=== PATIENT | female | born 1960 | race Caucasian/White ===

== ENCOUNTER → 2023-12-13 13:56 | Outpatient (REF) | payer OTHER, SELFPAY | LOC: WDC 13:56 | PROVIDERS: ATTENDING PHYSICIAN Nurse Practitioner Family | DX: N63.20 Unspecified lump in the left breast, unspecified quadrant (principal); N63.21 Unspecified lump in the left breast, upper outer quadrant | CPT/HCPCS: 76642 ==

== ENCOUNTER → 2024-11-09 15:21 | Outpatient (REF) | payer OTHER, SELFPAY | LOC: RAD 15:21 | PROVIDERS: ATTENDING PHYSICIAN Nurse Practitioner Family | DX: R10.12 Left upper quadrant pain (principal) | CPT/HCPCS: 74177; Q9967 ==

== ENCOUNTER 2024-11-12 22:53 | Inpatient (IN) | payer OTHER, SELFPAY ==
[2024-11-12 17:49] VITALS: BP 103/57; BMI 27.8
[2024-11-12 18:00] VITALS: BP 108/39
--- NOTE | 2024-11-12 18:01 | ED.GENMED ---
History of Present Illness
<Jose Balderas PA-C - Last Filed: 11/15/24 08:10>
General
Chief Complaint: Bowel Problem
Source: patient
Exam Limitations: none
Time Seen by Provider: 11/12/24 17:41
History of Present Illness
History of Present Illness:
63-year-old female presents complaining of persistent left-sided abdominal pain. She had an outpatient CT scan performed of her abdomen 3 days ago and got notified today she had abnormal findings and was advised to come in. CT at that point showed
diverticulitis with 2 abscesses. Per EMS she was hypotensive and tachycardic on their arrival. She was given fluids. She notes overall fatigue but denies fevers or vomiting. The pain is on the left side of her abdomen and has been consistent.
She has had diverticular abscess in the past. She is not diabetic. No other complaints at this time
Past History
<Jose Balderas PA-C - Last Filed: 11/15/24 08:10>
Past History
ED Past Medical History: Asthma, GERD, HTN, Hypothyroidism, Other (Anemia), Other (Uterine fibroids, arthritis) and Other (Eczema)
ED Past Surgical History: Cholecystectomy, Gynecological (Fibroid removal), Tonsilectomy and Other (Lump abscess and breast, wisdom teeth removal)
Social History
Tobacco: Non-smoker
Alcohol: None
Drug: None
Personal:
Living: alone
Phy Exam
<Jose Balderas PA-C - Last Filed: 11/15/24 08:10>
Physical Exam
Physical Exam:
General: Well-appearing female no acute respiratory distress
HEENT: Normocephalic atraumatic neck is supple
Heart: Tachycardic but regular
Lungs: Clear no obvious wheeze
Abdomen is soft but tender to the left side of the abdomen no guarding
Extremities: No cyanosis
Sepsis
<Jose Balderas PA-C - Last Filed: 11/15/24 08:10>
Sepsis Screening
Sepsis Assessment: Sepsis
Sepsis Screen
Sepsis Screen: Sepsis
Date: 11/15/24
Time: 08:10
Course
<Jose Balderas PA-C - Last Filed: 11/15/24 08:10>
Orders/Labs/Results
Orders:
Orders
11/12/24 17:50
CT Abd/pel W Iv And Oral Contr Urgent
Comment:
Reason For Exam: left sided abdominal pain recent CT shows abscess
0.9% Sodium Chloride 1000 ml [Nss] 1,000 ml IV BOLUS
Iohexol [Omnipaque] See Protocol PO NOW STA
11/12/24 18:22
Complete Blood Count/With Diff Urgent
Comprehensive Metabolic Panel Urgent
Lactic Acid Q4H
Comment: CANCEL 2nd LACTIC ACID IF 1st LACTIC ACID IS LESS THAN 2
Blood Culture Q30M
ANGELINE Source: Blood/Venous
Specimen Description:
Blood Culture Q30M
ANGELINE Source: Blood/Venous
Specimen Description:
11/12/24 21:24
Piperacillin/Tazo 3.375 Gram [Zosyn] 3.375 gram in 50 ml IV NOW
11/12/24 21:25
0.9% Sodium Chloride 1000 ml [Nss] 1,000 ml IV BOLUS
11/12/24 21:26
Ketorolac [Toradol] 15 mg IV NOW STA
11/12/24 22:39
Admit/Transfer Patient As Directed
Co-Sign Provider:
Level of Care: Inpatient admission
Assign to:: IMU- Intermediate Care
Physician / Group: evie perry
Diagnosis: diverticultis
Reason for Hospitalization: diverticulitis
abscess
Expected length of stay greater than two midnights?: Yes
ELOS- Estimated Length of Stay in days: 3
I certify the patient meets the requirements for IP care: Yes
11/12/24 22:40
PRN Pain Medication Management As Directed
May give lesser potent ordered pain med per pt: Yes
preference::
Protocol:: Medication orders for pain may be administered in a
manner that supports deferring to patient preference
when the pt is:
- Requesting an ordered lesser potent pain medication.
Least to most potent pain medications are defined
as: acetaminophen < NSAID < tramadol < opioids
(morphine, oxycodone, hydromorphone).
- Requesting a lesser dose of the same medication IF
ORDERED.
- Requesting a less intrusive route of administration
if both routes are prescribed by the provider (PO <
IV).
11/12/24 22:41
Code Status As Directed
Resuscitation Status: Full Code
11/12/24 23:42
Lactic Acid Q4H
Comment: CANCEL 2nd LACTIC ACID IF 1st LACTIC ACID IS LESS THAN 2
11/13/24 00:23
0.9% Sodium Chloride 1000 ml [Nss] 1,000 ml IV 100 mls/hr
Albuterol [ProAIR HFA INHALER] 2 puff INH R Q6HPRN PRN
Bisacodyl [Dulcolax] 10 mg RECTAL [id number] PRN
Docusate W/Senna [Senokot-S] 1 tablet PO BIDPRN PRN
Lorazepam [Ativan] 0.25 mg IV Q8HPRN PRN
Polyethylene Glycol Powder [Miralax] 17 grams PO DAILYPRN PRN
11/13/24 00:23
ColoRectal Surgery Consult Routine
Consulting Provider: Vic Jett
Was physician already notified: Yes
Reason for consult: diverticulitis/abscess
Consult Notification Routine
Specialty to Notify: Colorectal Surgery
Date consulting provider notified: 11/13/24
Time consulting provider notified: 06:48
Notified:: Provider
Activity As Directed
Activity Level: As Tolerated
Venous Foot Pumps As Directed
Location: Bilateral feet
Vital Signs As Directed
Frequency: Per unit guidelines
DX Deep Vein Thrombosis Video Routine
11/13/24 04:27
Complete Blood Count/No Diff IN AM
11/13/24 Breakfast
NPO
Allow oral meds: Yes
Allow clear liquids: No
Cefepime HCl [Maxipime] 1,000 mg IV Q8H
Levothyroxine [Synthroid] 125 mcg PO DAILY @ 0600
MetroNIDAZOLE 500 MG/100 ML [Flagyl 500 mg] 100 ml IV Q8H
11/13/24 08:00
Montelukast Sodium [Singulair] 10 mg PO DAILY
Pantoprazole [Protonix IV] 40 mg IV DAILY
Abnormal Lab Results
11/12/24
18:22
WBC 34.2 H 10^3/uL
(4.8-10.8)
RBC 4.07 L 10^6/uL
(4.20-5.40)
Hgb 10.1 L g/dL
(12.0-16.0)
Hct 32.6 L %
(37.0-47.0)
MCV 80.1 L fL
(81.0-99.0)
MCH 24.8 L pg
(27.0-31.0)
MCHC 31.0 L g/dL
(33.0-37.0)
RDW 17.6 H %
(11.5-14.5)
Plt Count 562 H 10^3/uL
(130-400)
Abs Immat Gran (auto) 0.6 H 10^3/uL
(0-0.05)
Absolute Neuts (auto) 29.8 H 10^3/uL
(1.4-6.5)
Absolute Monos (auto) 1.9 H 10^3/uL
(0.1-0.6)
Immature Gran % 1.8 H %
(0-0.5)
Neutrophils % 87.2 H %
(42.2-75.2)
Lymphocytes % 5.0 L %
(20.5-51.1)
Carbon Dioxide 20 L mmol/L
(22-30)
BUN 31 H mg/dl
(7-17)
Creatinine 1.2 H mg/dL
(0.6-1.0)
Glucose 122 H mg/dl
(70-99)
Lactic Acid 2.5 H mmol/L
(0.7-2.0)
Total Bilirubin 1.4 H mg/dl
(0.2-1.3)
AST 192 H U/L
(14-36)
ALT 112 H U/L
(0-35)
Alkaline Phosphatase 271 H U/L
(38-126)
Total Protein 5.7 L g/dl
(6.3-8.2)
Albumin 2.8 L g/dl
(3.5-5.0)
11/12/24 18:22
11/12/24 18:22
Vital Signs
Initial and Last Documented VS:
Initial Vital Signs
Temp Pulse Resp BP Pulse Ox
98.0 F 106 15 103/57 95
11/12/24 17:49 11/12/24 17:49 11/12/24 17:49 11/12/24 17:49 11/12/24 17:49
Last Documented Vital Signs
Temp Pulse Resp BP Pulse Ox
98.5 F 99 13 112/69 97
11/15/24 04:43 11/15/24 06:00 11/15/24 06:00 11/15/24 04:32 11/14/24 19:23
<Vic Fu MD - Last Filed: 11/12/24 23:00>
Orders/Labs/Results
Orders:
Orders
11/12/24 17:50
CT Abd/pel W Iv And Oral Contr Urgent
Comment:
Reason For Exam: left sided abdominal pain recent CT shows abscess
0.9% Sodium Chloride 1000 ml [Nss] 1,000 ml IV BOLUS
Iohexol [Omnipaque] See Protocol PO NOW STA
11/12/24 18:22
Complete Blood Count/With Diff Urgent
Comprehensive Metabolic Panel Urgent
Lactic Acid Q4H
Comment: CANCEL 2nd LACTIC ACID IF 1st LACTIC ACID IS LESS THAN 2
Blood Culture Q30M
ANGELINE Source: Blood/Venous
Specimen Description:
Blood Culture Q30M
ANGELINE Source: Blood/Venous
Specimen Description:
11/12/24 21:24
Piperacillin/Tazo 3.375 Gram [Zosyn] 3.375 gram in 50 ml IV NOW
11/12/24 21:25
0.9% Sodium Chloride 1000 ml [Nss] 1,000 ml IV BOLUS
11/12/24 21:26
Ketorolac [Toradol] 15 mg IV NOW STA
11/12/24 22:39
Admit/Transfer Patient As Directed
Co-Sign Provider:
Level of Care: Inpatient admission
Assign to:: IMU- Intermediate Care
Physician / Group: evie perry
Diagnosis: diverticultis
Reason for Hospitalization: diverticulitis
abscess
Expected length of stay greater than two midnights?: Yes
ELOS- Estimated Length of Stay in days: 3
I certify the patient meets the requirements for IP care: Yes
11/12/24 22:40
PRN Pain Medication Management As Directed
May give lesser potent ordered pain med per pt: Yes
preference::
Protocol:: Medication orders for pain may be administered in a
manner that supports deferring to patient preference
when the pt is:
- Requesting an ordered lesser potent pain medication.
Least to most potent pain medications are defined
as: acetaminophen < NSAID < tramadol < opioids
(morphine, oxycodone, hydromorphone).
- Requesting a lesser dose of the same medication IF
ORDERED.
- Requesting a less intrusive route of administration
if both routes are prescribed by the provider (PO <
IV).
11/12/24 22:41
Code Status As Directed
Resuscitation Status: Full Code
11/12/24 23:42
Lactic Acid Q4H
Comment: CANCEL 2nd LACTIC ACID IF 1st LACTIC ACID IS LESS THAN 2
11/13/24 00:23
0.9% Sodium Chloride 1000 ml [Nss] 1,000 ml IV 100 mls/hr
Albuterol [ProAIR HFA INHALER] 2 puff INH R Q6HPRN PRN
Bisacodyl [Dulcolax] 10 mg RECTAL [id number] PRN
Docusate W/Senna [Senokot-S] 1 tablet PO BIDPRN PRN
Lorazepam [Ativan] 0.25 mg IV Q8HPRN PRN
Polyethylene Glycol Powder [Miralax] 17 grams PO DAILYPRN PRN
11/13/24 00:23
ColoRectal Surgery Consult Routine
Consulting Provider: Vic Jett
Was physician already notified: Yes
Reason for consult: diverticulitis/abscess
Consult Notification Routine
Specialty to Notify: Colorectal Surgery
Date consulting provider notified: 11/13/24
Time consulting provider notified: 06:48
Notified:: Provider
Activity As Directed
Activity Level: As Tolerated
Venous Foot Pumps As Directed
Location: Bilateral feet
Vital Signs As Directed
Frequency: Per unit guidelines
DX Deep Vein Thrombosis Video Routine
11/13/24 04:27
Complete Blood Count/No Diff IN AM
11/13/24 Breakfast
NPO
Allow oral meds: Yes
Allow clear liquids: No
Cefepime HCl [Maxipime] 1,000 mg IV Q8H
Levothyroxine [Synthroid] 125 mcg PO DAILY @ 0600
MetroNIDAZOLE 500 MG/100 ML [Flagyl 500 mg] 100 ml IV Q8H
11/13/24 08:00
Montelukast Sodium [Singulair] 10 mg PO DAILY
Pantoprazole [Protonix IV] 40 mg IV DAILY
Abnormal Lab Results
11/12/24
18:22
WBC 34.2 H 10^3/uL
(4.8-10.8)
RBC 4.07 L 10^6/uL
(4.20-5.40)
Hgb 10.1 L g/dL
(12.0-16.0)
Hct 32.6 L %
(37.0-47.0)
MCV 80.1 L fL
(81.0-99.0)
MCH 24.8 L pg
(27.0-31.0)
MCHC 31.0 L g/dL
(33.0-37.0)
RDW 17.6 H %
(11.5-14.5)
Plt Count 562 H 10^3/uL
(130-400)
Abs Immat Gran (auto) 0.6 H 10^3/uL
(0-0.05)
Absolute Neuts (auto) 29.8 H 10^3/uL
(1.4-6.5)
Absolute Monos (auto) 1.9 H 10^3/uL
(0.1-0.6)
Immature Gran % 1.8 H %
(0-0.5)
Neutrophils % 87.2 H %
(42.2-75.2)
Lymphocytes % 5.0 L %
(20.5-51.1)
Carbon Dioxide 20 L mmol/L
(22-30)
BUN 31 H mg/dl
(7-17)
Creatinine 1.2 H mg/dL
(0.6-1.0)
Glucose 122 H mg/dl
(70-99)
Lactic Acid 2.5 H mmol/L
(0.7-2.0)
Total Bilirubin 1.4 H mg/dl
(0.2-1.3)
AST 192 H U/L
(14-36)
ALT 112 H U/L
(0-35)
Alkaline Phosphatase 271 H U/L
(38-126)
Total Protein 5.7 L g/dl
(6.3-8.2)
Albumin 2.8 L g/dl
(3.5-5.0)
11/12/24 18:22
11/12/24 18:22
Vital Signs
Initial and Last Documented VS:
Initial Vital Signs
Temp Pulse Resp BP Pulse Ox
98.0 F 106 15 103/57 95
11/12/24 17:49 11/12/24 17:49 11/12/24 17:49 11/12/24 17:49 11/12/24 17:49
Last Documented Vital Signs
Temp Pulse Resp BP Pulse Ox
98.5 F 99 13 112/69 97
11/15/24 04:43 11/15/24 06:00 11/15/24 06:00 11/15/24 04:32 11/14/24 19:23
Noemilt;Jose Balderas PA-C - Last Filed: 11/15/24 08:10>
MDM/Problems Addressed
Differential Diagnosis Includes:
Persistent abdominal pain. Recent CT demonstrated likely 2 abscesses related to diverticular disease. Radiology requesting repeat CAT scan with oral contrast. Fluids ordered septic workup initiated.
<Jose Balderas PA-C - Last Filed: 11/15/24 08:10>
*Critical Care Note
Total Time (30-74mins, 75-104mins- exclusive of procedures): Not Applicable
<Jose Balderas PA-C - Last Filed: 11/15/24 08:10>
Update Note
Update Note:
White blood cell count 34,000. Extra fluids and Zosyn ordered. CT pending I anticipate admission
ED Attending Note
<Jose Balderas PA-C - Last Filed: 11/15/24 08:10>
-
Portions of this chart may have been created with voice recognition software.� Occasional wrong word or��sound alike� substitutions may have occurred due to the inherent limitations of voice recognition software.
<Vic Fu MD - Last Filed: 11/12/24 23:00>
ED Attending Note
Patient seen and examined by attending physician: Yes
I performed the substantive portion of visit, reviewed & personally made and approve the management plan that is documented in note by myself or JOHANA.: Yes
ED Attending Note:
Progressive lower abdominal pain over about a week. Outpatient CT done 3 days ago was suspicious for diverticulitis with local perforation. Sent in today for reevaluation and repeat CT scan. Pain is progress. Very over the weekend. Poor p.o.
intake. Presented hypotensive. Currently complaining of moderate left lower quadrant pain.
Clinically patient appears well at this time. She is stable vital signs. She is not hypotensive. She is not tachycardic or tachypneic. She is in no respiratory distress. She is warm and dry and perfusing well. She has mild reproducible left
lower quadrant tenderness. CT scan report is as written. Concern for diverticulitis significant with perforations abscess and fistula formation.
Patient given fluids antibiotics referred to hospitalist. Colorectal also notified with report to them.
Discharge Plan
Departure
Patient Disposition: Admit
Date of Disposition: 11/12/24
Time of Disposition: 22:06
Presentation/result/management discussed w/ accepting MD/DO: Hospitalist
Discharge Problem:
Sepsis, Diverticulitis
Interventions
Interventions:
*Risk Screen - Suicide Last Done: 11/13/24 00:10
*General Assessment Last Done: 11/12/24 17:49
*Neglect/Abuse Screening Last Done: 11/12/24 17:49
*ED- Fall Risk Assessment Last Done: 11/12/24 17:49
*ED COVID-19 Vaccine History Last Done: 11/13/24 00:10
*Nursing Disposition Last Done: 11/13/24 00:13
OG-Hqlyot-Bpggmxhmlw Assessment Last Done: 11/12/24 18:03
Discharge Date and Time
Discharge Date/Time: 11/13/24 00:17
[2024-11-12] MEDS: NSS 1000 IV ×2 (18:23→23:39)
[2024-11-12] MEDS: OMNIPAQUE 50 ML PO (18:33)
[2024-11-12 18:49] LABS: Lactic Acid 2.5 mmol/L (0.7-2.0)
[2024-11-12 18:55] LABS: ALT (SGPT) 112 U/L (0-35); AST (SGOT) 192 U/L (14-36); Albumin 2.8 g/dl (3.5-5.0); Alkaline Phosphatase 271 U/L (38-126); Blood Urea Nitrogen 31 mg/dl (7-17); Calcium 8.7 mg/dl (8.4-10.2); Carbon Dioxide 20 mmol/L (22-30); Chloride 102 mmol/L (98-107); Estimated Creatinine Clearance 46 ml/min; Glucose 122 mg/dl (70-99); Potassium 3.9 mmol/L (3.5-5.1); Sodium 135 mmol/L (135-145); Total Bilirubin 1.4 mg/dl (0.2-1.3); Total Protein 5.7 g/dl (6.3-8.2); eGFR 50.86
[2024-11-12 19:11] LABS: % Basophils 0.3 % (0-2); % Eosinophils 0.1 % (0-6); % Immature Granulocytes 1.8 % (0-0.5); % Monocytes 5.6 % (1.7-9.3); % Neutrophils 87.2 % (42.2-75.2); Absolute Basophils 0.1 10^3/uL (0-0.2); Absolute Immature Granulocytes 0.6 10^3/uL (0-0.05); Absolute Lymphocytes 1.7 10^3/uL (1.2-3.4); Absolute Monocytes 1.9 10^3/uL (0.1-0.6); Absolute Neutrophils 29.8 10^3/uL (1.4-6.5); Hematocrit 32.6 % (37.0-47.0); Hemoglobin 10.1 g/dL (12.0-16.0); Mean Corpuscular Hgb 24.8 pg (27.0-31.0); Mean Corpuscular Volume 80.1 fL (81.0-99.0); Mean Platelet Volume 8.6 fL (7.4-10.4); Nucleated Red Blood Cells % 0 %; Platelet Count 562 10^3/uL (130-400); Red Blood Cell Count 4.07 10^6/uL (4.20-5.40); Red Cell Dist. Width 17.6 % (11.5-14.5); White Blood Cell Count 34.2 10^3/uL (4.8-10.8)
[2024-11-12 19:34] VITALS: BP 103/64
[2024-11-12] MEDS: ZOSYN 50 IV (22:00)
[2024-11-12] MEDS: TORADOL 15 MG IV (22:00)
[2024-11-12 22:04] VITALS: BP 135/71
--- NOTE | 2024-11-12 22:19 | HPS.HSE ---
Family Physician
-
Family Physician: EDWARDO Calle
Chief Complaint
-
left sided abdominal pain
History of Present Illness
63-year-old female with past medical history for asthma, GERD, hypertension, hypothyroidism, uterine fibroids, colon abscess presents complaining of persistent left-sided abdominal pain for past 2.5 weeks. patient saw PCP on Tuesday. her labs that
week was abnormal. She had an outpatient CT scan performed of her abdomen 3 days ago and got notified today she had abnormal findings and was advised to come in. CT at that point showed diverticulitis with 2 abscesses. patient stated, she was very
lightheaded and dizzy over the weekends. she was very week. Enroute to the hospital, she was hypotensive. patient denied fever, chills, chest pain,sob. denied WATSON,dizzy or syncope.denied n/v/d. denied dysuria or hematuria.
CT with h diverticulosis. Findings highly suspicious for at least one large abnormal fluid collection/abscess in the anterior left abdomen, cannot exclude at least one additional smaller abscess. No intestinal obstruction or free air.
Patient received a Toradol, normal saline, Zosyn in ER. Blood culture sent from ER. Admitted for further management.
Medical History
Past Medical History
Past Medical History: Reports Other
Additional Past Medical History:
Asthma
Osteoarthritis
Hypertension
Hyperlipidemia
Hypothyroidism
Anemia
Severe obesity
GERD anxiety
GERD
Thrombocytosis
Leiomyoma
Hepatic lesion
Sinus tachycardia
Hypothyroidism
Diverticulitis
Coloenteric fistula
Past Surgical History: Reports Other
Additional Past Surgical History:
Tonsillectomy
Uterine fibroid surgery
Cholecystectomy
[place] teeth extraction
Social History
Tobacco: Non-smoker
Alcohol: None
Drug: None
Personal: Single
Living: Alone
Employment: Retired
Family History
Family History: Not pertinent
Allergies / Home Medications
Allergies reflects when Allergies were last updated in [employer].
Home Medications with original date entered in [employer]
Allergy/Medication List:
Allergies
Allergy/AdvReac Type Severity Reaction Status Date / Time
codeine Allergy Nausea / Verified 03/21/19 15:17
Vomiting
Latex, Natural Rubber Allergy Tongue Verified 03/21/19 15:17
Swelling
Home Medications
levothyroxine 125 mcg tablet (Synthroid) 125 mcg PO DAILY 01/01/19
losartan 50 mg tablet 50 mg PO DAILY 01/01/19
acetaminophen 500 mg tablet (Tylenol Extra Strength) 1,000 mg PO TIDPRN PRN mild pain/fever 01/30/19
tramadol 50 mg tablet 50 mg PO Q8HPRN PRN arthritis pain 01/30/19
albuterol sulfate 90 mcg/actuation aerosol inhaler 2 puff inhalation R Q6HPRN PRN sob 11/12/24
alprazolam 0.5 mg tablet 0.5 mg PO DAILYPRN PRN anxiety 11/12/24
atorvastatin 80 mg tablet 80 mg PO DAILY 11/12/24
cholecalciferol (vitamin D3) 25 mcg (1,000 unit) tablet (Vitamin D3) 25 mcg PO DAILY 11/12/24
diclofenac sodium 75 mg tablet,delayed release 75 mg PO DAILY 11/12/24
montelukast 10 mg tablet 10 mg PO DAILY 11/12/24
omeprazole magnesium 20 mg tablet,delayed release (Prilosec OTC) 20 mg PO HS 11/12/24
Review of Systems
-
Constitutional: Reports No Symptoms
EENT: Reports No Symptoms
Respiratory: Reports No Symptoms
Cardiac: Reports No Symptoms
Abdomen/GI: Reports Other (Left-sided abdomen pain)
: Reports No Symptoms
Musculoskeletal: Reports No Symptoms
Skin: Reports No Symptoms
Neurological: Reports No Symptoms
Endocrine: Reports No Symptoms
Hematologic/Lymphatic: Reports No Symptoms
Psych: Reports No Symptoms
Physical Exam
Vital Signs
Vital Signs
Temp Pulse Resp BP Pulse Ox
98.0 F 97 13 103/64 97
11/12/24 17:49 11/12/24 19:34 11/12/24 19:34 11/12/24 19:34 11/12/24 18:00
Physical Exam
General: Well Developed, Well Nourished and No Apparent Distress
HEENT: NormoCephalic, Moist mucous membranes and Atraumatic
Respiratory: Clear
Cardiac: S1/S2 and Regular Rhythm; No Murmur or Rub
GI: Soft, Non Distended, Normal Bowel Sounds and Tender; No Organomegaly
Rectal: Deferred by Provider
Musculoskeletal: No Clubbing, No Cyanosis and No Edema
Skin: No Rash
Neuro: AO x 3 and Nonfocal/grossly intact
Psych: Calm
Laboratory Results
-
11/12/24 18:22
11/12/24 18:22
Laboratory Results
Lactic Acid 2.5 mmol/L (0.7-2.0) H 11/12/24 18:22
Total Bilirubin 1.4 mg/dl (0.2-1.3) H 11/12/24 18:22
AST 192 U/L (14-36) H 11/12/24 18:22
ALT 112 U/L (0-35) H 11/12/24 18:22
Alkaline Phosphatase 271 U/L (38-126) H 11/12/24 18:22
Data Reviewed
-
CT Scan: Report Reviewed by me
Lab Data: Labs Reviewed by me
Impression/Plan
-
# Sepsis secondary to diverticulitis/perforation
-WBCs 33K, lactic 2.5, bili 1.4, AST 192, ALT 112
-Zosyn continued
- fluids continued for hydration
-Keep patient n.p.o.
-CT abdomen 11/09 with impression of thickening of the wall of the descending colon with diverticulosis. Findings highly suspicious for at least one large abnormal fluid collection/abscess in the anterior left abdomen, cannot exclude at least one
additional smaller abscess. No intestinal obstruction or free air.
-Repeat CT from today with the impression of Significant abnormality involving the mid to distal transverse colon, splenic flexure, and descending colon. Findings likely represent diverticulitis with focal areas of contained perforation. In the
anterior left upper quadrant, there is a focal extraluminal collection, predominantly air with a thickened wall, which also contains a small amount of contrast, compatible with contained collection from localized perforation.There are also small
foci of extraluminal air along the superior margin of the transverse colon.Best seen on coronal images, and the left lower abdomen upper pelvis, there appear to be tracts extending between loops of the descending colon, suggesting colon to colon
fistulous tracts.No evidence for free intraperitoneal air underneath the hemidiaphragms.Small amount of fluid in the left paracolic gutter, measurements given above. Superimposed infection of this paracolic collection cannot be excluded.Severe fatty
infiltration of the pancreas.
-Blood culture sent from ER
-iv cefepime and Flagyl continued
-Colorectal consulted
# Anemia of chronic disease
-Hemoglobin stable at 10.1
-No active bleeding
-Continue to monitor
# Acute kidney injury likely dehydration
-Creatinine 1.2
-Fluids continued
-BMP in a.m.
#essential HTN
-hypotensive on arrival
-held losartan due to MYRON
-ctm
#Hypothyroidism: Synthroid
#GERD
-PPI continued
#Asthma: stable
-Noted acute exacerbation
-Nebs from home continued
-Singular continued
# Anxiety
-Alprazolam continued
# Hyperlipidemia
-Statin continued
# History for osteoarthritis
-Patient on diclofenac and tramadol
*DVT prophylaxis
SCDs.
# CODE STATUS
-Full code
[2024-11-12 23:00] VITALS: BP 124/64
--- NOTE | 2024-11-12 23:02 | W.PN.UPDATE ---
Update Note
Progress Note Update
This note serves as an addendum to the H&P by crime laboratory analyst JOHANA
Juhi KIARA
HPI
63F bib EMS HX GERD, HTN, Hypothyroidism, Anemia, HX Sigmoid inflammation with fistula to the small bowel seen at ER:
- pw persistent left-sided abdominal pain and constant
- outpatient CT scan performed of her abdomen 3 days ago and notified today about abnormal findings sent t ER
- CT at that point showed diverticulitis with 2 abscesses.
- reports fatigue but denies fevers or vomiting.
HX diverticular abscess in the past.
Per EMS
- hypotensive and tachycardic on their arrival.
- IVF given
PHX; as above
VSS
11/12/24
17:49
Temp 98.0 F
Pulse 106
Blood pressure 103/57
SaO2 95
Oxygen Mode of Delivery Room air
PE
Gen: not toxic
HEENT: anicteric , plae complexion
Neck: supple
Lungs: CTA
Cor: RRR S1 S2
Abdomen: full abdomen , LLQ tenderness
PROGRAM COORDINATOR FOR [employer]: AAO3 , NFND
MS: no edema
Psych: nl mood affect
03/18/19 11/12/24
05:38 18:22
WBC 34.2 H
Hgb 10.1 L
Plt Count 562 H
Carbon Dioxide 20 L
BUN 31 H
Creatinine 0.8 1.2 H
eGFR 50.86
Total Bilirubin 1.4 H
AST 192 H
ALT 112 H
Alkaline Phosphatase 271 H
Total Protein 5.7 L
Albumin 2.8 L
11/12/24 CT Abd/pel W Iv And Oral Contr
- Significant abnormality involving the mid to distal transverse colon, splenic flexure, and descending colon.
- Findings likely represent diverticulitis with focal areas of contained perforation. In the anterior left upper quadrant, there is a focal extraluminal collection, predominantly air with a thickened wall, which also contains a small amount of
contrast, compatible with contained collection from localized perforation.
- There are also small foci of extraluminal air along the superior margin of the transverse colon.
- Best seen on coronal images, and the left lower abdomen upper pelvis, there appear to be tracts extending between loops of the descending colon, suggesting colon to colon fistulous tracts.
- No evidence for free intraperitoneal air underneath the hemidiaphragms.
- Small amount of fluid in the left paracolic gutter, measurements given above. Superimposed infection of this paracolic collection cannot be excluded.
- Severe fatty infiltration of the pancreas.
11/09/24 CT AP W Iv Cont
- Limited evaluation of distal half of large bowel as well as result of lack of oral contrast opacification.
- Thickening of the wall of the descending colon with diverticulosis.
- Findings highly suspicious for at least one large abnormal fluid collection/abscess in the anterior left abdomen, cannot exclude at least one additional smaller abscess. No intestinal obstruction or free air.
Findings discussed by telephone with Zuly Marin MD upon interpretation at 0955 hours on November 12, 2024 and findings also discussed by telephone with Tate Huber PA-C in the emergency department at approximately 0958 hours on November 12, 2024.
Last hospitalist admission: 03/16/2019 - 03/18/2019
DC DX: Sigmoid inflammation with fistula to the small bowel.
ASSESSMENT & PLAN
Sepsis due to complicated diverticulitis with focal areas of contained perforation and colon to colon fistulous tracts.
Hypotensive ( 103/56) upon admission
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
- Repeat CT AP with IV PO contrast revied as above
- start IV CFP and Metronidazole in place of Zosyn
- NPO except Po Meds and IVF NS @ 80/H
- PRN Narcotic analgesia
- IV Zofran PRN
- DC Diclofenac daily
- CRS consulted
MYRON suspect due to sepsis
- IVF and f/u Cr
Abnormal LFTS suspect AILI due to sepsis m
- f/u LFTs
Benign HTN
- Hold Losartan
Hypothyroid
- c/w LT4
Anxiety/ Insomnia
- on Xanax PRN
- add IV Ativan 0.25 g q8H prn
DVT Px: SCD
Ful code
[facility]
[2024-11-13] VITALS (11 sets, daily range): BP systolic 96–126; BP diastolic 56–77; BMI 28.0; BMI 28.3
[2024-11-13 00:01] LABS: Lactic Acid 0.7 mmol/L (0.7-2.0)
--- NOTE | 2024-11-13 00:49 | PTCARENOTE ---
Rec'd pt from ED RN. Pt able to stand/pivot from stretcher to bed with assistx1. AAOx3, c/o pain that originates in LUQ of abdomen and radiates towards the middle of abdomen. Pt oriented to room, call vergara system, safety measures. Awaiting pharmacy
verification of medication orders. Care ongoing.
[2024-11-13] MEDS: OFIRMEV 100 IV (01:09)
[2024-11-13] MEDS: NSS 1000 IV ×3 (01:11→21:04)
[2024-11-13] MEDS: MORPHINE SULFATE 4 MG IV ×4 (01:50→21:03)
[2024-11-13 04:49] LABS: Hematocrit 25.8 % (37.0-47.0); Hemoglobin 8.3 g/dL (12.0-16.0); Mean Corp Hgb Conc. 32.2 g/dL (33.0-37.0); Mean Corpuscular Hgb 25.5 pg (27.0-31.0); Mean Corpuscular Volume 79.4 fL (81.0-99.0); Mean Platelet Volume 8.6 fL (7.4-10.4); Platelet Count 489 10^3/uL (130-400); Red Blood Cell Count 3.25 10^6/uL (4.20-5.40); Red Cell Dist. Width 17.6 % (11.5-14.5); White Blood Cell Count 21.4 10^3/uL (4.8-10.8)
[2024-11-13] MEDS: MAXIPIME 1000 MG IV ×3 (05:19→21:04)
[2024-11-13] MEDS: FLAGYL 500 MG 100 IV ×3 (05:19→21:04)
[2024-11-13] MEDS: STERILE WATER FOR INJECTION 10 ML IV ×3 (05:19→21:04)
[2024-11-13] MEDS: SYNTHROID 125 MCG PO (05:19)
[2024-11-13 05:24] LABS: ALT (SGPT) 138 U/L (0-35); AST (SGOT) 169 U/L (14-36); Alkaline Phosphatase 230 U/L (38-126); Blood Urea Nitrogen 29 mg/dl (7-17); Carbon Dioxide 21 mmol/L (22-30); Chloride 102 mmol/L (98-107); Direct Bilirubin 0.7 mg/dl (0.0-0.4); Estimated Creatinine Clearance 42 ml/min; Glucose 80 mg/dl (70-99); Potassium 3.8 mmol/L (3.5-5.1); Sodium 132 mmol/L (135-145); Total Bilirubin 1.1 mg/dl (0.2-1.3); Total Protein 4.6 g/dl (6.3-8.2); eGFR 46.21
[2024-11-13] MEDS: ZOFRAN 4 MG IV (06:20)
--- NOTE | 2024-11-13 06:24 | PTCARENOTE ---
Pt with sudden onset nausea. PRN zofran given per OCT. Pt denies additional symptoms at this time
[2024-11-13] MEDS: SINGULAIR PO (07:20)
--- NOTE | 2024-11-13 08:43 | W.PN.HOSP.TC ---
Today's Communication/Plan
-
see A/P
Assessment / Plan
Assessment / Plan
HPI: 63 yo F PMH GERD, HTN, Hypothyroidism, Anemia, h/o diverticular abscess, sigmoid inflammation with fistula to the small bowel; p/w persistent left-sided abdominal pain.
Her outpatient CT scan from 3 days [employer] noted diverticulitis with [address] AP from this admission 11/12:
Significant abnormality involving the mid to distal transverse colon, splenic flexure, and descending colon. Findings likely represent diverticulitis with focal areas of contained perforation. In the anterior left upper quadrant, there is a focal
extraluminal collection, predominantly air with a thickened wall, which also contains a small amount of contrast, compatible with contained collection from localized perforation.
There are also small foci of extraluminal air along the superior margin of the transverse colon.
Best seen on coronal images, and the left lower abdomen upper pelvis, there appear to be tracts extending between loops of the descending colon, suggesting colon to colon fistulous tracts.
No evidence for free intraperitoneal air underneath the hemidiaphragms.
Small amount of fluid in the left paracolic gutter, measurements given above. Superimposed infection of this paracolic collection cannot be excluded.
Severe fatty infiltration of the pancreas.
A/P:
# Sepsis POA 2/2 complicated diverticulitis with focal areas of contained perforation and colon to colon fistula tracts.
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
CT AP report as above
Cont Abx cefepime and flagyl
Keep NPO with IVF
Pain control with IV Morphine
IV Zofran PRN
CRS on board, timing of surgery TBD
GI consulted for possible crohn's eval
Pt is medically stable for intermediate risk procedure. Benefit of procedure would outweigh risk.
# MYRON suspect due to sepsis
SCr 1.3 today from baseline 0.8
Cont IVF
# Abnormal LFTS suspect related to current sepsis
f/u LFTs
# Benign HTN
Hold Losartan
BP stable off med currently
# Hypothyroidism
Cont Synthroid
# Anxiety/ Insomnia
IV Ativan 0.25 g q8H PRN
DVT Px: HSQ
Ful code
DW CRS
total time spent 51 min
Anticipated Discharge: > 48 hours
Subjective/Interval History
-
Date of Service: November 13, 2024
Objective Data
-
Labs:
Laboratory Results
11/13/24
04:27
WBC 21.4 H
Hgb 8.3 L
Hct 25.8 L
Plt Count 489 H
Sodium 132 L
Potassium 3.8
Chloride 102
Carbon Dioxide 21 L
BUN 29 H
Creatinine 1.3 H
Glucose 80
Calcium 8.0 L
Total Bilirubin 1.1
AST 169 H
ALT 138 H
Alkaline Phosphatase 230 H
Vital Signs:
Vital Signs
Temp Pulse Resp BP Pulse Ox
36.6 C 90 15 110/66 97
11/13/24 04:18 11/13/24 06:00 11/13/24 06:00 11/13/24 06:00 11/13/24 06:00
Review of Systems
-
All other systems: Reviewed and negative
Physical Exam
-
General: Well Developed, Well Nourished, No Apparent Distress, Comfortable and Conversant; Negative Respiratory Distress
HEENT: Normocephalic, Atraumatic, Nose Appears Normal and Ears Appear Normal; Negative Oxygen
Respiratory: Clear to Auscultation and Non Labored Respirations; Negative Accessory Resp Muscle Use
Cardiac: Regular Rhythm and S1/S2
GI: Soft, Nondistended, Normal Bowel Sounds and Tender
Skin: Warm and Dry
Neuro: Awake, Alert, Oriented and AO x 3
Psych: Calm and Intact Judgement/Insight
Data Reviewed
-
CT Scan: Report Reviewed by me
Labs: Labs Reviewed by me
[2024-11-13] MEDS: PROTONIX IV 40 MG IV (09:00)
[2024-11-13] MEDS: NSS (PRESERVATIVE FREE) 10 ML IV (09:00)
--- NOTE | 2024-11-13 11:35 | CON.GI ---
Consultation
-
Date/Time Consultation Performed: 11/13/24
Performing Provider: Tate Duggan MD
Reason for Consultation: abnormal CT scan
Medical History
Chief Complaint / HPI
Chief Complaint: abdominal pain
History of Present Illness:
The patient is a 63-year-old female with past medical history as noted presents with increasing abdominal pain. Over the past couple of weeks she has been noticing left upper quadrant discomfort. She had a CT scan as an outpatient that suggested
diverticulitis and leukocytosis, though had increasing symptoms which prompted currently emergency room Where she was found to have a white count of 34, and CT scan that showed significant abnormality from the distal transverse and descending colon,
likely diverticulitis with focal areas of contained perforation, with focal extraluminal collection which also contained a small mount of contrast and other small foci of extraluminal air. Over the winter she had norovirus though over the past 5
years has been feeling well with no significant GI symptoms. Her last colonoscopy in [address] Gonzalez showed diverticulosis and an area of erythema in the sigmoid colon, biopsies negative for inflammatory bowel disease. She is no family
history of inflammatory bowel disease or colon malignancy, and again otherwise have been feeling well. There was a question about an enterocolonic fistula in the past also related to her sigmoid colon though again has been feeling well over the
past several years with no other symptoms. She denies any fevers or chills eating up to admission. Overall she is feeling a bit better still with left upper quadrant pain though she is moving her bowels, denies any melena or hematochezia.
Past Medical History
Past Medical History: Other (Asthma Osteoarthritis Hypertension Hyperlipidemia Hypothyroidism Anemia Severe obesity GERD anxiety GERD Thrombocytosis Leiomyoma Hepatic lesion Sinus tachycardia Hypothyroidism Diverticulitis Coloenteric fistula)
Past Surgical History: Other (onsillectomy Uterine fibroid surgery Cholecystectomy [place] teeth extraction)
Social History
Tobacco: Non-Smoker
Alcohol: None
Family History
Family History: Reviewed & Not Pertinent
Allergies / Home Medications
Allergy/AdvReac Type Severity Reaction Status Date / Time
codeine Allergy Nausea / Verified 03/21/19 15:17
Vomiting
Latex, Natural Rubber Allergy Tongue Verified 03/21/19 15:17
Swelling
�Medication �Instructions �Recorded
levothyroxine 125 mcg tablet 125 mcg PO DAILY Thyroid 01/01/19
(Synthroid)
losartan 50 mg tablet 50 mg PO DAILY Blood Pressure 01/01/19
acetaminophen 500 mg tablet 1,000 mg PO TIDPRN PRN mild 01/30/19
(Tylenol Extra Strength) pain/fever
tramadol 50 mg tablet 50 mg PO Q8HPRN PRN arthritis pain 01/30/19
albuterol sulfate 90 mcg/actuation 2 puff inhalation R Q6HPRN PRN sob 11/12/24
aerosol inhaler
alprazolam 0.5 mg tablet 0.5 mg PO DAILYPRN PRN anxiety 11/12/24
atorvastatin 80 mg tablet 80 mg PO DAILY High Cholesterol 11/12/24
cholecalciferol (vitamin D3) 25 25 mcg PO DAILY Supplement 11/12/24
mcg (1,000 unit) tablet (Vitamin
D3)
diclofenac sodium 75 mg 75 mg PO DAILY Pain 11/12/24
tablet,delayed release
montelukast 10 mg tablet 10 mg PO DAILY Allergies 11/12/24
omeprazole magnesium 20 mg 20 mg PO HS Gastrointestinal Issue 11/12/24
tablet,delayed release (Prilosec
OTC)
Review of Systems
-
All other systems: A 12 pt ROS was Negative except as stated above in HPI
Vital Signs
Temp Pulse Resp BP Pulse Ox
98.0 F 89 10 96/56 93
11/13/24 11:16 11/13/24 10:00 11/13/24 10:00 11/13/24 10:00 11/13/24 10:00
Physical Exam
Exam
General: NAD
HEENT: MMM, anicteric, no lymphadenopathy
Heart: Regular, no murmurs
Lungs: CTA bilaterally
Abdomen: Few normal bowel sounds, surprisingly soft, moderate left upper quadrant tenderness, no rebound or guarding, no masses, bruits or ascites
Extremeties: no edema
Skin: no rashes
Results
WBC 21.4 10^3/uL (4.8-10.8) H 11/13/24 04:27
Hgb 8.3 g/dL (12.0-16.0) L 11/13/24 04:27
Hct 25.8 % (37.0-47.0) L 11/13/24 04:27
MCV 79.4 fL (81.0-99.0) L 11/13/24 04:27
Plt Count 489 10^3/uL (130-400) H 11/13/24 04:27
Absolute Neuts (auto) 29.8 10^3/uL (1.4-6.5) H 11/12/24 18:22
Sodium 132 mmol/L (135-145) L 11/13/24 04:27
Potassium 3.8 mmol/L (3.5-5.1) 11/13/24 04:27
Chloride 102 mmol/L (98-107) 11/13/24 04:27
Carbon Dioxide 21 mmol/L (22-30) L 11/13/24 04:27
BUN 29 mg/dl (7-17) H 11/13/24 04:27
Creatinine 1.3 mg/dL (0.6-1.0) H 11/13/24 04:27
Calcium 8.0 mg/dl (8.4-10.2) L 11/13/24 04:27
Total Bilirubin 1.1 mg/dl (0.2-1.3) 11/13/24 04:27
AST 169 U/L (14-36) H 11/13/24 04:27
ALT 138 U/L (0-35) H 11/13/24 04:27
Alkaline Phosphatase 230 U/L (38-126) H 11/13/24 04:27
Diagnostic Image Results:
IMPRESSION: Significant abnormality involving the mid to distal transverse colon, splenic flexure, and descending colon. Findings likely represent diverticulitis with focal areas of contained perforation. In the anterior left upper quadrant, there
is a focal extraluminal collection, predominantly air with a thickened wall, which also contains a small amount of contrast, compatible with contained collection from localized perforation.
There are also small foci of extraluminal air along the superior margin of the transverse colon.
Best seen on coronal images, and the left lower abdomen upper pelvis, there appear to be tracts extending between loops of the descending colon, suggesting colon to colon fistulous tracts.
No evidence for free intraperitoneal air underneath the hemidiaphragms.
Small amount of fluid in the left paracolic gutter, measurements given above. Superimposed infection of this paracolic collection cannot be excluded.
Severe fatty infiltration of the pancreas.
Prior GI Procedures:
EGD:
05/2022:
Findings:
The examined esophagus was normal. Biopsies were taken with a cold
forceps for histology.
The Z-line was regular and was found 35 cm from the incisors.
Localized minimal inflammation characterized by congestion (edema) and
erythema was found in the gastric antrum. Biopsies were taken with a
cold forceps for Helicobacter pylori testing.
No other significant abnormalities were identified in a careful
examination of the stomach.
The cardia and gastric fundus were normal on retroflexion.
The examined duodenum was normal. Biopsies for histology were taken with
a cold forceps for evaluation of celiac disease.
Colonoscopy:
05/2022:
Impression: - Mild diverticulosis in the sigmoid colon.
- Congested mucosa in the sigmoid colon. Biopsied.
Assessment / Plan
-
1. Abdominal pain: With markedly abnormal CT scan described above with leukocytosis, with symptoms smoldering over the past couple of weeks. I think clinically this is most consistent with complicated diverticulitis. She has been doing well over
the past 5 years, with no other suggestion of inflammatory bowel disease. Colonoscopy in 2021 did show an area of erythema, biopsies negative for inflammatory bowel disease, along with previous possible fistula in the past most commonly with
chronic diverticular disease. Again, clinically I think that Crohn's disease is much less likely given lack of other symptoms, diverticulitis in the past, lack of significant family history. At this point would continue supportive care,
antibiotics and management per colorectal surgery. She is surprisingly nontoxic-appearing and leukocytosis is improving.
At this point not much more to add from a GI standpoint. Will sign off for now, though please call back with any further questions.
-
-
Thank you for consultation and allowing me to participate in the patient's care. Please call the [facility] GI physician during the after hours with any questions or concerns.
--- NOTE | 2024-11-13 13:02 | CON.CRS ---
Consultation
-
Reason for Consultation: abdominal pain
Medical History
-
History of Present Illness:
Patient is a 63-year-old female known to me from 2019 with a chief complaint of abdominal pain. It is mainly on the left side. It has been ongoing for 2-1/2 weeks or so. Denies fevers or chills. Denies emesis although had a bit of nausea at 1
point. Is having bowel function. BMs are nonbloody. She also admits to weight loss of perhaps 30 pounds over the last 6 months. Back in 2019 I saw her for low-grade diverticulitis symptoms with imaging showing evidence for an enterocolic fistula
between the small bowel and the sigmoid. Colonoscopy by me on 03/21/2019 showed diverticulosis of the descending and sigmoid area. A localized area of moderately erythematous mucosa was found in the mid sigmoid which I suspected to be the colonic
side of the fistula tract. A small benign polyp was found in the cecum that was removed. She had a more recent colonoscopy by Dr. Gonzalez on 06/21/2022. This showed sigmoid diverticulosis and and again an area of congested mucosa in the sigmoid.
This was biopsied. No other findings were noted. Biopsies were negative for inflammation or dysplasia.
The patient relates that she did okay after 2019 however has started having the above symptoms recently. She underwent an outpatient CT under the guidance of her primary care physician on 11/09/2024 with showed question of 2 abscesses on the
patient's left. She subsequently went to the ER and yesterday had a repeat CT. I did review the images and report. I reviewed the images with Dr. Donald of IR. The CT is fairly impressive in terms of inflammation. There is inflammation of the
distal transverse descending: Areas with evidence for fistulas between the structures. There is some contained extraluminal gas with a little bit of extraluminal extravasation of contrast consistent with contained perforation. There is no abscess
per se as this is mainly an air pocket. The pocket would be accessible via IR guidance. There is no evidence for obstruction. On my own review of the images with Dr. Deangelo Wayne, he admits that Crohn's is in the differential. Of note the
patient's white count was fairly high yesterday at 34. This is diminished with admission, IV fluids and IV antibiotics to 21. Hemoglobin today is 8.3. Electrolytes reveal an elevated creatinine today of 1.3 up from 1.2. She was initially
hypotensive in the ambulance on coming into the ER but has improved her blood pressure with light IV hydration. She is not on pressors. This morning she admits her abdominal pain is moderate but not severe.
Past Medical History
Past Medical History: Other (Coloenteric fistula; hypothyroidism; anxiety; hypertension; reflux; diverticulitis)
Past Surgical History: Other (Tonsillectomy; breast biopsy; uterine fibroid surgery; cholecystectomy; wisdom teeth)
Social History
Alcohol: Occasional
Living: Alone
Family History
Family History: Reviewed & Not Pertinent
Allergies / Home Medications
Allergy/AdvReac Type Severity Reaction Status Date / Time
codeine Allergy Nausea / Verified 03/21/19 15:17
Vomiting
Latex, Natural Rubber Allergy Tongue Verified 03/21/19 15:17
Swelling
�Medication �Instructions �Recorded �Confirmed �Type
levothyroxine 125 mcg tablet 125 mcg PO DAILY Thyroid 01/01/19 11/12/24 History
(Synthroid)
losartan 50 mg tablet 50 mg PO DAILY Blood Pressure 01/01/19 11/12/24 History
acetaminophen 500 mg tablet 1,000 mg PO TIDPRN PRN mild 01/30/19 11/12/24 History
(Tylenol Extra Strength) pain/fever
tramadol 50 mg tablet 50 mg PO Q8HPRN PRN arthritis pain 01/30/19 11/12/24 History
albuterol sulfate 90 mcg/actuation 2 puff inhalation R Q6HPRN PRN sob 11/12/24 11/12/24 History
aerosol inhaler
alprazolam 0.5 mg tablet 0.5 mg PO DAILYPRN PRN anxiety 11/12/24 11/12/24 History
atorvastatin 80 mg tablet 80 mg PO DAILY High Cholesterol 11/12/24 11/12/24 History
cholecalciferol (vitamin D3) 25 25 mcg PO DAILY Supplement 11/12/24 11/12/24 History
mcg (1,000 unit) tablet (Vitamin
D3)
diclofenac sodium 75 mg 75 mg PO DAILY Pain 11/12/24 11/12/24 History
tablet,delayed release
montelukast 10 mg tablet 10 mg PO DAILY Allergies 11/12/24 11/12/24 History
omeprazole magnesium 20 mg 20 mg PO HS Gastrointestinal Issue 11/12/24 11/12/24 History
tablet,delayed release (Prilosec
OTC)
Review of Systems
-
A 10 point review of systems was completed, and was negative except as per HPI.
Physical Exam
Vital Signs
Temp 98.0 F 11/13/24 11:16
Pulse 89 11/13/24 10:00
Resp Rate 10 11/13/24 10:00
Blood pressure 96/56 11/13/24 10:00
SaO2 93 11/13/24 10:00
11/12/24 11/13/24 11/14/24
06:59 06:59 06:59
Actual Weight 72.4 kg
Body Mass Index (BMI) 28.3
Lab Results / Allergies
11/13/24 04:27
11/13/24 04:27
WBC 21.4 10^3/uL (4.8-10.8) H 11/13/24 04:27
Hgb 8.3 g/dL (12.0-16.0) L 11/13/24 04:27
Hct 25.8 % (37.0-47.0) L 11/13/24 04:27
Plt Count 489 10^3/uL (130-400) H 11/13/24 04:27
Abs Immat Gran (auto) 0.6 10^3/uL (0-0.05) H 11/12/24 18:22
Neutrophils % 87.2 % (42.2-75.2) H 11/12/24 18:22
Allergy/AdvReac Type Severity Reaction Status Date / Time
codeine Allergy Nausea / Verified 03/21/19 15:17
Vomiting
Latex, Natural Rubber Allergy Tongue Verified 03/21/19 15:17
Swelling
Data Reviewed
-
CT Scan: Image Personally Visualized and interpreted, Report Reviewed by me, Discussed with Physician and Discussed with Patient
Labs: Labs Reviewed by me and Discussed with Patient
Assessment / Plan
-
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
perforation of the distal transverse colon as well as surrounding inflammatory changes and interloop fistulas. This is a complicated situation and surgery in this circumstance would not be without risk. Resection of portion of the transverse and
descending colon would be likely. Whether the sigmoid fistula to small bowel would need to be addressed at the same time is a good question. She is interestingly not very tender on exam given her findings on CT and is normotensive. Her white
count has improved a little bit overnight with management. I believe this patient will ultimately need surgical intervention, however I am compelled to hold off for now. Given her significant weight loss it might be reasonable to consider IV
nutrition in the form of TPN. Would keep her n.p.o. for now with IV fluids and antibiotics. Recommend GI input regarding the possibility of Crohn's disease. I will tentatively put her on the schedule for afternoon for surgery just in
case, however there may be grounds for sitting tight and managing her medically for a week and then imaging her again.
[2024-11-13] MEDS: HEPARIN 5000 UNITS SC (21:04)
--- NOTE | 2024-11-13 22:20 | PTCARENOTE ---
Pt oriented, able to make needs known. VSS on monitoring equipment. Pt c/o LUQ abdominal pain, medicated per OCT. Assessment as documented. Pt rings call vergara appropriately. Care ongoing.
[2024-11-14] VITALS (12 sets, daily range): BP systolic 98–135; BP diastolic 61–97; BMI 28.4
[2024-11-14] MEDS: MORPHINE SULFATE 4 MG IV ×3 (01:15→21:28)
--- NOTE | 2024-11-14 04:49 | DOWNTIME ---
There was a [employer] Downtime on 11/14/2024 from 0100 to 11/15/2023 at 0420 . Downtime documentation of patient's care, including medication administrations, has been reconciled in the electronic record per guidelines. Refer to the
patient's paper chart under the miscellaneous tab to see printed paper medication records and downtime forms.
[2024-11-14 05:17] LABS: % Basophils 0.2 % (0-2); % Eosinophils 0.6 % (0-6); % Immature Granulocytes 2.1 % (0-0.5); % Lymphocytes 13.4 % (20.5-51.1); % Monocytes 7.9 % (1.7-9.3); % Neutrophils 75.8 % (42.2-75.2); Absolute Eosinophils 0.1 10^3/uL (0-0.7); Absolute Immature Granulocytes 0.3 10^3/uL (0-0.05); Absolute Monocytes 1.2 10^3/uL (0.1-0.6); Hematocrit 26.7 % (37.0-47.0); Hemoglobin 8.4 g/dL (12.0-16.0); Mean Corp Hgb Conc. 31.5 g/dL (33.0-37.0); Mean Corpuscular Hgb 25.4 pg (27.0-31.0); Mean Corpuscular Volume 80.7 fL (81.0-99.0); Mean Platelet Volume 8.5 fL (7.4-10.4); Nucleated Red Blood Cells % 0 %; Platelet Count 482 10^3/uL (130-400); Red Blood Cell Count 3.31 10^6/uL (4.20-5.40); Red Cell Dist. Width 17.8 % (11.5-14.5); White Blood Cell Count 14.6 10^3/uL (4.8-10.8)
[2024-11-14] MEDS: FLAGYL 500 MG 100 IV (05:17)
[2024-11-14] MEDS: MAXIPIME 1000 MG IV (05:17)
[2024-11-14] MEDS: STERILE WATER FOR INJECTION 10 ML IV (05:17)
[2024-11-14 05:28] LABS: ALT (SGPT) 148 U/L (0-35); AST (SGOT) 116 U/L (14-36); Alkaline Phosphatase 210 U/L (38-126); Blood Urea Nitrogen 22 mg/dl (7-17); Calcium 8.3 mg/dl (8.4-10.2); Carbon Dioxide 18 mmol/L (22-30); Chloride 108 mmol/L (98-107); Estimated Creatinine Clearance 50 ml/min; Glucose 80 mg/dl (70-99); Magnesium 1.8 mg/dl (1.6-2.3); Potassium 3.9 mmol/L (3.5-5.1); Sodium 135 mmol/L (135-145); Total Bilirubin 0.6 mg/dl (0.2-1.3); Total Protein 4.7 g/dl (6.3-8.2); eGFR 56.46
[2024-11-14] MEDS: SYNTHROID 125 MCG PO (05:51)
--- NOTE | 2024-11-14 08:07 | W.PN.HOSP.TC ---
Today's Communication/Plan
-
see A/P
Assessment / Plan
Assessment / Plan
HPI: 63 yo F PMH GERD, HTN, Hypothyroidism, Anemia, h/o diverticular abscess, sigmoid inflammation with fistula to the small bowel; p/w persistent left-sided abdominal pain.
Her outpatient CT scan from 3 days [facility] noted diverticulitis with [address] AP from this admission 11/12:
Significant abnormality involving the mid to distal transverse colon, splenic flexure, and descending colon. Findings likely represent diverticulitis with focal areas of contained perforation. In the anterior left upper quadrant, there is a focal
extraluminal collection, predominantly air with a thickened wall, which also contains a small amount of contrast, compatible with contained collection from localized perforation.
There are also small foci of extraluminal air along the superior margin of the transverse colon.
Best seen on coronal images, and the left lower abdomen upper pelvis, there appear to be tracts extending between loops of the descending colon, suggesting colon to colon fistulous tracts.
No evidence for free intraperitoneal air underneath the hemidiaphragms.
Small amount of fluid in the left paracolic gutter, measurements given above. Superimposed infection of this paracolic collection cannot be excluded.
Severe fatty infiltration of the pancreas.
A/P:
# Sepsis POA 2/2 complicated diverticulitis with focal areas of contained perforation and colon to colon fistula tracts.
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
CT AP report as above
Cont Abx cefepime and flagyl
Keep NPO with IVF
Pain control with IV Morphine
IV Zofran PRN
CRS on board, surgery defer to CRS. However, it appears that pt is currently refusing surgery.
Pt is medically stable for intermediate-high risk procedure. Benefit of procedure would outweigh risk.
GI was consulted for possible crohn's eval, GI does NOT think pt has IBD
# MYRON suspect due to sepsis
SCr 1.3 -> 1.1 today, from baseline 0.8
Cont IVF
# Abnormal LFTS suspect related to current sepsis
LFT improving
f/u LFTs
# Benign HTN
Hold Losartan
BP stable off med currently
# Hypothyroidism
Cont Synthroid
# Anxiety/ Insomnia
IV Ativan 0.25 g q8H PRN
DVT Px: HSQ
Ful code
total time spent 51 min
Anticipated Discharge: > 48 hours
Subjective/Interval History
-
Date of Service: November 14, 2024
Objective Data
-
Labs:
Laboratory Results
11/14/24
04:38
WBC 14.6 H
Hgb 8.4 L
Hct 26.7 L
Plt Count 482 H
Sodium 135
Potassium 3.9
Chloride 108 H
Carbon Dioxide 18 L
BUN 22 H
Creatinine 1.1 H
Glucose 80
Calcium 8.3 L
Total Bilirubin 0.6
AST 116 H
ALT 148 H
Alkaline Phosphatase 210 H
Vital Signs:
Vital Signs
Temp Pulse Resp BP Pulse Ox
36.8 C 88 13 113/64 93
11/14/24 06:36 11/14/24 06:00 11/14/24 06:00 11/14/24 06:00 11/14/24 06:00
Review of Systems
-
All other systems: Reviewed and negative
Physical Exam
-
General: Well Developed, Well Nourished, No Apparent Distress, Comfortable and Conversant; Negative Respiratory Distress
HEENT: Normocephalic, Atraumatic, Nose Appears Normal and Ears Appear Normal; Negative Oxygen
Respiratory: Clear to Auscultation and Non Labored Respirations; Negative Accessory Resp Muscle Use
Cardiac: Regular Rhythm and S1/S2
GI: Soft, Nondistended, Normal Bowel Sounds and Tender (L abd quadrant )
Skin: Warm and Dry
Neuro: Awake, Alert, Oriented and AO x 3
Psych: Calm and Intact Judgement/Insight
Data Reviewed
-
CT Scan: Report Reviewed by me
Labs: Labs Reviewed by me
[2024-11-14] MEDS: NSS 1000 IV ×2 (09:16→16:21)
[2024-11-14] MEDS: HEPARIN 5000 UNITS SC ×2 (09:16→19:30)
[2024-11-14] MEDS: SINGULAIR 10 MG PO (09:17)
[2024-11-14] MEDS: PROTONIX IV 40 MG IV (09:17)
[2024-11-14] MEDS: NSS (PRESERVATIVE FREE) 10 ML IV (09:17)
--- NOTE | 2024-11-14 10:16 | W.PN.CRS1 ---
Today's Communication / Plan
-
clears
NPO midnight
IR tomorrow
Assessment/Plan
-
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
perforation of the distal transverse colon as well as surrounding inflammatory changes and interloop fistulas.
WBC 14.6 (21.4), vitals normal
-Start on clears today. NPO at midnight.
-Will consult IR for drainage of abscess. However, patient is not yet 'mentally ready' for this to be done today, so anticipate tomorrow.
-Continue IV antibiotics
-Stop laxatives
-Holding off on OR for now
Subjective Data
Subjective Data
Date of Service: November 14, 2024
Patient states she feels 'weak' but overall 'doesn't feel that bad'. She denies bloating. She was nauseous overnight but it was relieved with Compazine. She has not had a bowel movement today.
Objective Data
-
Vital Signs
Temp Pulse Resp BP Pulse Ox
98.2 F 88 13 113/64 93
11/14/24 06:36 11/14/24 06:00 11/14/24 06:00 11/14/24 06:00 11/14/24 06:00
Intake & Output
11/13/24 11/14/24 11/15/24
06:59 06:59 06:59
Other:
Number of approximated MODERATE 1
amounts of urine
Number of approximated LARGE 1
amounts of urine
How many times incontinent 1
MODERATE amount urine
Lab Results
11/14/24 04:38
11/14/24 04:38
Physical Exam
-
General: No Acute Distress and AOx3
Abdomen: Soft, Non Distended and Tender (LUQ, LLQ)
Skin: Warm and Dry
--- NOTE | 2024-11-14 10:59 | CM ---
CM met with pt bedside
Pt resides alone in a [place] with 1 DEBI
Pt is independent with all ADLs without AD, drives+
Pt has a WW for use if needed and a new working nebulizer
Denies hx with VN or SNF
Denies financial insecurities
PCP- Nelly Guillermo
Rx- [facility]
Plan for IR draining of abscess tomorrow
Surgery following with medical management currently
CM will remain available for dc planning
Brother/Tobin is emergency contact
No formal POA or ADs
Advanced directive packet provided, she noted she is not ready to complete or fill out at this time
Discharge Disposition- home, follow for possible VN needs
--- NOTE | 2024-11-14 11:45 | CON.ID ---
Consultation
-
Date/Time Consultation Requested: 11/14/2024 0814
Date/Time Consultation Performed: 11/14/2024 1141
Requesting Provider: Dr. Byrne
Performing Provider: Dr. Dias
Reason for Consultation: Abdominal abscess
Chief Complaint / Past History
History of Present Illness
63-year-old female with history of GERD, HTN, obesity being evaluated for colonic abscess. History is obtained from chart review, along with patient interview.
Patient reports a prior history of diverticulitis, and notes that approximately 5 years ago she was admitted for a colonic abscess (here at [facility]). She notes that the infection ultimately resolved and she has been stable for the past 5
years. She recalls having norovirus in August, but otherwise has been in her usual state of health until approximately 2-1/2 weeks ago when she developed left-sided abdominal discomfort. She initially thought that she had 'pulled a muscle', but
when the pain persisted she reached out to her PCP, and a CT scan was ordered. Once performed, the CT scan revealed diverticulitis in 2 suspected abscesses. She was then advised to come to the hospital for further evaluation.
At the present time, she feels okay, although generally weak. She notes that she has not had any decent oral intake for the past 5 days. Pain currently is described at 4/10 and mostly on the left side. She reports nausea and vomiting 2 days ago,
but none since. She denies any diarrhea. She notes that she had a low blood pressure on the way to the hospital, but it currently has improved. Workup in the ER revealed a marked leukocytosis of 34K, along with a low-grade transaminitis. CRP was
also found to be markedly elevated. The patient was started on empiric antibiotics, and Infectious Diseases is asked to comment upon further antimicrobial recommendations.
Past History
Additional Past Medical History:
Asthma
GERD
HTN
Hypothyroidism
Uterine fibroids
Diverticulitis
Additional Past Surgical History:
Uterine fibroid surgery
Cholecystectomy
Allergy History:
codeine Allergy (Verified 03/21/19 15:17)
Nausea / Vomiting
Latex, Natural Rubber Allergy (Verified 03/21/19 15:17)
Tongue Swelling
Medications Reviewed: Yes
Current Antibiotics:
Cefepime
Metronidazole
Social History
Tobacco: Non-Smoker
Alcohol: None
Drug: None
Personal: Single
Living: Alone
Employment: Retired
Family History
Family History: Not Pertinent
Review of Systems
Vital Signs
Temp Pulse Resp BP Pulse Ox
98.2 F 88 13 113/64 93
11/14/24 06:36 11/14/24 06:00 11/14/24 06:00 11/14/24 06:00 11/14/24 06:00
Physical Exam
Physical Exam
Constitutional: No Acute Distress, Comfortable and Non-toxic
Head: Normocephalic
Eyes: Pupils Equal, Pupils Round, No Conjunctival Hemorrhage and Sclera Anicteric
Oral: No Thrush and No Ulcers
Cardiovascular: Regular Rate and S1/S2; Negative S3/S4
Pulmonary: Clear; Negative Wheezes, Rales or Rhonchi
Gastrointestinal: Soft, Tender, Non Distended, Decreased Bowel Sounds, No Rebound and No Guarding
Genito-Urinary: Negative Phelan
Extremities: Negative Edema, Cyanosis or Erythema
Skin: Warm and Dry; Negative Rash
Neurological: Awake and Alert
Psychological: Calm
Lab / Diagnostic Study Results
11/14/24 04:38
11/14/24 04:38
Abs Immat Gran (auto) 0.3 10^3/uL (0-0.05) H 11/14/24 04:38
Absolute Neuts (auto) 11.0 10^3/uL (1.4-6.5) H 11/14/24 04:38
Absolute Lymphs (auto) 2.0 10^3/uL (1.2-3.4) 03/19/25 04:38
Absolute Monos (auto) 1.2 10^3/uL (0.1-0.6) H 11/14/24 04:38
Absolute Basos (auto) 0.0 10^3/uL (0-0.2) 11/14/24 04:38
Immature Gran % 2.1 % (0-0.5) H 11/14/24 04:38
Neutrophils % 75.8 % (42.2-75.2) H 11/14/24 04:38
Lymphocytes % 13.4 % (20.5-51.1) L 11/14/24 04:38
Monocytes % 7.9 % (1.7-9.3) 11/14/24 04:38
Eosinophils % 0.6 % (0-6) 11/14/24 04:38
Basophils % 0.2 % (0-2) 11/14/24 04:38
Lactic Acid 0.7 mmol/L (0.7-2.0) 11/12/24 23:42
C-Reactive Protein 199.50 mg/L (0.0-10.00) H 11/14/24 04:38
Microbiology Results
Micro:
11/12/24 18:22 Blood Culture - Preliminary
Blood/Venous No Growth in 24 hours- Final report to follow
11/12/24 18:22 Blood Culture - Preliminary
Blood/Venous No Growth in 24 hours- Final report to follow
Imaging:
11/12/2024 CT abdomen/pelvis with contrast: There is significant abnormality involving the mid to distal transverse colon, splenic flexure and descending colon. Findings likely represent diverticulitis with focal areas of contained perforation. In
the anterior left upper quadrant there is also a focal extraluminal collection predominantly air with a thickened wall which also contains a small amount of contrast compatible with a contained collection from localized perforation. Small foci of
extraluminal air are also noted along the superior margin of the transverse colon. On coronal imaging there appears to be a tract extending between loops of descending colon in the left lower abdomen and upper pelvis. This would suggest a colon to
colon fistulous tracts. Please see full dictation for additional detail.
Assessment / Plan
Acute diverticulitis
Abdominal abscess (suspected contained perforation)
Marked leukocytosis
Transaminitis
Elevated CRP
Asthma
GERD
HTN
Hypothyroidism
Uterine fibroids
Recommendations:
Consolidate antibiotic therapy to Zosyn.
Await IR drainage of collection. Patient currently reports that she would prefer procedure to be done tomorrow and understand risks of waiting.
Monitor white count and temperature curve.
Trend LFTs.
Await further culture data to guide antimicrobial selection and potential de-escalation.
Further recommendations as additional data is returned.
--- NOTE | 2024-11-14 12:55 | VATNOTE ---
Attempted IV restart at this time per unit request. Accessed the L accessory cephalic vein but was unable to thread the catheter. Pt declined a 2nd attempt, states she will 'just keep [her] arm straight.'
[2024-11-14] MEDS: ZOSYN 50 IV ×2 (14:09→19:30)
[2024-11-14] MEDS: STERILE WATER FOR INJECTION IV ×2 (14:09→19:35)
--- NOTE | 2024-11-14 21:36 | PTCARENOTE ---
Pt AAOx3, ST on CM. VSS. Pt ambulated to bathroom to void and perform hygiene care with assistx1. Pt c/o lightheadedness/diziness and was promptly assisted back to bed without incident. Pt reports feeling weak today. Hygiene care performed.
Continues with c/o pain, medicated per MAR. Call vergara within reach.
[2024-11-15] VITALS (11 sets, daily range): BP systolic 91–130; BP diastolic 56–92
[2024-11-15] MEDS: ZOSYN 50 IV ×4 (01:24→20:39)
[2024-11-15] MEDS: MORPHINE SULFATE 4 MG IV (03:23)
[2024-11-15] MEDS: ATIVAN 0.25 MG IV (03:43)
[2024-11-15] MEDS: ZOFRAN 4 MG IV ×2 (03:44→20:39)
[2024-11-15 04:22] LABS: % Basophils 0.2 % (0-2); % Eosinophils 0.8 % (0-6); % Immature Granulocytes 2.1 % (0-0.5); % Lymphocytes 19.9 % (20.5-51.1); Absolute Eosinophils 0.1 10^3/uL (0-0.7); Absolute Immature Granulocytes 0.3 10^3/uL (0-0.05); Absolute Lymphocytes 2.5 10^3/uL (1.2-3.4); Absolute Monocytes 1.3 10^3/uL (0.1-0.6); Absolute Neutrophils 8.4 10^3/uL (1.4-6.5); Hematocrit 26.4 % (37.0-47.0); Hemoglobin 8.3 g/dL (12.0-16.0); Mean Corp Hgb Conc. 31.4 g/dL (33.0-37.0); Mean Corpuscular Volume 79.5 fL (81.0-99.0); Mean Platelet Volume 8.6 fL (7.4-10.4); Nucleated Red Blood Cells % 0 %; Platelet Count 511 10^3/uL (130-400); Red Blood Cell Count 3.32 10^6/uL (4.20-5.40); Red Cell Dist. Width 17.9 % (11.5-14.5); White Blood Cell Count 12.6 10^3/uL (4.8-10.8)
[2024-11-15 04:40] LABS: ALT (SGPT) 115 U/L (0-35); AST (SGOT) 55 U/L (14-36); Alkaline Phosphatase 191 U/L (38-126); Blood Urea Nitrogen 15 mg/dl (7-17); Carbon Dioxide 18 mmol/L (22-30); Chloride 110 mmol/L (98-107); Estimated Creatinine Clearance 55 ml/min; Glucose 103 mg/dl (70-99); Potassium 3.6 mmol/L (3.5-5.1); Sodium 135 mmol/L (135-145); Total Bilirubin 0.7 mg/dl (0.2-1.3); Total Protein 4.5 g/dl (6.3-8.2); eGFR > 60.00
[2024-11-15] MEDS: STERILE WATER FOR INJECTION IV ×3 (05:14→20:39)
[2024-11-15] MEDS: SYNTHROID PO (05:14)
--- NOTE | 2024-11-15 08:00 | W.PN.HOSP.TC ---
Today's Communication/Plan
-
see A/P
Assessment / Plan
Assessment / Plan
HPI: 63 yo F PMH GERD, HTN, Hypothyroidism, Anemia, h/o diverticular abscess, sigmoid inflammation with fistula to the small bowel; p/w persistent left-sided abdominal pain.
Her outpatient CT scan from 3 days [facility] noted diverticulitis with [address] AP from this admission 11/12:
Significant abnormality involving the mid to distal transverse colon, splenic flexure, and descending colon. Findings likely represent diverticulitis with focal areas of contained perforation. In the anterior left upper quadrant, there is a focal
extraluminal collection, predominantly air with a thickened wall, which also contains a small amount of contrast, compatible with contained collection from localized perforation.
There are also small foci of extraluminal air along the superior margin of the transverse colon.
Best seen on coronal images, and the left lower abdomen upper pelvis, there appear to be tracts extending between loops of the descending colon, suggesting colon to colon fistulous tracts.
No evidence for free intraperitoneal air underneath the hemidiaphragms.
Small amount of fluid in the left paracolic gutter, measurements given above. Superimposed infection of this paracolic collection cannot be excluded.
Severe fatty infiltration of the pancreas.
A/P:
# Sepsis POA 2/2 complicated diverticulitis with focal areas of contained perforation and colon to colon fistula tracts.
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
CT AP report as above
Abx cefepime and flagyl consolidated to Zosyn
Keep NPO with IVF
Pain control with IV Morphine
IV Zofran PRN
CRS on board, surgery deferred currently, it appears that pt is refusing surgery anyway.
IR CS for LUQ drainage
GI was consulted for possible crohn's eval, GI does NOT think pt has IBD
# MYRON suspect due to sepsis
SCr 1.3 -> 1.0 today, from baseline 0.8
Cont IVF
# Abnormal LFTS suspect related to current sepsis
LFT improving
f/u LFTs
# Benign HTN
Hold Losartan
BP stable off med currently
# Hypothyroidism
Cont Synthroid
# Anxiety/ Insomnia
IV Ativan 0.25 g q8H PRN
DVT Px: HSQ
Ful code
Anticipated Discharge: > 48 hours
Subjective/Interval History
-
Date of Service: November 15, 2024
Objective Data
-
Labs:
Laboratory Results
11/15/24 11/15/24
03:26 07:47
WBC 12.6 H
Hgb 8.3 L
Hct 26.4 L
Plt Count 511 H
PT Pending
INR Pending
Sodium 135
Potassium 3.6
Chloride 110 H
Carbon Dioxide 18 L
BUN 15
Creatinine 1.0
Glucose 103 H
Calcium 8.0 L
Total Bilirubin 0.7
AST 55 H
ALT 115 H
Alkaline Phosphatase 191 H
Vital Signs:
Vital Signs
Temp Pulse Resp BP Pulse Ox
36.9 C 99 13 112/69 97
11/15/24 04:43 11/15/24 06:00 11/15/24 06:00 11/15/24 04:32 11/14/24 19:23
I&O
11/14/24 11/15/24 11/16/24
06:59 06:59 06:59
Intake Total 1869
Balance 1869
Review of Systems
-
All other systems: Reviewed and negative
Physical Exam
-
General: Well Developed, Well Nourished, No Apparent Distress, Comfortable and Conversant; Negative Respiratory Distress
HEENT: Normocephalic, Atraumatic, Nose Appears Normal and Ears Appear Normal; Negative Oxygen
Respiratory: Clear to Auscultation and Non Labored Respirations; Negative Accessory Resp Muscle Use
Cardiac: Regular Rhythm and S1/S2
GI: Soft, Nondistended, Normal Bowel Sounds and Tender (L abd quadrant )
Skin: Warm and Dry
Neuro: Awake, Alert, Oriented and AO x 3
Psych: Calm and Intact Judgement/Insight
Data Reviewed
-
CT Scan: Report Reviewed by me
Labs: Labs Reviewed by me
--- NOTE | 2024-11-15 08:06 | W.PN.CRS1 ---
Today's Communication / Plan
-
fulls
cancel IR drain
follow wbc
Assessment/Plan
-
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
perforation of the distal transverse colon as well as surrounding inflammatory changes and interloop fistulas.
WBC 12.6 (14.6), vitals normal
-Advance to fulls
-Will hold on IR drain today - WBC improving
-Continue IV antibiotics
-Stop all laxatives
-Holding off on OR for now
-Eventual re-imaging
Subjective Data
Subjective Data
Date of Service: November 15, 2024
Patient states she ate clears yesterday. She is very hungry. She has no bowel function yet. Her pain is less. She was nauseous but it resolved.
Objective Data
-
Vital Signs
Temp Pulse Resp BP Pulse Ox
98.5 F 99 13 112/69 97
11/15/24 04:43 11/15/24 06:00 11/15/24 06:00 11/15/24 04:32 11/14/24 19:23
Intake & Output
11/14/24 11/15/24 11/16/24
06:59 06:59 06:59
Intake Total 1869
Balance 1869
Intake:
Oral fluids 720 / 720
IV fluids (Total) 1100 / 1100
IV piggybacks 50 / 50
Other:
Number of approximated MODERATE 1
amounts of urine
Number of approximated LARGE 1
amounts of urine
How many times incontinent 1
MODERATE amount urine
Lab Results
11/15/24 03:26
11/15/24 03:26
Physical Exam
-
General: No Acute Distress and AOx3
Abdomen: Soft, Non Distended and Tender (LUQ - mild/moderate, improved)
Skin: Warm and Dry
[2024-11-15] MEDS: NSS 1000 IV ×2 (08:56→20:56)
[2024-11-15] MEDS: HEPARIN 5000 UNITS SC ×2 (08:58→20:38)
[2024-11-15] MEDS: NSS (PRESERVATIVE FREE) 10 ML IV (08:58)
[2024-11-15] MEDS: PROTONIX IV 40 MG IV (08:58)
[2024-11-15] MEDS: SINGULAIR 10 MG PO (08:59)
[2024-11-15] MEDS: MORPHINE SULFATE 2 MG IV ×3 (11:51→22:55)
--- NOTE | 2024-11-15 12:57 | PTCARENOTE ---
Pt presents as assessed. Aox3, very pleasant. NSR on tele monitor. IR procedure canceled, pt tolerating full liquids at this time. Medicated with PRN Morphine with good effect, see MAR. IVF infusing as ordered. Stool studies collected and sent.
Ringing appropriately; call vergara within reach.
--- NOTE | 2024-11-15 16:05 | W.PN.ID1 ---
Date of Service
Date of Service: November 15, 2024
Today's Communication
Continue antibiotics.
Assessment / Plan
Acute diverticulitis
Abdominal abscess (suspected contained perforation)
Marked leukocytosis
Transaminitis
Elevated CRP
Asthma
GERD
HTN
Hypothyroidism
Uterine fibroids
Recommendations:
Continue Zosyn.
IR drainage has been placed on hold for the present.
Monitor white count and temperature curve.
Trend LFTs.
Await further culture data to potentially guide antimicrobial selection and potential de-escalation.
Further recommendations as additional data is returned.
����������������������������������������������������������
Chief Complaint
-: Other (Diverticular abscess)
Subjective / Review of Systems
Review of Systems: No Fever, No Chills, Abdominal Pain, No Nausea and Diarrhea
Vital Signs / Physical Exam
Vital Signs
Vital Signs
Temp Pulse Resp BP Pulse Ox
98.2 F 96 25 127/57 96
11/15/24 11:00 11/15/24 14:00 11/15/24 14:00 11/15/24 14:00 11/15/24 12:41
Physical Exam
Constitutional: No Acute Distress, Comfortable and Non-toxic
Cardiovascular: Regular Rate
Pulmonary: Non Labored; Negative Wheezes, Rales or Rhonchi
Gastrointestinal: Soft, Tender and Non Distended
Skin: Warm and Dry; Negative Rash
Neurological: Awake and Alert
Psychological: Calm
Objective Data
Lab Data
Lab Results
11/15/24 03:26
11/15/24 03:26
PT Cancelled 11/15/24 07:47
INR Cancelled 11/15/24 07:47
Estimated Creat Clear 55 ml/min 11/15/24 03:26
Lactic Acid 0.7 mmol/L (0.7-2.0) 11/12/24 23:42
Total Bilirubin 0.7 mg/dl (0.2-1.3) 11/15/24 03:26
AST 55 U/L (14-36) H 11/15/24 03:26
ALT 115 U/L (0-35) H 11/15/24 03:26
Alkaline Phosphatase 191 U/L (38-126) H 11/15/24 03:26
C-Reactive Protein 145.30 mg/L (0.0-10.00) H 11/15/24 03:26
Most recent labs reviewed.
Micro Results:
11/15/24 11:56 Salmonella/Shigella Culture - Pending
Feces/Stool Campylobacter Culture - Pending
Shiga Toxin Test - Pending
11/12/24 18:22 Blood Culture - Preliminary
Blood/Venous No Growth in 48 hours- Final report to follow
11/12/24 18:22 Blood Culture - Preliminary
Blood/Venous No Growth in 48 hours- Final report to follow
Imaging:
11/12/2024 CT abdomen/pelvis with contrast: There is significant abnormality involving the mid to distal transverse colon, splenic flexure and descending colon. Findings likely represent diverticulitis with focal areas of contained perforation. In
the anterior left upper quadrant there is also a focal extraluminal collection predominantly air with a thickened wall which also contains a small amount of contrast compatible with a contained collection from localized perforation. Small foci of
extraluminal air are also noted along the superior margin of the transverse colon. On coronal imaging there appears to be a tract extending between loops of descending colon in the left lower abdomen and upper pelvis. This would suggest a colon to
colon fistulous tracts. Please see full dictation for additional detail.
[2024-11-16] VITALS (14 sets, daily range): BP systolic 110–143; BP diastolic 55–96; PULSE 114
--- NOTE | 2024-11-16 00:08 | PTCARENOTE ---
Received patient at start of shift. Patient aao x3, affect pleasant, able to make needs known. Using call vergara appropriately. OOB to bathroom with standby assist x1 for safety. NSR to ST on the monitor, positive radial and pedal pulses b/l. Lungs
CTA throughout. BS active x4, abdomen tender. Patient has right wrist IV with NS at 100ml/hr continuous. Patient c/o nausea earlier this shift, PRN Zofran administered with positive results. Pt c/o pain a short time ago, PRN administered with
positive results. Patient currently asleep, call vergara within reach, will continue to monitor patient closely.
[2024-11-16] MEDS: ZOSYN 50 IV ×4 (01:53→19:31)
[2024-11-16] MEDS: MORPHINE SULFATE 2 MG IV ×4 (04:29→19:30)
[2024-11-16] MEDS: SYNTHROID 125 MCG PO (04:29)
[2024-11-16 04:33] LABS: % Basophils 0.2 % (0-2); % Eosinophils 1.5 % (0-6); % Lymphocytes 18.1 % (20.5-51.1); % Monocytes 10.5 % (1.7-9.3); % Neutrophils 67.7 % (42.2-75.2); Absolute Eosinophils 0.2 10^3/uL (0-0.7); Absolute Immature Granulocytes 0.2 10^3/uL (0-0.05); Absolute Lymphocytes 2.2 10^3/uL (1.2-3.4); Absolute Monocytes 1.3 10^3/uL (0.1-0.6); Absolute Neutrophils 8.3 10^3/uL (1.4-6.5); Hematocrit 23.1 % (37.0-47.0); Hemoglobin 7.2 g/dL (12.0-16.0); Mean Corp Hgb Conc. 31.2 g/dL (33.0-37.0); Mean Corpuscular Hgb 24.7 pg (27.0-31.0); Mean Corpuscular Volume 79.1 fL (81.0-99.0); Mean Platelet Volume 8.6 fL (7.4-10.4); Nucleated Red Blood Cells % 0 %; Platelet Count 450 10^3/uL (130-400); Red Blood Cell Count 2.92 10^6/uL (4.20-5.40); Red Cell Dist. Width 17.9 % (11.5-14.5); White Blood Cell Count 12.2 10^3/uL (4.8-10.8)
[2024-11-16 05:01] LABS: ALT (SGPT) 70 U/L (0-35); AST (SGOT) 20 U/L (14-36); Albumin 1.8 g/dl (3.5-5.0); Alkaline Phosphatase 150 U/L (38-126); Blood Urea Nitrogen 13 mg/dl (7-17); Calcium 7.7 mg/dl (8.4-10.2); Carbon Dioxide 20 mmol/L (22-30); Chloride 113 mmol/L (98-107); Estimated Creatinine Clearance 79 ml/min; Glucose 92 mg/dl (70-99); Potassium 3.6 mmol/L (3.5-5.1); Sodium 138 mmol/L (135-145); Total Bilirubin 0.6 mg/dl (0.2-1.3); Total Protein 4.1 g/dl (6.3-8.2); eGFR > 60.00
--- NOTE | 2024-11-16 07:43 | W.PN.HOSP.TC ---
Today's Communication/Plan
-
see A/P
Assessment / Plan
Assessment / Plan
HPI: 63 yo F PMH GERD, HTN, Hypothyroidism, Anemia, h/o diverticular abscess, sigmoid inflammation with fistula to the small bowel; p/w persistent left-sided abdominal pain.
Her outpatient CT scan from 3 days [facility] noted diverticulitis with [address] AP from this admission 11/12:
Significant abnormality involving the mid to distal transverse colon, splenic flexure, and descending colon. Findings likely represent diverticulitis with focal areas of contained perforation. In the anterior left upper quadrant, there is a focal
extraluminal collection, predominantly air with a thickened wall, which also contains a small amount of contrast, compatible with contained collection from localized perforation.
There are also small foci of extraluminal air along the superior margin of the transverse colon.
Best seen on coronal images, and the left lower abdomen upper pelvis, there appear to be tracts extending between loops of the descending colon, suggesting colon to colon fistulous tracts.
No evidence for free intraperitoneal air underneath the hemidiaphragms.
Small amount of fluid in the left paracolic gutter, measurements given above. Superimposed infection of this paracolic collection cannot be excluded.
Severe fatty infiltration of the pancreas.
A/P:
# Sepsis POA 2/2 complicated diverticulitis with focal areas of contained perforation and colon to colon fistula tracts.
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
CT AP report as above
Abx cefepime and flagyl consolidated to Zosyn per ID
started full liquid, ADAT per CRS
Cont IVF for now
Pain control with IV Morphine PRN
IV Zofran PRN
CRS on board, no plan for surgery now with clinical improvement
Also no plan for IR drainage anymore with clinical improvement
GI was consulted for possible crohn's eval, GI does NOT think pt has IBD
# MYRON suspect due to sepsis, resolved
SCr 1.3 -> 0.7 today; baseline around 0.8
Cont IVF
# Abnormal LFTS suspect related to current sepsis
LFT improving
f/u LFTs
# Benign HTN
resume [facility] Losartan with hold parameter
# Hypothyroidism
Cont Synthroid
# Anxiety/ Insomnia
IV Ativan 0.25 g q8H PRN
DVT Px: HSQ
Ful code
Dispo: PT eval
Anticipated Discharge: 24 - 48 hours
Subjective/Interval History
-
Date of Service: November 16, 2024
Objective Data
-
Labs:
Laboratory Results
11/16/24 11/16/24
04:16 10:00
WBC 12.2 H
Hgb 7.2 L Pending
Hct 23.1 L Pending
Plt Count 450 H
Sodium 138
Potassium 3.6
Chloride 113 H
Carbon Dioxide 20 L
BUN 13
Creatinine 0.7
Glucose 92
Calcium 7.7 L
Total Bilirubin 0.6
AST 20
ALT 70 H
Alkaline Phosphatase 150 H
Vital Signs:
Vital Signs
Temp Pulse Resp BP Pulse Ox
36.9 C 99 30 143/71 94
11/16/24 04:14 11/16/24 06:00 11/16/24 06:00 11/16/24 02:00 11/16/24 06:00
I&O
11/15/24 11/16/24 11/17/24
06:59 06:59 06:59
Intake Total 1869
Balance 1869
Review of Systems
-
All other systems: Reviewed and negative
Abdomen/GI: Reports Abdominal Pain (intermittent LUQ pain)
Physical Exam
-
General: Well Developed, Well Nourished, No Apparent Distress, Comfortable and Conversant; Negative Respiratory Distress
HEENT: Normocephalic, Atraumatic, Nose Appears Normal and Ears Appear Normal; Negative Oxygen
Respiratory: Clear to Auscultation and Non Labored Respirations; Negative Accessory Resp Muscle Use
Cardiac: Regular Rhythm and S1/S2
GI: Soft, Nondistended, Normal Bowel Sounds and Tender (L abd quadrant )
Skin: Warm and Dry
Neuro: Awake, Alert, Oriented and AO x 3
Psych: Calm and Intact Judgement/Insight
Data Reviewed
-
CT Scan: Report Reviewed by me
Labs: Labs Reviewed by me
[2024-11-16] MEDS: SINGULAIR 10 MG PO (07:53)
[2024-11-16] MEDS: PROTONIX IV 40 MG IV (07:53)
[2024-11-16] MEDS: HEPARIN 5000 UNITS SC ×2 (07:54→19:31)
[2024-11-16] MEDS: COZAAR 50 MG PO (07:54)
[2024-11-16] MEDS: NSS (PRESERVATIVE FREE) 10 ML IV (07:54)
--- NOTE | 2024-11-16 08:25 | W.PN.CRS1 ---
Today's Communication / Plan
-
low residue diet
no plans for OR
Assessment/Plan
-
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
perforation of the distal transverse colon as well as surrounding inflammatory changes and interloop fistulas.
WBC 12.2 (12.6), Hgb 7.2 (8.3), vitals normal
-Advance to low residue
-Will hold on IR drain today - WBC improving
-Continue IV antibiotics - likely 3 weeks total per ID
-Stop all laxatives
-Holding off on OR for now
-Repeat H/H at 10am
-No plans for surgery during this admission, will dispo on antibiotics and follow up in the office with Dr. Jett
Subjective Data
Subjective Data
Date of Service: November 16, 2024
Patient states she feels better. Her abdominal pain has improved. She had one bowel movement during her admission and it was loose and bloody in nature. She denies nausea or vomiting. She is asking to increase her diet.
Objective Data
-
Vital Signs
Temp Pulse Resp BP Pulse Ox
98.4 F 95 30 142/66 94
11/16/24 07:15 11/16/24 07:54 11/16/24 06:00 11/16/24 07:54 11/16/24 06:00
Intake & Output
11/15/24 11/16/24 11/17/24
06:59 06:59 06:59
Intake Total 1869
Balance 1869
Intake:
Oral fluids 720 / 720
IV fluids (Total) 1100 / 1100
IV piggybacks 50 / 50
Other:
Number of approximated MODERATE 1 1 1
amounts of urine
Lab Results
11/16/24 04:16
Physical Exam
-
General: No Acute Distress and AOx3
Abdomen: Soft, Non Distended and Tender (mild LLQ)
Skin: Warm and Dry
[2024-11-16 10:39] LABS: Hematocrit 25.3 % (37.0-47.0)
[2024-11-16] MEDS: NSS 1000 IV ×2 (10:46→23:48)
--- NOTE | 2024-11-16 10:50 | W.PN.ID1 ---
Addendum entered and electronically signed by Mino Dias DO 11/16/24 13:06:
I saw and evaluated the patient. I reviewed the resident�s note and agree with findings and plan as documented in the resident�s note.
Patient appears overall improved. At present, no plan for IR drainage, or the OR.
Continue antibiotics. Given size of collections, oral antibiotics will not likely be effective, and patient would benefit from a 3 to 4-week course of IV antibiotics.
Will transition to once daily ertapenem for ease of administration.
Patient will need follow-up imaging to assess size of collections and overall improvement.
IV antibiotic sheet has been placed on paper chart.
Original Note:
Date of Service
Date of Service: November 16, 2024
Today's Communication
Continue antibiotics. Will transition to IV ertapenem for 3-4 weeks in anticipation of home IV therapy.
Assessment / Plan
Acute diverticulitis
Abdominal abscess (suspected contained perforation)
Marked leukocytosis
-improving
Transaminitis
-improving
Elevated CRP
Asthma
GERD
HTN
Hypothyroidism
Uterine fibroids
Recommendations:
Patient is afebrile with improved leukocytosis
Continue antibiotics. Will transition to IV ertapenem for 3-4 weeks in anticipation of home IV therapy.
IR drainage has been placed on hold for the present.
Monitor white count and temperature curve.
Trend LFTs.
Further recommendations as additional data is returned.
����������������������������������������������������������
Chief Complaint
-: Other (Diverticular abscess)
Vital Signs / Physical Exam
Vital Signs
Vital Signs
Temp Pulse Resp BP Pulse Ox
98.4 F 96 15 139/71 96
11/16/24 07:15 11/16/24 10:00 11/16/24 10:00 11/16/24 10:00 11/16/24 08:00
Physical Exam
Constitutional: No Acute Distress, Comfortable and Non-toxic
Head: Normocephalic
Eyes: Pupils Equal, Pupils Round, No Conjunctival Hemorrhage and Sclera Anicteric
Cardiovascular: Regular Rate
Pulmonary: Non Labored; Negative Wheezes, Rales or Rhonchi
Gastrointestinal: Soft, Tender (LUQ) and Non Distended
Genito-Urinary: Negative Phelan
Extremities: Negative Edema, Cyanosis or Erythema
Skin: Warm and Dry; Negative Rash
Neurological: Awake and Alert
Psychological: Calm
Objective Data
Lab Data
Lab Results
11/16/24 10:29
11/16/24 04:16
PT Cancelled 11/15/24 07:47
INR Cancelled 11/15/24 07:47
Estimated Creat Clear 79 ml/min 11/16/24 04:16
Lactic Acid 0.7 mmol/L (0.7-2.0) 11/12/24 23:42
Total Bilirubin 0.6 mg/dl (0.2-1.3) 11/16/24 04:16
AST 20 U/L (14-36) 11/16/24 04:16
ALT 70 U/L (0-35) H 11/16/24 04:16
Alkaline Phosphatase 150 U/L (38-126) H 11/16/24 04:16
C-Reactive Protein 72.50 mg/L (0.0-10.00) H 11/16/24 04:16
Most recent labs reviewed.
Micro Results:
11/15/24 11:56 Salmonella/Shigella Culture - Preliminary
Feces/Stool Culture in Progress
Campylobacter Culture - Preliminary
Culture in Progress
Shiga Toxin Test - Final
No E. coli Shiga Toxin 1 or 2 detected.
11/12/24 18:22 Blood Culture - Preliminary
Blood/Venous No Growth in 72 hours- Final report to follow
11/12/24 18:22 Blood Culture - Preliminary
Blood/Venous No Growth in 72 hours- Final report to follow
Imaging:
11/12/2024 CT abdomen/pelvis with contrast: There is significant abnormality involving the mid to distal transverse colon, splenic flexure and descending colon. Findings likely represent diverticulitis with focal areas of contained perforation. In
the anterior left upper quadrant there is also a focal extraluminal collection predominantly air with a thickened wall which also contains a small amount of contrast compatible with a contained collection from localized perforation. Small foci of
extraluminal air are also noted along the superior margin of the transverse colon. On coronal imaging there appears to be a tract extending between loops of descending colon in the left lower abdomen and upper pelvis. This would suggest a colon to
colon fistulous tracts. Please see full dictation for additional detail.
--- NOTE | 2024-11-16 16:18 | PTCARENOTE ---
Patient AOx3. Patient on RA. VSS. NSR on monitor. Abdomen tender to L side. PRN morphine given per MAR. Patient passing gas per patient. IVF running per order. Patient tolerating low residue diet. Assist x1 when OOB. Call vergara within reach, bed in
lowest position, and bed of wheels locked.
--- NOTE | 2024-11-16 16:25 | CM ---
Patient with Dx Sepsis POA 2/2 complicated diverticulitis with focal areas of contained perforation and colon to colon fistula tracts. Room air. Receiving IVF, IV Abx. PT recommends outpatient therapy.
Message from Dr Dias: Script for IV Abx is on the chart - Ertapenum once daily, end date 12/14.
Met with patient; Patient aware that she does not have skilled needs for rehab and auth would be required, however she wants to go to [facility] for rehab and IV Abx as she lives alone, she has ongoing mobility issues due to bilateral hips needing
repair and knee issues. She has no family that can assist her at home. She does not want to go to the [facility]. The patient's brother lives in [place] however works and is busy with his family. Informed patient that we might still be
able to get the [facility] for SNF for rehab with the addition of need for IV infusion.
SNF referral placed.
Plan follow up with [facility] for acceptance.
[2024-11-16] MEDS: ZOFRAN 4 MG IV ×2 (16:42→23:57)
--- NOTE | 2024-11-16 16:50 | CM ---
Patient with Dx Sepsis POA 2/2 complicated diverticulitis with focal areas of contained perforation and colon to colon fistula tracts. Room air. Receiving IVF, IV Abx. PT/OT recommend SNF vs home.
Message from Dr Dias: Script for IV Abx is on the chart - Ertapenum once daily, end date 12/14.
Met with patient; Patient expressed that she would like to go to [facility] for rehab and IV Abx as she lives alone, and cites that she has ongoing mobility issues due to bilateral hips needing repair and knee issues. She has no family that can
assist her at home - The patient's brother lives in [place] however works and is busy with his family. The patient does not feel able to go to the [facility]fusion [facility] on a daily basis. Informed patient that CM will make referral to [facility] and we
would probably get a response from SNF on Mon 11/19. Patient is aware that an insurance auth for SNF for rehab with the addition of need for IV infusion will be requested in her behalf.
SNF referral placed.
Plan follow up with [facility] for acceptance.
[2024-11-17] VITALS (9 sets, daily range): BP systolic 115–143; BP diastolic 61–81
--- NOTE | 2024-11-17 00:52 | PTCARENOTE ---
Patient aao x3, able to make needs known. Ambulating with standby assist x1 to BR, using call vergara appropriately. NSR on the monitor, no edema, positive pedal pulses. Lungs cta throughout, pox 99% on ra. BS active x4, patient c/o pain to left
abdomen at times. PRN Morphine administered earlier this shift with positive results. PRN Zofran administered earlier as well with positive results. Left hand IV intact with NSS at 100ml/hr. Patient currently resting in bed with no s/s of pain or
discomfort. Will continue to monitor patient closely.
[2024-11-17] MEDS: ZOSYN 50 IV ×2 (01:16→08:19)
[2024-11-17] MEDS: MORPHINE SULFATE 2 MG IV ×2 (01:21→08:20)
[2024-11-17 02:05] LABS: Calprotectin, Fecal >3000 ug/g (<=49)
[2024-11-17] MEDS: SYNTHROID 125 MCG PO (04:00)
[2024-11-17 05:33] LABS: ALT (SGPT) 56 U/L (0-35); AST (SGOT) 16 U/L (14-36); Albumin 2.1 g/dl (3.5-5.0); Alkaline Phosphatase 176 U/L (38-126); Blood Urea Nitrogen 10 mg/dl (7-17); Calcium 8.1 mg/dl (8.4-10.2); Carbon Dioxide 22 mmol/L (22-30); Chloride 108 mmol/L (98-107); Estimated Creatinine Clearance 79 ml/min; Glucose 89 mg/dl (70-99); Potassium 3.9 mmol/L (3.5-5.1); Sodium 137 mmol/L (135-145); Total Bilirubin 0.6 mg/dl (0.2-1.3); Total Protein 4.9 g/dl (6.3-8.2); eGFR > 60.00
[2024-11-17 05:36] LABS: % Basophils 0.4 % (0-2); % Immature Granulocytes 2.1 % (0-0.5); % Lymphocytes 23.6 % (20.5-51.1); % Monocytes 10.8 % (1.7-9.3); % Neutrophils 61.1 % (42.2-75.2); Absolute Basophils 0.1 10^3/uL (0-0.2); Absolute Eosinophils 0.3 10^3/uL (0-0.7); Absolute Immature Granulocytes 0.3 10^3/uL (0-0.05); Absolute Monocytes 1.4 10^3/uL (0.1-0.6); Absolute Neutrophils 7.7 10^3/uL (1.4-6.5); Hematocrit 26.7 % (37.0-47.0); Mean Corpuscular Hgb 24.4 pg (27.0-31.0); Mean Corpuscular Volume 81.4 fL (81.0-99.0); Mean Platelet Volume 8.8 fL (7.4-10.4); Nucleated Red Blood Cells % 0 %; Platelet Count 603 10^3/uL (130-400); Red Blood Cell Count 3.28 10^6/uL (4.20-5.40); Red Cell Dist. Width 17.8 % (11.5-14.5); White Blood Cell Count 12.7 10^3/uL (4.8-10.8)
--- NOTE | 2024-11-17 08:07 | W.PN.HOSP.TC ---
Today's Communication/Plan
-
SNF placement pending
See plan
Assessment / Plan
Assessment / Plan
Physical Exam
General: Not in acute distress
HEENT: Normocephalic
Respiratory: Clear to Auscultation Bilaterally
Cardiac: Regular Rhythm and S1/S2
GI: Soft, Nondistended, Normal Bowel Sounds and Tender (Left upper and lower abdominal quadrants)
Skin: Warm and Dry
Neuro: Awake, Alert, Oriented and AO x 3
Psych: Calm and Intact Judgement/Insight
Assessment/Plan
63 y/o female with past medical history of GERD, HTN, Hypothyroidism, Anemia, h/o diverticular abscess, sigmoid inflammation with fistula to the small bowel; presented with persistent left-sided abdominal pain. Her outpatient CT scan from 3 days [facility]
noted diverticulitis with [address] AP from this admission 11/12:
Significant abnormality involving the mid to distal transverse colon, splenic flexure, and descending colon. Findings likely represent diverticulitis with focal areas of contained perforation. In the anterior left upper quadrant, there is a focal
extraluminal collection, predominantly air with a thickened wall, which also contains a small amount of contrast, compatible with contained collection from localized perforation.
There are also small foci of extraluminal air along the superior margin of the transverse colon.
Best seen on coronal images, and the left lower abdomen upper pelvis, there appear to be tracts extending between loops of the descending colon, suggesting colon to colon fistulous tracts.
No evidence for free intraperitoneal air underneath the hemidiaphragms.
Small amount of fluid in the left paracolic gutter, measurements given above. Superimposed infection of this paracolic collection cannot be excluded.
Severe fatty infiltration of the pancreas.
# Sepsis POA 2/2 complicated diverticulitis with focal areas of contained perforation and colon to colon fistula tracts.
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
CT AP report as above
Abx cefepime and flagyl-->Zosyn-->now on Ertapenem as per ID
Low Residue Diet
Can stop IV fluids after current bag
Pain control with IV Morphine PRN
IV Zofran PRN -- check EKG QTc
CRS on board, no plan for surgery now with clinical improvement
Also no plan for IR drainage anymore with clinical improvement
GI was consulted for possible crohn's eval, GI does NOT think pt has IBD
# MYRON suspect due to sepsis, resolved
SCr 1.3 -> 0.7 today; baseline around 0.8
Okay to stop IVF
# Abnormal LFTS suspect related to current sepsis
LFT improving
f/u LFTs
# Benign HTN
Continue [employer] Losartan with hold parameter
# Hypothyroidism
Cont Synthroid
# Anxiety/ Insomnia
IV Ativan 0.25 g q8H PRN
DVT Px: HSQ
Ful code
Dispo: SNF placement pending
Anticipated Discharge: 24 - 48 hours
Subjective/Interval History
-
Date of Service: November 17, 2024
Patient was seen and examined. She reported no new symptoms, still no bowel movement since 11/12/24.
Objective Data
-
Labs:
Laboratory Results
11/17/24
04:16
WBC 12.7 H
Hgb 8.0 L
Hct 26.7 L
Plt Count 603 H D
Sodium 137
Potassium 3.9
Chloride 108 H
Carbon Dioxide 22
BUN 10
Creatinine 0.7
Glucose 89
Calcium 8.1 L
Total Bilirubin 0.6
AST 16
ALT 56 H
Alkaline Phosphatase 176 H
Vital Signs:
Vital Signs
Temp Pulse Resp BP Pulse Ox
98.3 F 94 15 120/69 99
11/17/24 03:00 11/17/24 06:00 11/17/24 06:00 11/17/24 06:00 11/17/24 00:05
I&O
11/16/24 11/17/24 11/18/24
06:59 06:59 06:59
Intake Total 3220 / 3220
Balance 3220 / 3220
[2024-11-17] MEDS: COZAAR 50 MG PO (08:20)
[2024-11-17] MEDS: PROTONIX IV 40 MG IV (08:20)
[2024-11-17] MEDS: NSS (PRESERVATIVE FREE) 10 ML IV (08:20)
[2024-11-17] MEDS: HEPARIN 5000 UNITS SC ×2 (08:24→20:28)
[2024-11-17] MEDS: SINGULAIR 10 MG PO (08:24)
--- NOTE | 2024-11-17 09:41 | W.PN.ID1 ---
Date of Service
Date of Service: November 17, 2024
Today's Communication
Continue antibiotics.
Assessment / Plan
Acute diverticulitis
Abdominal abscess (suspected contained perforation)
Marked leukocytosis
-improving
Transaminitis
-improving
Elevated CRP
Asthma
GERD
HTN
Hypothyroidism
Uterine fibroids
Recommendations:
Continue antibiotics. Will transition to IV ertapenem for 3-4 weeks in anticipation of home IV therapy. Prescription has been placed on paper chart.
IR drainage has been placed on hold for the present.
Monitor white count and temperature curve.
Will follow-up in the outpatient setting after discharge.
����������������������������������������������������������
Chief Complaint
-: Other (Diverticular abscess)
Subjective / Review of Systems
Review of Systems: No Fever, No Chills, Abdominal Pain, No Nausea and No Vomiting
Vital Signs / Physical Exam
Vital Signs
Vital Signs
Temp Pulse Resp BP Pulse Ox
98.2 F 94 15 120/69 99
11/17/24 07:45 11/17/24 06:00 11/17/24 06:00 11/17/24 06:00 11/17/24 00:05
Physical Exam
Constitutional: No Acute Distress, Comfortable and Non-toxic
Pulmonary: Non Labored
Gastrointestinal: Soft and Non Distended
Skin: Warm and Dry
Neurological: Awake and Alert
Psychological: Calm
Objective Data
Lab Data
Lab Results
11/17/24 04:16
11/17/24 04:16
PT Cancelled 11/15/24 07:47
INR Cancelled 11/15/24 07:47
Estimated Creat Clear 79 ml/min 11/17/24 04:16
Lactic Acid 0.7 mmol/L (0.7-2.0) 11/12/24 23:42
Total Bilirubin 0.6 mg/dl (0.2-1.3) 11/17/24 04:16
AST 16 U/L (14-36) 11/17/24 04:16
ALT 56 U/L (0-35) H 11/17/24 04:16
Alkaline Phosphatase 176 U/L (38-126) H 11/17/24 04:16
C-Reactive Protein 72.50 mg/L (0.0-10.00) H 11/16/24 04:16
Most recent labs reviewed.
Micro Results:
11/12/24 18:22 Blood Culture - Preliminary
Blood/Venous No Growth in 4 days- Final report to follow
11/12/24 18:22 Blood Culture - Preliminary
Blood/Venous No Growth in 4 days- Final report to follow
11/15/24 11:56 Salmonella/Shigella Culture - Preliminary
Feces/Stool Culture in Progress
Campylobacter Culture - Preliminary
Culture in Progress
Shiga Toxin Test - Final
No E. coli Shiga Toxin 1 or 2 detected.
Imaging:
11/12/2024 CT abdomen/pelvis with contrast: There is significant abnormality involving the mid to distal transverse colon, splenic flexure and descending colon. Findings likely represent diverticulitis with focal areas of contained perforation. In
the anterior left upper quadrant there is also a focal extraluminal collection predominantly air with a thickened wall which also contains a small amount of contrast compatible with a contained collection from localized perforation. Small foci of
extraluminal air are also noted along the superior margin of the transverse colon. On coronal imaging there appears to be a tract extending between loops of descending colon in the left lower abdomen and upper pelvis. This would suggest a colon to
colon fistulous tracts. Please see full dictation for additional detail.
[2024-11-17] MEDS: INVANZ 60 MG IV (10:39)
[2024-11-17] MEDS: ZOFRAN 4 MG IV (11:48)
[2024-11-17] MEDS: TYLENOL PO ×3 (11:59→20:35)
--- NOTE | 2024-11-17 12:24 | PTCARENOTE ---
Pt presents as assessed. Aox3, very pleasant. NSR on tele monitor. Pt tolerating low res diet at this time. Medicated with PRN Morphine and Zofran with good effect, see MAR. IVF infusing as ordered. Ringing appropriately; call vergara within reach.
--- NOTE | 2024-11-17 13:21 | W.PN.GS2 ---
Addendum entered and electronically signed by Jesus Alberto Infante MD 11/17/24 16:04:
I saw and examined the patient.
The Electrical Checkout Mechanic's note was reviewed and I agree with the note.
Comment: Issues with pain control. The 2mg morphne does not cover her pain. Discussed PO meds but she feels she cannot tolerate them due to nausea. Her pain is mostly LUQ/LLQ. This is consistent with her exam. Abx per ID. Plan per pt is to DC to
[facility] when bed available for further IV abx.
Original Note:
Today's Communication / Plan
-
pain management, continue LRD
Assessment / Plan
-
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
perforation of the distal transverse colon as well as surrounding inflammatory changes and interloop fistula. Holding off on IR drainage at this time.
AFVSS
Leukocytosis present, but stable
Tolerating diet
Pain slowly improving but still present
--Continue LRD
--Encouraged patient to try PO options in addition to IV. Tylenol scheduled, Tramadol/Morphine prn
--Medical management as per primary team
--ABX as per ID, planned for IV abx for 3-4 weeks. Will need PICC placement prior to d/c
--CM following for placement
--Will closely follow with CRS post discharge
disposition/medical management as per primary team
Subjective Data
-
Date of Service: November 17, 2024
Patient seen and examined at bedside with Dr. Infante. Notes some pain persists to the LLQ. Passing stools/flatus. Denies n/v. Notes that she only wants IV narcotics as she doesn't believe the PO will be effective. Dosage of 2mg of morphine was
ineffective for her.
Objective Data
-
Intake and Output
11/16/24 11/17/24 11/18/24
06:59 06:59 06:59
Intake Total 0 / 0
Balance 3220 / 3219
Intake:
Oral fluids 720 / 720
IV fluids (Total) 2400 / 2400
IV piggybacks 100 / 100
Other:
Number of approximated MODERATE 1 1
amounts of urine
Vital Signs
Temp Pulse Resp BP Pulse Ox
98.4 F 100 34 120/61 97
11/17/24 11:35 11/17/24 10:00 11/17/24 10:00 11/17/24 10:00 11/17/24 10:54
Lab Results
11/17/24 04:16
11/17/24 04:16
Calcium 8.1 mg/dl (8.4-10.2) L 11/17/24 04:16
Magnesium 1.8 mg/dl (1.6-2.3) 11/14/24 04:38
Total Bilirubin 0.6 mg/dl (0.2-1.3) 11/17/24 04:16
Direct Bilirubin 0.7 mg/dl (0.0-0.4) H 11/13/24 04:27
AST 16 U/L (14-36) 11/17/24 04:16
ALT 56 U/L (0-35) H 11/17/24 04:16
Alkaline Phosphatase 176 U/L (38-126) H 11/17/24 04:16
Total Protein 4.9 g/dl (6.3-8.2) L 11/17/24 04:16
Albumin 2.1 g/dl (3.5-5.0) L 11/17/24 04:16
Physical Exam
-
NAD, Comfortable appearing
ABD soft, tender to the LLQ with mild tenderness to the mid abdomen towards the right, ND
[2024-11-17] MEDS: NSS 1000 IV (14:04)
[2024-11-17] MEDS: MORPHINE SULFATE 4 MG IV ×2 (14:04→20:27)
--- NOTE | 2024-11-17 19:29 | PTCARENOTE ---
RA SL PICC MALPOSITIONED. PER RADIOLOGIST WILL RETRACTA 2ND TIME FOR TOTAL ECL 2.5CM, [facility] WILL AWAIT REPEAT IMAGE
--- NOTE | 2024-11-17 22:17 | VATNOTE ---
R SL PICC placed for 3-4 weeks home antibiotics, initially malpositioned, retracted per radiologist report on prior shift. Second CXR still showed PICC tip not in appropriate location. PICC retracted again per radiologist recommendation. Third CXR
report reads a vague location of PICC tip, this [facility] RN requested clarification if PICC was OK to use per radiologist. Radiologist responds with 'probably ok to use. maybe retract a little more and get a follow up CXR in the morning'. Without exact
recommendations, this [facility] RN did not feel appropriate to leave a possible malpositioned PICC in place over night. Spoke to WHEEL ASSEMBLER, Olivia as well as primary RN, Brianna. It was agreed that removing the PICC for possible malposition would be best for the
patient and considering PICC attempt at bedside tomorrow or IR consult. PICC removed without complications, dressing placed. Patient updated with plan of care and expressed understanding of removing the current PICC and discussing replacement
tomorrow.
[2024-11-18] VITALS (12 sets, daily range): BP systolic 115–136; BP diastolic 57–86
--- NOTE | 2024-11-18 00:41 | PTCARENOTE ---
Pt repeat X ray not conclusive for PICC placement. RN Neha from [facility] recommendation that removing the PICC was best for the patient. This RN and night COMMUNITY SERVICE AIDE agree. Pt educated on plan moving forward and agrees. Pt AAOx4. Call vergara with in reach. Pt
has no other complaints at this time.
[2024-11-18] MEDS: TYLENOL PO ×7 (00:51→22:40)
[2024-11-18] MEDS: MORPHINE SULFATE 4 MG IV ×3 (02:35→16:18)
[2024-11-18] MEDS: SYNTHROID 125 MCG PO (04:44)
--- NOTE | 2024-11-18 05:09 | W.PN.UPDATE ---
Update Note
Progress Note Update
pt had picc line placed by [facility] team. repositioned 3 times with no success. Per their policy no more attempts can be made. MAy need IR for placement. Since iv abx needed for 3-4 weeks midline may be an option as well.
[2024-11-18 05:53] LABS: % Basophils 0.4 % (0-2); % Eosinophils 2.2 % (0-6); % Immature Granulocytes 1.5 % (0-0.5); % Lymphocytes 24.5 % (20.5-51.1); % Neutrophils 57.4 % (42.2-75.2); Absolute Eosinophils 0.2 10^3/uL (0-0.7); Absolute Immature Granulocytes 0.1 10^3/uL (0-0.05); Absolute Lymphocytes 2.1 10^3/uL (1.2-3.4); Absolute Monocytes 1.2 10^3/uL (0.1-0.6); Absolute Neutrophils 4.9 10^3/uL (1.4-6.5); Hematocrit 22.3 % (37.0-47.0); Hemoglobin 7.1 g/dL (12.0-16.0); Mean Corp Hgb Conc. 31.8 g/dL (33.0-37.0); Mean Corpuscular Hgb 25.4 pg (27.0-31.0); Mean Corpuscular Volume 79.6 fL (81.0-99.0); Mean Platelet Volume 9.1 fL (7.4-10.4); Nucleated Red Blood Cells % 0 %; Platelet Count 557 10^3/uL (130-400); Red Cell Dist. Width 17.7 % (11.5-14.5); White Blood Cell Count 8.5 10^3/uL (4.8-10.8)
[2024-11-18 06:06] LABS: ALT (SGPT) 36 U/L (0-35); AST (SGOT) 14 U/L (14-36); Albumin 1.9 g/dl (3.5-5.0); Alkaline Phosphatase 142 U/L (38-126); Blood Urea Nitrogen 6 mg/dl (7-17); Calcium 8.3 mg/dl (8.4-10.2); Carbon Dioxide 24 mmol/L (22-30); Chloride 109 mmol/L (98-107); Estimated Creatinine Clearance 92 ml/min; Glucose 80 mg/dl (70-99); Potassium 3.6 mmol/L (3.5-5.1); Sodium 135 mmol/L (135-145); Total Bilirubin 0.5 mg/dl (0.2-1.3); Total Protein 4.2 g/dl (6.3-8.2); eGFR > 60.00
--- NOTE | 2024-11-18 06:57 | W.PN.HOSP.TC ---
Today's Communication/Plan
-
Transfer to telemetry floor
Continue antibiotics
Recheck H&H this evening
Appreciate ID who consulted IR for PICC line placement
Assessment / Plan
Assessment / Plan
Physical Exam
General: Not in acute distress
HEENT: Normocephalic
Respiratory: Clear to Auscultation Bilaterally
Cardiac: Regular Rhythm and S1/S2
GI: Soft, Nondistended, Normal Bowel Sounds and Tender (Left upper and lower abdominal quadrants)
Skin: Warm and Dry
Neuro: Awake, Alert, Oriented and AO x 3
Psych: Calm and Intact Judgement/Insight
Assessment/Plan
63 y/o female with past medical history of GERD, HTN, Hypothyroidism, Anemia, h/o diverticular abscess, sigmoid inflammation with fistula to the small bowel; presented with persistent left-sided abdominal pain. Her outpatient CT scan from 3 days [facility]
noted diverticulitis with [address] AP from this admission 11/12:
Significant abnormality involving the mid to distal transverse colon, splenic flexure, and descending colon. Findings likely represent diverticulitis with focal areas of contained perforation. In the anterior left upper quadrant, there is a focal
extraluminal collection, predominantly air with a thickened wall, which also contains a small amount of contrast, compatible with contained collection from localized perforation.
There are also small foci of extraluminal air along the superior margin of the transverse colon.
Best seen on coronal images, and the left lower abdomen upper pelvis, there appear to be tracts extending between loops of the descending colon, suggesting colon to colon fistulous tracts.
No evidence for free intraperitoneal air underneath the hemidiaphragms.
Small amount of fluid in the left paracolic gutter, measurements given above. Superimposed infection of this paracolic collection cannot be excluded.
Severe fatty infiltration of the pancreas.
#Sepsis POA 2/2 complicated diverticulitis with focal areas of contained perforation and colon to colon fistula tracts.
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
#Abdominal abscess (suspected contained perforation)
CT AP report as above
Antibiotics cefepime and flagyl-->Zosyn-->now on Ertapenem for 3 to 4 weeks, as per ID
IR consult for PICC line placement
Low Residue Diet
Pain control
IV Zofran PRN -- EKG QTc normal as of 11/17/24
CRS on board, no plan for surgery now with clinical improvement
Also no plan for IR drainage anymore with clinical improvement
GI was consulted for possible crohn's eval, GI does NOT think pt has IBD
Dr. Dias of Infectious Disease will follow-up in the outpatient setting after discharge
#Microcytic Anemia
#Thrombocytosis
Iron studies unremarkable; vitamin B12 is high
Will need follow-up with [facility] after discharge
Monitor CBC
#MYRON suspect due to sepsis, resolved
SCr 1.3 -> 0.7 today; baseline around 0.8
Okay to stop IVF
#Abnormal LFTS suspect related to sepsis this hospitalization
LFTs improving
f/u LFTs
#Benign Hypertension
Continue [facility] Losartan with hold parameter
#Hypothyroidism
Cont Synthroid
#Anxiety/ Insomnia
IV Ativan 0.25 g q8H PRN
DVT Px: HSQ
Ful code
Dispo: SNF placement pending
Anticipated Discharge: 24 - 48 hours
Subjective/Interval History
-
Date of Service: November 18, 2024
Patient was seen and examined. She denied any new symptoms.
Objective Data
-
Labs:
Laboratory Results
11/18/24
04:52
WBC 8.5
Hgb 7.1 L
Hct 22.3 L
Plt Count 557 H
Sodium 135
Potassium 3.6
Chloride 109 H
Carbon Dioxide 24
BUN 6 L
Creatinine 0.6
Glucose 80
Calcium 8.3 L
Total Bilirubin 0.5
AST 14
ALT 36 H
Alkaline Phosphatase 142 H
Vital Signs:
Vital Signs
Temp Pulse Resp BP Pulse Ox
98.8 F 96 14 125/66 98
11/18/24 02:40 11/18/24 06:00 11/18/24 06:00 11/18/24 06:00 11/17/24 20:05
I&O
11/16/24 11/17/24 11/18/24
06:59 06:59 06:59
Intake Total 3220 / 3220 420 / 420
Balance 3220 / 3220 420 / 420
[2024-11-18] MEDS: HEPARIN 5000 UNITS SC ×2 (08:10→20:46)
[2024-11-18] MEDS: PROTONIX IV 40 MG IV (08:10)
[2024-11-18] MEDS: NSS (PRESERVATIVE FREE) 10 ML IV (08:10)
[2024-11-18] MEDS: COZAAR 50 MG PO (08:11)
[2024-11-18] MEDS: SINGULAIR 10 MG PO (08:11)
--- NOTE | 2024-11-18 09:23 | W.PN.ID1 ---
Date of Service
Date of Service: November 18, 2024
Today's Communication
Continue antibiotics.
Assessment / Plan
Acute diverticulitis
Abdominal abscess (suspected contained perforation)
Marked leukocytosis
-improving
Transaminitis
-improving
Elevated CRP
Asthma
GERD
HTN
Hypothyroidism
Uterine fibroids
Recommendations:
Continue ertapenem for 3-4 weeks. Prescription has been placed on paper chart.
IR drainage has been placed on hold for the present.
Vascular access team unable to place midline or PICC. Will consult IR.
Monitor white count and temperature curve.
Will follow-up in the outpatient setting after discharge.
����������������������������������������������������������
Chief Complaint
-: Other (Diverticular abscess)
Subjective / Review of Systems
Review of Systems: No Fever and No Chills
Vital Signs / Physical Exam
Vital Signs
Vital Signs
Temp Pulse Resp BP Pulse Ox
98.2 F 88 15 129/65 98
11/18/24 07:35 11/18/24 08:11 11/18/24 08:00 11/18/24 08:11 11/18/24 08:00
Physical Exam
Constitutional: No Acute Distress, Comfortable and Non-toxic
Pulmonary: Non Labored
Gastrointestinal: Soft and Non Distended
Skin: Warm and Dry
Neurological: Awake and Alert
Psychological: Calm
Objective Data
Lab Data
Lab Results
11/18/24 04:52
11/18/24 04:52
PT Cancelled 11/15/24 07:47
INR Cancelled 11/15/24 07:47
Estimated Creat Clear 92 ml/min 11/18/24 04:52
Lactic Acid 0.7 mmol/L (0.7-2.0) 11/12/24 23:42
Total Bilirubin 0.5 mg/dl (0.2-1.3) 11/18/24 04:52
AST 14 U/L (14-36) 11/18/24 04:52
ALT 36 U/L (0-35) H 11/18/24 04:52
Alkaline Phosphatase 142 U/L (38-126) H 11/18/24 04:52
C-Reactive Protein 72.50 mg/L (0.0-10.00) H 11/16/24 04:16
Most recent labs reviewed.
Micro Results:
11/12/24 18:22 Blood Culture - Final
Blood/Venous No Growth - Final Report
11/12/24 18:22 Blood Culture - Final
Blood/Venous No Growth - Final Report
11/15/24 11:56 Salmonella/Shigella Culture - Final
Feces/Stool No Salmonella, Shigella, Aeromonas or Plesiomonas species
isolated.
Campylobacter Culture - Final
No Campylobacter species isolated.
Shiga Toxin Test - Final
No E. coli Shiga Toxin 1 or 2 detected.
Imaging:
11/12/2024 CT abdomen/pelvis with contrast: There is significant abnormality involving the mid to distal transverse colon, splenic flexure and descending colon. Findings likely represent diverticulitis with focal areas of contained perforation. In
the anterior left upper quadrant there is also a focal extraluminal collection predominantly air with a thickened wall which also contains a small amount of contrast compatible with a contained collection from localized perforation. Small foci of
extraluminal air are also noted along the superior margin of the transverse colon. On coronal imaging there appears to be a tract extending between loops of descending colon in the left lower abdomen and upper pelvis. This would suggest a colon to
colon fistulous tracts. Please see full dictation for additional detail.
[2024-11-18] MEDS: INVANZ 60 MG IV (10:26)
[2024-11-18 11:18] LABS: Iron 33 ug/dl (37-170)
[2024-11-18 11:28] LABS: Percent Saturation 25 % (20-50); Total Iron Binding Capacity 131 ug/dl (265-497)
[2024-11-18 13:39] LABS: Vitamin B12 > 1000 pg/ml (239-931)
--- NOTE | 2024-11-18 15:29 | PTCARENOTE ---
Patient AOx3. Patient on RA. VSS. NSR-sinus tach on monitor. Abdomen tender to L side. PRN morphine given per MAR. Per patient, soft BM during shift. Patient tolerating low residue diet. Assist x1 when OOB. Call vergara within reach, bed in lowest
position, and bed of wheels locked.
[2024-11-18 20:35] LABS: Hematocrit 25.5 % (37.0-47.0); Hemoglobin 7.9 g/dL (12.0-16.0)
[2024-11-18] MEDS: ATIVAN 0.25 MG IV (20:46)
--- NOTE | 2024-11-18 22:47 | PTCARENOTE ---
Pt informed this RN she had some bright red blood on toilet paper when she wiped. Pt had flushed paper down toilet before RN could assess. Pt had already had repeat H&H, resulting level being up. Pt thinks it could be Hemorid. RN educated Pt to not
flush next time so toilet paper can be assessed. Vitals stable at this time. Call vergara within reach.
[2024-11-19] VITALS (16 sets, daily range): BP systolic 84–135; BP diastolic 61–99; PULSE 103–145
[2024-11-19] MEDS: MORPHINE SULFATE 4 MG IV ×4 (04:36→20:17)
[2024-11-19] MEDS: SYNTHROID 125 MCG PO (04:36)
[2024-11-19] MEDS: TYLENOL PO ×4 (05:19→23:56)
[2024-11-19 05:43] LABS: % Basophils 0.5 % (0-2); % Eosinophils 1.7 % (0-6); % Immature Granulocytes 1.3 % (0-0.5); % Lymphocytes 22.9 % (20.5-51.1); % Monocytes 13.4 % (1.7-9.3); % Neutrophils 60.2 % (42.2-75.2); Absolute Eosinophils 0.2 10^3/uL (0-0.7); Absolute Immature Granulocytes 0.1 10^3/uL (0-0.05); Absolute Monocytes 1.2 10^3/uL (0.1-0.6); Absolute Neutrophils 5.2 10^3/uL (1.4-6.5); Hematocrit 24.2 % (37.0-47.0); Hemoglobin 7.6 g/dL (12.0-16.0); Mean Corp Hgb Conc. 31.4 g/dL (33.0-37.0); Mean Corpuscular Hgb 25.5 pg (27.0-31.0); Mean Corpuscular Volume 81.2 fL (81.0-99.0); Mean Platelet Volume 8.6 fL (7.4-10.4); Nucleated Red Blood Cells % 0 %; Platelet Count 609 10^3/uL (130-400); Red Blood Cell Count 2.98 10^6/uL (4.20-5.40); Red Cell Dist. Width 18.1 % (11.5-14.5); White Blood Cell Count 8.6 10^3/uL (4.8-10.8)
[2024-11-19 05:57] LABS: ALT (SGPT) 28 U/L (0-35); AST (SGOT) 13 U/L (14-36); Albumin 2.1 g/dl (3.5-5.0); Alkaline Phosphatase 152 U/L (38-126); Blood Urea Nitrogen 6 mg/dl (7-17); Calcium 8.4 mg/dl (8.4-10.2); Carbon Dioxide 25 mmol/L (22-30); Chloride 107 mmol/L (98-107); Estimated Creatinine Clearance 79 ml/min; Glucose 104 mg/dl (70-99); Potassium 3.5 mmol/L (3.5-5.1); Sodium 135 mmol/L (135-145); Total Bilirubin 0.5 mg/dl (0.2-1.3); Total Protein 4.5 g/dl (6.3-8.2); eGFR > 60.00
--- NOTE | 2024-11-19 07:35 | W.PN.HOSP.TC ---
Today's Communication/Plan
-
Discharge to [facility] today
Assessment / Plan
Assessment / Plan
Physical Exam
General: Not in acute distress
HEENT: Normocephalic
Respiratory: Clear to Auscultation Bilaterally
Cardiac: Regular Rhythm and S1/S2
GI: Soft, Nondistended, Normal Bowel Sounds and Mildly Tender (Left upper and lower abdominal quadrants)
Skin: Warm and Dry
Neuro: Awake, Alert, Oriented and AO x 3
Psych: Calm and Intact Judgement/Insight
Assessment/Plan
63 y/o female with past medical history of GERD, HTN, Hypothyroidism, Anemia, h/o diverticular abscess, sigmoid inflammation with fistula to the small bowel; presented with persistent left-sided abdominal pain. Her outpatient CT scan from 3 days TRAFFIC SAFETY ADMINISTRATOR
noted diverticulitis with [address] AP from this admission 11/12:
Significant abnormality involving the mid to distal transverse colon, splenic flexure, and descending colon. Findings likely represent diverticulitis with focal areas of contained perforation. In the anterior left upper quadrant, there is a focal
extraluminal collection, predominantly air with a thickened wall, which also contains a small amount of contrast, compatible with contained collection from localized perforation.
There are also small foci of extraluminal air along the superior margin of the transverse colon.
Best seen on coronal images, and the left lower abdomen upper pelvis, there appear to be tracts extending between loops of the descending colon, suggesting colon to colon fistulous tracts.
No evidence for free intraperitoneal air underneath the hemidiaphragms.
Small amount of fluid in the left paracolic gutter, measurements given above. Superimposed infection of this paracolic collection cannot be excluded.
Severe fatty infiltration of the pancreas.
#Sepsis POA 2/2 complicated diverticulitis with focal areas of contained perforation and colon to colon fistula tracts.
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
#Abdominal abscess (suspected contained perforation)
CT AP report as above
Antibiotics cefepime and flagyl-->Zosyn-->now on Ertapenem for 3 to 4 weeks, as per ID
PICC line has been placed by interventional radiology
Low Residue Diet
Stop all Laxatives
Pain control
IV Zofran PRN -- EKG QTc normal as of 11/17/24
CRS on board, no plan for surgery now with clinical improvement
Also no plan for IR drainage anymore with clinical improvement
GI was consulted for possible crohn's eval, GI does NOT think pt has IBD
Dr. Dias of Infectious Disease will follow-up in the outpatient setting after discharge
Follow-up with Dr. Jett after discharge
#Microcytic Anemia
#Thrombocytosis
Iron studies unremarkable; vitamin B12 is high
?from antibiotics
Will need follow-up with [facility]ology after discharge -- on 11/19/24, I notified Dr. Hernandez that patient needs close follow-up for her anemia after discharge
Monitor CBC outpatient
#MYRON suspect due to sepsis, resolved
SCr 1.3 -> 0.7 today; baseline around 0.8
Okay to stop IVF
#Abnormal LFTS - IMPROVED - suspected to be related to sepsis this hospitalization
LFTs improving
f/u LFTs
Recheck CMP outpatient
#Benign Hypertension
Continue TRAFFIC SAFETY ADMINISTRATOR Losartan with hold parameter
#Hypothyroidism
Cont Synthroid
#Anxiety/ Insomnia
-Monitor closely outpatient
DVT Px: HSQ
Ful code
Dispo: SNF placement -- [facility]
More than 30 minutes spent in discharge including
Final examination of the patient
Summarizing hospital stay
Instructions for continuing care to all relevant caregivers
Preparation of discharge records, prescriptions, and referral forms
Total time spent (in minutes): 41
Anticipated Discharge: Today
Subjective/Interval History
-
Date of Service: November 19, 2024
Patient was seen and examined. She denied any chest pain or shortness of breath.
Objective Data
-
Labs:
Laboratory Results
11/18/24 11/19/24
20:27 05:17
WBC 8.6
Hgb 7.9 L 7.6 L
Hct 25.5 L 24.2 L
Plt Count 609 H
Sodium 135
Potassium 3.5
Chloride 107
Carbon Dioxide 25
BUN 6 L
Creatinine 0.7
Glucose 104 H
Calcium 8.4
Total Bilirubin 0.5
AST 13 L
ALT 28
Alkaline Phosphatase 152 H
Vital Signs:
Vital Signs
Temp Pulse Resp BP Pulse Ox
98.1 F 92 15 124/64 98
11/19/24 05:25 11/19/24 06:23 11/19/24 06:23 11/19/24 04:00 11/18/24 20:10
I&O
11/18/24 11/19/24 11/20/24
06:59 06:59 06:59
Intake Total 420 / 420 840 / 840
Balance 420 / 420 840 / 840
--- NOTE | 2024-11-19 08:39 | PTCARENOTE ---
Pt to IR via stretcher.Pt Is AAOx3 pleasant and cooperative.
[2024-11-19] MEDS: COZAAR 50 MG PO (10:12)
[2024-11-19] MEDS: TYLENOL 650 MG PO ×2 (10:13→20:00)
[2024-11-19] MEDS: SINGULAIR 10 MG PO (10:14)
[2024-11-19] MEDS: HEPARIN 5000 UNITS SC ×2 (10:15→20:00)
[2024-11-19] MEDS: PROTONIX IV 40 MG IV (10:15)
[2024-11-19] MEDS: NSS (PRESERVATIVE FREE) 10 ML IV (10:16)
[2024-11-19] MEDS: INVANZ 60 MG IV (10:36)
--- NOTE | 2024-11-19 13:09 | W.PN.CRS1 ---
Today's Communication / Plan
-
no plans for OR
continue antibiotics as an outpatient
follow up with Dr. Jett
Assessment/Plan
-
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
perforation of the distal transverse colon as well as surrounding inflammatory changes and interloop fistulas.
WBC 8.6, Hgb 7.6 (7.9) vitals normal
-Continue low residue
-IR today for PICC placement
-Continue IV antibiotics - likely 3 weeks total per ID
-Stop all laxatives
-Holding off on OR for now
-No plans for surgery during this admission, will dispo to [facility] on antibiotics and follow up in the office with Dr. Jett
Subjective Data
Subjective Data
Date of Service: November 19, 2024
Patient states her pain is about the same. She has no nausea today but had a little last night. She is tolerating a diet. She has flatus and bowel movements.
Objective Data
-
Vital Signs
Temp Pulse Resp BP Pulse Ox
98.5 F 132 22 135/80 99
11/19/24 08:45 11/19/24 12:30 11/19/24 12:30 11/19/24 12:30 11/19/24 09:23
Intake & Output
11/18/24 11/19/24 11/20/24
06:59 06:59 06:59
Intake Total 420 / 420 840 / 840 60
Balance 420 / 420 840 / 840
Intake:
Oral fluids 420 / 420 840 / 840
IV piggybacks
Other:
Number of approximated MODERATE 2 1
amounts of urine
Number of approximated LARGE 1
amounts of urine
Number of unmeasured liquid
stools
Rectum 1
Lab Results
11/19/24 05:17
11/19/24 05:17
Physical Exam
-
General: No Acute Distress and AOx3
Abdomen: Soft, Non Distended and Tender (LLQ)
Skin: Warm and Dry
--- NOTE | 2024-11-19 13:24 | W.PN.ID1 ---
Addendum entered and electronically signed by Mino Dias DO 11/19/24 16:35:
I saw and evaluated the patient. I reviewed the resident�s note and agree with findings and plan as documented in the resident�s note.
Continue antibiotic. Will follow-up in the outpatient setting. Patient will likely need follow-up scanning to assure improvement/resolution of collection.
Original Note:
Date of Service
Date of Service: November 19, 2024
Today's Communication
continue antibiotics.
Assessment / Plan
Acute diverticulitis
Abdominal abscess (suspected contained perforation)
Marked leukocytosis
-improving
Transaminitis
-improving
Elevated CRP
Asthma
GERD
HTN
Hypothyroidism
Uterine fibroids
Recommendations:
Continue ertapenem for 3-4 weeks. Prescription has been placed on paper chart.
IR drainage has been placed on hold for the present.
Midline placed by IR.
Monitor white count and temperature curve.
Will follow-up in the outpatient setting after discharge.
����������������������������������������������������������
Chief Complaint
-: Other (Diverticular abscess)
Subjective / Review of Systems
Review of Systems: No Fever and No Chills
Vital Signs / Physical Exam
Vital Signs
Vital Signs
Temp Pulse Resp BP Pulse Ox
98.5 F 132 22 135/80 99
11/19/24 08:45 11/19/24 12:30 11/19/24 12:30 11/19/24 12:30 11/19/24 09:23
Physical Exam
Constitutional: No Acute Distress
Head: Normocephalic
Eyes: Pupils Equal and Pupils Round
Cardiovascular: Regular Rate and S1/S2
Pulmonary: Non Labored
Gastrointestinal: Soft and Non Distended
Neurological: AO x 3
Objective Data
Lab Data
Lab Results
11/19/24 05:17
11/19/24 05:17
PT Cancelled 11/15/24 07:47
INR Cancelled 11/15/24 07:47
Estimated Creat Clear 79 ml/min 11/19/24 05:17
Lactic Acid 0.7 mmol/L (0.7-2.0) 11/12/24 23:42
Total Bilirubin 0.5 mg/dl (0.2-1.3) 11/19/24 05:17
AST 13 U/L (14-36) L 11/19/24 05:17
ALT 28 U/L (0-35) 11/19/24 05:17
Alkaline Phosphatase 152 U/L (38-126) H 11/19/24 05:17
C-Reactive Protein 72.50 mg/L (0.0-10.00) H 11/16/24 04:16
Most recent labs reviewed.
Micro Results:
11/12/24 18:22 Blood Culture - Final
Blood/Venous No Growth - Final Report
11/12/24 18:22 Blood Culture - Final
Blood/Venous No Growth - Final Report
11/15/24 11:56 Salmonella/Shigella Culture - Final
Feces/Stool No Salmonella, Shigella, Aeromonas or Plesiomonas species
isolated.
Campylobacter Culture - Final
No Campylobacter species isolated.
Shiga Toxin Test - Final
No E. coli Shiga Toxin 1 or 2 detected.
Imaging:
11/12/2024 CT abdomen/pelvis with contrast: There is significant abnormality involving the mid to distal transverse colon, splenic flexure and descending colon. Findings likely represent diverticulitis with focal areas of contained perforation. In
the anterior left upper quadrant there is also a focal extraluminal collection predominantly air with a thickened wall which also contains a small amount of contrast compatible with a contained collection from localized perforation. Small foci of
extraluminal air are also noted along the superior margin of the transverse colon. On coronal imaging there appears to be a tract extending between loops of descending colon in the left lower abdomen and upper pelvis. This would suggest a colon to
colon fistulous tracts. Please see full dictation for additional detail.
--- NOTE | 2024-11-19 13:48 | CM ---
CM reviewed chart, per Hospitalist, patient stable for discharge today. Patient has been accepted at [facility], auth submitted through [employer], sent to medical underwriter for review as patient is ambulating 50 feet without device, antibiotic once a day.
Pending auth #[id number]. CM spoke with patient, discussed auth has been send to medical underwriter and chance auth may be denied, if denied patient would like to move forward with peer to peer review. Patient reports she may need WC Van transport if
auth approved, brother may be able to transport, it depends on what time. CM will update patient as soon as more information received from Power Transformer Inspector. Update to Hospitalist. CM will continue to follow for all discharge planning needs.
Plan; awaiting approval/denial from [employer]- sent to Power Transformer Inspector for review
[2024-11-19 15:11] LABS: Troponin I < 0.012 ng/ml
[2024-11-19 20:57] LABS: Troponin I < 0.012 ng/ml
--- NOTE | 2024-11-19 23:20 | PTCARENOTE ---
Received pt from [facility]. Pt aaox3. Sinus tach on monitor. 98% on RA. Hygiene completed including CHG wipes. PRN Morphine administered for 9/10 throbbing pain on the left side of her abdomen (see OCT). Pt now resting in bed asleep with call vergara
in reach.
[2024-11-20] VITALS (13 sets, daily range): BP systolic 100–124; BP diastolic 57–78
[2024-11-20] MEDS: ZOFRAN 4 MG IV ×2 (01:35→14:46)
[2024-11-20 04:21] LABS: % Basophils 0.2 % (0-2); % Eosinophils 0.6 % (0-6); % Immature Granulocytes 0.9 % (0-0.5); % Monocytes 11.9 % (1.7-9.3); % Neutrophils 70.4 % (42.2-75.2); Absolute Eosinophils 0.1 10^3/uL (0-0.7); Absolute Immature Granulocytes 0.1 10^3/uL (0-0.05); Absolute Monocytes 1.5 10^3/uL (0.1-0.6); Absolute Neutrophils 8.9 10^3/uL (1.4-6.5); Hematocrit 21.8 % (37.0-47.0); Hemoglobin 6.8 g/dL (12.0-16.0); Mean Corp Hgb Conc. 31.2 g/dL (33.0-37.0); Mean Corpuscular Hgb 24.8 pg (27.0-31.0); Mean Corpuscular Volume 79.6 fL (81.0-99.0); Mean Platelet Volume 8.5 fL (7.4-10.4); Nucleated Red Blood Cells % 0 %; Platelet Count 557 10^3/uL (130-400); Red Blood Cell Count 2.74 10^6/uL (4.20-5.40); Red Cell Dist. Width 18.2 % (11.5-14.5); White Blood Cell Count 12.7 10^3/uL (4.8-10.8)
[2024-11-20] MEDS: TYLENOL PO ×5 (04:32→23:10)
[2024-11-20 04:36] LABS: ALT (SGPT) 20 U/L (0-35); AST (SGOT) 13 U/L (14-36); Albumin 1.8 g/dl (3.5-5.0); Alkaline Phosphatase 144 U/L (38-126); Blood Urea Nitrogen 9 mg/dl (7-17); Calcium 8.1 mg/dl (8.4-10.2); Carbon Dioxide 26 mmol/L (22-30); Chloride 107 mmol/L (98-107); Estimated Creatinine Clearance 92 ml/min; Glucose 90 mg/dl (70-99); Potassium 3.6 mmol/L (3.5-5.1); Sodium 138 mmol/L (135-145); Total Bilirubin 0.5 mg/dl (0.2-1.3); Total Protein 4.4 g/dl (6.3-8.2); eGFR > 60.00
[2024-11-20 04:44] LABS: Troponin I < 0.012 ng/ml
[2024-11-20] MEDS: MORPHINE SULFATE 4 MG IV ×3 (04:59→20:21)
[2024-11-20] MEDS: SYNTHROID 125 MCG PO (05:01)
[2024-11-20 05:29] LABS: % Basophils 0.2 % (0-2); % Eosinophils 0.6 % (0-6); % Immature Granulocytes 0.9 % (0-0.5); % Lymphocytes 19.1 % (20.5-51.1); % Monocytes 10.9 % (1.7-9.3); % Neutrophils 68.3 % (42.2-75.2); Absolute Eosinophils 0.1 10^3/uL (0-0.7); Absolute Immature Granulocytes 0.2 10^3/uL (0-0.05); Absolute Lymphocytes 3.1 10^3/uL (1.2-3.4); Absolute Monocytes 1.8 10^3/uL (0.1-0.6); Absolute Neutrophils 11.1 10^3/uL (1.4-6.5); Hematocrit 25.8 % (37.0-47.0); Mean Corpuscular Hgb 25.2 pg (27.0-31.0); Mean Corpuscular Volume 81.4 fL (81.0-99.0); Mean Platelet Volume 8.4 fL (7.4-10.4); Nucleated Red Blood Cells % 0 %; Platelet Count 632 10^3/uL (130-400); Red Blood Cell Count 3.17 10^6/uL (4.20-5.40); Red Cell Dist. Width 18.5 % (11.5-14.5); White Blood Cell Count 16.3 10^3/uL (4.8-10.8)
[2024-11-20] MEDS: COZAAR 50 MG PO (08:15)
[2024-11-20] MEDS: SINGULAIR 10 MG PO (08:15)
[2024-11-20] MEDS: NSS (PRESERVATIVE FREE) 10 ML IV (08:16)
[2024-11-20] MEDS: HEPARIN 5000 UNITS SC ×2 (08:16→20:13)
[2024-11-20] MEDS: PROTONIX IV 40 MG IV (08:16)
--- NOTE | 2024-11-20 08:16 | W.PN.HOSP.TC ---
Today's Communication/Plan
-
Worsening leukocytosis, and abdominal pain persists -- check CT Abdomen Pelvis
Assessment / Plan
Assessment / Plan
Physical Exam
General: Not in acute distress
HEENT: Normocephalic
Respiratory: Clear to Auscultation Bilaterally
Cardiac: Regular Rhythm and S1/S2
GI: Soft, Nondistended, Normal Bowel Sounds and Mildly Tender (Left upper and lower abdominal quadrants)
Skin: Warm and Dry
Neuro: Awake, Alert, Oriented and AO x 3
Psych: Calm and Intact Judgement/Insight
Assessment/Plan
63 y/o female with past medical history of GERD, HTN, Hypothyroidism, Anemia, h/o diverticular abscess, sigmoid inflammation with fistula to the small bowel; presented with persistent left-sided abdominal pain. Her outpatient CT scan from 3 days FINGERPRINT CLERK
noted diverticulitis with [address] AP from this admission 11/12:
Significant abnormality involving the mid to distal transverse colon, splenic flexure, and descending colon. Findings likely represent diverticulitis with focal areas of contained perforation. In the anterior left upper quadrant, there is a focal
extraluminal collection, predominantly air with a thickened wall, which also contains a small amount of contrast, compatible with contained collection from localized perforation.
There are also small foci of extraluminal air along the superior margin of the transverse colon.
Best seen on coronal images, and the left lower abdomen upper pelvis, there appear to be tracts extending between loops of the descending colon, suggesting colon to colon fistulous tracts.
No evidence for free intraperitoneal air underneath the hemidiaphragms.
Small amount of fluid in the left paracolic gutter, measurements given above. Superimposed infection of this paracolic collection cannot be excluded.
Severe fatty infiltration of the pancreas.
#Sepsis POA 2/2 complicated diverticulitis with focal areas of contained perforation and colon to colon fistula tracts.
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
#Abdominal abscess (suspected contained perforation)
#Worsening Leukocytosis
CT AP report as above
Antibiotics cefepime and flagyl-->Zosyn-->now on Ertapenem for 3 to 4 weeks, as per ID
PICC line has been placed by interventional radiology
Low Residue Diet
Stop all Laxatives
Pain control, prn Zofran (QTc okay as of 11/19/24)
CRS on board, no plan for surgery and no plan for IR drainage given initial clinical improvement
Repeat CT Abd/Pelv with IV and oral contrast today given rising WBC count
GI was consulted for possible crohn's evaluation, GI does NOT think pt has IBD
Dr. Dias of Infectious Disease will follow-up in the outpatient setting after discharge
Follow-up with Dr. Jett after discharge
#Microcytic Anemia
#Thrombocytosis
Iron studies unremarkable; vitamin B12 is high
?from antibiotics
Will need follow-up with [facility] after discharge -- on 11/19/24, I notified Dr. Hernandez that patient needs close follow-up for her anemia after discharge
Monitor CBC outpatient
#Chronic Sinus Tachycardia
-Patient reported this has been an issue outpatient
-Patient sees [facility] cardiology outpatient for this
#MYRON suspect due to sepsis, resolved
SCr 1.3 -> 0.6 today; baseline around 0.8
Intravenous Fluids recently given
#Abnormal LFTS - IMPROVED - suspected to be related to sepsis this hospitalization
LFTs improved
f/u LFTs
Recheck CMP outpatient
#Benign Hypertension
Continue FINGERPRINT CLERK Losartan with hold parameter
#Hypothyroidism
Cont Synthroid
#Anxiety/ Insomnia
-Monitor closely outpatient
DVT Px: HSQ -- given normal renal function, will switch to Lovenox starting tomorrow
Full code
Dispo: SNF placement -- [facility]
Anticipated Discharge: 24 - 48 hours
Subjective/Interval History
-
Date of Service: November 20, 2024
Objective Data
-
Labs:
Laboratory Results
11/20/24 11/20/24
03:21 05:02
WBC 12.7 H 16.3 H
Hgb 6.8 L* 8.0 L
Hct 21.8 L 25.8 L
Plt Count 557 H 632 H
Sodium 138
Potassium 3.6
Chloride 107
Carbon Dioxide 26
BUN 9
Creatinine 0.6
Glucose 90
Calcium 8.1 L
Total Bilirubin 0.5
AST 13 L
ALT 20
Alkaline Phosphatase 144 H
Vital Signs:
Vital Signs
Temp Pulse Resp BP Pulse Ox
98.2 F 96 16 120/70 98
11/20/24 03:00 11/20/24 06:00 11/20/24 06:00 11/20/24 04:00 11/19/24 23:46
I&O
11/19/24 11/20/24 11/21/24
06:59 06:59 06:59
Intake Total 840 / 840 300 / 300
Balance 840 / 840 300 / 300
--- NOTE | 2024-11-20 08:16 | W.PN.CRS1 ---
Today's Communication / Plan
-
CT A/P
Assessment/Plan
-
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
perforation of the distal transverse colon as well as surrounding inflammatory changes and interloop fistulas.
WBC 16.3 (8.6), Hgb 8.0 (7.6) vitals normal
-CT A/P given increase in WBC
-NPO for now
-Continue IV antibiotics - likely 3 weeks total per ID
-Stop all laxatives
-Hold plans for dispo today
Subjective Data
Subjective Data
Date of Service: November 20, 2024
Patient states she still has LLQ pain. She has no other complaints. She is tolerating a diet.
Objective Data
-
Vital Signs
Temp Pulse Resp BP Pulse Ox
98.2 F 96 16 120/70 98
11/20/24 03:00 11/20/24 06:00 11/20/24 06:00 11/20/24 04:00 11/19/24 23:46
Intake & Output
11/19/24 11/20/24 11/21/24
06:59 06:59 06:59
Intake Total 840 / 840 300 / 300
Balance 840 / 840 300 / 300
Intake:
Oral fluids 840 / 840 240 / 240
IV piggybacks 60 / 60
Other:
Number of approximated MODERATE 1 1
amounts of urine
Number of approximated LARGE 1
amounts of urine
Lab Results
11/20/24 05:02
11/20/24 03:21
Physical Exam
-
General: No Acute Distress and AOx3
Abdomen: Soft and Tender (LLQ pain, moderate, unchanged)
Skin: Warm and Dry
--- NOTE | 2024-11-20 08:22 | PTCARENOTE ---
Pt AAOx3 PT for CT scan
[2024-11-20] MEDS: OMNIPAQUE 50 ML PO (09:03)
--- NOTE | 2024-11-20 09:21 | CM ---
CM received voicemail from yesterday 11/19 at 4:45 p.m - auth was denied, pending auth #[id number], peer to peer option [phone] or [phone], fax to [phone] or [phone]. Update to following CM.
--- NOTE | 2024-11-20 09:57 | CM ---
Addendum entered by Shauna Fermin RN 11/20/24 10:18:
Spoke with Duke Villalobos; provided update re; denial, inability to do P2P as discharge on hold due to ongoing acute issues.
Original Note:
Patient with Hx enterocolonic fistula with Dx Sepsis 2/2 diverticulitis with contained perforation colon, colon fistula tracts. Room air. PICC placed yesterday. NPO. Receiving IV Abx, IV Protonix, IV Zofran, IV MS prn. PT & OT 11/19; recommend
Skilled vs home.
As per prior CM notes 11/16: Message from Dr Dias: Script for IV Abx is on the chart - Ertapenum once daily, end date 12/14.
Message from Elvi OGDEN; rescanning patient because her WBC is up, so discharge is delayed for now.
Spoke with patient who is aware that insurance denied her request for SNF, and Peer to Peer appeal is on hold/unable to be done, as her discharge is on hold.
Spoke with Dr Giron; Peer to Peer info had been provided and he had planned to do P2P, however needed to provide update to Dr Giron that patient's discharge is now on hold - P2P will not be performed.
CM continuing to follow for d/c needs.
Plan possible [facility] SNF when medically ready.
[2024-11-20] MEDS: INVANZ 60 MG IV (12:17)
--- NOTE | 2024-11-20 14:30 | W.PN.ID1 ---
Date of Service
Date of Service: November 20, 2024
Today's Communication
Continue antibiotics
Assessment / Plan
Acute diverticulitis
Abdominal abscess (suspected contained perforation)
Marked leukocytosis
-improving
Transaminitis
-improving
Elevated CRP
Asthma
GERD
HTN
Hypothyroidism
Uterine fibroids
Recommendations:
Repeat CT pending although patient reports she will be undergoing abscess aspiration later today; please send aspirate for cultures
Continue ertapenem for today.
Monitor white count and temperature curve.
����������������������������������������������������������
Chief Complaint
-: Other (Diverticular abscess)
Subjective / Review of Systems
Patient seen and examined. Increasing pain today, and white count has also been noted to be increased. Repeat CT ordered and performed. Awaiting full results.
Vital Signs / Physical Exam
Vital Signs
Vital Signs
Temp Pulse Resp BP Pulse Ox
99.2 F 104 15 109/58 96
11/20/24 11:31 11/20/24 08:15 11/20/24 08:00 11/20/24 08:15 11/20/24 09:18
Physical Exam
Constitutional: No Acute Distress
Head: Normocephalic
Eyes: Pupils Equal and Pupils Round
Cardiovascular: Regular Rate and S1/S2
Pulmonary: Non Labored
Gastrointestinal: Soft and Non Distended
Neurological: AO x 3
Objective Data
Lab Data
Lab Results
11/20/24 05:02
11/20/24 03:21
PT Cancelled 11/15/24 07:47
INR Cancelled 11/15/24 07:47
Estimated Creat Clear 92 ml/min 11/20/24 03:21
Lactic Acid 0.7 mmol/L (0.7-2.0) 11/12/24 23:42
Total Bilirubin 0.5 mg/dl (0.2-1.3) 11/20/24 03:21
AST 13 U/L (14-36) L 11/20/24 03:21
ALT 20 U/L (0-35) 11/20/24 03:21
Alkaline Phosphatase 144 U/L (38-126) H 11/20/24 03:21
C-Reactive Protein 72.50 mg/L (0.0-10.00) H 11/16/24 04:16
Most recent labs reviewed.
Micro Results:
11/12/24 18:22 Blood Culture - Final
Blood/Venous No Growth - Final Report
11/12/24 18:22 Blood Culture - Final
Blood/Venous No Growth - Final Report
11/15/24 11:56 Salmonella/Shigella Culture - Final
Feces/Stool No Salmonella, Shigella, Aeromonas or Plesiomonas species
isolated.
Campylobacter Culture - Final
No Campylobacter species isolated.
Shiga Toxin Test - Final
No E. coli Shiga Toxin 1 or 2 detected.
Imaging:
11/20/2024 CT abdomen/pelvis: Report pending.
11/12/2024 CT abdomen/pelvis with contrast: There is significant abnormality involving the mid to distal transverse colon, splenic flexure and descending colon. Findings likely represent diverticulitis with focal areas of contained perforation. In
the anterior left upper quadrant there is also a focal extraluminal collection predominantly air with a thickened wall which also contains a small amount of contrast compatible with a contained collection from localized perforation. Small foci of
extraluminal air are also noted along the superior margin of the transverse colon. On coronal imaging there appears to be a tract extending between loops of descending colon in the left lower abdomen and upper pelvis. This would suggest a colon to
colon fistulous tracts. Please see full dictation for additional detail.
--- NOTE | 2024-11-20 15:16 | PTCARENOTE ---
Report to Marifer on , Marifer barraza call when pt aqrrives and we will take her belongings to her and pu our monitor
--- NOTE | 2024-11-20 16:09 | W.PN.UPDATE ---
Update Note
Progress Note Update
- CT guided drain placed into LUQ fluid collection. Purulent green fluid obtained.
- 10F drain. Patient tolerated well.
- Flushing orders placed.
--- NOTE | 2024-11-20 16:59 | PTCARENOTE ---
Pt arrived to new room (338-2) from IR at approx 1630. Stand/pivot to bed from stretcher. Amublated to bathroom after settled in to room. Loose bowels x 1, continent - pt believes from contrast. ST on monitor - 150s with ambulation, 100s at rest.
70cc purulent drainage from LUQ KENRICK drain upon arrival to unit.
[2024-11-20] MEDS: MYLICON 80 MG PO (18:26)
[2024-11-20] MEDS: TYLENOL 650 MG PO (20:14)
[2024-11-20] MEDS: ATIVAN 0.25 MG IV (21:57)
[2024-11-21] VITALS (8 sets, daily range): BP systolic 99–122; BP diastolic 54–74
[2024-11-21] MEDS: MORPHINE SULFATE 4 MG IV ×3 (01:14→17:15)
[2024-11-21] MEDS: TYLENOL PO ×5 (03:30→23:52)
[2024-11-21] MEDS: SYNTHROID 125 MCG PO (05:29)
--- NOTE | 2024-11-21 07:58 | W.PN.HOSP.TC ---
Today's Communication/Plan
-
Continue antibiotics
1 unit PRBC transfusion
CRS re-consulted GI
Assessment / Plan
Assessment / Plan
Physical Exam
General: Not in acute distress
HEENT: Normocephalic
Respiratory: Clear to Auscultation Bilaterally
Cardiac: Regular Rhythm and S1/S2
GI: Soft, Nondistended, Normal Bowel Sounds and Mildly Tender (Left upper and lower abdominal quadrants)
Skin: Warm and Dry
Neuro: Awake, Alert, Oriented and AO x 3
Psych: Calm and Intact Judgement/Insight
Assessment/Plan
63 y/o female with past medical history of GERD, HTN, Hypothyroidism, Anemia, h/o diverticular abscess, sigmoid inflammation with fistula to the small bowel; presented with persistent left-sided abdominal pain. Her outpatient CT scan from 3 days [employer]
noted diverticulitis with [address] AP from this admission 11/12:
Significant abnormality involving the mid to distal transverse colon, splenic flexure, and descending colon. Findings likely represent diverticulitis with focal areas of contained perforation. In the anterior left upper quadrant, there is a focal
extraluminal collection, predominantly air with a thickened wall, which also contains a small amount of contrast, compatible with contained collection from localized perforation.
There are also small foci of extraluminal air along the superior margin of the transverse colon.
Best seen on coronal images, and the left lower abdomen upper pelvis, there appear to be tracts extending between loops of the descending colon, suggesting colon to colon fistulous tracts.
No evidence for free intraperitoneal air underneath the hemidiaphragms.
Small amount of fluid in the left paracolic gutter, measurements given above. Superimposed infection of this paracolic collection cannot be excluded.
Severe fatty infiltration of the pancreas.
#Sepsis POA 2/2 complicated diverticulitis with focal areas of contained perforation and colon to colon fistula tracts.
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
#Abdominal abscess (suspected contained perforation) status post drain placement on 11/20/24
#Worsening Leukocytosis
CT AP report as above
Antibiotics cefepime and flagyl-->Zosyn-->now on Ertapenem for 3 to 4 weeks, as per ID
PICC line has been placed by interventional radiology
Low Residue Diet
Stop all Laxatives
Pain control, prn Zofran (QTc okay as of 11/19/24)
CRS on board -- they re-consulted GI on 11/21/24 given high calprotectin
Repeat CT Abd/Pelv with IV and oral contrast was done on 11/20/24 given rising WBC count: showed slightly enlarged fluid collection in the anterior left abdomen
Drain placed on 11/20/24 for LLQ abscess
GI was consulted for possible crohn's evaluation, GI does NOT think pt has IBD
Dr. Dias of Infectious Disease will follow-up in the outpatient setting after discharge
Follow-up with Dr. Jett after discharge
#Microcytic Anemia
#Thrombocytosis
1 unit PRBC ordered for 11/21/24 given Hgb 6.9 -- transfusion consent obtained from the patient
Fecal Occult blood test
Iron studies unremarkable prior to the transfusion above; vitamin B12 was high
?from antibiotics
Will need follow-up with [facility] after discharge -- on 11/19/24, I notified Dr. Hernandez that patient needs close follow-up for her anemia after discharge
Monitor CBC outpatient
#Chronic Sinus Tachycardia
-Patient reported this has been an issue outpatient
-Patient sees [facility] cardiology outpatient for this
#MYRON suspect due to sepsis, resolved
SCr 1.3 -> 0.6 today; baseline around 0.8
Intravenous Fluids recently given
#Abnormal LFTS - IMPROVED - suspected to be related to sepsis this hospitalization
LFTs improved
f/u LFTs
Recheck CMP outpatient
#Benign Hypertension
Continue [employer] Losartan with hold parameter
#Hypothyroidism
Cont Synthroid
#Anxiety/ Insomnia
-Monitor closely outpatient
#Calcified uterine fibroid on CT Imaging
DVT Prophylaxis: Lovenox
Full code
Dispo: SNF placement -- [facility]
Anticipated Discharge: > 48 hours
Subjective/Interval History
-
Date of Service: November 21, 2024
Patient was seen and examined. She denied any new symptoms or complaints, but she does have pain where the drain was placed for her abscess.
Objective Data
-
Labs:
Laboratory Results
11/21/24
06:00
WBC Pending
Hgb Pending
Hct Pending
Plt Count Pending
Sodium Pending
Potassium Pending
Chloride Pending
Carbon Dioxide Pending
BUN Pending
Creatinine Pending
Glucose Pending
Calcium Pending
Vital Signs:
Vital Signs
Temp Pulse Resp BP Pulse Ox
97.6 F 86 16 113/74 96
11/21/24 07:10 11/21/24 07:10 11/21/24 07:10 11/21/24 07:10 11/21/24 07:10
I&O
11/20/24 11/21/24 11/22/24
06:59 06:59 06:59
Intake Total 300 / 300 1020 / 1020
Output Total 100 / 100
Balance 300 / 300 920 / 920
[2024-11-21] MEDS: COZAAR 50 MG PO (08:37)
[2024-11-21] MEDS: SINGULAIR 10 MG PO (08:38)
[2024-11-21] MEDS: NSS (PRESERVATIVE FREE) 10 ML IV (08:39)
[2024-11-21] MEDS: PROTONIX IV 40 MG IV (08:39)
[2024-11-21 09:22] LABS: Hematocrit 22.2 % (37.0-47.0); Hemoglobin 6.9 g/dL (12.0-16.0); Mean Corp Hgb Conc. 31.1 g/dL (33.0-37.0); Mean Corpuscular Hgb 24.9 pg (27.0-31.0); Mean Corpuscular Volume 80.1 fL (81.0-99.0); Mean Platelet Volume 8.4 fL (7.4-10.4); Platelet Count 497 10^3/uL (130-400); Red Blood Cell Count 2.77 10^6/uL (4.20-5.40); Red Cell Dist. Width 18.4 % (11.5-14.5); White Blood Cell Count 9.9 10^3/uL (4.8-10.8)
[2024-11-21 09:29] LABS: Blood Urea Nitrogen 10 mg/dl (7-17); Calcium 8.2 mg/dl (8.4-10.2); Carbon Dioxide 28 mmol/L (22-30); Chloride 106 mmol/L (98-107); Estimated Creatinine Clearance 92 ml/min; Glucose 114 mg/dl (70-99); Potassium 3.5 mmol/L (3.5-5.1); Sodium 137 mmol/L (135-145); eGFR > 60.00
[2024-11-21] MEDS: INVANZ 60 MG IV (10:18)
--- NOTE | 2024-11-21 10:30 | W.PN.CRS1 ---
Today's Communication / Plan
-
Labs
Reconsult GI
Maintain IR drain
Assessment/Plan
-
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
perforation of the distal transverse colon as well as surrounding inflammatory changes and interloop fistulas.
11/20-IR drain placement
Labs pending
-Continue IR drain
-IR cultures pending
-Await labs
-Continue low residue diet
-Continue IV antibiotics - likely 3 weeks total per ID
-Stop all laxatives
-Will reconsult GI given her extremely elevated stool calprotectin. Discussed case with Dr. Ash.
Subjective Data
Subjective Data
Date of Service: November 21, 2024
Patient states she has 'intense pain' over the drain in her left side. She denies nausea or vomiting. She has not had any gas today. She had a bowel movement yesterday.
Objective Data
-
Vital Signs
Temp Pulse Resp BP Pulse Ox
97.6 F 86 16 113/74 96
11/21/24 07:10 11/21/24 08:37 11/21/24 07:10 11/21/24 08:37 11/21/24 07:10
Intake & Output
11/20/24 11/21/24 11/22/24
06:59 06:59 06:59
Intake Total 300 / 300 1020 / 1020
Output Total 100 / 100
Balance 300 / 300 920 / 920
Intake:
Oral fluids 240 / 240 960 / 960
IV piggybacks 60 / 60 60 / 60
Output:
Drain Output (Total) 100 / 100
Left Pelvis Placed in IR 100 / 100
Other:
Number of approximated MODERATE 1 1
amounts of urine
Lab Results
11/21/24 08:49
Physical Exam
-
General: No Acute Distress and AOx3
Abdomen: Soft, Non Distended, Tender (Left side near drain) and Other (IR drain with serosanguineous)
Skin: Warm and Dry
[2024-11-21 12:08] LABS: Hematocrit 21.2 % (37.0-47.0); Hemoglobin 6.9 g/dL (12.0-16.0); Mean Corp Hgb Conc. 32.5 g/dL (33.0-37.0); Mean Corpuscular Hgb 25.9 pg (27.0-31.0); Mean Corpuscular Volume 79.7 fL (81.0-99.0); Mean Platelet Volume 8.7 fL (7.4-10.4); Platelet Count 572 10^3/uL (130-400); Red Blood Cell Count 2.66 10^6/uL (4.20-5.40); Red Cell Dist. Width 18.6 % (11.5-14.5); White Blood Cell Count 10.5 10^3/uL (4.8-10.8)
--- NOTE | 2024-11-21 12:37 | W.PN.ID1 ---
Date of Service
Date of Service: November 21, 2024
Today's Communication
Continue ertapenem.
Assessment / Plan
Acute diverticulitis
Abdominal abscess (suspected contained perforation)
Marked leukocytosis
-improving
Transaminitis
Elevated CRP
Asthma
GERD
HTN
Hypothyroidism
Uterine fibroids
Recommendations:
Patient clinically stable today.
Continue ertapenem. Will follow pending cultures and modify antibiotic coverage if necessary.
Monitor white count and temperature curve.
����������������������������������������������������������
Chief Complaint
-: Other (Diverticular abscess)
Subjective / Review of Systems
Patient seen and examined. Underwent aspiration of her abdominal collection yesterday, with recovery of purulent green fluid (per IR notes). Overall feels well today.
Vital Signs / Physical Exam
Vital Signs
Vital Signs
Temp Pulse Resp BP Pulse Ox
97.7 F 96 16 118/65 96
11/21/24 11:49 11/21/24 11:49 11/21/24 11:49 11/21/24 11:49 11/21/24 11:49
Physical Exam
Constitutional: No Acute Distress
Head: Normocephalic
Eyes: Pupils Equal and Pupils Round
Cardiovascular: Regular Rate and S1/S2
Pulmonary: Non Labored
Gastrointestinal: Soft, Tender (Mild.), Non Distended and Other (KENRICK in place with scant serosanguineous fluid)
Neurological: AO x 3
Objective Data
Lab Data
Lab Results
11/21/24 11:03
11/21/24 08:49
PT Cancelled 11/15/24 07:47
INR Cancelled 11/15/24 07:47
Estimated Creat Clear 92 ml/min 11/21/24 08:49
Lactic Acid 0.7 mmol/L (0.7-2.0) 11/12/24 23:42
Total Bilirubin 0.5 mg/dl (0.2-1.3) 11/20/24 03:21
AST 13 U/L (14-36) L 11/20/24 03:21
ALT 20 U/L (0-35) 11/20/24 03:21
Alkaline Phosphatase 144 U/L (38-126) H 11/20/24 03:21
C-Reactive Protein 72.50 mg/L (0.0-10.00) H 11/16/24 04:16
Most recent labs reviewed.
Micro Results:
11/20/24 15:42 Wound Culture - Preliminary
Abscess Gram Stain - Preliminary
11/12/24 18:22 Blood Culture - Final
Blood/Venous No Growth - Final Report
11/12/24 18:22 Blood Culture - Final
Blood/Venous No Growth - Final Report
11/15/24 11:56 Salmonella/Shigella Culture - Final
Feces/Stool No Salmonella, Shigella, Aeromonas or Plesiomonas species
isolated.
Campylobacter Culture - Final
No Campylobacter species isolated.
Shiga Toxin Test - Final
No E. coli Shiga Toxin 1 or 2 detected.
Imaging:
11/20/2024 CT abdomen/pelvis: Report pending.
11/12/2024 CT abdomen/pelvis with contrast: There is significant abnormality involving the mid to distal transverse colon, splenic flexure and descending colon. Findings likely represent diverticulitis with focal areas of contained perforation. In
the anterior left upper quadrant there is also a focal extraluminal collection predominantly air with a thickened wall which also contains a small amount of contrast compatible with a contained collection from localized perforation. Small foci of
extraluminal air are also noted along the superior margin of the transverse colon. On coronal imaging there appears to be a tract extending between loops of descending colon in the left lower abdomen and upper pelvis. This would suggest a colon to
colon fistulous tracts. Please see full dictation for additional detail.
--- NOTE | 2024-11-21 17:04 | CM ---
Pt required a blood transfusion today .
Will need updated PT eval .
Will resubmit auth for SNF for PT,IV antibiotics and rehab.
If denied pt has financial paper work to complete for private pay for [facility].
PICC line in place.
PLAN to [facility] under insurance VS private pay.
[2024-11-21] MEDS: LOVENOX 40 MG SC (17:14)
--- NOTE | 2024-11-21 17:21 | PTCARENOTE ---
Hbg 6.8 MD made aware with new orders. Pt received 1 unit PRBC. Pt tolerated transfusion well, VSS throughout. No signs of bleeding this shift. PRN pain medication given x2 during shift for LLQ pain. Continues with KENRICK drain, 15cc output during
shift. Call vergara within reach.
--- NOTE | 2024-11-21 18:37 | W.PN.GI.CBS2 ---
Today's Communication / Plan
-
outpatient GI follow up
Assessment / Plan
-
This is a 63-year-old female past medical history of complicated diverticulitis in the past with abscess and fistula presenting with abdominal pain, sepsis, again with what appears to be complicated diverticulitis. Crohn's is the differential
although given the fact that she had a similar episode in 2019 with 2 negative colonoscopies, my suspicion is lower. She also has no chronic symptoms, no family history. The elevated fecal calprotectin can occur in diverticulitis as well.
If she is discharged and does well, once her drain is removed and the fluid collection has resolved, I would be happy to do a colonoscopy as an outpatient to further assess for possible Crohn's disease. If this is all diverticulitis, I did discuss
with the patient the advantages of eventual surgical intervention to prevent recurrence given the fact that she had 2 complicated episodes.
Even though my suspicion for Crohn's is low, even if this is Crohn's, Biologics and steroids would be contraindicated in the setting and therefore would not currency exchange specialist.
I have asked my office to put her on a cancellation list to move up her appointment for 4-6 weeks time. Discussed with colorectal surgery. In the interim, GI will sign off at this time. Please call with any questions or changes.
Total Time Spent with Patient (in minutes): 50
Subjective
Subjective
Date of Service: November 21, 2024
GI asked to re-evaluate patient with question of Crohn's vs diverticulitis.
Patient was seen by Dr. Duggan in consult November 13 for increasing abdominal pain. She underwent a CT scan outpatient which showed diverticulitis and leukocytosis and had worsening symptoms and repeat CT scan in the emergency room showed
diverticulitis with focal area of contained perforation with focal extraluminal collection and small foci of extraluminal air. Her last colonoscopy was in [address] Gonzalez which showed diverticulosis and erythema in the sigmoid biopsies were
negative for inflammatory bowel disease at that point. She has no family history of inflammatory bowel disease.
She does have history of enterocutaneous fistula in 2019 as well as abscess with diverticulitis requiring hospitalization. She had a colonoscopy done by Dr. Jett at that time which showed diverticulosis. I personally reviewed the colonoscopy
images both from 2018 and 2021.
She underwent percutaneous drainage November 20 with interventional radiology with 20 mL of purulent fluid aspirated. Her most recent CT scan was done on the same day which showed enlarged focal collection in the anterior left abdomen previously felt
to represent a focal contained perforation and developing abscess could be considered. Probable reactive change the distal transverse colon and descending colon with surrounding inflammation and colon to colon fistula formation versus mural
tracking of oral contrast. All likely due to acute diverticulitis. Stable.
Infectious disease has been managing her antibiotics and she is currently on ertapenem.
Fecal calpro was sent and was >3000.
I discussion with the patient, she denies any chronic symptoms. She had neurovirus this winter but otherwise has no chronic diarrhea, abdominal pain, weight loss.
Objective
Data Reviewed
Laboratory Data:
Laboratory Results
11/21/24 11:03
11/21/24 08:49
Laboratory Results
PT Cancelled 11/15/24 07:47
INR Cancelled 11/15/24 07:47
Magnesium 1.8 mg/dl (1.6-2.3) 11/14/24 04:38
Total Bilirubin 0.5 mg/dl (0.2-1.3) 11/20/24 03:21
AST 13 U/L (14-36) L 11/20/24 03:21
ALT 20 U/L (0-35) 11/20/24 03:21
Alkaline Phosphatase 144 U/L (38-126) H 11/20/24 03:21
Vital Signs and I&O:
Vital Signs
Temp Pulse Resp BP Pulse Ox
98.0 F 104 16 103/69 96
11/21/24 15:50 11/21/24 15:50 11/21/24 15:50 11/21/24 15:50 03/26/25 15:20
I&O
11/20/24 11/21/24 11/22/24
06:59 06:59 06:59
Intake Total 300 / 300 1020 / 1020 730 / 730
Output Total 100 / 100
Balance 300 / 300 920 / 920 730 / 730
Physical Exam
Physical Exam
GI: Tender and Other (drain in place)
[2024-11-21] MEDS: TYLENOL 650 MG PO (20:51)
[2024-11-21] MEDS: ATIVAN 0.25 MG IV (20:52)
[2024-11-21 21:19] LABS: Hematocrit 27.3 % (37.0-47.0); Hemoglobin 8.5 g/dL (12.0-16.0)
[2024-11-22] MEDS: TYLENOL PO ×7 (03:16→23:53)
[2024-11-22] MEDS: SYNTHROID 125 MCG PO (05:00)
[2024-11-22 05:25] LABS: Hematocrit 23.5 % (37.0-47.0); Hemoglobin 7.4 g/dL (12.0-16.0); Mean Corp Hgb Conc. 31.5 g/dL (33.0-37.0); Mean Corpuscular Hgb 25.3 pg (27.0-31.0); Mean Corpuscular Volume 80.5 fL (81.0-99.0); Mean Platelet Volume 8.4 fL (7.4-10.4); Platelet Count 508 10^3/uL (130-400); Red Blood Cell Count 2.92 10^6/uL (4.20-5.40); White Blood Cell Count 7.3 10^3/uL (4.8-10.8)
[2024-11-22] MEDS: MORPHINE SULFATE 4 MG IV ×4 (05:28→19:18)
[2024-11-22 05:51] LABS: Blood Urea Nitrogen 13 mg/dl (7-17); Calcium 7.9 mg/dl (8.4-10.2); Carbon Dioxide 28 mmol/L (22-30); Chloride 108 mmol/L (98-107); Estimated Creatinine Clearance 79 ml/min; Glucose 98 mg/dl (70-99); Potassium 3.4 mmol/L (3.5-5.1); Sodium 141 mmol/L (135-145); eGFR > 60.00
[2024-11-22] MEDS: ZOFRAN 4 MG IV ×2 (07:24→23:47)
[2024-11-22] MEDS: SINGULAIR 10 MG PO (07:27)
[2024-11-22] MEDS: COZAAR 50 MG PO (07:28)
[2024-11-22] MEDS: PROTONIX IV 40 MG IV (07:29)
[2024-11-22] MEDS: NSS (PRESERVATIVE FREE) 10 ML IV (07:29)
[2024-11-22 07:30] VITALS: BP 137/73
[2024-11-22 08:50] LABS: Albumin 1.9 g/dl (3.5-5.0)
[2024-11-22] MEDS: KCL 40 MEQ PO (09:00)
[2024-11-22] MEDS: INVANZ 60 MG IV (09:01)
--- NOTE | 2024-11-22 09:03 | W.PN.CRS1 ---
Today's Communication / Plan
-
Heme input.
Assessment/Plan
-
Left sided colitis with abscess and interloop fistula(s).
1. antibiotics per ID.
2. continue drain flushes/care.
3. Hg drifting again despite transfusion--doubt this fully due to GI source. Spoke to Dr. Do--hematology to be consulted.
4. tolerating LRD with bowel function.
5. GI input yesterday noted--GI opinion is Crohn's is possible but complicated diverticulitis more likely. No role for colonoscopy right now; potentially in future as outpatient.
6. no role for surgery now--but will likely eventually need an interval resection.
Subjective Data
Subjective Data
Date of Service: November 22, 2024
Admits to discomfort at drain site.
Having BMs. Denies bloody or dark stools.
Hungry and tolerating diet.
Objective Data
-
Vital Signs
Temp Pulse Resp BP Pulse Ox
97.9 F 82 14 137/73 99
11/22/24 07:30 11/22/24 07:30 11/22/24 07:30 11/22/24 07:30 11/22/24 07:30
Intake & Output
11/21/24 11/22/24 11/23/24
06:59 06:59 06:59
Intake Total 1020 / 1020 1210 / 1210
Output Total 100 / 100 20 / 20
Balance 920 / 920 1190 / 1190
Intake:
Oral fluids 960 / 960 960 / 960
IV piggybacks 60 / 60
Blood Product Amount Infused ( 250 / 250
mL)
Packed Rbc Leukoreduced Unit 250 / 250
[id number]
Output:
Drain Output (Total) 100 / 100 20 / 20
Left Pelvis Placed in IR 100 / 100
Other:
Number of approximated MODERATE 1 1
amounts of urine
Lab Results
11/22/24 04:51
Physical Exam
-
General: No Acute Distress
Chest: Clear
Cardiovascular: Regular Rate & Rhythm
Abdomen: Tender (mild LUQ at drain site--no skin erythema; drain iwth jones output.)
--- NOTE | 2024-11-22 10:58 | CON.ONC ---
Impression
Impression
a/w Left sided colitis with abscess and interloop fistula
Hematology consulted for Acute on chronic anemia is likely multifactorial with GI losses, frequent phleb, dilutional, infection, and abx
no role for iron repletion with ferritin >100, though likely a component of elevation due to inflammation/reactive, I would not give parenteral iron with acute infection. No b12 deficiency.
Plan
Plan
GI and colorectal surgery following
Abx per ID
check folate, retic
monitor for bleeding
transfuse Hgb <7 or as needed for sxs anemia
Patient History
History of Present Illness
63yo F presented to 11/12/2024 with left sided abdominal pain. She reports abdominal pain 2-3 weeks prior to presentation. She also reports feeling lightheaded and dizzy. She underwent outpatient evaluation with her primary care provider. Her CT
showed diverticulosis with findings highly suspicious for at least one large abnormal fluid collection/abscess in the anterior left abdomen. She underwent percutaneous drainage November 20 with interventional radiology with 20 mL of purulent fluid
aspirated. Her Hgb has trended from 10g/dL on admission to 6.9g/dL on 11/21 for which she was transfused with 1U PRBC. Hgb today 8.5g/dL. She has chronic thrombocytosis.
Deneis fever, chills, cough, chest pain, SOB at rest, n/v/d/c or abdominal pain. She denies overt bleeding or changes in appetite.
Afebrile, no hypoxia or hypotension.
Past-Medical/Surgical History
PMH Hypertension,�asthma,�hypothyroid, HLD, colon abscess, uterine fibroid, HTN,�osteoarthritis,�obesity,�eczema/dermatitis, GERD
PSH Tonsillectomy�in�1964,�surgery�for�breast�abscess�in�2001,�cholecystectomy�2003,�fibroid�ablation�in�2006.��Squamous�cell�skin�cancer removed�in�2013.
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
Family�History Paternal�aunt�had�ovarian�cancer.�Maternal�great�uncle�had�non�Hodgkin�lymphoma.�Both�of�patient's�parents�had�basal�and/or�squamous cell�skin�cancers�removed.
Patient Medication
�Medication �Instructions �Recorded �Confirmed �Last Taken �Type
levothyroxine 125 mcg tablet 125 mcg PO DAILY Thyroid 01/01/19 11/12/24 01/30/19 History
(Synthroid)
losartan 50 mg tablet 50 mg PO DAILY Blood Pressure 01/01/19 11/12/24 01/30/19 History
acetaminophen 500 mg tablet 1,000 mg PO TIDPRN PRN mild 01/30/19 11/12/24 01/30/19 History
(Tylenol Extra Strength) pain/fever
tramadol 50 mg tablet 50 mg PO Q8HPRN PRN arthritis pain 01/30/19 11/12/24 01/30/19 History
albuterol sulfate 90 mcg/actuation 2 puff inhalation R Q6HPRN PRN sob 11/12/24 11/12/24 Unknown History
aerosol inhaler
alprazolam 0.5 mg tablet 0.5 mg PO DAILYPRN PRN anxiety 11/12/24 11/12/24 Unknown History
atorvastatin 80 mg tablet 80 mg PO DAILY High Cholesterol 11/12/24 11/12/24 Unknown History
cholecalciferol (vitamin D3) 25 25 mcg PO DAILY Supplement 11/12/24 11/12/24 Unknown History
mcg (1,000 unit) tablet (Vitamin
D3)
diclofenac sodium 75 mg 75 mg PO DAILY Pain 11/12/24 11/12/24 Unknown History
tablet,delayed release
montelukast 10 mg tablet 10 mg PO DAILY Allergies 11/12/24 11/12/24 Unknown History
omeprazole magnesium 20 mg 20 mg PO HS Gastrointestinal Issue 11/12/24 11/12/24 Unknown History
tablet,delayed release (Prilosec
OTC)
Active Medications
Generic Name Dose Route Start Last Admin
Trade Name Freq PRN Reason Stop Dose Admin
Acetaminophen 650 mg 11/17/24 12:00 11/22/24 07:30
Acetaminophen 325 Mg Tablet PO 12/15/24 11:59 Not Given
Q4HWA LESLEY
Albuterol 2 puff 11/13/24 00:23
Albuterol Hfa [90 Mcg/Dose] Inhaler INH
R Q6HPRN PRN
sob
Protocol
Enoxaparin Sodium 40 mg 11/21/24 18:00 11/21/24 17:14
Enoxaparin Sodium 40 Mg/0.4 Ml Syringe SC 12/19/24 17:59 40 mg
QPM LESLEY Administration
Ertapenem 1,000 mg/ Sodium 60 mls @ 120 mls/hr 11/17/24 10:00 11/22/24 09:01
Chloride IV 60 mls
Q24H LESLEY Administration
Levothyroxine Sodium 125 mcg 11/13/24 06:00 11/22/24 05:00
Levothyroxine 125 Mcg Tablet PO 12/11/24 05:59 125 mcg
DAILY @ 0600 LESLEY Administration
Lorazepam 0.25 mg 11/13/24 00:23 11/21/24 20:52
Lorazepam 2 Mg/Ml Vial IV 12/11/24 00:22 0.25 mg
Q8HPRN PRN Administration
anxiety
Losartan Potassium 50 mg 11/16/24 08:00 11/22/24 07:28
Losartan 50 Mg Tablet PO 12/14/24 07:59 50 mg
DAILY LESLEY Administration
Montelukast Sodium 10 mg 11/13/24 08:00 11/22/24 07:27
Montelukast Sodium 10 Mg Tablet PO 12/11/24 07:59 10 mg
DAILY LESLEY Administration
Morphine Sulfate 4 mg 11/13/24 01:38 11/22/24 05:28
Morphine 4 Mg/Ml Injection IV 11/27/24 01:37 4 mg
Q4HPRN PRN Administration
severe pain
Ondansetron HCl 4 mg 11/13/24 01:40 11/22/24 07:24
Ondansetron 4 Mg/2 Ml Vial IV 12/11/24 01:39 4 mg
Q6HPRN PRN Administration
nausea/vomiting
Pantoprazole Sodium 40 mg 11/13/24 08:00 11/22/24 07:29
Pantoprazole Sodium 40 Mg/10 Ml Vial IV 12/11/24 07:59 40 mg
DAILY LESLEY Administration
Simethicone 80 mg 11/19/24 10:05 11/20/24 18:26
Simethicone 80 Mg Chewable Tablet PO 12/17/24 10:04 80 mg
QIDPRN PRN Administration
gas
Sodium Chloride 0 flush 11/12/24 23:00
Sodium Chloride 0.9% (Flush) Syringe IV 12/10/24 22:59
PER PROTOCOL LESLEY
Sodium Chloride 10 ml 11/13/24 08:00 11/22/24 07:29
Sodium Chloride 0.9% (Preservative Free) 10 Ml Vial IV 12/11/24 07:59 10 ml
DAILY LESLEY Administration
Tramadol HCl 50 mg 11/17/24 10:58
Tramadol Hcl 50 Mg Tablet PO 12/15/24 10:57
Q6HPRN PRN
moderate pain
Review of Systems
-
ROS is notable for HPI, otherwise negative
Physical Exam
-
General: No Apparent Distress
HEENT: Moist Mucous Membranes; Negative Jaundice
Cardiology: Normal Sinus Rhythm
Pulmonary: Clear
GI: Soft and Other (TTP, KENRICK drain)
Extremities: Pulses Present; Negative Edema
Neurology: Non Focal
Skin: Warm
Psych: Calm
Labs
Lab Results
WBC 7.3 10^3/uL (4.8-10.8) 11/22/24 04:51
RBC 2.92 10^6/uL (4.20-5.40) L 11/22/24 04:51
Hgb 7.4 g/dL (12.0-16.0) L 11/22/24 04:51
Hct 23.5 % (37.0-47.0) L 11/22/24 04:51
MCV 80.5 fL (81.0-99.0) L 11/22/24 04:51
MCH 25.3 pg (27.0-31.0) L 11/22/24 04:51
MCHC 31.5 g/dL (33.0-37.0) L 11/22/24 04:51
RDW 18.0 % (11.5-14.5) H 11/22/24 04:51
Plt Count 508 10^3/uL (130-400) H 11/22/24 04:51
MPV 8.4 fL (7.4-10.4) 11/22/24 04:51
Abs Immat Gran (auto) 0.2 10^3/uL (0-0.05) H 11/20/24 05:02
Absolute Neuts (auto) 11.1 10^3/uL (1.4-6.5) H 11/20/24 05:02
Absolute Lymphs (auto) 3.1 10^3/uL (1.2-3.4) 11/20/24 05:02
Absolute Monos (auto) 1.8 10^3/uL (0.1-0.6) H 11/20/24 05:02
Absolute Eos (auto) 0.1 10^3/uL (0-0.7) 11/20/24 05:02
Absolute Basos (auto) 0.0 10^3/uL (0-0.2) 11/20/24 05:02
Immature Gran % 0.9 % (0-0.5) H 11/20/24 05:02
Neutrophils % 68.3 % (42.2-75.2) 11/20/24 05:02
Lymphocytes % 19.1 % (20.5-51.1) L 11/20/24 05:02
Monocytes % 10.9 % (1.7-9.3) H 11/20/24 05:02
Eosinophils % 0.6 % (0-6) 11/20/24 05:02
Basophils % 0.2 % (0-2) 11/20/24 05:02
Creatinine 0.7 mg/dL (0.6-1.0) 11/22/24 04:51
Vital Signs
Vital Signs
Temp Pulse Resp BP Pulse Ox
97.9 F 82 14 137/73 99
11/22/24 07:30 11/22/24 07:30 11/22/24 07:30 11/22/24 07:30 11/22/24 07:30
--- NOTE | 2024-11-22 12:18 | W.PN.HOSP.TC ---
Addendum entered and electronically signed by Richar Do MD 11/22/24 14:46:
Discussed with case management, per case management patient still needs insurance authorization prior to discharge.
Original Note:
Today's Communication/Plan
-
Discharge today
Assessment / Plan
Assessment / Plan
Physical Exam
General: Not in acute distress
HEENT: Normocephalic
Respiratory: Clear to Auscultation Bilaterally
Cardiac: Regular Rhythm and S1/S2
GI: Soft, Nondistended, Normal Bowel Sounds and Mildly Tender (Left upper and lower abdominal quadrants)
Skin: Warm and Dry
Neuro: Awake, Alert, Oriented and AO x 3
Psych: Calm and Intact Judgement/Insight
Assessment/Plan
63 y/o female with past medical history of GERD, HTN, Hypothyroidism, Anemia, h/o diverticular abscess, sigmoid inflammation with fistula to the small bowel; presented with persistent left-sided abdominal pain. Her outpatient CT scan from 3 days DIET TECHNICIAN REGISTERED
noted diverticulitis with [address] AP from this admission 11/12:
Significant abnormality involving the mid to distal transverse colon, splenic flexure, and descending colon. Findings likely represent diverticulitis with focal areas of contained perforation. In the anterior left upper quadrant, there is a focal
extraluminal collection, predominantly air with a thickened wall, which also contains a small amount of contrast, compatible with contained collection from localized perforation.
There are also small foci of extraluminal air along the superior margin of the transverse colon.
Best seen on coronal images, and the left lower abdomen upper pelvis, there appear to be tracts extending between loops of the descending colon, suggesting colon to colon fistulous tracts.
No evidence for free intraperitoneal air underneath the hemidiaphragms.
Small amount of fluid in the left paracolic gutter, measurements given above. Superimposed infection of this paracolic collection cannot be excluded.
Severe fatty infiltration of the pancreas.
#Sepsis POA 2/2 complicated diverticulitis with focal areas of contained perforation and colon to colon fistula tracts.
#History of Complicated Diverticulitis
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
#Abdominal abscess (suspected contained perforation) status post drain placement on 11/20/24
#Worsening Leukocytosis
CT AP report as above
Antibiotics cefepime and flagyl-->Zosyn-->now on Ertapenem for 3 to 4 weeks, as per ID
PICC line has been placed by interventional radiology
Low Residue Diet
Stop all Laxatives
Pain control, prn Zofran (QTc okay as of 11/19/24)
CRS on board -- they re-consulted GI on 11/21/24 given high calprotectin: Crohn's is on the differential diagnosis but less likely, elevated fecal calprotectin can occur in diverticulitis as well
Repeat CT Abd/Pelv with IV and oral contrast was done on 11/20/24 given rising WBC count: showed slightly enlarged fluid collection in the anterior left abdomen
Drain placed on 11/20/24 for LLQ abscess
GI was consulted for possible crohn's evaluation, GI does NOT think pt has IBD
Dr. Dias of Infectious Disease will follow-up in the outpatient setting after discharge
Follow-up with Dr. Jett after discharge
Outpatient colonoscopy with GI (once patient's drain is removed and the fluid collection has resolved)
#Microcytic Anemia
#Thrombocytosis
1 unit PRBC ordered for 11/21/24 given Hgb 6.9 -- transfusion consent obtained from the patient
Hgb subsequently improved to 8.5, but dropped to 7.4 on 11/22/24 -- but recheck showed Hgb 8.1
Less likely to be a GI bleed. Colorectal surgery doubts any bleed in patient's colon/abdomen.
Anemia can be explained by current infection, antibiotics, frequent blood draws
Iron studies unremarkable prior to the transfusion above; vitamin B12 was high
?from antibiotics
Patient has seen dope pourer Dr. Hernandez in the past
Hematology consulted given recurrent drops in Hgb -- checking folate and retic count
Will need follow-up with [place] hematology after discharge
Monitor CBC outpatient
#Chronic Sinus Tachycardia
-Patient reported this has been an issue outpatient
-Patient sees [facility] cardiology outpatient for this
#MYRON suspect due to sepsis, resolved
SCr 1.3 -> 0.7 today; baseline around 0.8
Intravenous Fluids recently given
#Abnormal LFTS - IMPROVED - suspected to be related to sepsis this hospitalization
LFTs improved
f/u LFTs
Recheck CMP outpatient
#Benign Hypertension
Continue DIET TECHNICIAN REGISTERED Losartan with hold parameter
#Hypothyroidism
Cont Synthroid
#Anxiety/ Insomnia
-Monitor closely outpatient
#Calcified uterine fibroid on CT Imaging
DVT Prophylaxis: Lovenox
Full code
Dispo: SNF placement -- [facility]
More than 30 minutes spent in discharge including
Final examination of the patient
Summarizing hospital stay
Instructions for continuing care to all relevant caregivers
Preparation of discharge records, prescriptions, and referral forms
Total time spent (in minutes): 40
Anticipated Discharge: Today
Subjective/Interval History
-
Date of Service: November 22, 2024
Patient was seen and examined. She denied any new symptoms.
Objective Data
-
Labs:
Laboratory Results
11/22/24 11/22/24
04:51 19:30
WBC 7.3
Hgb 7.4 L Pending
Hct 23.5 L Pending
Plt Count 508 H
Sodium 141
Potassium 3.4 L
Chloride 108 H
Carbon Dioxide 28
BUN 13
Creatinine 0.7
Glucose 98
Calcium 7.9 L
Vital Signs:
Vital Signs
Temp Pulse Resp BP Pulse Ox
97.9 F 82 14 137/73 99
11/22/24 07:30 11/22/24 07:30 11/22/24 07:30 11/22/24 07:30 11/22/24 07:30
I&O
11/21/24 11/22/24 11/23/24
06:59 06:59 06:59
Intake Total 1020 / 1020 1210 / 1210
Output Total 100 / 100
Balance 920 / 920 1190 / 1190
[2024-11-22 14:17] LABS: Hematocrit 25.3 % (37.0-47.0); Hemoglobin 8.1 g/dL (12.0-16.0)
--- NOTE | 2024-11-22 14:50 | CM ---
Pt required a blood transfusion yesterday Hgb improved. .
Will need updated PT eval.
Will resubmit auth for SNF for IV antibiotics and rehab.
If denied pt has financial paper work to complete for private pay for [facility].
PICC line in place.Continues IV antibiotics. Drain in place.
Spoke with Griselda she provided NPI for auth.
[facility]
report [phone]

PLAN to [facility] under insurance VS private pay.
[2024-11-22 15:06] VITALS: BP 134/84
--- NOTE | 2024-11-22 15:10 | W.PN.ID1 ---
Date of Service
Date of Service: November 22, 2024
Today's Communication
Continue antibiotics. See below�
Assessment / Plan
Acute diverticulitis
Abdominal abscess (suspected contained perforation)
Marked leukocytosis
-improving
Transaminitis
Elevated CRP
Asthma
GERD
HTN
Hypothyroidism
Uterine fibroids
Recommendations:
Patient clinically stable today.
Continue ertapenem.
Add Diflucan 200 mg p.o. daily to cover recovered yeast.
Check EKG in a.m. for QTc monitoring.
Monitor white count and temperature curve.
����������������������������������������������������������
Chief Complaint
-: Other (Diverticular abscess)
Subjective / Review of Systems
Review of Systems: No Fever and No Chills
Vital Signs / Physical Exam
Vital Signs
Vital Signs
Temp Pulse Resp BP Pulse Ox
97.9 F 82 14 137/73 99
11/22/24 07:30 11/22/24 07:30 11/22/24 07:30 11/22/24 07:30 11/22/24 07:30
Physical Exam
Constitutional: No Acute Distress, Comfortable and Non-toxic
Eyes: Sclera Anicteric
Pulmonary: Non Labored
Gastrointestinal: Non Distended and Other (KENRICK in place with scant fluid.)
Genito-Urinary: Negative P[place]an
Extremities: Negative Edema or Cyanosis
Neurological: Awake
Objective Data
Lab Data
Lab Results
11/22/24 19:30
11/22/24 04:51
PT Cancelled 11/15/24 07:47
INR Cancelled 11/15/24 07:47
Estimated Creat Clear 79 ml/min 11/22/24 04:51
Lactic Acid 0.7 mmol/L (0.7-2.0) 11/12/24 23:42
Total Bilirubin 0.5 mg/dl (0.2-1.3) 11/20/24 03:21
AST 13 U/L (14-36) L 11/20/24 03:21
ALT 20 U/L (0-35) 11/20/24 03:21
Alkaline Phosphatase 144 U/L (38-126) H 11/20/24 03:21
C-Reactive Protein 72.50 mg/L (0.0-10.00) H 11/16/24 04:16
Most recent labs reviewed.
Micro Results:
11/20/24 15:42 Wound Culture - Final
Abscess Streptococcus species
Yeast
Diptheroids
Gram Stain - Final
11/12/24 18:22 Blood Culture - Final
Blood/Venous No Growth - Final Report
11/12/24 18:22 Blood Culture - Final
Blood/Venous No Growth - Final Report
11/15/24 11:56 Salmonella/Shigella Culture - Final
Feces/Stool No Salmonella, Shigella, Aeromonas or Plesiomonas species
isolated.
Campylobacter Culture - Final
No Campylobacter species isolated.
Shiga Toxin Test - Final
No E. coli Shiga Toxin 1 or 2 detected.
Imaging:
11/20/2024 CT abdomen/pelvis: Report pending.
11/12/2024 CT abdomen/pelvis with contrast: There is significant abnormality involving the mid to distal transverse colon, splenic flexure and descending colon. Findings likely represent diverticulitis with focal areas of contained perforation. In
the anterior left upper quadrant there is also a focal extraluminal collection predominantly air with a thickened wall which also contains a small amount of contrast compatible with a contained collection from localized perforation. Small foci of
extraluminal air are also noted along the superior margin of the transverse colon. On coronal imaging there appears to be a tract extending between loops of descending colon in the left lower abdomen and upper pelvis. This would suggest a colon to
colon fistulous tracts. Please see full dictation for additional detail.
[2024-11-22 15:25] VITALS: BP 149/84; PULSE 107
--- NOTE | 2024-11-22 15:53 | PTCARENOTE ---
Patient ambulated to bathroom, but refuses to sit in chair. Zofran given for nausea and was effective. Morphine given for abdominal pain with good relief. KENRICK emptied for 30 ml purulent drainage. Patient tolerated 100% of meals on low residue diet.
[2024-11-22] MEDS: LOVENOX 40 MG SC (16:49)
[2024-11-22] MEDS: DIFLUCAN 200 MG PO (16:49)
[2024-11-22] MEDS: ATIVAN 0.25 MG IV (21:15)
[2024-11-22] MEDS: TYLENOL 650 MG PO (21:32)
[2024-11-23 00:05] VITALS: BP 114/74
[2024-11-23] MEDS: MORPHINE SULFATE 4 MG IV ×3 (01:57→23:39)
[2024-11-23] MEDS: TYLENOL PO ×3 (03:37→11:43)
[2024-11-23] MEDS: SYNTHROID 125 MCG PO (05:15)
--- NOTE | 2024-11-23 07:07 | W.PN.HOSP.TC ---
Today's Communication/Plan
-
Discharge today
Assessment / Plan
Assessment / Plan
Physical Exam
General: Not in acute distress
HEENT: Normocephalic
Respiratory: Clear to Auscultation Bilaterally
Cardiac: Regular Rhythm and S1/S2
GI: Soft, Nondistended, Normal Bowel Sounds and Mildly Tender (Left upper and lower abdominal quadrants)
Skin: Warm and Dry
Neuro: Awake, Alert, Oriented and AO x 3
Psych: Calm and Intact Judgement/Insight
Assessment/Plan
63 y/o female with past medical history of GERD, HTN, Hypothyroidism, Anemia, h/o diverticular abscess, sigmoid inflammation with fistula to the small bowel; presented with persistent left-sided abdominal pain. Her outpatient CT scan from 3 days WRITER EDITOR
noted diverticulitis with [address] AP from this admission 11/12:
Significant abnormality involving the mid to distal transverse colon, splenic flexure, and descending colon. Findings likely represent diverticulitis with focal areas of contained perforation. In the anterior left upper quadrant, there is a focal
extraluminal collection, predominantly air with a thickened wall, which also contains a small amount of contrast, compatible with contained collection from localized perforation.
There are also small foci of extraluminal air along the superior margin of the transverse colon.
Best seen on coronal images, and the left lower abdomen upper pelvis, there appear to be tracts extending between loops of the descending colon, suggesting colon to colon fistulous tracts.
No evidence for free intraperitoneal air underneath the hemidiaphragms.
Small amount of fluid in the left paracolic gutter, measurements given above. Superimposed infection of this paracolic collection cannot be excluded.
Severe fatty infiltration of the pancreas.
#Sepsis POA 2/2 complicated diverticulitis with focal areas of contained perforation and colon to colon fistula tracts.
#History of Complicated Diverticulitis
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
#Abdominal abscess (suspected contained perforation) status post drain placement on 11/20/24
#Worsening Leukocytosis
CT AP report as above
Antibiotics cefepime and flagyl-->Zosyn-->now on Ertapenem for 3 to 4 weeks, as per ID
Continue Diflucan for recovered yeast
PICC line has been placed by interventional radiology
Low Residue Diet
Stop all Laxatives
Pain control, prn Zofran (QTc okay as of 11/19/24)
CRS on board -- they re-consulted GI on 11/21/24 given high calprotectin: Crohn's is on the differential diagnosis but less likely, elevated fecal calprotectin can occur in diverticulitis as well
Repeat CT Abd/Pelv with IV and oral contrast was done on 11/20/24 given rising WBC count: showed slightly enlarged fluid collection in the anterior left abdomen
Drain placed on 11/20/24 for LLQ abscess
GI was consulted for possible crohn's evaluation, GI does NOT think pt has IBD
Dr. Dias of Infectious Disease will follow-up in the outpatient setting after discharge
Follow-up with Dr. Jett after discharge
Outpatient colonoscopy with GI (once patient's drain is removed and the fluid collection has resolved)
#Microcytic Anemia
#Thrombocytosis
1 unit PRBC ordered for 11/21/24 given Hgb 6.9 -- transfusion consent obtained from the patient
Hgb subsequently improved to 8.5, but dropped to 7.4 on 11/22/24 -- but recheck showed Hgb 8.1
Less likely to be a GI bleed. Colorectal surgery doubts any bleed in patient's colon/abdomen.
Anemia can be explained by current infection, antibiotics, frequent blood draws
Iron studies unremarkable prior to the transfusion above; vitamin B12 was high
?from antibiotics
Patient has seen dining room helper Dr. Hernandez in the past
Hematology consulted given recurrent drops in Hgb -- checking folate and retic count
Will need follow-up with [place] hematology after discharge
Monitor CBC outpatient
#Chronic Sinus Tachycardia
-Patient reported this has been an issue outpatient
-Patient sees [facility] cardiology outpatient for this
#MYRON suspect due to sepsis, resolved
SCr 1.3 -> 0.6 today; baseline around 0.8
Intravenous Fluids recently given
#Abnormal LFTS - IMPROVED - suspected to be related to sepsis this hospitalization
LFTs improved
f/u LFTs
Recheck CMP outpatient
#Benign Hypertension
Continue WRITER EDITOR Losartan with hold parameter
#Hypothyroidism
Cont Synthroid
#Anxiety/ Insomnia
-Monitor closely outpatient
#Calcified uterine fibroid on CT Imaging
DVT Prophylaxis: Lovenox
Full code
Dispo: SNF placement -- [facility]
More than 30 minutes spent in discharge including
Final examination of the patient
Summarizing hospital stay
Instructions for continuing care to all relevant caregivers
Preparation of discharge records, prescriptions, and referral forms
Total time spent (in minutes): 43
Anticipated Discharge: Today
Subjective/Interval History
-
Date of Service: November 23, 2024
Patient was seen and examined. She denied any symptoms or complaints and said that she really wants to be discharged from the hospital today.
Objective Data
-
Labs:
Laboratory Results
11/23/24
06:00
WBC Pending
Hgb Pending
Hct Pending
Plt Count Pending
Sodium Pending
Potassium Pending
Chloride Pending
Carbon Dioxide Pending
BUN Pending
Creatinine Pending
Glucose Pending
Calcium Pending
Vital Signs:
Vital Signs
Temp Pulse Resp BP Pulse Ox
97.8 F 95 17 114/74 98
11/23/24 00:05 11/23/24 00:05 11/23/24 00:05 11/23/24 00:05 11/23/24 00:05
I&O
11/22/24 11/23/24 11/24/24
06:59 06:59 06:59
Intake Total 1210 / 1210 1000 / 1000
Output Total
Balance 1190 / 1190 1000 / 1000
[2024-11-23 07:28] VITALS: BP 143/85
[2024-11-23] MEDS: SINGULAIR 10 MG PO (07:41)
[2024-11-23] MEDS: COZAAR 50 MG PO (07:41)
[2024-11-23] MEDS: DIFLUCAN 200 MG PO (07:41)
[2024-11-23] MEDS: PROTONIX IV 40 MG IV (07:42)
[2024-11-23] MEDS: NSS (PRESERVATIVE FREE) 10 ML IV (07:42)
[2024-11-23 08:01] LABS: Hematocrit 27.6 % (37.0-47.0); Hemoglobin 8.7 g/dL (12.0-16.0); Mean Corp Hgb Conc. 31.5 g/dL (33.0-37.0); Mean Corpuscular Hgb 25.5 pg (27.0-31.0); Mean Corpuscular Volume 80.9 fL (81.0-99.0); Mean Platelet Volume 8.3 fL (7.4-10.4); Platelet Count 620 10^3/uL (130-400); Red Blood Cell Count 3.41 10^6/uL (4.20-5.40); Red Cell Dist. Width 18.2 % (11.5-14.5); Reticulocyte Count 1.6 % (0.4-2.8); White Blood Cell Count 10.4 10^3/uL (4.8-10.8)
[2024-11-23 08:42] LABS: Blood Urea Nitrogen 12 mg/dl (7-17); Calcium 8.8 mg/dl (8.4-10.2); Carbon Dioxide 29 mmol/L (22-30); Chloride 108 mmol/L (98-107); Estimated Creatinine Clearance 90 ml/min; Glucose 86 mg/dl (70-99); Potassium 4.2 mmol/L (3.5-5.1); Sodium 141 mmol/L (135-145); eGFR > 60.00
[2024-11-23] MEDS: INVANZ 60 MG IV (10:26)
--- NOTE | 2024-11-23 13:57 | W.PN.CRS1 ---
Today's Communication / Plan
-
Okay for discharge from our perspective
Assessment/Plan
-
Left sided colitis with abscess and interloop fistula(s).
1. antibiotics per ID.
2. continue drain flushes/care.
3. Appreciate hematology. Anemia improved.
4. tolerating LRD with bowel function.
5. GI input yesterday noted--GI opinion is Crohn's is possible but complicated diverticulitis more likely. No role for colonoscopy right now; potentially in future as outpatient.
6. no role for surgery now--but will likely eventually need an interval resection.
7. Okay for discharge from our perspective with drain. Will discuss drain study in the office with Dr. Jett at her follow-up appointment.
Subjective Data
Subjective Data
Date of Service: November 23, 2024
Patient states she is eating. She is moving her bowels. She has left-sided drain pain but is controlled. She has no complaints.
Objective Data
-
Vital Signs
Temp Pulse Resp BP Pulse Ox
98.2 F 97 14 143/85 97
11/23/24 07:28 11/23/24 07:41 11/23/24 07:28 11/23/24 07:41 11/23/24 07:28
Intake & Output
11/22/24 11/23/24 11/24/24
06:59 06:59 06:59
Intake Total 1210 / 1210 1000 / 1000 10 10
Output Total 20 / 20
Balance 1190 / 1190 1000 / 1000 10 / 10
Intake:
Oral fluids 960 / 960 960 / 960
Amount instilled into Drain ( 40 / 40
Total)
Left Pelvis Placed in IR 40 / 40
Blood Product Amount Infused ( 250 / 250
mL)
Packed Rbc Leukoreduced Unit 250 / 250
[id number]
Output:
Drain Output (Total)
Left Pelvis Placed in IR
Other:
Number of approximated MODERATE 1 2
amounts of urine
Lab Results
11/23/24 07:45
11/23/24 07:45
Physical Exam
-
General: No Acute Distress and AOx3
Abdomen: Soft, Non Distended, Tender (Left left abdomen near the KENRICK drain) and Other (KENRICK drain serosanguineous)
Skin: Warm and Dry
--- NOTE | 2024-11-23 14:12 | W.PN.ONC2 ---
Today's Communication / Plan
-
.
Impression
Impression
a/w Left sided colitis with abscess and interloop fistula
wound strep species, yeast, diptheroids
Hematology consulted for Acute on chronic anemia is likely multifactorial with GI losses, frequent phleb, dilutional, infection, and abx
no role for iron repletion with ferritin >100, though likely a component of elevation due to inflammation/reactive, I would not give parenteral iron with acute infection.
No b12 or folate deficiency.
Plan
Plan
GI and colorectal surgery following
Abx per ID
transfuse Hgb <7 or as needed for sxs anemia
Pt tells me that she prefers to follow her CBC OP with her PCP due to convenience
No further inpatient hematology recommendations. Hematology will sign off, please reach out for any questions or concerns.
Subjective/Objective
Subjective
no new complaints
Vital Signs:
Vital Signs
Temp Pulse Resp BP Pulse Ox
98.2 F 97 14 143/85 97
11/23/24 07:28 11/23/24 07:41 11/23/24 07:28 11/23/24 07:41 11/23/24 07:28
Lab Results:
Laboratory Data
WBC 10.4 10^3/uL (4.8-10.8) 11/23/24 07:45
Hgb 8.7 g/dL (12.0-16.0) L 11/23/24 07:45
Plt Count 620 10^3/uL (130-400) H D 11/23/24 07:45
PT Cancelled 11/15/24 07:47
INR Cancelled 11/15/24 07:47
eGFR > 60.00 11/23/24 07:45
Orders
Orders
Orders From Last 24 Hours
11/23/24 07:45
Folate IN AM
Reticulocyte Count IN AM
--- NOTE | 2024-11-23 14:31 | PN.CDI ---
CDI
- -
CDI:
Physician Documentation Request
Admit Date: 11/12/24 22:53
Dear Doctor Hi,
Patient admitted for sepsis.
11/22 Potassium level 3.4
11/22 Potassium chloride 40 meq PO administered
Based on the above, could you clarify in the progress notes, the appropriate diagnosis, if significant, that supports the above abnormalities and additional evaluation, monitoring and/or treatment rendered:
Hypokalemia
Abnormal lab value insignificant
Other
Use of terms such as suspected, likely, concern for, or probable (associated with a specific diagnosis that is being evaluated, monitored, or treated as if it exists) are acceptable and can be coded in the inpatient setting, when documented at the
time of discharge.
Thank you,
Yoli Mendoza RN, BSN
CDI Specialist
Available via [place] text
Please use your independent medical judgment in providing your response.
[2024-11-23 14:56] VITALS: BP 145/87
[2024-11-23] MEDS: TYLENOL 650 MG PO ×2 (15:35→19:36)
--- NOTE | 2024-11-23 15:39 | CM ---
Will resubmit auth for SNF for IV antibiotics and rehab.
If denied pt has financial paper work to complete for private pay for [facility].
PICC line in place.Continues IV antibiotics. Drain in place.
Spoke with Griselda she provided NPI for auth.
Submitted auth at 11:30 am with Yazmin she said she will call back . Called at 1:00 pm case was with medical administrative.
Called again at 3:30 was disconnected.
[facility]
report [phone]

PLAN to [facility] under insurance VS private pay.
--- NOTE | 2024-11-23 16:52 | CM ---
Addendum entered by Loni Carroll 11/23/24 17:03:
updated.
Original Note:
ANA ROSA from Yazmin at [facility], case denied by [facility] for skilked rehab. appeal # [phone].
Attempted to call back for reference #, unable to get thru to [facility], lines keep dropping.
Spoke with patient she was agreeable to private pay at [facility].
Spoke wit Griselda at [facility], cost would be $13,110.00, check would need to be provided on admission. There may also be additional costs for Medications, therapy and other expenses.
Patient unable to to accommodate for today, would need to transfer funds, would need to find transportation and has multiple questions for liaison at [facility]. Too late in the day to accomplish.
Liaison is not available on the weekend and patient decided she would go home with IV anbx.
Too late on Tuesday afternoon to arrange for home IV anbx.
CM will work with patient and will need to fax clinicals to [facility] to set up home infusion.
[2024-11-23] MEDS: LOVENOX 40 MG SC (17:03)
[2024-11-23] MEDS: ATIVAN 0.25 MG IV (20:54)
[2024-11-23 23:00] VITALS: BP 128/79
[2024-11-24] MEDS: TYLENOL PO ×7 (00:12→23:37)
[2024-11-24 03:28] LABS: Hematocrit 22.8 % (37.0-47.0); Hemoglobin 7.3 g/dL (12.0-16.0); Mean Corpuscular Hgb 25.8 pg (27.0-31.0); Mean Corpuscular Volume 80.6 fL (81.0-99.0); Mean Platelet Volume 8.4 fL (7.4-10.4); Platelet Count 531 10^3/uL (130-400); Red Blood Cell Count 2.83 10^6/uL (4.20-5.40); Red Cell Dist. Width 18.2 % (11.5-14.5); White Blood Cell Count 7.4 10^3/uL (4.8-10.8)
[2024-11-24 03:49] LABS: Blood Urea Nitrogen 12 mg/dl (7-17); Calcium 8.5 mg/dl (8.4-10.2); Carbon Dioxide 27 mmol/L (22-30); Chloride 110 mmol/L (98-107); Estimated Creatinine Clearance 78 ml/min; Glucose 95 mg/dl (70-99); Potassium 3.7 mmol/L (3.5-5.1); Sodium 141 mmol/L (135-145); eGFR > 60.00
[2024-11-24] MEDS: ZOFRAN 4 MG IV (04:11)
[2024-11-24] MEDS: SYNTHROID 125 MCG PO (04:12)
--- NOTE | 2024-11-24 06:55 | W.PN.HOSP.TC ---
Today's Communication/Plan
-
Continue antibiotics
Today, I texted case management about setting up home health for IV antibiotics, and whether it is possible to discharge tomorrow (Tuesday) after IV antibiotics here tomorrow, and continue IV antibiotics 11/26/24 at home -- waiting to hear back
Assessment / Plan
Assessment / Plan
Physical Exam
General: Not in acute distress
HEENT: Normocephalic
Respiratory: Clear to Auscultation Bilaterally
Cardiac: Regular Rhythm and S1/S2
GI: Soft, Nondistended, Normal Bowel Sounds and Mildly Tender (Left upper and lower abdominal quadrants)
Skin: Warm and Dry
Neuro: Awake, Alert, Oriented and AO x 3
Psych: Calm and Intact Judgement/Insight
Assessment/Plan
63 y/o female with past medical history of GERD, HTN, Hypothyroidism, Anemia, h/o diverticular abscess, sigmoid inflammation with fistula to the small bowel; presented with persistent left-sided abdominal pain. Her outpatient CT scan from 3 days FIELD AUTO APPRAISER
noted diverticulitis with [address] AP from this admission 11/12:
Significant abnormality involving the mid to distal transverse colon, splenic flexure, and descending colon. Findings likely represent diverticulitis with focal areas of contained perforation. In the anterior left upper quadrant, there is a focal
extraluminal collection, predominantly air with a thickened wall, which also contains a small amount of contrast, compatible with contained collection from localized perforation.
There are also small foci of extraluminal air along the superior margin of the transverse colon.
Best seen on coronal images, and the left lower abdomen upper pelvis, there appear to be tracts extending between loops of the descending colon, suggesting colon to colon fistulous tracts.
No evidence for free intraperitoneal air underneath the hemidiaphragms.
Small amount of fluid in the left paracolic gutter, measurements given above. Superimposed infection of this paracolic collection cannot be excluded.
Severe fatty infiltration of the pancreas.
#Sepsis POA 2/2 complicated diverticulitis with focal areas of contained perforation and colon to colon fistula tracts.
#History of Complicated Diverticulitis
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
#Abdominal abscess (suspected contained perforation) status post drain placement on 11/20/24
#Worsening Leukocytosis
CT AP report as above
Antibiotics cefepime and flagyl-->Zosyn-->now on Ertapenem for 3 to 4 weeks, as per ID
Continue Diflucan (until November 30, 2024 -- confirmed this with Dr. Dias) for recovered yeast
Dr. Dias of Infectious Disease will follow-up in the outpatient setting after discharge
PICC line has been placed by interventional radiology
Low Residue Diet
Stop all Laxatives
Pain control, prn Zofran (QTc okay as of 11/19/24)
CRS on board -- they re-consulted GI on 11/21/24 given high calprotectin: Crohn's is on the differential diagnosis but less likely, elevated fecal calprotectin can occur in diverticulitis as well
Repeat CT Abd/Pelv with IV and oral contrast was done on 11/20/24 given rising WBC count: showed slightly enlarged fluid collection in the anterior left abdomen
Drain placed on 11/20/24 for LLQ abscess
Follow-up with Dr. Jett after discharge
Outpatient colonoscopy with GI (once patient's drain is removed and the fluid collection has resolved)
#Microcytic Anemia
#Thrombocytosis
1 unit PRBC ordered for 11/21/24 given Hgb 6.9 -- transfusion consent obtained from the patient
Less likely to be a GI bleed. Colorectal surgery doubts any bleed in patient's colon/abdomen.
Anemia can be explained by current infection, antibiotics, frequent blood draws
Iron studies unremarkable prior to the transfusion above; vitamin B12 was high, no folate deficiency
?from antibiotics
Patient has seen on outpatient basis juice tester Dr. Hernandez in the past
Hematology consulted given recurrent drops in Hgb
Will need follow-up with [facility]ology after discharge
Monitor CBC outpatient
#Chronic Sinus Tachycardia
-Patient reported this has been an issue outpatient
-Patient sees [facility] cardiology outpatient for this
#MYRON suspect due to sepsis, resolved
SCr 1.3 -> 0.7 today; baseline around 0.8
Intravenous Fluids recently given
#Hypokalemia
-Replaced
-Continue to monitor BMP
#Abnormal LFTS - IMPROVED - suspected to be related to sepsis this hospitalization
LFTs improved
f/u LFTs
Recheck CMP outpatient
#Benign Hypertension
Continue FIELD AUTO APPRAISER Losartan with hold parameter
#Hypothyroidism
Cont Synthroid
#Anxiety/ Insomnia
-Monitor closely outpatient
#Calcified uterine fibroid on CT Imaging
DVT Prophylaxis: Lovenox
Full code
Dispo: SNF placement -- [facility]
Anticipated Discharge: 24 - 48 hours
Subjective/Interval History
-
Date of Service: November 24, 2024
Patient was seen and examined. She denied any new symptoms or complaints.
Objective Data
-
Labs:
Laboratory Results
11/24/24
03:08
WBC 7.4
Hgb 7.3 L
Hct 22.8 L
Plt Count 531 H
Sodium 141
Potassium 3.7
Chloride 110 H
Carbon Dioxide 27
BUN 12
Creatinine 0.7
Glucose 95
Calcium 8.5
Vital Signs:
Vital Signs
Temp Pulse Resp BP Pulse Ox
97.7 F 95 18 128/79 98
11/23/24 23:00 11/23/24 23:00 11/23/24 23:00 11/23/24 23:00 11/23/24 23:00
I&O
11/22/24 11/23/24 11/24/24
06:59 06:59 06:59
Intake Total 1210 / 1210 1000 / 1000 1210 / 1210
Output Total 20
Balance 1190 / 1190 1000 / 1000 1210 / 1210
[2024-11-24 07:50] VITALS: BP 133/77
[2024-11-24] MEDS: SINGULAIR 10 MG PO (08:46)
[2024-11-24] MEDS: COZAAR 50 MG PO (08:46)
[2024-11-24] MEDS: PROTONIX 40 MG PO (08:46)
[2024-11-24] MEDS: DIFLUCAN 200 MG PO (08:46)
[2024-11-24] MEDS: INVANZ 60 MG IV (10:56)
[2024-11-24 11:36] VITALS: BP 139/85
[2024-11-24] MEDS: MORPHINE SULFATE 4 MG IV ×2 (12:25→23:31)
[2024-11-24 15:41] VITALS: BP 124/63
--- NOTE | 2024-11-24 15:49 | CM ---
CM faxed clinical and prescription to [facility] for home infusion at fax # [phone] for consideration and to check benefit coverage.
Met with pt at bedside to update.
[2024-11-24] MEDS: LOVENOX 40 MG SC (17:12)
[2024-11-24] MEDS: ATIVAN 0.25 MG IV (21:46)
[2024-11-24 23:15] VITALS: BP 137/82
[2024-11-25] MEDS: ZOFRAN 4 MG IV (02:44)
[2024-11-25] MEDS: TYLENOL 650 MG PO ×3 (02:44→20:27)
--- NOTE | 2024-11-25 03:02 | PTCARENOTE ---
Patient c/o several times about roommate. Offered for patient to change to a different room several times. Patient stated 'no, it's okay I feel as though I need to take care of her.' This RN educated patient on appropriate boundaries. Patient
continues to complain about roommate. Patient continues to deny offers of new room arrangements. Plan of care ongoing.
[2024-11-25] MEDS: SYNTHROID 125 MCG PO (04:25)
[2024-11-25 06:09] LABS: Hematocrit 24.3 % (37.0-47.0); Hemoglobin 7.6 g/dL (12.0-16.0); Mean Corp Hgb Conc. 31.3 g/dL (33.0-37.0); Mean Corpuscular Hgb 25.6 pg (27.0-31.0); Mean Corpuscular Volume 81.8 fL (81.0-99.0); Mean Platelet Volume 8.5 fL (7.4-10.4); Platelet Count 483 10^3/uL (130-400); Red Blood Cell Count 2.97 10^6/uL (4.20-5.40); Red Cell Dist. Width 18.6 % (11.5-14.5); White Blood Cell Count 8.8 10^3/uL (4.8-10.8)
[2024-11-25 06:37] LABS: Blood Urea Nitrogen 12 mg/dl (7-17); Calcium 8.2 mg/dl (8.4-10.2); Carbon Dioxide 28 mmol/L (22-30); Chloride 107 mmol/L (98-107); Estimated Creatinine Clearance 90 ml/min; Glucose 85 mg/dl (70-99); Potassium 3.5 mmol/L (3.5-5.1); Sodium 140 mmol/L (135-145); eGFR > 60.00
[2024-11-25 07:37] VITALS: BP 116/74
[2024-11-25] MEDS: DIFLUCAN 200 MG PO (09:07)
[2024-11-25] MEDS: COZAAR 50 MG PO (09:07)
[2024-11-25] MEDS: PROTONIX 40 MG PO (09:07)
[2024-11-25] MEDS: SINGULAIR 10 MG PO (09:08)
[2024-11-25] MEDS: TYLENOL PO ×3 (09:08→23:59)
[2024-11-25] MEDS: INVANZ 60 MG IV (09:08)
--- NOTE | 2024-11-25 09:08 | CM ---
CM spoke with patient via phone and informed her that [facility] liaison will review clinical/insurance and prescription tomorrow and identify plan with assigned case manger tomorrow; Attending notified
[2024-11-25] MEDS: MORPHINE SULFATE 4 MG IV ×2 (11:26→20:33)
--- NOTE | 2024-11-25 13:26 | W.PN.HOSP.TC ---
Today's Communication/Plan
-
c/w IV Abx
Pt is anxious to go home, unable to secure OP Abx per binder caser. Patient will need to stay until binder caser secured a safe dc plan.
Assessment / Plan
Assessment / Plan
Physical Exam
General: Not in acute distress
HEENT: Normocephalic
Respiratory: Clear to Auscultation Bilaterally
Cardiac: Regular Rhythm and S1/S2
GI: Soft, Nondistended, Normal Bowel Sounds and Mildly Tender (Left upper and lower abdominal quadrants)
Skin: Warm and Dry
Neuro: Awake, Alert, Oriented and AO x 3
Psych: Calm and Intact Judgement/Insight
Assessment/Plan
63 y/o female with past medical history of GERD, HTN, Hypothyroidism, Anemia, h/o diverticular abscess, sigmoid inflammation with fistula to the small bowel; presented with persistent left-sided abdominal pain. Her outpatient CT scan from 3 days GAGGERMAN
noted diverticulitis with [address] AP from this admission 11/12:
Significant abnormality involving the mid to distal transverse colon, splenic flexure, and descending colon. Findings likely represent diverticulitis with focal areas of contained perforation. In the anterior left upper quadrant, there is a focal
extraluminal collection, predominantly air with a thickened wall, which also contains a small amount of contrast, compatible with contained collection from localized perforation.
There are also small foci of extraluminal air along the superior margin of the transverse colon.
Best seen on coronal images, and the left lower abdomen upper pelvis, there appear to be tracts extending between loops of the descending colon, suggesting colon to colon fistulous tracts.
No evidence for free intraperitoneal air underneath the hemidiaphragms.
Small amount of fluid in the left paracolic gutter, measurements given above. Superimposed infection of this paracolic collection cannot be excluded.
Severe fatty infiltration of the pancreas.
#Sepsis POA 2/2 complicated diverticulitis with focal areas of contained perforation and colon to colon fistula tracts.
#History of Complicated Diverticulitis
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
#Abdominal abscess (suspected contained perforation) status post drain placement on 11/20/24
#Worsening Leukocytosis
No abdominal pain
No nausea
No abdominal tenderness on exam
CT AP report as above
The drain is putting out very little and it is seropurulent.
Antibiotics cefepime and flagyl-->Zosyn-->now on Ertapenem for 3 to 4 weeks, as per ID
Continue Diflucan (until November 30, 2024 -- confirmed this with Dr. Dias) for recovered yeast
Dr. Dias of Infectious Disease will follow-up in the outpatient setting after discharge
PICC line has been placed by interventional radiology
Low Residue Diet
Stopped all Laxatives
CRS on board -- they re-consulted GI on 11/21/24 given high calprotectin: Crohn's is on the differential diagnosis but less likely, elevated fecal calprotectin can occur in diverticulitis as well
Repeat CT Abd/Pelv with IV and oral contrast was done on 11/20/24 given rising WBC count: showed slightly enlarged fluid collection in the anterior left abdomen
Drain placed on 11/20/24 for LLQ abscess
Follow-up with Dr. Jett after discharge
Outpatient colonoscopy with GI (once patient's drain is removed and the fluid collection has resolved)
#Acute on chronic anemia is likely multifactorial with GI losses, frequent phleb, dilutional, infection, and abx
#Thrombocytosis
1 unit PRBC ordered for 11/21/24 given Hgb 6.9 -- transfusion consent obtained from the patient
Less likely to be a GI bleed. Colorectal surgery doubts any bleed in patient's colon/abdomen.
Anemia can be explained by current infection, antibiotics, frequent blood draws
Iron studies unremarkable prior to the transfusion above; vitamin B12 was high, no folate deficiency
Patient has seen on outpatient basis stadium manager Dr. Hernandez in the past
Hematology consulted given recurrent drops in Hgb
Will need follow-up with [facility]ology after discharge
Monitored CBC outpatient
#Chronic Sinus Tachycardia
-Patient reported this has been an issue outpatient
-Patient sees [facility] cardiology outpatient for this
#MYRON suspect due to sepsis, resolved
#Hypokalemia
-Replaced
-Continue to monitor BMP
#Abnormal LFTS - IMPROVED - suspected to be related to sepsis this hospitalization
LFTs improved
f/u LFTs
Recheck CMP outpatient
#Benign Hypertension
Continue GAGGERMAN Losartan with hold parameter
#Hypothyroidism
Cont Synthroid
#Anxiety/ Insomnia
-Monitor closely outpatient
#Calcified uterine fibroid on CT Imaging
DVT Prophylaxis: Lovenox
Full code
Dispo: SNF placement -- [facility]
Total time spent to see the patient, examine the pt, review data and lab results, discuss treatment plan with pt and nursing staff, binder caser around 55 minutes
Anticipated Discharge: 24 - 48 hours
Subjective/Interval History
-
Date of Service: November 25, 2024
No chest pain
No sob
Objective Data
-
Labs:
Laboratory Results
11/25/24
05:24
WBC 8.8
Hgb 7.6 L
Hct 24.3 L
Plt Count 483 H
Sodium 140
Potassium 3.5
Chloride 107
Carbon Dioxide 28
BUN 12
Creatinine 0.6
Glucose 85
Calcium 8.2 L
Vital Signs:
Vital Signs
Temp Pulse Resp BP Pulse Ox
98.7 F 94 21 116/74 97
11/25/24 07:37 11/25/24 07:37 11/25/24 07:37 11/25/24 07:37 11/25/24 07:37
I&O
11/24/24 11/25/24 11/26/24
06:59 06:59 06:59
Intake Total 1210 / 1210 600 / 600 250 / 250
Output Total 40 / 40 40 / 40
Balance 1170 / 1170 600 / 600 210 / 210
[2024-11-25 15:34] VITALS: BP 158/98
[2024-11-25] MEDS: LOVENOX 40 MG SC (17:08)
[2024-11-25 23:06] VITALS: BP 123/81
[2024-11-26] MEDS: ATIVAN 0.25 MG IV ×2 (00:46→10:30)
[2024-11-26] MEDS: TYLENOL PO ×3 (04:00→11:36)
[2024-11-26] MEDS: MORPHINE SULFATE 4 MG IV (04:08)
[2024-11-26] MEDS: SYNTHROID 125 MCG PO (05:06)
[2024-11-26 07:31] VITALS: BP 111/74
[2024-11-26] MEDS: COZAAR 50 MG PO (07:40)
[2024-11-26] MEDS: TYLENOL 650 MG PO (07:40)
[2024-11-26] MEDS: SINGULAIR 10 MG PO (07:40)
[2024-11-26] MEDS: PROTONIX 40 MG PO (07:40)
[2024-11-26] MEDS: DIFLUCAN 200 MG PO (07:41)
--- NOTE | 2024-11-26 09:23 | W.PN.HOSP.TC ---
Today's Communication/Plan
-
discharge
Assessment / Plan
Assessment / Plan
Physical Exam
General: Not in acute distress
HEENT: Normocephalic
Respiratory: Clear to Auscultation Bilaterally
Cardiac: Regular Rhythm and S1/S2
GI: Soft, Nondistended, Normal Bowel Sounds and not Tender.
Skin: Warm and Dry
Neuro: Awake, Alert, Oriented and AO x 3
Psych: Calm and Intact Judgement/Insight
Assessment/Plan
63 y/o female with past medical history of GERD, HTN, Hypothyroidism, Anemia, h/o diverticular abscess, sigmoid inflammation with fistula to the small bowel; presented with persistent left-sided abdominal pain. Her outpatient CT scan from 3 days VACCINATOR
noted diverticulitis with [address] AP from this admission 11/12:
Significant abnormality involving the mid to distal transverse colon, splenic flexure, and descending colon. Findings likely represent diverticulitis with focal areas of contained perforation. In the anterior left upper quadrant, there is a focal
extraluminal collection, predominantly air with a thickened wall, which also contains a small amount of contrast, compatible with contained collection from localized perforation.
There are also small foci of extraluminal air along the superior margin of the transverse colon.
Best seen on coronal images, and the left lower abdomen upper pelvis, there appear to be tracts extending between loops of the descending colon, suggesting colon to colon fistulous tracts.
No evidence for free intraperitoneal air underneath the hemidiaphragms.
Small amount of fluid in the left paracolic gutter, measurements given above. Superimposed infection of this paracolic collection cannot be excluded.
Severe fatty infiltration of the pancreas.
#Sepsis POA 2/2 complicated diverticulitis with focal areas of contained perforation and colon to colon fistula tracts.
#History of Complicated Diverticulitis
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
#Abdominal abscess (suspected contained perforation) status post drain placement on 11/20/24
#Worsening Leukocytosis
No abdominal pain
No nausea
No abdominal tenderness on exam
She is tolerating diet well
The drain is putting out very little and it is seropurulent.
Antibiotics cefepime and flagyl-->Zosyn-->now on Ertapenem for 3 to 4 weeks, as per ID
Continue Diflucan (until November 30, 2024 -- confirmed this with Dr. Dias) for recovered yeast
Dr. Dias of Infectious Disease will follow-up in the outpatient setting after discharge
PICC line has been placed by interventional radiology
Drain placed on 11/20/24 for LLQ abscess
Follow-up with Dr. Jett after discharge
Outpatient colonoscopy with GI (once patient's drain is removed and the fluid collection has resolved)
#Acute on chronic anemia is likely multifactorial with GI losses, frequent phleb, dilutional, infection, and abx
#Thrombocytosis
1 unit PRBC ordered for 11/21/24 given Hgb 6.9 -- transfusion consent obtained from the patient
Less likely to be a GI bleed. Colorectal surgery doubts any bleed in patient's colon/abdomen.
Anemia can be explained by current infection, antibiotics, frequent blood draws
Iron studies unremarkable prior to the transfusion above; vitamin B12 was high, no folate deficiency
Patient has seen on outpatient basis lead infrastructure architect Dr. Hernandez in the past
Hematology consulted given recurrent drops in Hgb
Will need follow-up with [facility] hematology after discharge
Monitored CBC outpatient
#Chronic Sinus Tachycardia
-Patient reported this has been an issue outpatient
-Patient sees [facility] cardiology outpatient for this
#MYRON suspect due to sepsis, resolved
#Hypokalemia
-Replaced
#Abnormal LFTS - IMPROVED - suspected to be related to sepsis this hospitalization
LFTs improved
#Benign Hypertension
Continue VACCINATOR Losartan with hold parameter
#Hypothyroidism
Cont Synthroid
#Anxiety/ Insomnia
-Monitor closely outpatient
#Calcified uterine fibroid on CT Imaging
DVT Prophylaxis: Lovenox
Full code
Dispo: SNF placement -- [facility]
Total discharge time spent to see the patient, examine the pt, review data and lab results, discuss discharge plan with pt and nursing staff, disease case manager around 67 minutes
Anticipated Discharge: Today
Subjective/Interval History
-
Date of Service: November 26, 2024
No complaints
No abdominal pain
Tolerating diet well
No nausea
No fever
No chest pain or sob
Objective Data
-
Vital Signs:
Vital Signs
Temp Pulse Resp BP Pulse Ox
98.1 F 92 15 111/74 100
11/26/24 07:31 11/26/24 07:40 11/26/24 07:31 11/26/24 07:40 11/26/24 07:31
I&O
11/25/24 11/26/24 11/27/24
06:59 06:59 06:59
Intake Total 600 / 600 1690 / 1690
Output Total 50 / 50
Balance 600 / 600 1640 / 1640
--- NOTE | 2024-11-26 10:11 | CM ---
indicated pt ready for discharged.
Spoke with Claire at [facility] all clinical received.
Medicine and DME will be delivered tonight to home.
[facility] SOC tomorrow.
Claire will be in hospital at 12:00 to teach pt infusion.
Pt will have [facility] for drain care education.
Jason santos will drive her home.
PLAN Home with [facility] and [facility]
[2024-11-26] MEDS: INVANZ 60 MG IV (10:18)
--- NOTE | 2024-11-26 12:34 | VNURNOTE ---
[facility] LIAISON ATTEMPTED TO MEET PATIENT. PATIENT STATED SHE WANTED TO GET DRESSED AND ASKED LIAISON TO COME BACK AT A LATER TIME.
--- NOTE | 2024-11-26 13:15 | VNURNOTE ---
Block Trader met with patient to discuss [facility] nurse/therapy, visits, schedule and homebound status. Patient is agreeable and understands that visits at home will be 1-2 x per week to assess and teach medical management.
[facility] contact information provided. Patient is aware that [facility] will contact them for start of care after discharge from .
[facility] referral completed in [facility].
[2024-11-26 14:24] VITALS: BP 148/96
--- NOTE | 2024-11-26 14:28 | PTCARENOTE ---
Pt discharged to home this afternoon, [facility] to set up antibiotics to be delivered to pts house [place]. PICC line intact and will be present upon d/c to so pt can continue getting IV abx at home. Confirmed by [facility] nurse present for
teaching prior to d/c.
--- NOTE | 2024-11-26 15:04 | W.PN.ID1 ---
Date of Service
Date of Service: November 26, 2024
Late dictation: Patient seen at 1200
Today's Communication
Continue antibiotics
Assessment / Plan
Acute diverticulitis
Abdominal abscess (suspected contained perforation)
Marked leukocytosis
-improving
Transaminitis
Elevated CRP
Asthma
GERD
HTN
Hypothyroidism
Uterine fibroids
Recommendations:
Patient remains clinically stable.
Continue ertapenem.
Continued Diflucan 200 mg p.o. daily to cover recovered yeast.
QTc = 450
����������������������������������������������������������
Chief Complaint
-: Other (Diverticular abscess)
Subjective / Review of Systems
Review of Systems: No Fever and No Chills
Vital Signs / Physical Exam
Vital Signs
Vital Signs
Temp Pulse Resp BP Pulse Ox
98.8 F 109 20 148/96 95
11/26/24 14:24 11/26/24 14:24 11/26/24 14:24 11/26/24 14:24 11/26/24 14:24
Physical Exam
Constitutional: No Acute Distress, Comfortable and Non-toxic
Eyes: Sclera Anicteric
Pulmonary: Non Labored
Gastrointestinal: Non Distended and Other (KENRICK in place with scant fluid; serous)
Genito-Urinary: Negative Phelan
Extremities: Negative Edema or Cyanosis
Neurological: Awake
Objective Data
Lab Data
Lab Results
11/25/24 05:24
11/25/24 05:24
PT Cancelled 11/15/24 07:47
INR Cancelled 11/15/24 07:47
Estimated Creat Clear 90 ml/min 11/25/24 05:24
Lactic Acid 0.7 mmol/L (0.7-2.0) 11/12/24 23:42
Total Bilirubin 0.5 mg/dl (0.2-1.3) 11/20/24 03:21
AST 13 U/L (14-36) L 11/20/24 03:21
ALT 20 U/L (0-35) 11/20/24 03:21
Alkaline Phosphatase 144 U/L (38-126) H 11/20/24 03:21
C-Reactive Protein 72.50 mg/L (0.0-10.00) H 11/16/24 04:16
Most recent labs reviewed.
Micro Results:
11/20/24 15:42 Wound Culture - Final
Abscess Streptococcus species
Yeast
Diptheroids
Gram Stain - Final
11/12/24 18:22 Blood Culture - Final
Blood/Venous No Growth - Final Report
11/12/24 18:22 Blood Culture - Final
Blood/Venous No Growth - Final Report
11/15/24 11:56 Salmonella/Shigella Culture - Final
Feces/Stool No Salmonella, Shigella, Aeromonas or Plesiomonas species
isolated.
Campylobacter Culture - Final
No Campylobacter species isolated.
Shiga Toxin Test - Final
No E. coli Shiga Toxin 1 or 2 detected.
Imaging:
11/20/2024 CT abdomen/pelvis: Report pending.
11/12/2024 CT abdomen/pelvis with contrast: There is significant abnormality involving the mid to distal transverse colon, splenic flexure and descending colon. Findings likely represent diverticulitis with focal areas of contained perforation. In
the anterior left upper quadrant there is also a focal extraluminal collection predominantly air with a thickened wall which also contains a small amount of contrast compatible with a contained collection from localized perforation. Small foci of
extraluminal air are also noted along the superior margin of the transverse colon. On coronal imaging there appears to be a tract extending between loops of descending colon in the left lower abdomen and upper pelvis. This would suggest a colon to
colon fistulous tracts. Please see full dictation for additional detail.
== END 2024-11-26 14:20 | disposition home health service (06) | DRG 871 ==
LOC: 3 WEST ACU 22:53
PROVIDERS: Hospitalist; Internal Medicine; Nurse Practitioner Acute Care; Nurse Practitioner Family; Physician Assistant; Radiology Diagnostic Radiology; Radiology Vascular & Interventional Radiology; Registered Nurse; Surgery; ADMITTING PHYSICIAN Internal Medicine; ATTENDING PHYSICIAN Internal Medicine; CONSULT PHYSICIAN Internal Medicine Gastroenterology; CONSULT PHYSICIAN Surgery; EMERGENCY PHYSICIAN Emergency Medicine; FAMILY PHYSICIAN Nurse Practitioner Family; OTHER PHYSICIAN Internal Medicine Hematology & Oncology; OTHER PHYSICIAN Internal Medicine Infectious Disease
PROC: 02HV33Z Insertion of Infusion Device into Superior Vena Cava, Percutaneous Approach (ICD-10-PCS; 2024-11-17)
PROC: 0W9G30Z Drainage of Peritoneal Cavity with Drainage Device, Percutaneous Approach (ICD-10-PCS; 2024-11-20)
PROC: 30243N1 Transfusion of Nonautologous Red Blood Cells into Central Vein, Percutaneous Approach (ICD-10-PCS; 2024-11-21)
DX: A41.9 Sepsis, unspecified organism (principal); K65.1 Peritoneal abscess; N17.9 Acute kidney failure, unspecified; K57.20 Diverticulitis of large intestine with perforation and abscess without bleeding; K63.2 Fistula of intestine; I10 Essential (primary) hypertension; R65.20 Severe sepsis without septic shock; K21.9 Gastro-esophageal reflux disease without esophagitis; E03.9 Hypothyroidism, unspecified; J45.909 Unspecified asthma, uncomplicated; E66.01 Morbid (severe) obesity due to excess calories; Z68.28 Body mass index [BMI] 28.0-28.9, adult; F41.9 Anxiety disorder, unspecified; G47.00 Insomnia, unspecified; D64.9 Anemia, unspecified; D75.839 Thrombocytosis, unspecified; D63.8 Anemia in other chronic diseases classified elsewhere; D25.9 Leiomyoma of uterus, unspecified; E78.00 Pure hypercholesterolemia, unspecified; E86.0 Dehydration; R00.0 Tachycardia, unspecified; B95.5 Unspecified streptococcus as the cause of diseases classified elsewhere; E87.6 Hypokalemia; Z88.5 Allergy status to narcotic agent; Z79.890 Hormone replacement therapy; Z79.899 Other long term (current) drug therapy
CPT/HCPCS: 36573; 49406; 71045; 71275; 74177; 80048; 80053; 82040; 82248; 82607; 82728; 82746; 83540; 83550; 83605; 83735; 83993; 84484; 85014; 85018; 85025; 85027; 85045; 86140; 86850; 86900; 86901; 86920; 87040; 87045; 87046; 87070; 87077; 87205; 87427; 93005; 93306; 96361; 96374; 96375; 97116; 97163; 97167; 97535; 99285; C1751; J1335; P9016; Q9967

== ENCOUNTER → 2024-12-13 13:35 | Outpatient (REF) | payer OTHER, SELFPAY | LOC: RAD 13:35 | PROVIDERS: ATTENDING PHYSICIAN Internal Medicine Infectious Disease; FAMILY PHYSICIAN Nurse Practitioner Family; REFERRING PHYSICIAN Surgery | DX: K57.80 Diverticulitis of intestine, part unspecified, with perforation and abscess without bleeding (principal) | CPT/HCPCS: 74177; Q9967 ==

== ENCOUNTER → 2024-12-17 12:22 | Outpatient (REF) | payer OTHER, SELFPAY ==
[2024-12-17 12:46] VITALS: BP 118/77; BP_SYST 104
== END ==
LOC: RADI 12:22
PROVIDERS: ATTENDING PHYSICIAN Surgery; FAMILY PHYSICIAN Nurse Practitioner Family
DX: Z46.82 Encounter for fitting and adjustment of non-vascular catheter (principal); K57.80 Diverticulitis of intestine, part unspecified, with perforation and abscess without bleeding
CPT/HCPCS: 49424; 76080

== ENCOUNTER 2025-03-08 05:59 | Inpatient (IN) | payer OTHER, SELFPAY ==
[2025-03-08] VITALS (15 sets, daily range): BP systolic 90–117; BP diastolic 48–81; BMI 23.4; BMI 24.2
[2025-03-08 02:32] LABS: Hematocrit 29.2 % (37.0-47.0); Hemoglobin 9.2 g/dL (12.0-16.0); Mean Corp Hgb Conc. 31.5 g/dL (33.0-37.0); Mean Corpuscular Volume 78.5 fL (81.0-99.0); Nucleated Red Blood Cells % 0 %; Platelet Count 945 10^3/uL (130-400); Red Cell Dist. Width 17.1 % (11.5-14.5)
[2025-03-08 02:45] LABS: ALT (SGPT) 15 U/L (0-35); AST (SGOT) 18 U/L (14-36); Albumin 2.3 g/dl (3.5-5.0); Alkaline Phosphatase 282 U/L (38-126); Blood Urea Nitrogen 41 mg/dl (7-17); Calcium 8.5 mg/dl (8.4-10.2); Carbon Dioxide 21 mmol/L (22-30); Chloride 110 mmol/L (98-107); Estimated Creatinine Clearance 59 ml/min; Glucose 151 mg/dl (70-99); Lipase 59 U/L (23-300); Potassium 3.5 mmol/L (3.5-5.1); Sodium 139 mmol/L (135-145); Total Protein 5.2 g/dl (6.3-8.2); eGFR > 60.00
[2025-03-08] MEDS: NSS 1000 IV (03:07)
[2025-03-08] MEDS: ZOFRAN 4 MG IV ×2 (03:07→10:21)
[2025-03-08] MEDS: MORPHINE SULFATE 4 MG IV ×2 (03:07→20:05)
--- NOTE | 2025-03-08 03:58 | ED.GENMED ---
History of Present Illness
<JOE Preston Last Filed: 03/08/25 05:11>
General
Chief Complaint: Abdominal Pain
Time Seen by Provider: 03/08/25 02:11
History of Present Illness
History of Present Illness:
see MDM
Past History
<JOE Preston Last Filed: 03/08/25 05:11>
Past History
ED Past Medical History: Asthma, GERD, HTN, Hypothyroidism, Other (Anemia), Other (Uterine fibroids, arthritis) and Other (Eczema)
ED Past Surgical History: Cholecystectomy, Gynecological (Fibroid removal), Tonsilectomy and Other (Lump abscess and breast, wisdom teeth removal)
Social History
Tobacco: Non-smoker
Alcohol: None
Drug: None
Personal:
Living: alone
Phy Exam
<JOE Preston Last Filed: 03/08/25 05:11>
Physical Exam
Physical Exam:
GENERAL: Alert , pale, uncomfortable
EYE: pupils equal and reactive
NECK: Supple
ENT: o/p clr, very dry mouth
CARDIAC: Tachycardic 100
LUNGS: Clear breath sounds bilaterally, no acute respiratory distress, no wheezes/rales/rhonchi
ABDOMEN: Exquisitely tender left upper abdomen which is firm and there is a palpable mass, more soft in the right lower and right sided quadrants
NEUROLOGICAL: Alert and oriented, no focal neuro deficits
SKIN: Warm and dry, skin intact.
MUSCULOSKELETAL: No edema, well perfused. neg dottie's sign
PSYCH: Normal and appropriate interaction.
Course
<JOE Preston Last Filed: 03/08/25 05:11>
Orders/Labs/Results
Orders:
Orders
03/08/25 02:09
IV Insert/Care/Rem.- Treatment PRN
03/08/25 02:10
Complete Blood Count/With Diff Urgent
Comprehensive Metabolic Panel Urgent
Lipase Urgent
03/08/25 03:02
CT Abd/Pel (IV only)-DH only Urgent
Comment:
Reason For Exam: LUQ pain, h/o divertic; mass LUQ
0.9% Sodium Chloride 1000 ml [Nss] 1,000 ml IV BOLUS
Morphine Sulfate 4 mg IV NOW STA
Ondansetron Injectable [Zofran] 4 mg IV NOW STA
03/08/25 03:22
Lactic Acid Urgent
03/08/25 03:45
0.9% Sodium Chloride 500 ml [Nss] 500 ml IV BOLUS
03/08/25 03:46
Piperacillin/Tazo 3.375 Gram [Zosyn] 3.375 gram in 50 ml IV NOW
03/08/25 04:26
Blood Culture Q30M
ANGELINE Source: Blood/Venous
Specimen Description:
03/08/25 04:30
Blood Culture Q30M
ANGELINE Source: Blood/Venous
Specimen Description:
03/08/25 04:44
HYDROmorphone [Dilaudid] 0.5 mg IV NOW STA
03/08/25 04:58
Vancomycin [Vancocin] 1,500 mg 0.9% Sodium Chloride 500 ml [Nss] 500 ml IV NOW
03/08/25 05:29
Admit/Transfer Patient As Directed
Co-Sign Provider:
Level of Care: Inpatient admission
Assign to:: Telemetry
Physician / Group: Luke
Diagnosis: Complicated Diverticulitis, Intra-Abdominal Abscesses
Reason for Telemetry: Arrhythmia
Date to Stop Telemetry: 03/11/25
Time to Stop Telemetry: 11:00
Reason for Hospitalization: Complicated Diverticulitis, Intra-Abdominal Abscesses
Expected length of stay greater than two midnights?: Yes
ELOS- Estimated Length of Stay in days: 4
I certify the patient meets the requirements for IP care: Yes
03/08/25 05:30
PRN Pain Medication Management As Directed
May give lesser potent ordered pain med per pt: Yes
preference::
Protocol:: Medication orders for pain may be administered in a
manner that supports deferring to patient preference
when the pt is:
- Requesting an ordered lesser potent pain medication.
Least to most potent pain medications are defined
as: acetaminophen < NSAID < tramadol < opioids
(morphine, oxycodone, hydromorphone).
- Requesting a lesser dose of the same medication IF
ORDERED.
- Requesting a less intrusive route of administration
if both routes are prescribed by the provider (PO <
IV).
03/08/25 05:31
Code Status As Directed
Resuscitation Status: Full Code
03/11/25 11:00
DC Protocol for Telemetry ONCE
Abnormal Lab Results
03/08/25 03/08/25
02:10 03:22
WBC 20.9 H 10^3/uL
(4.8-10.8)
RBC 3.72 L 10^6/uL
(4.20-5.40)
Hgb 9.2 L g/dL
(12.0-16.0)
Hct 29.2 L %
(37.0-47.0)
MCV 78.5 L fL
(81.0-99.0)
MCH 24.7 L pg
(27.0-31.0)
MCHC 31.5 L g/dL
(33.0-37.0)
RDW 17.1 H %
(11.5-14.5)
Plt Count 945 H 10^3/uL
(130-400)
Abs Immat Gran (auto) 0.3 H 10^3/uL
(0-0.05)
Absolute Neuts (auto) 16.6 H 10^3/uL
(1.4-6.5)
Absolute Monos (auto) 1.8 H 10^3/uL
(0.1-0.6)
Immature Gran % 1.6 H %
(0-0.5)
Neutrophils % 79.6 H %
(42.2-75.2)
Lymphocytes % 9.7 L %
(20.5-51.1)
Chloride 110 H mmol/L
(98-107)
Carbon Dioxide 21 L mmol/L
(22-30)
BUN 41 H mg/dl
(7-17)
Glucose 151 H mg/dl
(70-99)
Lactic Acid 2.4 H mmol/L
(0.7-2.0)
Alkaline Phosphatase 282 H U/L
(38-126)
Total Protein 5.2 L g/dl
(6.3-8.2)
Albumin 2.3 L g/dl
(3.5-5.0)
03/08/25 02:10
03/08/25 02:10
Vital Signs
Initial and Last Documented VS:
Initial Vital Signs
BP
117/68
03/08/25 02:00
Last Documented Vital Signs
Temp Pulse Resp BP Pulse Ox
98.0 F 100 20 115/81 98
03/08/25 02:08 03/08/25 02:02 03/08/25 02:02 03/08/25 03:00 03/08/25 03:58
<Mino Dominguez, DO - Last Filed: 03/08/25 05:38>
Orders/Labs/Results
Orders:
Orders
03/08/25 02:09
IV Insert/Care/Rem.- Treatment PRN
03/08/25 02:10
Complete Blood Count/With Diff Urgent
Comprehensive Metabolic Panel Urgent
Lipase Urgent
03/08/25 03:02
CT Abd/Pel (IV only)-DH only Urgent
Comment:
Reason For Exam: LUQ pain, h/o divertic; mass LUQ
0.9% Sodium Chloride 1000 ml [Nss] 1,000 ml IV BOLUS
Morphine Sulfate 4 mg IV NOW STA
Ondansetron Injectable [Zofran] 4 mg IV NOW STA
03/08/25 03:22
Lactic Acid Urgent
03/08/25 03:45
0.9% Sodium Chloride 500 ml [Nss] 500 ml IV BOLUS
03/08/25 03:46
Piperacillin/Tazo 3.375 Gram [Zosyn] 3.375 gram in 50 ml IV NOW
03/08/25 04:26
Blood Culture Q30M
ANGELINE Source: Blood/Venous
Specimen Description:
03/08/25 04:30
Blood Culture Q30M
ANGELINE Source: Blood/Venous
Specimen Description:
03/08/25 04:44
HYDROmorphone [Dilaudid] 0.5 mg IV NOW STA
03/08/25 04:58
Vancomycin [Vancocin] 1,500 mg 0.9% Sodium Chloride 500 ml [Nss] 500 ml IV NOW
03/08/25 05:29
Admit/Transfer Patient As Directed
Co-Sign Provider:
Level of Care: Inpatient admission
Assign to:: Telemetry
Physician / Group: Luke
Diagnosis: Complicated Diverticulitis, Intra-Abdominal Abscesses
Reason for Telemetry: Arrhythmia
Date to Stop Telemetry: 03/11/25
Time to Stop Telemetry: 11:00
Reason for Hospitalization: Complicated Diverticulitis, Intra-Abdominal Abscesses
Expected length of stay greater than two midnights?: Yes
ELOS- Estimated Length of Stay in days: 4
I certify the patient meets the requirements for IP care: Yes
03/08/25 05:30
PRN Pain Medication Management As Directed
May give lesser potent ordered pain med per pt: Yes
preference::
Protocol:: Medication orders for pain may be administered in a
manner that supports deferring to patient preference
when the pt is:
- Requesting an ordered lesser potent pain medication.
Least to most potent pain medications are defined
as: acetaminophen < NSAID < tramadol < opioids
(morphine, oxycodone, hydromorphone).
- Requesting a lesser dose of the same medication IF
ORDERED.
- Requesting a less intrusive route of administration
if both routes are prescribed by the provider (PO <
IV).
03/08/25 05:31
Code Status As Directed
Resuscitation Status: Full Code
03/11/25 11:00
DC Protocol for Telemetry ONCE
Abnormal Lab Results
03/08/25 03/08/25
02:10 03:22
WBC 20.9 H 10^3/uL
(4.8-10.8)
RBC 3.72 L 10^6/uL
(4.20-5.40)
Hgb 9.2 L g/dL
(12.0-16.0)
Hct 29.2 L %
(37.0-47.0)
MCV 78.5 L fL
(81.0-99.0)
MCH 24.7 L pg
(27.0-31.0)
MCHC 31.5 L g/dL
(33.0-37.0)
RDW 17.1 H %
(11.5-14.5)
Plt Count 945 H 10^3/uL
(130-400)
Abs Immat Gran (auto) 0.3 H 10^3/uL
(0-0.05)
Absolute Neuts (auto) 16.6 H 10^3/uL
(1.4-6.5)
Absolute Monos (auto) 1.8 H 10^3/uL
(0.1-0.6)
Immature Gran % 1.6 H %
(0-0.5)
Neutrophils % 79.6 H %
(42.2-75.2)
Lymphocytes % 9.7 L %
(20.5-51.1)
Chloride 110 H mmol/L
(98-107)
Carbon Dioxide 21 L mmol/L
(22-30)
BUN 41 H mg/dl
(7-17)
Glucose 151 H mg/dl
(70-99)
Lactic Acid 2.4 H mmol/L
(0.7-2.0)
Alkaline Phosphatase 282 H U/L
(38-126)
Total Protein 5.2 L g/dl
(6.3-8.2)
Albumin 2.3 L g/dl
(3.5-5.0)
03/08/25 02:10
03/08/25 02:10
Vital Signs
Initial and Last Documented VS:
Initial Vital Signs
BP
117/68
03/08/25 02:00
Last Documented Vital Signs
Temp Pulse Resp BP Pulse Ox
98.0 F 100 20 115/81 98
03/08/25 02:08 03/08/25 02:02 03/08/25 02:02 03/08/25 03:00 03/08/25 03:58
Noemilt;July Corona PA-C - Last Filed: 03/08/25 05:11>
MDM/Problems Addressed
Differential Diagnosis Includes:
see mdm
MDM/Problems Addressed:
Note:
CHIEF COMPLAINT(S)
Severe left-sided abdominal pain.
HISTORY OF PRESENT ILLNESS
The patient is a 64-year-old female presenting with severe left-sided abdominal pain, rated as a 9 out of 10 in intensity. She reports that her symptoms began approximately three weeks ago. Initially, she was prescribed Augmentin
(amoxicillin-clavulanate) by Dr. Vanegas after an evaluation, as the symptoms were just starting. However, symptoms recurred after discontinuing the antibiotic. She describes the pain as severe, accompanied by significant weakness, such that she
was unable to get out of bed today. The patient reports a liquid diet as she is unable to eat solids due to the severity of the symptoms, which include aversion to foods she normally enjoys, like chocolate. She denies any diarrhea or vomiting.
Additionally, she reports no history of bowel perforation. Fever and chills are noted, indicating a possible systemic component to her symptoms. The patient has experienced significant dryness in her mouth and lips, as noted during the encounter.
PLAN
The plan includes obtaining a computed tomography (CT) scan of the abdomen to further evaluate the cause of the symptoms. Due to the severity of her condition, hospital admission is likely necessary for further management. Additionally, the
administration of morphine is planned for pain management, and an antiemetic will be provided to address nausea.
DIFFERENTIAL DIAGNOSIS
The Differential Diagnosis includes, in no particular order and is not limited to:
1. Diverticulitis
2. Colonic abscess
3. Sigmoid volvulus
4. Intestinal obstruction
5. Colitis (infectious or ischemic)
6. Inflammatory bowel disease flare
7. Acute mesenteric ischemia
8. Gastroenteritis
9. Ovarian torsion
10. Renal colic
03/08/25 - 05:10
Reviewed patients CAT scan results indicating two large fluid and gas-containing areas suggestive of contained perforation: one measuring 10x5x9 cm in the left retroperitoneum and another measuring 10x10 cm in the left anterior abdominal wall
muscles. Patient presents with chronic conditions and has notable extensive bowel wall thickening, particularly articulated with colonic regions. Blood pressure is noted to be soft at 100/50, despite a normal heart rate. Pain management and fluid
resuscitation are underway, with the patient receiving Dilaudid for pain. Dr. Ruth from colorectal surgery is informed and has requested admission to medicine for further consultation and management.
<July Corona PA-C - Last Filed: 03/08/25 05:11>
*Pulse Oximetry
SaO2: 98
Oxygen Mode of Delivery: Room air
Patient hypoxic: no (98)
*Critical Care Note
Total Time (30-74mins, 75-104mins- exclusive of procedures): Not Applicable
ED Attending Note
<July Corona PA-C - Last Filed: 03/08/25 05:11>
-
Portions of this chart may have been created with voice recognition software.� Occasional wrong word or��sound alike� substitutions may have occurred due to the inherent limitations of voice recognition software.
<Mino Dominguez DO - Last Filed: 03/08/25 05:38>
ED Attending Note
Patient seen and examined by attending physician: Yes
ED Attending Note:
Patient seen in conjunction with the PA. I reviewed and agree with her history and treatment plan. Patient was awake alert and conversant. Resting comfortably on the bed talking to the hospitalist. No respiratory distress noted
Discharge Plan
Departure
Patient Disposition: Admit
Date of Disposition: 03/08/25
Time of Disposition: 05:06
Admit to: IMU
Presentation/result/management discussed w/ accepting MD/DO: Hospitalist
Condition: Fair
Covid-19: Not Applicable
Discharge Problem:
Bowel perforation, Abscess
Prescriptions:
No Action
losartan 50 MG tablet
50 mg PO DAILY
levothyroxine [Synthroid] 125 MCG tablet
125 mcg PO DAILY
Patient Comments:
11/12/24: BRAND ONLY!
atorvastatin 80 mg Tablet
80 mg PO DAILY
alprazolam 0.5 mg Tablet
0.5 mg PO DAILYPRN PRN (Reason: anxiety)
montelukast 10 mg Tablet
10 mg PO DAILY
albuterol sulfate 90 mcg/actuation Hfa Aerosol Inhaler
2 puff INHALATION R Q6HPRN PRN (Reason: sob)
omeprazole magnesium [Prilosec OTC] 20 mg Tablet,Delayed Release (Dr/Ec)
20 mg PO HS
cholecalciferol (vitamin D3) [Vitamin D3] 25 mcg (1,000 unit) Tablet
25 mcg PO DAILY
Referrals:
UNKNOWN - PT DOES,NOT KNOW [Family Provider]
Interventions
Interventions:
*Risk Screen - Suicide Last Done: 03/08/25 02:02
*General Assessment Last Done: 03/08/25 02:02
*Neglect/Abuse Screening Last Done: 03/08/25 02:02
*ED- Fall Risk Assessment Last Done: 03/08/25 02:02
*ED COVID-19 Vaccine History Last Done: 03/08/25 02:11
DM-Vjweqk-Unhbjscser Assessment Last Done: 03/08/25 02:11
Discharge Date and Time
Print Language: DJIBOUTIAN
[2025-03-08] MEDS: NSS 500 IV ×2 (04:29→06:14)
[2025-03-08] MEDS: ZOSYN 50 IV (04:38)
[2025-03-08] MEDS: DILAUDID 0.5 MG IV ×3 (04:47→13:20)
[2025-03-08] MEDS: VANCOCIN 530 MG IV (05:29)
--- NOTE | 2025-03-08 05:34 | HPS.HSE ---
Family Physician
-
Family Physician: NOT KNOW UNKNOWN - PT DOES
Chief Complaint
-
Abd Pain / Weakness
History of Present Illness
Patient is a 64y F with PMH significant for complicated diverticulitis, hypertension and hypothyroidism who presents to ED complaining of abdominal pain and weakness. Patient was hospitalized 11/12 - 11/26 for similar symptoms and found to have
complicated sigmoid diverticulitis with two abscess in the L abdomen. She was treated with IV abx and had a drain placed in IR. Patient was discharged to home on IV Invanz for 4 additional weeks (through November). The drain was removed on 12/17/24.
Patient states that she was feeling well until the end of January when she began to have increased pain in the LLQ and L flank areas. She called Colorectal Surgery and was started on Augmentin x 14 days on 02/18/25. Completed 03/04. Patient states that
she felt somewhat improved while on the abx. Over the past several days however, her pain has increased.
She denies any fevers / chills, N/V/D, bloody stools, etc. She complains of increased pain in the L abdomen and flank that is worse with movement, coughing, etc.
Today she was extremely weak at home and was unable to get out of bed - even with assistance from family. 911 was called and she was brought to the ED for further evaluation.
Patient notes that she has not taken any of her usual medications for the past 2 weeks.
Medical History
Past Medical History
Past Medical History: Reports Other
Additional Past Medical History:
Asthma
Osteoarthritis
Hypertension
Hyperlipidemia
Hypothyroidism
Anemia
Obesity
GERD
Thrombocytosis
Leiomyoma
Hepatic lesion
Sinus tachycardia
Hypothyroidism
Diverticulitis
Coloenteric fistula
Past Surgical History: Reports Other
Additional Past Surgical History:
Tonsillectomy
Uterine fibroid surgery
Cholecystectomy
[place] teeth extraction
Social History
Tobacco: Non-smoker
Alcohol: None
Drug: None
Personal: Single
Living: Alone
Employment: Retired
Family History
Family History: Not pertinent
Allergies / Home Medications
Allergies reflects when Allergies were last updated in [facility].
Home Medications with original date entered in [facility]
Allergy/Medication List:
Allergies
Allergy/AdvReac Type Severity Reaction Status Date / Time
codeine Allergy Nausea / Verified 03/21/19 15:17
Vomiting
Latex, Natural Rubber Allergy Tongue Verified 03/21/19 15:17
Swelling
Home Medications
levothyroxine 125 mcg tablet (Synthroid) 125 mcg PO DAILY Thyroid 01/01/19
losartan 50 mg tablet 50 mg PO DAILY Blood Pressure 01/01/19
albuterol sulfate 90 mcg/actuation aerosol inhaler 2 puff inhalation R Q6HPRN PRN sob 11/12/24
alprazolam 0.5 mg tablet 0.5 mg PO DAILYPRN PRN anxiety 11/12/24
atorvastatin 80 mg tablet 80 mg PO DAILY High Cholesterol 11/12/24
cholecalciferol (vitamin D3) 25 mcg (1,000 unit) tablet (Vitamin D3) 25 mcg PO DAILY Supplement 11/12/24
montelukast 10 mg tablet 10 mg PO DAILY Allergies 11/12/24
omeprazole magnesium 20 mg tablet,delayed release (Prilosec OTC) 20 mg PO HS Gastrointestinal Issue 11/12/24
Review of Systems
-
History Source: Patient
A 12 point ROS was completed and negative except as noted: Yes
Constitutional: Reports Fatigue; Denies Fever or Chills
Respiratory: Denies Cough or Trouble Breathing
Cardiac: Denies Chest Pain or Palpitations
Abdomen/GI: Reports Abdominal Pain and Constipated; Denies Nausea, Vomiting, Diarrhea, Bloody Stools or Black Stools
: Reports Flank Pain; Denies Dysuria or Frequency
Musculoskeletal: Denies Joint Pain or Edema
Neurological: Denies Dizzy or Headache
Psych: Denies Depression or Anxiety
Physical Exam
Vital Signs
Vital Signs
Temp Pulse Resp BP Pulse Ox
98.0 F 100 20 115/81 98
03/08/25 02:08 03/08/25 02:02 03/08/25 02:02 03/08/25 03:00 03/08/25 03:58
Physical Exam
General: Other (Pale-appearing 64y F in no acute distress.)
HEENT: PERRLA and Other (Dry MM.)
Respiratory: Clear; No Wheezes, Rales or Rhonchi
Cardiac: S1/S2 and Regular Rhythm; No Murmur
GI: Other (Abdomen is soft, not distended. Pos tenderness and guarding in the L abdomen. Pos L CVAT.)
Musculoskeletal: No Clubbing, No Cyanosis and No Edema
Neuro: AO x 3
Laboratory Results
-
03/08/25 02:10
03/08/25 02:10
Laboratory Results
Lactic Acid 2.4 mmol/L (0.7-2.0) H 03/08/25 03:22
Total Bilirubin 0.6 mg/dl (0.2-1.3) 03/08/25 02:10
AST 18 U/L (14-36) 03/08/25 02:10
ALT 15 U/L (0-35) 03/08/25 02:10
Alkaline Phosphatase 282 U/L (38-126) H 03/08/25 02:10
Lipase 59 U/L (23-300) 03/08/25 02:10
Impression/Plan
-
A/P: Patient is a 64y F with PMH significant for hypertension, hypothyroidism and complicated diverticulitis who presents to ED complaining of abdominal pain and weakness.
Complicated Diverticulitis
Abscess(es) / Perforation secondary to the above
Sepsis secondary to the above
- Admit for further evaluation and treatment.
- Patient presents with tachycardia, tachypnea, leukocytosis and clinical / CT evidence of diverticulitis and abscesses.
- NPO, IVF support. IV abx with ertapenem for now.
- Colorectal Surgery evaluation for additional recommendations.
- ? Repeat IR drainage (would likely require multiple drains) v surgical drainage +/- resection.
- Pain control, supportive care.
- Follow for clinical improvement.
Benign Hypertension
- BP stable at present - off of all meds x 2 weeks.
- Continue to hold antihypertensive medications.
- IVF support as noted above.
Chronic Anemia
Thrombocytosis
- Stable. Hgb is at / near known baseline (increased from prior admission).
- No evidence of bleeding.
- Iron studies, B12, folate, etc all unremarkable last admission.
- Follow for changes in cell counts.
Hypothyroidism
- Stable. Continue T4 supplementation.
Asthma without Acute Exacerbation
- Stable. Follow for any new issues.
- Albuterol PRN.
DVT Prophylaxis: SCDs
Code Status: Full
[2025-03-08] MEDS: LR 1000 IV ×2 (07:44→21:18)
[2025-03-08] MEDS: INVANZ 60 MG IV (07:45)
[2025-03-08] MEDS: SYNTHROID 125 MCG PO (07:45)
--- NOTE | 2025-03-08 10:05 | W.PN.UPDATE ---
Update Note
Progress Note Update
Seen by Dr Butler this am for complicated divierticulitis .
It involves two abscesses with fistulous connection to left colon plus thrombus concern in AA at the orgin of the [facility].
DW CRS
Consult Vascular and ID
Pt doesnt feel depressed or suicidal . She wants to go many things but due to her GI illness not able to . 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
[2025-03-08] MEDS: MORPHINE SULFATE 2 MG IV (10:21)
--- NOTE | 2025-03-08 12:40 | CON.ID ---
Consultation
-
Date/Time Consultation Requested: 03/08/2025 0937
Date/Time Consultation Performed: 03/08/2025 1230
Requesting Provider: Dr. Pacheco
Performing Provider: Dr. Dias
Reason for Consultation: Abdominal abscess
Chief Complaint / Past History
History of Present Illness
Sonia Gipson is a 64-year-old female being evaluated at the request of Dr. Pacheco in regards to her abdominal abscesses. History is obtained from chart review, along with patient interview.
The patient is known to the Infectious Diseases service, having been seen during a prior admission at [facility] in mid to late October, during which time she was found to have a abdominal abscess. Cultures at that time revealed the presence
of strep species yeast and diphtheroids. She was ultimately discharged on a course of ertapenem and Diflucan. She was followed in the outpatient setting, and completed her course of ertapenem on 12/14. She was last seen in the office on 12/26, and
at that point in time was doing well off of antibiotics. She was advised to follow-up for any recurrence of abdominal discomfort, fevers or chills.
She contacted GI approximately 3 weeks ago with noted increasing abdominal discomfort and was prescribed a course of Augmentin. She reports that there was symptomatic improvement while she was on the antibiotics but ultimately abdominal discomfort
returned following their completion.
She presented to [facility] yesterday noting marked increase in abdominal discomfort, now characterized as 9/10. Laboratory workup revealed a significant leukocytosis, and CT imaging has revealed the presence of 2 abscesses. Infectious Diseases
is now asked to comment upon further antimicrobial management. She has been started on empiric ertapenem at this point.
Past History
Additional Past Medical History:
Asthma
GERD
HTN
Hypothyroidism
Uterine fibroids
Diverticulitis
Additional Past Surgical History:
Uterine fibroid surgery
Cholecystectomy
Allergy History:
codeine Allergy (Verified 03/21/19 15:17)
Nausea / Vomiting
Latex, Natural Rubber Allergy (Verified 03/21/19 15:17)
Tongue Swelling
Medications Reviewed: Yes
Current Antibiotics:
Ertapenem 1 gm IV q24h
Social History
Tobacco: Non-Smoker
Alcohol: None
Drug: None
Personal: Single
Living: Alone
Employment: Retired
Family History
Family History: Not Pertinent
Review of Systems
Vital Signs
Temp Pulse Resp BP Pulse Ox
98.3 F 94 18 111/61 99
03/08/25 11:11 03/08/25 11:11 03/08/25 11:11 03/08/25 11:11 03/08/25 11:11
Physical Exam
Physical Exam
Constitutional: No Acute Distress, Comfortable, Chronically Ill and Non-toxic
Head: Normocephalic
Eyes: Pupils Equal, Pupils Round, No Conjunctival Hemorrhage and Sclera Anicteric
Oral: No Thrush and No Ulcers
Cardiovascular: Regular Rate and S1/S2; Negative S3/S4
Pulmonary: Clear; Negative Wheezes, Rales or Rhonchi
Gastrointestinal: Soft, Tender (left side), Non Distended, Decreased Bowel Sounds, No Rebound and No Guarding
Genito-Urinary: Negative Phelan
Extremities: Negative Edema, Cyanosis or Erythema
Skin: Warm and Dry; Negative Rash
Neurological: Awake and Alert
Psychological: Calm
.
Lab / Diagnostic Study Results
03/08/25 02:10
03/08/25 02:10
Abs Immat Gran (auto) 0.3 10^3/uL (0-0.05) H 03/08/25 02:10
Absolute Neuts (auto) 16.6 10^3/uL (1.4-6.5) H 03/08/25 02:10
Absolute Lymphs (auto) 2.0 10^3/uL (1.2-3.4) 03/08/25 02:10
Absolute Monos (auto) 1.8 10^3/uL (0.1-0.6) H 03/08/25 02:10
Absolute Basos (auto) 0.1 10^3/uL (0-0.2) 03/08/25 02:10
Immature Gran % 1.6 % (0-0.5) H 03/08/25 02:10
Neutrophils % 79.6 % (42.2-75.2) H 03/08/25 02:10
Lymphocytes % 9.7 % (20.5-51.1) L 03/08/25 02:10
Monocytes % 8.4 % (1.7-9.3) 03/08/25 02:10
Eosinophils % 0.2 % (0-6) 03/08/25 02:10
Basophils % 0.5 % (0-2) 03/08/25 02:10
Lactic Acid 2.4 mmol/L (0.7-2.0) H 03/08/25 03:22
Microbiology Results
Micro:
03/08/25 04:30 Blood Culture - Pending
Blood/Venous
03/08/25 04:26 Blood Culture - Pending
Blood/Venous
Imaging:
03/08/2025 CT abdomen/pelvis with IV contrast: 2 large abscesses, one within the left anterior abdominal wall, and 1 within the left retroperitoneum noted, with the former measuring 10.4 x 6.4 x 11 cm, and the latter measuring 9.3 x 5.7 x 8.7 cm.
There is a possible fistulous communication between the colon and the abscess. There is inflammation in the splenic flexure and proximal descending colon. Please see full dictation for additional detail. Film personally viewed.
Assessment / Plan
Abdominal abscess x 2
Leukocytosis
Abdominal pain
Lactic acidosis
Asthma
GERD
HTN
Hypothyroidism
Uterine fibroids
Diverticulitis
Recommendations:
Patient has been started on empiric ertapenem. Would continue for now.
IR has been consulted to assess for aspiration and possible drain placement. If specimen recovered please send for both aerobic and anaerobic cultures.
Follow white count and temperature curve.
Continue with supportive measures.
Further recommendations as additional data is returned.
Care Review
Plan reviewed with: Physician (PHILIPP)
--- NOTE | 2025-03-08 12:47 | CON.MD ---
Addendum entered and electronically signed by Vic Jett MD 03/08/25 13:09:
Of note, I spoke to the patient on the phone just now and updated her in regards to the plan for placement of IR drains, to which she seems agreeable
Addendum entered and electronically signed by Vic Jett MD 03/08/25 12:57:
Of note, full consult to be dictated.
Original Note:
Consultation - Medical
-
History, vitals, labs, imaging reviewed. Patient seen and examined.
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 Also a new finding of 50% thrombosis of the aorta with
obstruction of the ALEJANDRO. She has significant leukocytosis with a white count of 20,000. She is mild elevation of the lactate. She is hemodynamically stable however and has left-sided abdominal tenderness but no peritoneal signs per se. To a
certain extent, she has had this issue off and on but certainly worse in the recent past since 2019. Etiology is unclear but may be colitis versus diverticulitis. Back in October she had IR drains placed due to a similar circumstance which were
eventually removed. She had been on antibiotics for a while as well but these have stopped recently. She has not been great about taking care of herself and in the recent past number of times my office recommended evaluation in the ER and she
declined. I discussed the situation with her in detail. Options discussed including upfront surgery with likely colostomy. This would likely be an operation with real risk for morbidity and even potentially mortality. Alternatively, IR drains
can be replaced, ID consulted for antibiotics, and we can try to temporize her situation for a bit. I emphasized that she will eventually/ultimately need surgery however. She is resistant to the surgical option at this point. Vascular will need
to render an opinion regarding the aorta. Will follow along closely.
Consultation
-
Date/Time Consultation Requested: 03/08/2025
Date/Time Consultation Performed: 03/08/2025
Reason for Consultation: Abdominal abscesses
--- NOTE | 2025-03-08 14:39 | CON.VAS ---
Addendum entered and electronically signed by Home Chacon MD 03/08/25 16:02:
Seen and examined with HUNG Azevedo. Agree with findings as noted below. Extensive history starting with diverticulitis/colitis several months ago as noted below. Has had multiple repeat imaging. Most recent imaging demonstrated aortic thrombus
that had progressed compared to prior imaging. (Abdominal aorta). Asked to evaluate. Denies any lower extremity pain at this time. No history of claudication. Risk factors as noted below.
On exam/she is awake and alert. Breathing is unlabored. Abdomen is soft, diffusely mildly tender. No peritoneal signs. Lower extremity with 2+ femoral pulses palpable bilaterally. Left foot with 1+ DP pulse palpable, 2+ palpable PT pulse.
Right side with 1+/2+ DP pulse palpable. Feet are both warm. No rubor or ulcerations.
CT images reviewed. I also reviewed prior CT scans from recent.
Plan/ Acute progressed abdominal aortic thrombus in the vicinity of the origin of the ALEJANDRO. On the current scan the ALEJANDRO does not opacify (though certainly this could have been missed based on the thickness of the cuts of the scan, but that seems
less likely). Was patent on the prior exams. The degree of thrombus has progressed as well. It was present on the prior scans, but appears to be increased. Unclear the etiology of this thrombus. It appeared to be associated with the plaque on
the prior scan and on the current scan. However the plaque is not severe but this does appear to be associated with the plaque. Unclear if this is hemorrhagic plaque and is the primary source, versus embolic issue that has stuck to plaque, or
alternatively inflammatory related issues secondary to pelvic inflammatory issues that has resulted in in situ thrombosis in the aorta. Regardless at this point is not occlusive. Pulses preserved. No lower extremity symptoms. Nothing I could
offer for the ALEJANDRO at this point. The SMA is widely patent with no obvious stenosis. I would recommend lower extremity noninvasive arterial imaging to confirm adequate perfusion (based on exam there is no evidence of arterial insufficiency). Would
also recommend anticoagulation given progression of aortic thrombus. Would also recommend repeat CT scan imaging in 1 to 3 months.
Original Note:
Consultation
Consultation Request
Date/Time Consultation Performed: 03/08/25 2:15pm
Performing Provider: Oswaldo
Reason for Consultation: Aortic thrombus
Medical History
-
Chief Complaint: Abdominal pain
History of Present Illness:
64 yo male with PMH significant for complicated diverticulitis, hypertension and hypothyroidism who presents to ED complaining of abdominal pain and weakness. Patient was recently hospitalized from 11/12 to 11/26 for similar symptoms and was found
to have sigmoid diverticulitis with 2 abscesses in the left abdomen. Patient was treated with IV antibiotics and a drain placed by IR. Antibiotics have completed and the drain was removed prior to this hospitalization. Patient began with
abdominal pain again at the end of January. Family brought patient to the emergency room today for increasing weakness and inability to ambulate.
CT scan suggests 2 sizable extraluminal air/fluid collections on the left side of her abdomen which are likely related to colonic fistula/localized perforation. Patient is admitted for management.
CT also showed thrombus in the aorta with obstruction of the ALEJANDRO. Vascular consult for these findings.
Patient seen at bedside this afternoon with Dr. Chacon. Patient denies claudication. Patient admits to 'burning of her toes' one time recently. She denies history of PAD or stenting in her legs. She denies history of bleeding/clotting disorders.
Denies family history of the above. Patient has easily palpable femoral pulses. Palpable distal pulses. Feet are warm and pink, skin is intact. No history of wound healing issues.
Past Medical History
Past Medical History: Asthma, GERD, HTN, Hypothyroidism and Other (Osteoarthritis, Hyperlipidemia, Anemia, Obesity, Thrombocytosis, Leiomyoma, Hepatic lesion, Sinus tachycardia, Diverticulitis, Coloenteric fistula)
Past Surgical History: Cholecystectomy, Tonsilectomy and Other (Uterine fibroid surgery, [place] teeth extraction)
Social History
Tobacco: Non-Smoker
Alcohol: None
Drug: None
Personal: Single
Living: Alone
Employment: Retired
Family History
Family History: Reviewed & Not Pertinent
Allergies / Home Medications
Allergy/AdvReac Type Severity Reaction Status Date / Time
codeine Allergy Nausea / Verified 03/21/19 15:17
Vomiting
Latex, Natural Rubber Allergy Tongue Verified 03/21/19 15:17
Swelling
�Medication �Instructions �Recorded �Confirmed �Type
levothyroxine 125 mcg tablet 125 mcg PO DAILY Thyroid 01/01/19 03/08/25 History
(Synthroid)
losartan 50 mg tablet 50 mg PO DAILY Blood Pressure 01/01/19 03/08/25 History
albuterol sulfate 90 mcg/actuation 2 puff inhalation R Q6HPRN PRN sob 11/12/24 03/08/25 History
aerosol inhaler
alprazolam 0.5 mg tablet 0.5 mg PO DAILYPRN PRN anxiety 11/12/24 03/08/25 History
atorvastatin 80 mg tablet 80 mg PO DAILY High Cholesterol 11/12/24 03/08/25 History
cholecalciferol (vitamin D3) 25 25 mcg PO DAILY Supplement 11/12/24 03/08/25 History
mcg (1,000 unit) tablet (Vitamin
D3)
montelukast 10 mg tablet 10 mg PO DAILY Allergies 11/12/24 03/08/25 History
omeprazole magnesium 20 mg 20 mg PO HS Gastrointestinal Issue 11/12/24 03/08/25 History
tablet,delayed release (Prilosec
OTC)
Review of Systems
-
History Source: Patient
All other systems: Negative unless noted
Constitutional: Reports Fatigue
EENT: Reports No Symptoms
Respiratory: Reports No Symptoms
Cardiac: Reports No Symptoms
Vascular: Reports Other (recently 'toes on fire intermittently'); Denies Leg Pain / Claudication
Abdomen/GI: Reports Abdominal Pain
: Reports No Symptoms
Musculoskeletal: Reports No Symptoms
Skin: Reports No Symptoms
Neurological: Reports No Symptoms
Physical Exam
Vital Signs
Temp Pulse Resp BP Pulse Ox
98.3 F 94 18 111/61 99
03/08/25 11:11 03/08/25 11:11 03/08/25 11:11 03/08/25 11:11 03/08/25 13:43
Lab Results
03/08/25 02:10
03/08/25 02:10
Physical Exam
General: No Apparent Distress
HEENT: Normocephalic and Atraumatic
Respiratory: Non Labored Respirations
Cardiac: Negative JVD
GI: Tender and Other (tender to palpation)
Musculoskeletal: No Clubbing, No Cyanosis and No Edema
Skin: Warm
Neuro: Awake, Alert and Oriented
Psych: Calm
Pulses: Bilateral Femoral: +2, Bilateral Dorsalis Pedis: +2 and Bilateral Posterior Tibial: +2
Assessment / Plan
-
64 yo female here with complicated diverticulitis with below CT findings
CT: Filling defect within the distal abdominal aorta, which measures 7 mm in thickness and causes approximately 50% narrowing of the distal abdominal aorta. This abnormality has significantly increased in size compared to prior CT dated 12/13/2024,
at which time it measured approximately 3 mm in thickness. Significant increase in size compared to recent prior CT is suggestive of a thrombotic component, and the lesion appears to be obstructing the origin of the inferior mesenteric artery on the
current study. Inferior mesenteric artery was widely patent on prior CT.
Plan:
Arterial US/JEANNETTE/TBI for baseline
Recommend anticoagulation
Repeat CTA 1 month with f/u in our office
Data Reviewed
-
CT Scan: Discussed with Patient
Labs: Labs Reviewed by me
--- NOTE | 2025-03-08 15:32 | CM ---
Attempted to meet with patient, however she was not in room. Will attempt again or call family.
[2025-03-08 18:53] LABS: APTT 32.3 Sec (23.4-35.0)
[2025-03-08 19:06] LABS: Hematocrit 23.9 % (37.0-47.0); Hemoglobin 7.4 g/dL (12.0-16.0); Mean Corp Hgb Conc. 31.0 g/dL (33.0-37.0); Mean Corpuscular Volume 81.0 fL (81.0-99.0); Platelet Count 701 10^3/uL (130-400); Red Cell Dist. Width 17.1 % (11.5-14.5)
--- NOTE | 2025-03-08 19:07 | PTCARENOTE ---
pt back from IR s/p KENRICK drain placement. pt is AAO*3, Drowsy. Vss, pt c/o pain on the surgical site. hep to be started after the initial PTT results is out. updated Night RN. plan of care ongoing.
[2025-03-08] MEDS: HEPARIN 25000 UNITS/250 ML IV (19:24)
[2025-03-09] VITALS (10 sets, daily range): BP systolic 96–121; BP diastolic 52–65
[2025-03-09] MEDS: PEPCID 20 MG PO (00:16)
[2025-03-09] MEDS: MORPHINE SULFATE 4 MG IV ×4 (00:16→22:33)
[2025-03-09] MEDS: TYLENOL 650 MG PO (01:32)
[2025-03-09 01:37] LABS: Hematocrit 21.5 % (37.0-47.0); Hemoglobin 6.8 g/dL (12.0-16.0)
[2025-03-09 01:48] LABS: APTT 47.4 Sec (23.4-35.0)
--- NOTE | 2025-03-09 02:54 | PTCARENOTE ---
Patient Hgb on admission 9.2, at change of shift, 1900, pt's hgb found to be 7.4. Providers made aware as pt. was scheduled to begin a hep gtt. Per provider, ok to start hep gtt as initial hgb was thought to be concentrated and not an accurate
baseline hgb. Hep gtt started at 1930 per order. Next PTT and H&H drawn at 0130 and hgb found to be 6.8. Providers notified. Hep gtt stopped, type & screen drawn per orders. Pt. also found to have rectal temp of 101.0 and at this time was c/o
feeling slightly dizzy. Provider made aware. 1 unit PRBCs and IV tylenol ordered and to be administered. Plan of care continues.
[2025-03-09] MEDS: OFIRMEV 100 IV (03:09)
--- NOTE | 2025-03-09 04:11 | W.PN.UPDATE ---
Update Note
Progress Note Update
Patient started on heparin gtt beginning of the shift. Repeat H&H showed drop in hgb 7.4 to 6.8. Patient also spike fever of 101. Rx 1g IV tylenol, Heparin gtt placed on hold, transfuse PRBC x1.
[2025-03-09] MEDS: SYNTHROID 125 MCG PO (06:33)
[2025-03-09 07:42] LABS: Hematocrit 25.6 % (37.0-47.0); Hemoglobin 8.1 g/dL (12.0-16.0); Mean Corp Hgb Conc. 31.6 g/dL (33.0-37.0); Mean Corpuscular Volume 82.6 fL (81.0-99.0); Platelet Count 580 10^3/uL (130-400); Red Cell Dist. Width 17.1 % (11.5-14.5)
[2025-03-09] MEDS: INVANZ 60 MG IV (08:08)
[2025-03-09 08:10] LABS: Blood Urea Nitrogen 24 mg/dl (7-17); Calcium 7.3 mg/dl (8.4-10.2); Carbon Dioxide 20 mmol/L (22-30); Chloride 112 mmol/L (98-107); Estimated Creatinine Clearance 67 ml/min; Glucose 81 mg/dl (70-99); Potassium 3.3 mmol/L (3.5-5.1); Sodium 136 mmol/L (135-145); eGFR > 60.00
[2025-03-09] MEDS: MORPHINE SULFATE 2 MG IV (08:22)
--- NOTE | 2025-03-09 09:58 | W.PN.HOSP.TC ---
Today's Communication/Plan
-
CW IV abx
CW IV heparin
Follow HH
Assessment / Plan
Assessment / Plan
A/P: Patient is a 64y F with PMH significant for hypertension, hypothyroidism and complicated diverticulitis who presents to ED complaining of abdominal pain and weakness.
Complicated Diverticulitis
Abscess(es) with fistulous connectios to colon secondary to the above
Sepsis secondary to the above
-s/p IR drain insertion into abscesses
- CW IV Ertapenem per ID
- Definite surgical treatment per CRS
- Pain control, supportive care.
- Follow for clinical improvement.
- Encouraged patient today to be out of bed
# AA thrombus with possible ALEJANDRO obstruction
Appreciate Vascular input
Recommends AC - currently on IV heparin
# Acute on chronic anemia
- No obvious external bleeding
- Suspect it may be dilutional
- S/P 1 unit of PRBC 03/08
- Follow HH
Benign Hypertension
- BP stable at present - off of all meds x 2 weeks.
- Continue to hold antihypertensive medications.
- IVF support as noted above.
Chronic Anemia
Thrombocytosis
- Stable. Hgb is at / near known baseline (increased from prior admission).
- No evidence of bleeding.
- Iron studies, B12, folate, etc all unremarkable last admission.
- Follow for changes in cell counts.
Hypothyroidism
- Stable. Continue T4 supplementation.
Asthma without Acute Exacerbation
- Stable. Follow for any new issues.
- Albuterol PRN.
DVT Prophylaxis: SCDs
Code Status: Full
DW RN
DW CRS today
Total time of clincal care including today visit, review of meds,labs and communications with nursing and specalists 32 min
Anticipated Discharge: > 48 hours
Subjective/Interval History
-
Date of Service: March 09, 2025
Still with abdominal pain no worse.
Nausea sometimes.
No SOB or CP.
Fever last night but none today.
Objective Data
-
Labs:
Laboratory Results
03/09/25 03/09/25
01:19 06:58
WBC 8.9
Hgb 6.8 L* 8.1 L
Hct 21.5 L 25.6 L
Plt Count 580 H
APTT 47.4 H
Sodium 136
Potassium 3.3 L
Chloride 112 H
Carbon Dioxide 20 L
BUN 24 H
Creatinine 0.7
Glucose 81
Calcium 7.3 L
Total Bilirubin Pending
AST Pending
ALT Pending
Alkaline Phosphatase Pending
Vital Signs:
Vital Signs
Temp Pulse Resp BP Pulse Ox
98.0 F 80 16 109/63 97
03/09/25 07:05 03/09/25 07:05 03/09/25 07:05 03/09/25 07:05 03/09/25 07:05
I&O
03/08/25 03/09/25 03/10/25
06:59 06:59 06:59
Intake Total 270 / 270 20 / 20
Output Total 150 / 150
Balance 120 / 120 20 / 20
Physical Exam
-
General: Comfortable
Respiratory: Clear to Auscultation (anteriorly), Non Labored Respirations and Accessory Resp Muscle Use
Cardiac: Regular Rhythm and S1/S2; Negative Tachycardic
GI: Soft, Nondistended, Normal Bowel Sounds and Tender (Left side of abdomen but no rebound; J drains *2 with purulent drainage)
Neuro: AO x 3
Data Reviewed
-
Labs: Labs Reviewed by me
[2025-03-09 10:10] LABS: ALT (SGPT) 10 U/L (0-35); AST (SGOT) 12 U/L (14-36); Albumin 1.5 g/dl (3.5-5.0); Alkaline Phosphatase 190 U/L (38-126); Total Protein 3.8 g/dl (6.3-8.2); Triglycerides 93 mg/dl (10-149)
[2025-03-09] MEDS: ZOFRAN 4 MG IV (10:14)
[2025-03-09] MEDS: LR 1000 IV ×2 (10:16→19:56)
[2025-03-09 10:54] LABS: Prealbumin (Transthyretin) 4.5 mg/dl (17.6-36.0)
[2025-03-09 11:08] LABS: APTT 40.8 Sec (23.4-35.0)
[2025-03-09] MEDS: HEPARIN 25000 UNITS/250 ML IV (11:29)
--- NOTE | 2025-03-09 13:10 | W.PN.CRS1 ---
Today's Communication / Plan
-
Continue ABX/Drains/clears
Assessment/Plan
-
64 yo female with a complicated history of diverticulitis/colitis with fistula and abscess formations over the past 6 years with most recent admission for this in October of this year. She has declined surgery in the past.. She presents now with
abdominal collections x2 likely related to fistulas/localized perforations s/p IR drain x2 on 03/08/25 one with feculent material noted and the other with light jones purulent fluid. Situation complicated by the presence of an abdominal aortic thrombus
in the vicinity of the origin of the ALEJANDRO and need for anticoagulation.
Febrile overnight to 101.0, bp's soft
Transfused overnight d/t anemia. Suspect drift in h/h d/t hemodilution. Do not suspect active blood loss given drain outputs.
Stable h/h on repeat
No leukocytosis
Wound with enterococcus on preliminary results, Blood cx with NGTD
Plan:
Continue on clears with ensure clear at this time
Anticipate she will be on clears vs npo for some time, microsoft application developer consulted for TPN recs. Will wait until fever free prior to placing PICC and initiating.
Continue IR drains
Appreciate ID following for ABX management
Ok to resume heparin gtt from surgical standpoint, would avoid oral anticoagulation at this time
Discussed surgical options with patient, she would like to do everything possible to avoid surgery. If she does not improve, will need to reconsider this option but will hold off at this time.
Case d/w Dr. Pacheco and Dr. Boswell
Subjective Data
Subjective Data
Date of Service: March 09, 2025
Pt seen and examined at bedside with Dr. Jett. Tearful when describing her IR procedure. Notes pain still present to her left abdomen. Febrile overnight. Denies n/v.
Objective Data
-
Vital Signs
Temp Pulse Resp BP Pulse Ox
98.4 F 87 16 99/60 95
03/09/25 11:05 03/09/25 11:05 03/09/25 11:05 03/09/25 11:05 03/09/25 11:05
Intake & Output
03/08/25 03/09/25 03/10/25
06:59 06:59 06:59
Intake Total 270 / 270
Output Total 150 / 150
Balance 120 / 120
Intake:
Amount instilled into Drain (
Total)
Left Lower Abdomen Placed in IR 10 / 10
Left Lower Back Placed in IR 10 10
Blood Product Amount Infused ( 250 / 250
mL)
Packed Rbc Leukoreduced Unit 250 / 250
[id number]
Output:
Drain Output (Total) 150 / 150
Left Lower Abdomen Placed in IR 100 / 100
Left Lower Back Placed in IR 50 / 50
Other:
Number of approximated MODERATE 1
amounts of urine
Number of approximated LARGE 1
amounts of urine
Lab Results
03/09/25 06:58
03/09/25 06:58
Physical Exam
-
General: No Acute Distress and AOx3
Abdomen: Soft, Non Distended, Tender (Left left abdomen) and Other (IR drain x2: lower abdominal drain feculent and upper abdominal drain purulent)
Skin: Warm and Dry
--- NOTE | 2025-03-09 13:51 | W.PN.ID1 ---
Date of Service
Date of Service: March 09, 2025
Today's Communication
DC ertapenem.
Start Unasyn.
Assessment / Plan
Intra-abdominal abscess x 2 with fistulae
Fever
Leukocytosis - resolved
Abdominal pain
Lactic acidosis
Abdominal aortic thrombus
Asthma
GERD
HTN
Hypothyroidism
Uterine fibroids
Diverticulitis
Recommendations:
s/p perc drain placement x 2
abscess gram stain: polymicrobial; prelim cx: enterococcus
Replace Ertapenem with Unasyn 3g IV q6h.
Follow temperature curve.
Continue with supportive measures.
Chief Complaint
-: Other (abd abscess/fistula)
Subjective / Review of Systems
Still with abd pain.
Vital Signs / Physical Exam
Vital Signs
Vital Signs
Temp Pulse Resp BP Pulse Ox
98.4 F 87 16 99/60 95
03/09/25 11:05 03/09/25 11:05 03/09/25 11:05 03/09/25 11:05 03/09/25 11:05
Selected Entries
03/09/25
03:03
Temp 101.0 F H
Physical Exam
Constitutional: No Acute Distress and Comfortable
Cardiovascular: Regular Rate and S1/S2
Pulmonary: Clear
Gastrointestinal: Soft, Tender (left), Non Distended and Other (Upper KENRICK drain + pus; Lower KENRICK drain - stool like output)
Extremities: Negative Edema
Objective Data
Lab Data
Lab Results
03/09/25 06:58
03/09/25 06:58
APTT 40.8 Sec (23.4-35.0) H 03/09/25 10:41
Estimated Creat Clear 67 ml/min 03/09/25 06:58
Lactic Acid 2.4 mmol/L (0.7-2.0) H 03/08/25 03:22
Total Bilirubin 0.4 mg/dl (0.2-1.3) 03/09/25 06:58
AST 12 U/L (14-36) L 03/09/25 06:58
ALT 10 U/L (0-35) 03/09/25 06:58
Alkaline Phosphatase 190 U/L (38-126) H 03/09/25 06:58
Most recent labs reviewed.
Micro Results:
03/08/25 16:41 Wound Culture - Preliminary
Abscess Enterococcus species
Gram Stain - Preliminary
03/08/25 17:10 Wound Culture - Preliminary
Abscess No growth
Gram Stain - Preliminary
03/08/25 04:26 Blood Culture - Preliminary
Blood/Venous No Growth in 24 hours- Final report to follow
03/08/25 04:30 Blood Culture - Preliminary
Blood/Venous No Growth in 24 hours- Final report to follow
Imaging:
03/08/2025 CT abdomen/pelvis with IV contrast: 2 large abscesses, one within the left anterior abdominal wall, and 1 within the left retroperitoneum noted, with the former measuring 10.4 x 6.4 x 11 cm, and the latter measuring 9.3 x 5.7 x 8.7 cm.
There is a possible fistulous communication between the colon and the abscess. There is inflammation in the splenic flexure and proximal descending colon. Please see full dictation for additional detail. Film personally viewed.
[2025-03-09] MEDS: ROXICODONE 5 MG PO ×2 (15:05→20:57)
[2025-03-09 17:52] LABS: APTT 51.2 Sec (23.4-35.0)
[2025-03-09] MEDS: PROTONIX 40 MG PO (18:13)
[2025-03-09] MEDS: FLUSH (NSS) 2 FLUSH IV (18:14)
[2025-03-09] MEDS: UNASYN IV ×2 (18:28→23:20)
[2025-03-09] MEDS: KLOR-CON 20 MEQ PO (18:30)
[2025-03-10] VITALS (25 sets, daily range): BP systolic 85–114; BP diastolic 53–76
[2025-03-10 00:24] LABS: APTT 45.0 Sec (23.4-35.0)
[2025-03-10] MEDS: ROXICODONE 5 MG PO ×2 (00:57→05:40)
[2025-03-10] MEDS: MORPHINE SULFATE 4 MG IV ×3 (02:33→20:14)
[2025-03-10] MEDS: UNASYN IV ×4 (05:08→23:54)
[2025-03-10] MEDS: LR 1000 IV ×2 (05:26→13:45)
[2025-03-10] MEDS: SYNTHROID 125 MCG PO (05:34)
[2025-03-10 07:06] LABS: Hematocrit 24.2 % (37.0-47.0); Hemoglobin 7.8 g/dL (12.0-16.0); Mean Corp Hgb Conc. 32.2 g/dL (33.0-37.0); Mean Corpuscular Volume 81.5 fL (81.0-99.0); Platelet Count 541 10^3/uL (130-400); Red Cell Dist. Width 17.0 % (11.5-14.5)
[2025-03-10 07:14] LABS: APTT 65.4 Sec (23.4-35.0)
[2025-03-10 07:32] LABS: ALT (SGPT) < 10 U/L (0-35); AST (SGOT) 12 U/L (14-36); Albumin 1.5 g/dl (3.5-5.0); Alkaline Phosphatase 192 U/L (38-126); Blood Urea Nitrogen 14 mg/dl (7-17); Calcium 7.1 mg/dl (8.4-10.2); Carbon Dioxide 21 mmol/L (22-30); Chloride 111 mmol/L (98-107); Estimated Creatinine Clearance 78 ml/min; Glucose 86 mg/dl (70-99); Potassium 3.2 mmol/L (3.5-5.1); Sodium 135 mmol/L (135-145); Total Protein 3.8 g/dl (6.3-8.2); eGFR > 60.00
[2025-03-10] MEDS: PROTONIX 40 MG PO (08:45)
[2025-03-10] MEDS: LOPRESSOR 2.5 MG IV (09:30)
--- NOTE | 2025-03-10 09:33 | W.PN.ID1 ---
Date of Service
Date of Service: March 10, 2025
Today's Communication
Continue Unasyn
Assessment / Plan
Intra-abdominal abscess x 2 with fistulae
Fever -resolved
Leukocytosis - resolved
Abdominal pain
Lactic acidosis
Abdominal aortic thrombus
Asthma
GERD
HTN
Hypothyroidism
Uterine fibroids
Diverticulitis
Recommendations:
s/p perc drain placement x 2
abscess gram stain: polymicrobial; prelim cx: enterococcus
Continue Unasyn 3g IV q6h.
Continue with supportive measures.
Chief Complaint
-: Other (abd abscess/fistula)
Subjective / Review of Systems
Still with left side abd pain.
Vital Signs / Physical Exam
Vital Signs
Vital Signs
Temp Pulse Resp BP Pulse Ox
98.9 F 108 16 112/60 96
03/10/25 07:00 03/10/25 07:00 03/10/25 07:00 03/10/25 07:00 03/10/25 07:00
Physical Exam
Constitutional: No Acute Distress
Cardiovascular: Regular Rate and S1/S2
Pulmonary: Clear
Gastrointestinal: Soft, Tender (left abd), Non Distended and Other (2 KENRICK drain: A feculent output, B purulent output)
Neurological: AO x 3
Objective Data
Lab Data
Lab Results
03/10/25 06:26
03/10/25 06:26
APTT 65.4 Sec (23.4-35.0) H 03/10/25 06:26
Estimated Creat Clear 78 ml/min 03/10/25 06:26
Lactic Acid 2.4 mmol/L (0.7-2.0) H 03/08/25 03:22
Total Bilirubin 0.4 mg/dl (0.2-1.3) 03/10/25 06:26
AST 12 U/L (14-36) L 03/10/25 06:26
ALT < 10 U/L (0-35) 03/10/25 06:26
Alkaline Phosphatase 192 U/L (38-126) H 03/10/25 06:26
Most recent labs reviewed.
Micro Results:
03/08/25 04:26 Blood Culture - Preliminary
Blood/Venous No Growth in 48 hours- Final report to follow
03/08/25 04:30 Blood Culture - Preliminary
Blood/Venous No Growth in 48 hours- Final report to follow
03/08/25 16:41 Wound Culture - Preliminary
Abscess Enterococcus species
Gram Stain - Preliminary
03/08/25 17:10 Wound Culture - Preliminary
Abscess No growth
Gram Stain - Preliminary
Imaging:
03/08/2025 CT abdomen/pelvis with IV contrast: 2 large abscesses, one within the left anterior abdominal wall, and 1 within the left retroperitoneum noted, with the former measuring 10.4 x 6.4 x 11 cm, and the latter measuring 9.3 x 5.7 x 8.7 cm.
There is a possible fistulous communication between the colon and the abscess. There is inflammation in the splenic flexure and proximal descending colon. Please see full dictation for additional detail. Film personally viewed.
--- NOTE | 2025-03-10 10:25 | W.PN.CRS1 ---
Addendum entered and electronically signed by Vic Jett MD 03/10/25 13:09:
I saw and examined the patient.
The DISTRICT ADMINISTRATIVE ASSISTANT's note was reviewed and I agree with the note.
Comment:
Seen earlier with DISTRICT ADMINISTRATIVE ASSISTANT.
Patient continues to have right-sided abdominal discomfort. Admits to being hungry. No nausea or vomiting.
Tmax 100.2. Afebrile currently. A bit tachycardic. P.o. intake 480 in 24 hours. WBC 9.0. Hemoglobin 7.8.
Abdomen mildly distended with moderate left-sided abdominal tenderness. Both drains with mucopurulent output.
Holding off today on option of PICC line/TPN given low-grade fevers for last 48 hours. May reconsider tomorrow depending on circumstances.
In the meantime we will advance to fulls.
Persistent tenderness is of concern. Will follow.
Continue antibiotics per ID.
This patient will ultimately need surgical intervention which will have significant morbidity given the nature of the surgery and her malnutrition. Timing of such intervention is being evaluated. Patient still relying that she does not wish to
pursue surgery until 'I get stronger'. Long conversation had between myself and the patient's brother, Jason, with the patient's consent. I emphasized the gravity of the patient's situation. He will talk to her.
Original Note:
Today's Communication / Plan
-
full liquids
Assessment/Plan
-
64 yo female with a complicated history of diverticulitis/colitis with fistula and abscess formations over the past 6 years with most recent admission for this in October of this year. She has declined surgery in the past.. She presents now with
abdominal collections x2 likely related to fistulas/localized perforations s/p IR drain x2 on 03/08/25 one with feculent material noted and the other with light jones purulent fluid. Situation complicated by the presence of an abdominal aortic thrombus
in the vicinity of the origin of the ALEJANDRO and need for anticoagulation.
low grade fevers of 100.2 overnight, bp's soft
Stable h/h
No leukocytosis
Wound with enterococcus on preliminary results, Blood cx with NGTD
Plan:
Trial on fulls
Unplanned weight loss, poor po intakes. Anticipate she may need TPN to meet her nutritional needs. Hold off on PICC until afebrile.
Continue IR drains
Appreciate ID following for ABX management
Ok to continue heparin gtt from surgical standpoint, would avoid oral anticoagulation at this time
Discussed surgical options with patient, she would like to do everything possible to avoid surgery. If she does not improve, will need to reconsider this option but will hold off at this time.
Phone call placed to her Brother Jason at her request
Subjective Data
Subjective Data
Date of Service: March 10, 2025
Pt seen and examined at bedside with Dr. Jett. Feeling about the same as yesterday. No n/v. tolerating clears. feels quite weak.
Objective Data
-
Vital Signs
Temp Pulse Resp BP Pulse Ox
98.9 F 150 16 91/64 96
03/10/25 07:00 03/10/25 09:30 03/10/25 07:00 03/10/25 10:12 03/10/25 07:00
Intake & Output
03/09/25 03/10/25 03/11/25
06:59 06:59 06:59
Intake Total 270 / 270 2618 / 2618
Output Total 150 / 150 220 / 220
Balance 120 / 120 2398 / 2398
Intake:
Oral fluids 480 / 480
IV fluids (Total) 1600 / 1600
IV piggybacks 518 / 518
Amount instilled into Drain ( 20 20 20
Total)
Left Lower Abdomen Placed in IR
Left Lower Back Placed in IR
Blood Product Amount Infused ( 250 / 250
mL)
Packed Rbc Leukoreduced Unit 250 / 250
[id number]
Output:
Drain Output (Total) 150 / 150 220 / 220
Left Lower Abdomen Placed in IR 100 / 100 155 / 155
Left Lower Back Placed in IR 50 / 50 65 / 65
Other:
Number of approximated MODERATE 1
amounts of urine
Number of approximated LARGE 1 1
amounts of urine
Lab Results
03/10/25 06:26
03/10/25 06:26
Physical Exam
-
General: No Acute Distress and AOx3
Abdomen: Soft, Non Distended, Tender (Left abdomen) and Other (IR drain x2: both drains with jones/milky purulence)
Skin: Warm and Dry
--- NOTE | 2025-03-10 10:40 | W.PN.HOSP.TC ---
Today's Communication/Plan
-
Consult cardiology
Start on IV amio
Transfuse 1 unit of PRBC
Continue with current antibiotics and pain regimen
Replete potassium and check magnesium.
Assessment / Plan
Assessment / Plan
A/P: Patient is a 64y F with PMH significant for hypertension, hypothyroidism and complicated diverticulitis who presents to ED complaining of abdominal pain and weakness.
Complicated Diverticulitis
Abscess(es) with fistulous connectios to colon secondary to the above
Sepsis secondary to the above
-s/p IR drain insertion into abscesses
- CW IV Ertapenem per ID
- Definite surgical treatment per CRS
- Pain control, supportive care.
- Follow for clinical improvement.
# AA thrombus with possible ALEJANDRO obstruction
Appreciate Vascular input
Recommends AC - currently on IV heparin
#New a flutter with RVR
Blood pressure soft and not tolerating beta-noam nor would tolerate Cardizem. With potassium 3.2 hold on digoxin till repletion.
Consult cardiology-discussed with cardiology who recommends amnio drip
Replete potassium
Check magnesium
# Acute on chronic anemia
- No obvious external bleeding
- Suspect it may be dilutional
- S/P 1 unit of PRBC 03/08
- Follow HH
- Transfuse 1 more unit of H&H with hemoglobin 7.8 and issues with tachycardia and a flutter.
Benign Hypertension
- BP stable at present - off of all meds x 2 weeks.
- Continue to hold antihypertensive medications.
- IVF support as noted above.
Chronic Anemia
Thrombocytosis
- Stable. Hgb is at / near known baseline (increased from prior admission).
- No evidence of bleeding.
- Iron studies, B12, folate, etc all unremarkable last admission.
- Follow for changes in cell counts.
Hypothyroidism
- Stable. Continue T4 supplementation. Check TSH
Asthma without Acute Exacerbation
- Stable. Follow for any new issues.
- Albuterol PRN.
DVT Prophylaxis: SCDs
Code Status: Full
DW RN
DW cardio today
Total time spent on today's encounter was 52 minutes which included time spent in counseling the patient/family regarding diagnosis and treatment plan as listed above, goals of care, and symptom management. Case was discussed with nursing staff,
specialists, and care coordinators/case management. All labs and imaging personally reviewed by me. Remainder the time spent in detailed review of previous records, lab data, imaging, and other medical provider documentation.
Anticipated Discharge: > 48 hours
Subjective/Interval History
-
Date of Service: March 10, 2025
Remains with abdominal pain requiring IV pain medication. No nausea. Tolerating clear liquids.
She was noted to be tachycardic and the EKG shows a flutter.
She denies any anginal chest pain or any other chest pain. Denies any shortness of breath. Stable on room air.
She tells me that she had an issue with the sinus tachycardia and had Holter monitor and follows with cardiology. No prior atrial arrhythmias. On metoprolol which she has not taken for the last 3 weeks.
Denies fever or chills.
She got off of phone with her brother and she is upset with the conversation.
Objective Data
-
Labs:
Laboratory Results
03/10/25 03/10/25 03/10/25
00:03 06:26 13:20
WBC 9.0
Hgb 7.8 L
Hct 24.2 L
Plt Count 541 H
APTT 45.0 H 65.4 H Pending
Sodium 135
Potassium 3.2 L
Chloride 111 H
Carbon Dioxide 21 L
BUN 14
Creatinine 0.6
Glucose 86
Calcium 7.1 L
Total Bilirubin 0.4
AST 12 L
ALT < 10
Alkaline Phosphatase 192 H
Vital Signs:
Vital Signs
Temp Pulse Resp BP Pulse Ox
98.9 F 150 16 91/64 96
03/10/25 07:00 03/10/25 09:30 03/10/25 07:00 03/10/25 10:12 03/10/25 07:00
I&O
03/09/25 03/10/25 03/11/25
06:59 06:59 06:59
Intake Total 270 / 270 2618 / 2618
Output Total 150 / 150 220 / 220
Balance 120 / 120 2398 / 2398
Physical Exam
-
General: Comfortable
Respiratory: Clear to Auscultation (Anterior), Accessory Resp Muscle Use and Clear to Percussion
Cardiac: S1/S2, Irregular Rhythm and Tachycardic
GI: Soft, Nondistended, Normal Bowel Sounds and Tender (Left side of abdomen without rebound guarding rigidity)
Neuro: AO x 3
Psych: Calm
Data Reviewed
-
Labs: Labs Reviewed by me
[2025-03-10] MEDS: KCL 40 MEQ PO (10:57)
[2025-03-10] MEDS: ZOFRAN 4 MG IV (10:58)
[2025-03-10] MEDS: NSS 250 IV (11:16)
[2025-03-10 11:40] LABS: Magnesium 1.6 mg/dl (1.6-2.3)
[2025-03-10] MEDS: HEPARIN 25000 UNITS/250 ML IV (11:41)
[2025-03-10 12:11] LABS: TSH 31.70 uIU/ml (0.47-4.68)
[2025-03-10] MEDS: CORDARONE 518 MG IV (12:17)
--- NOTE | 2025-03-10 13:32 | PTCARENOTE ---
Pt arrived to IMU. Hep and amio infusing, waiting for blood from lab. BP 89/64, HR remains a flutter 150s to 160. Dr. Pacheco updated
[2025-03-10 14:12] LABS: APTT 68.7 Sec (23.4-35.0)
--- NOTE | 2025-03-10 14:58 | CON.CAR ---
Consultation
Consultation Request
Date/Time Consultation Requested: 03/10/2025 at 1040
Date/Time Consultation Performed: 03/10/2025 at 1500
Requesting Provider: Dr. Pacheco
Performing Provider: Dr. Jake Pineda
Reason for Consultation: Atrial flutter
Medical History
-
Chief Complaint: Atrial flutter
History of Present Illness:
64-year-old woman with history of diverticulitis and prior colonic fistulas with abdominal abscess admitted with abdominal pain and leukocytosis. Was hospitalized for abdominal abscess in October, underwent percutaneous drainage, readmitted on February
[address] with 2 large abscesses, 1 in the left upper quadrant and 1 in the retroperitoneal space of the left lower quadrant. She has undergone repeat percutaneous drainage and is on antibiotics. Also currently on heparin for progressive
abdominal aortic thrombus near the origin of the ALEJANDRO discovered on CT scanning for sigmoid diverticulitis and abscesses of the left abdomen. ALEJANDRO is presumptively occluded, source of thrombus unclear. She sees Dr. Vu for sinus tachycardia. No
prior history of other atrial arrhythmias or cardiac issues. Recent echocardiogram described below.
Past Medical History
Past Medical History: Asthma, GERD, HTN, Hypercholesterolemia, Hypothyroidism and Other (Chronic anemia, uterine fibroids)
Past Surgical History: Cholecystectomy, Tonsilectomy and Other (Third molar, uterine fibroids)
Social History
Tobacco: Non-Smoker
Alcohol: None
Drug: None
Personal: Single
Living: Alone
Employment: Retired
Family History
Family History: Reviewed & Not Pertinent
Allergies / Home Medications
Allergy/AdvReac Type Severity Reaction Status Date / Time
codeine Allergy Nausea / Verified 03/21/19 15:17
Vomiting
Latex, Natural Rubber Allergy Tongue Verified 03/21/19 15:17
Swelling
�Medication �Instructions �Recorded �Confirmed �Type
levothyroxine 125 mcg tablet 125 mcg PO DAILY Thyroid 01/01/19 03/08/25 History
(Synthroid)
losartan 50 mg tablet 50 mg PO DAILY Blood Pressure 01/01/19 03/08/25 History
albuterol sulfate 90 mcg/actuation 2 puff inhalation R Q6HPRN PRN sob 11/12/24 03/08/25 History
aerosol inhaler
alprazolam 0.5 mg tablet 0.5 mg PO DAILYPRN PRN anxiety 11/12/24 03/08/25 History
atorvastatin 80 mg tablet 80 mg PO DAILY High Cholesterol 11/12/24 03/08/25 History
cholecalciferol (vitamin D3) 25 25 mcg PO DAILY Supplement 11/12/24 03/08/25 History
mcg (1,000 unit) tablet (Vitamin
D3)
montelukast 10 mg tablet 10 mg PO DAILY Allergies 11/12/24 03/08/25 History
omeprazole magnesium 20 mg 20 mg PO HS Gastrointestinal Issue 11/12/24 03/08/25 History
tablet,delayed release (Prilosec
OTC)
Review of Systems
-
All other systems: Negative unless noted
Physical Exam
Vital Signs
Temp Pulse Resp BP Pulse Ox
36.6 C 155 15 97/68 96
03/10/25 14:22 03/10/25 14:22 03/10/25 14:22 03/10/25 14:22 03/10/25 14:22
Lab Results
03/10/25 06:26
03/10/25 06:26
Physical Exam
General: Other (Appears uncomfortable)
HEENT: Normocephalic
Respiratory: Other (Limited exam, clear)
Cardiac: Regular Rhythm and Other (No murmur)
GI: Tender and Distended
Musculoskeletal: No Edema
Skin: Warm and Dry
Neuro: AO x 3
Psych: Other (Uncomfortable)
Impression / Plan
-
Impression:
Newly detected atrial flutter with rapid ventricular response, [id number] score is 2, soon-to-be 3
History of sinus tachycardia
History of diverticulitis with fistulas/abscesses, currently admitted for 2 abscesses left abdomen, now with percutaneous drains
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
Asthma
GERD
Hypertension
Hypothyroidism
Degenerative joint disease
Chronic anemia
Hyperlipidemia
Thrombocytosis
Echo October 2024: EF 55-60%, normal diastolic function, aortic sclerosis without regurgitation or stenosis, normal RV, normal atria, trace MR, normal right heart, could not determine pulmonary artery systolic pressure
Plan:
She presents with a self-limited episode of atrial flutter with rapid conversion to normal sinus rhythm following the initiation of amiodarone therapy. Will continue IV amiodarone through the night and probably transition to oral amiodarone in the
morning. Ideally we will stop amiodarone when she is clinically stable, anticoagulated, etc.
[id number] score is 2 and will be 3 next year. Although some controversy as to treatment of atrial fibrillation and flutter in the setting of acute illness, I would favor long-term treatment if patient is willing and if feasible given chronic
anemia. She has thrombocytosis, we may need input from hematology regarding a decision on anticoagulation. She will likely need anticoagulation nonetheless given the recent discovery of a thrombus in her abdominal aorta.
Her recent echocardiogram was satisfactory we will not repeat at present.
Treatment of left upper quadrant abscess with root repair tenial abscess and fistula per primary team and colorectal surgery.
We will continue to follow.
Data Reviewed
-
EKG: Tracing Personally Visualized and interpreted (Atrial flutter with controlled ventricular response and PVCs versus aberrant ventricular conduction, on admission sinus rhythm low voltage nonspecific T changes)
Medical Tests (Nuc Med, Echo etc): Report Reviewed by me
Labs: Labs Reviewed by me (Hemoglobin is 7.8, white count is 9, potassium is 3.2, BUN and creatinine are 14 and 0.6, TSH is 31.7)
Old Records: Reviewed
[2025-03-10 16:17] LABS: Free T3 3.22 pg/ml (2.77-5.27)
--- NOTE | 2025-03-10 16:34 | PTCARENOTE ---
Pt converted to NSR with HR 88. Remains hypotensive but with acceptable MAP. Updated Dr. Pacheco and Dr. Pineda. one unit PRBC infusing. remains on heparin and amio drips
[2025-03-10 21:03] LABS: APTT 122.1 Sec (23.4-35.0)
[2025-03-10] MEDS: TYLENOL 650 MG PO (21:32)
[2025-03-11] VITALS (29 sets, daily range): BP systolic 91–124; BP diastolic 54–77
[2025-03-11] MEDS: LR 1000 IV ×2 (00:04→09:21)
[2025-03-11] MEDS: MORPHINE SULFATE 4 MG IV ×5 (01:08→22:22)
--- NOTE | 2025-03-11 01:38 | PTCARENOTE ---
Assumed care of pt from isaías RN. Pt aaox3. NSR on monitor, heart rate 80s. SpO2 98% on RA. Pt c/o 04/07 aching/stabbing pain on the left side of her abdomen. PRN Morphine administered (see MAR). Heparin gtt infusing at 1250 u/hr. Amio gtt
infusing at 0.5 mg/min. LR infusing @ 100 mL/hr. Pt resting in bed with call vergara in reach.
[2025-03-11] MEDS: TYLENOL 650 MG PO (03:04)
[2025-03-11] MEDS: ZOFRAN 4 MG IV (03:05)
[2025-03-11 03:47] LABS: APTT 149.0 Sec (23.4-35.0)
[2025-03-11 03:48] LABS: Hematocrit 31.2 % (37.0-47.0); Hemoglobin 9.9 g/dL (12.0-16.0); Mean Corp Hgb Conc. 31.7 g/dL (33.0-37.0); Mean Corpuscular Volume 81.7 fL (81.0-99.0); Platelet Count 558 10^3/uL (130-400); Red Cell Dist. Width 16.6 % (11.5-14.5)
[2025-03-11 04:03] LABS: Blood Urea Nitrogen 12 mg/dl (7-17); Calcium 6.5 mg/dl (8.4-10.2); Carbon Dioxide 18 mmol/L (22-30); Chloride 101 mmol/L (98-107); Estimated Creatinine Clearance 78 ml/min; Glucose 475 mg/dl (70-99); Potassium 3.6 mmol/L (3.5-5.1); Sodium 124 mmol/L (135-145); eGFR > 60.00
--- NOTE | 2025-03-11 04:30 | PTCARENOTE ---
EDWARDO Wallace notified of abnormal labs this am. Rx entered for redraw.
[2025-03-11 05:58] LABS: Hematocrit 28.4 % (37.0-47.0); Hemoglobin 9.3 g/dL (12.0-16.0); Mean Corp Hgb Conc. 32.7 g/dL (33.0-37.0); Mean Corpuscular Volume 81.4 fL (81.0-99.0); Platelet Count 527 10^3/uL (130-400); Red Cell Dist. Width 16.8 % (11.5-14.5)
[2025-03-11] MEDS: UNASYN IV ×3 (05:58→17:37)
[2025-03-11] MEDS: SYNTHROID 125 MCG PO (05:59)
[2025-03-11 06:15] LABS: Blood Urea Nitrogen 13 mg/dl (7-17); Calcium 7.2 mg/dl (8.4-10.2); Carbon Dioxide 20 mmol/L (22-30); Chloride 111 mmol/L (98-107); Estimated Creatinine Clearance 78 ml/min; Glucose 90 mg/dl (70-99); Potassium 4.0 mmol/L (3.5-5.1); Sodium 134 mmol/L (135-145); eGFR > 60.00
--- NOTE | 2025-03-11 08:09 | W.PN.ID1 ---
Date of Service
Date of Service: March 11, 2025
Today's Communication
Continue antibiotics.
Assessment / Plan
Intra-abdominal abscess x 2 with fistulae to colon
Fever -resolved
Leukocytosis
Abdominal pain
Lactic acidosis
Abdominal aortic thrombus
Asthma
GERD
HTN
Hypothyroidism
Uterine fibroids
Diverticulitis
Recommendations:
s/p perc drain placement x 2
abscess gram stain: polymicrobial; prelim cx: enterococcus
Continue Unasyn 3g IV q6h.
Continue with supportive measures.
Trend white count and fever curve.
����������������������������������������������������������
Chief Complaint
-: Other (abd abscess/fistula)
Subjective / Review of Systems
Patient seen and examined. Reports some ongoing abdominal discomfort. Also notes that she now has an appetite to some degree.
Vital Signs / Physical Exam
Vital Signs
Vital Signs
Temp Pulse Resp BP Pulse Ox
97.8 F 87 18 105/65 98
03/11/25 07:20 03/11/25 05:36 03/11/25 05:36 03/11/25 05:36 03/11/25 05:36
Physical Exam
Constitutional: No Acute Distress, Comfortable, Chronically Ill and Non-toxic
Eyes: Sclera Anicteric
Cardiovascular: Regular Rate and S1/S2; Negative Murmur
Pulmonary: Clear
Gastrointestinal: Soft, Tender (left abd), Non Distended and Other (2 KENRICK drain: A feculent output, B purulent output)
Extremities: Edema; Negative Cyanosis or Erythema
Neurological: AO x 3
Objective Data
Lab Data
Lab Results
03/11/25 04:33
03/11/25 04:33
APTT 149.0 Sec (23.4-35.0) H 03/11/25 03:25
Estimated Creat Clear 78 ml/min 03/11/25 04:33
Lactic Acid 2.4 mmol/L (0.7-2.0) H 03/08/25 03:22
Total Bilirubin 0.4 mg/dl (0.2-1.3) 03/10/25 06:26
AST 12 U/L (14-36) L 03/10/25 06:26
ALT < 10 U/L (0-35) 03/10/25 06:26
Alkaline Phosphatase 192 U/L (38-126) H 03/10/25 06:26
Most recent labs reviewed.
Micro Results:
03/08/25 04:26 Blood Culture - Preliminary
Blood/Venous No Growth in 72 hours- Final report to follow
03/08/25 04:30 Blood Culture - Preliminary
Blood/Venous No Growth in 72 hours- Final report to follow
03/08/25 16:41 Wound Culture - Preliminary
Abscess Enterococcus faecalis
Diptheroids
Gram Stain - Preliminary
03/08/25 17:10 Wound Culture - Preliminary
Abscess Diptheroids
Gram Stain - Preliminary
Imaging:
03/08/2025 CT abdomen/pelvis with IV contrast: 2 large abscesses, one within the left anterior abdominal wall, and 1 within the left retroperitoneum noted, with the former measuring 10.4 x 6.4 x 11 cm, and the latter measuring 9.3 x 5.7 x 8.7 cm.
There is a possible fistulous communication between the colon and the abscess. There is inflammation in the splenic flexure and proximal descending colon. Please see full dictation for additional detail. Film personally viewed.
--- NOTE | 2025-03-11 08:31 | W.PN.CRS1 ---
Today's Communication / Plan
-
holding off on surgery but considering later this week
okay to continue heparin gtt
continue unasyn
trend wbc/fever curve
Assessment/Plan
-
64 yo female with a complicated history of diverticulitis/colitis with fistula and abscess formations over the past 6 years with most recent admission for this in October of this year. She has declined surgery in the past.. She presents now with
abdominal collections x2 likely related to fistulas/localized perforations s/p IR drain x2 on 03/08/25 one with feculent material noted and the other with light jones purulent fluid. Situation complicated by the presence of an abdominal aortic thrombus
in the vicinity of the origin of the ALEJANDRO and need for anticoagulation.
WBC: 19.0, 21.4, 9.0
Wound with enterococcus on preliminary results, Blood cx with NGTD
Tmax: 99.9
Received 1 unit PRBCs 03/10
Plan:
-Maintain fulls with ensure due to worsening WBC
-Unplanned weight loss, poor po intakes. Anticipate she may need TPN to meet her nutritional needs. Will evaluate WBC tomorrow to decide on PICC.
-Continue IR drains, record daily output
-Appreciate ID following for ABX management - remains on Unasyn
-Ok to continue heparin gtt from surgical standpoint, would avoid oral anticoagulation at this time
-Discussed surgical options with patient again this AM. Holding off for now but considering later this week if no improvement. Patient resistant to surgery at this time.
Subjective Data
Subjective Data
Date of Service: March 11, 2025
Patient states she is feeling better today. She denies nausea or vomiting. She now has an appetite today for the first time.
Objective Data
-
Vital Signs
Temp Pulse Resp BP Pulse Ox
97.8 F 87 18 105/65 98
03/11/25 07:20 03/11/25 05:36 03/11/25 05:36 03/11/25 05:36 03/11/25 05:36
Intake & Output
03/10/25 03/11/25 03/12/25
06:59 06:59 06:59
Intake Total 2618 / 2618 250 / 250
Output Total 220 / 220
Balance 2398 / 2398 250 / 250
Intake:
Oral fluids 480 / 480
IV fluids (Total) 1600 / 1600
IV piggybacks 518 / 518
Amount instilled into Drain ( 20 / 20
Total)
Left Lower Abdomen Placed in IR 10 / 10
Left Lower Back Placed in IR 10 / 10
Blood Product Amount Infused ( 250 / 250
mL)
Packed Rbc Leukoreduced Unit 250 / 250
[id number]
Output:
Drain Output (Total) 220 / 220
Left Lower Abdomen Placed in IR 155 / 155
Left Lower Back Placed in IR 65 / 65
Other:
Number of approximated SMALL 1
amounts of urine
Number of approximated MODERATE 1
amounts of urine
Number of approximated LARGE 1 1
amounts of urine
How many times incontinent 1
MODERATE amount urine
Lab Results
03/11/25 04:33
03/11/25 04:33
Physical Exam
-
General: No Acute Distress and AOx3
Abdomen: Soft, Non Distended, Tender (left sided tenderness) and Other (2 KENRICK drains: feculent and filling with air)
Skin: Warm and Dry
[2025-03-11] MEDS: HEPARIN 25000 UNITS/250 ML IV (09:18)
[2025-03-11] MEDS: PROTONIX 40 MG PO (09:19)
--- NOTE | 2025-03-11 10:30 | W.PN.CARDCBS ---
Today's Communication / Plan
-
Amiodarone 200 mg 3 times daily, transition to 200 twice daily at discharge
Heparin to Eliquis eventually per colorectal surgery and vascular surgery
Consideration of discontinuation of amiodarone at follow-up
Impression / Plan
-
Impression:
Newly detected atrial flutter with rapid ventricular response, [id number] score is 2, soon-to-be 3
History of sinus tachycardia
History of diverticulitis with fistulas/abscesses, currently admitted for 2 abscesses left abdomen, now with percutaneous drains
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
Asthma
GERD
Hypertension
Hypothyroidism
Degenerative joint disease
Chronic anemia
Hyperlipidemia
Thrombocytosis
Echo October 2024: EF 55-60%, normal diastolic function, aortic sclerosis without regurgitation or stenosis, normal RV, normal atria, trace MR, normal right heart, could not determine pulmonary artery systolic pressure
Plan:
She presents with a self-limited episode of atrial flutter with rapid conversion to normal sinus rhythm following the initiation of amiodarone therapy. Will continue IV amiodarone through the night and probably transition to oral amiodarone in the
morning. Ideally we will stop amiodarone when she is clinically stable, anticoagulated, etc.
[id number] score is 2 and will be 3 next year. Although some controversy as to treatment of atrial fibrillation and flutter in the setting of acute illness, I would favor long-term treatment if patient is willing and if feasible given chronic
anemia. She has thrombocytosis, we may need input from hematology regarding a decision on anticoagulation. She will likely need anticoagulation nonetheless given the recent discovery of a thrombus in her abdominal aorta.
Her recent echocardiogram was satisfactory we will not repeat at present.
Treatment of left upper quadrant abscess with root repair tenial abscess and fistula per primary team and colorectal surgery.
We will continue to follow.
Progress Note - Paper Latcher
Subjective
Date of Service: March 11, 2025:
64-year-old woman admitted with intra-abdominal abscesses and fistulas with long history of the same, currently with 2 percutaneous drains who had a self-limited episode of atrial flutter with RVR on March 10, converted to sinus rhythm shortly after
initiation of intravenous amiodarone. Based on abdominal pelvic CT also discovered to have thrombus of abdominal aorta with compromise of the inferior mesenteric artery.
PMH: Asthma, GERD, hypertension, hypercholesterolemia, hypothyroidism, chronic anemia
PSH: Cholecystectomy, leiomyoma resection
PMH: Currently lactated Ringer's, IV heparin, amiodarone IV, levothyroxine, Unasyn, pantoprazole
105/65, pulse 87, respiratory rate 18, afebrile, sats 98% some abdominal discomfort, breath sounds diminished in left base greater than right, regular rate and rhythm, no obvious murmurs, not much edema abdomen distended and tender.
White count 19, hemoglobin 9.3, platelets are 527, BUN/creatinine are 13 and 0.6
Objective
Labs:
03/11/25 04:33
03/11/25 04:33
Labs
Hgb 9.3 g/dL (12.0-16.0) L 03/11/25 04:33
Hct 28.4 % (37.0-47.0) L 03/11/25 04:33
Plt Count 527 10^3/uL (130-400) H 03/11/25 04:33
APTT 149.0 Sec (23.4-35.0) H 03/11/25 03:25
Sodium 134 mmol/L (135-145) L D 03/11/25 04:33
Potassium 4.0 mmol/L (3.5-5.1) 03/11/25 04:33
BUN 13 mg/dl (7-17) 03/11/25 04:33
Creatinine 0.6 mg/dL (0.6-1.0) 03/11/25 04:33
Glucose 90 mg/dl (70-99) 03/11/25 04:33
Vital Signs and I&O:
Vital Signs
Temp Pulse Resp BP Pulse Ox
36.6 C 87 18 105/65 98
03/11/25 07:20 03/11/25 05:36 03/11/25 05:36 03/11/25 05:36 03/11/25 05:36
Vital Signs
Temp Pulse Resp BP Pulse Ox
36.6 C 87 18 105/65 98
03/11/25 07:20 03/11/25 05:36 03/11/25 05:36 03/11/25 05:36 03/11/25 05:36
Intake & Output
03/09/25 03/10/25 03/11/25 03/12/25
07:59 07:59 07:59 07:59
Intake Total 270 / 290 2618 / 2618 250 / 250
Output Total 150 / 150 220 / 220
Balance 120 / 140 2398 / 2398 250 / 250
Physical Exam
Physical Exam
See above
[2025-03-11] MEDS: PACERONE 200 MG PO ×3 (10:55→22:27)
[2025-03-11 11:29] LABS: APTT 68.6 Sec (23.4-35.0)
[2025-03-11 11:58] LABS: Troponin I < 0.012 ng/ml
--- NOTE | 2025-03-11 13:49 | W.PN.HOSP.TC ---
Today's Communication/Plan
-
Po Amio
Hep ggt, Eliquis once cleared by surgery
FLD
Monitor WBC/fever curve for possible PICC
Further interventions as per surgery
Assessment / Plan
Assessment / Plan
General: Comfortable
Respiratory: Clear to Auscultation (Anterior), Accessory Resp Muscle Use and Clear to Percussion
Cardiac: S1/S2, Irregular Rhythm and Tachycardic
GI: Soft, Nondistended, Normal Bowel Sounds and Tender (Left side of abdomen without rebound guarding rigidity)
Neuro: AO x 3
Psych: Calm
A/P: Patient is a 64y F with PMH significant for hypertension, hypothyroidism and complicated diverticulitis who presents to ED complaining of abdominal pain and weakness.
Complicated Diverticulitis
Abscess(es) with fistulous connection to colon secondary to the above
Sepsis secondary to the above
-s/p IR drain insertion into abscesses
- CW IV Ertapenem per ID
- Definite surgical treatment per CRS
- Pain control, supportive care.
- Follow for clinical improvement.
-Anticipate TPN once WBC trends down
-FLD
#Leucocytosis
-i suspect 2/2 to afib, new onset
-monitor fever curve, wbc count
-Can reconsider PICC once WBC trends down
# AA thrombus with possible ALEJANDRO obstruction
Appreciate Vascular input
Recommends AC - currently on IV heparin
#New a flutter with RVR
Blood pressure soft and not tolerating beta-noam nor would tolerate Cardizem. With potassium 3.2 hold on digoxin till repletion.
Consult cardiology-
amio ggt, switched to PO amio
-Amiodarone 200 mg 3 times daily, transition to 200 twice daily at discharge
Replete potassium
Check magnesium
# Acute on chronic anemia
- No obvious external bleeding
- Suspect it may be dilutional
- S/P 2 unit of PRBC
- Follow HH
- was Transfuse 1 of those 2 units with hemoglobin 7.8 and issues with tachycardia and a flutter.
Benign Hypertension
- BP stable at present - off of all meds x 2 weeks.
- Continue to hold antihypertensive medications.
- IVF support as noted above.
Chronic Anemia
Thrombocytosis
- Stable. Hgb is at / near known baseline (increased from prior admission).
- No evidence of bleeding.
- Iron studies, B12, folate, etc all unremarkable last admission.
- Follow for changes in cell counts.
Hypothyroidism
- Stable. Continue T4 supplementation. Check TSH
Hyponatremia
-monitor
Asthma without Acute Exacerbation
- Stable. Follow for any new issues.
- Albuterol PRN.
DVT Prophylaxis: Hep ggt; Eliquis once cleared by surgery
Code Status: Full
Total time spent on today's encounter was 53 minutes which included time spent in counseling the patient/family regarding diagnosis and treatment plan as listed above, goals of care, and symptom management. Case was discussed with nursing staff,
specialists, and care coordinators/case management. All labs and imaging personally reviewed by me. Remainder the time spent in detailed review of previous records, lab data, imaging, and other medical provider documentation.
Anticipated Discharge: > 48 hours
Subjective/Interval History
-
Date of Service: March 11, 2025
feels slightly better than yesterday
Objective Data
-
Labs:
Laboratory Results
03/11/25 03/11/25 03/11/25
03:25 04:33 11:09
WBC 21.4 H 19.0 H
Hgb 9.9 L D 9.3 L
Hct 31.2 L 28.4 L
Plt Count 558 H 527 H
APTT 149.0 H 68.6 H
Sodium 124 L D 134 L D
Potassium 3.6 4.0
Chloride 101 111 H
Carbon Dioxide 18 L 20 L
BUN 12 13
Creatinine 0.5 L 0.6
Glucose 475 H* 90
Calcium 6.5 L* 7.2 L
03/11/25
18:00
WBC
Hgb
Hct
Plt Count
APTT Pending
Sodium
Potassium
Chloride
Carbon Dioxide
BUN
Creatinine
Glucose
Calcium
Vital Signs:
Vital Signs
Temp Pulse Resp BP Pulse Ox
97.8 F 75 13 111/68 97
03/11/25 11:25 03/11/25 10:55 03/11/25 10:00 03/11/25 10:55 03/11/25 10:00
I&O
03/10/25 03/11/25 03/12/25
06:59 06:59 06:59
Intake Total 2618 / 2618 250 / 250
Output Total 220 / 220
Balance 2398 / 2398 250 / 250
Review of Systems
-
History Source: Patient
All other systems: Not reviewed unless documented
Physical Exam
-
General: Comfortable
Respiratory: Clear to Auscultation (Anterior), Accessory Resp Muscle Use and Clear to Percussion
Cardiac: S1/S2, Irregular Rhythm and Tachycardic
GI: Soft, Nondistended, Normal Bowel Sounds and Tender (Left side of abdomen without rebound guarding rigidity)
Neuro: AO x 3
Psych: Calm
Data Reviewed
-
CT Scan: Report Reviewed by me
Ultrasound: Report Reviewed by me
Labs: Labs Reviewed by me
--- NOTE | 2025-03-11 14:16 | WOUNDNOTE ---
[facility] RN NOTE: Reviewed chart and met with patient for ostomy siting. Procedure explained to patient. Patient declined saying she does not want surgery. This personal lines underwriter explained that siting was for a possible surgery this week. Patient continued to
refuse. TT Elvi Saini with update.
--- NOTE | 2025-03-11 14:32 | CM ---
CM met with pt bedside
Pt resides alone in a [place] with 1 DEBI
Pt is independent with all ADLs without AD, drives+
Pt has a WW for use if needed and a new working nebulizer
Denies hx with VN or SNF
Denies financial insecurities
Pt has hx with [facility] and [facility] for abx/picc
PCP- Nelly Guillermo
Rx- [facility]
Brother/Tobin is emergency contact
No formal POA or advanced directives
Pt will benefit from PT/OT once appropriate
Discharge Disposition- home, follow for VN or higher level needs
--- NOTE | 2025-03-11 14:49 | W.PN.UPDATE ---
Update Note
Progress Note Update
I ordered stoma marking this morning in preparation for possible OR on . Patient had agreed this AM. I received a message from wound RN that patient is now refusing to be marked. Dr. Jett aware of situation
--- NOTE | 2025-03-11 15:10 | PN.CDI ---
CDI
- -
CDI:
Physician Documentation Request
Admit Date: 03/08/25 05:59
Dear Doctor Susu,
Please review the following and provide your response in the progress notes.
Clinical Indicators:
Card Runner, 03/11
#Weight hx- (11/14) 160 lbs 4.417 oz,
#...reflecting a loss of 24 lbs (15% wt change ~ 3.5 months).
#...meets criteria for severe protein calorie malnutrition of chronic illness
#...with >7.5% wt loss x 3months, prolonged inadequate
#...po intake prior to admit <75% for > 1 month.
Based on the above information and your assessment, which of the following most accurately represents the patient's nutritional status?
Severe protein calorie malnutrition of chronic illness
Other (please specify)
Kathleen Criteria (ACP Hospitalist 2017)
2 or more criteria must be present for either
non severe or severe malnutrition
Note that the criteria differs related to the
presence of an acute or chronic illness
Chronic Illness
Energy Intake Non Severe: <75% for >1 month
Severe: <75% for >1 month
Weight Loss Non Severe: 5% over 1 month
7.5% over 3 months
10% over 6 months
20% over 1 year
Severe: >5% over 1 month
>7.5% over 3 months
>10% over 6 months
>20% over 1 year
Body Fat Non Severe: Mild Loss
Severe: Severe Loss
Muscle Mass Non Severe: Mild Loss
Severe: Severe Loss
Use of terms such as suspected, likely, concern for, or probable (associated with a specific diagnosis that is being evaluated, monitored, or treated as if it exists) are acceptable and can be coded in the inpatient setting, when documented at the
time of discharge.
Thank you,
Alberta Monterroso RN BSN CCDS
CDI Specialist
Please contact via tiger text
Please use your independent medical judgment in providing your response.
--- NOTE | 2025-03-11 18:36 | PTCARENOTE ---
Rec'd pt this AM. Amio drip off. On PO amio now. heparin drip continues. Pt's pain relieved with IV morphine. Pt refused to allow WC RN to melvin abdomen for possible colostomy.
[2025-03-11 20:27] LABS: APTT 68.8 Sec (23.4-35.0)
[2025-03-12] VITALS (21 sets, daily range): BP systolic 91–127; BP diastolic 51–82; BMI 28.9
[2025-03-12] MEDS: UNASYN IV ×4 (00:35→18:32)
[2025-03-12] MEDS: ZOFRAN 4 MG IV ×2 (00:44→17:57)
[2025-03-12 02:51] LABS: Hematocrit 30.9 % (37.0-47.0); Hemoglobin 10.1 g/dL (12.0-16.0); Mean Corp Hgb Conc. 32.7 g/dL (33.0-37.0); Mean Corpuscular Volume 81.5 fL (81.0-99.0); Platelet Count 525 10^3/uL (130-400); Red Cell Dist. Width 16.7 % (11.5-14.5)
[2025-03-12 03:08] LABS: APTT 75.9 Sec (23.4-35.0)
[2025-03-12 03:22] LABS: ALT (SGPT) 13 U/L (0-35); AST (SGOT) 17 U/L (14-36); Albumin 1.7 g/dl (3.5-5.0); Alkaline Phosphatase 217 U/L (38-126); Blood Urea Nitrogen 9 mg/dl (7-17); Calcium 7.5 mg/dl (8.4-10.2); Carbon Dioxide 25 mmol/L (22-30); Chloride 111 mmol/L (98-107); Estimated Creatinine Clearance 78 ml/min; Glucose 85 mg/dl (70-99); Potassium 4.1 mmol/L (3.5-5.1); Sodium 137 mmol/L (135-145); Total Protein 4.2 g/dl (6.3-8.2); eGFR > 60.00
--- NOTE | 2025-03-12 04:45 | PTCARENOTE ---
Assumed care of pt from isaías TUBBS. Pt aaox3. NSR on monitor. SpO2 96% on RA. Heparin gtt currently infusing at 1250 u/hr. Pt resting in bed with call vergara in reach.
[2025-03-12] MEDS: MORPHINE SULFATE 4 MG IV ×4 (05:38→22:34)
[2025-03-12] MEDS: SYNTHROID 125 MCG PO (05:39)
--- NOTE | 2025-03-12 08:11 | W.PN.CRS1 ---
Today's Communication / Plan
-
PICC
TPN
Assessment/Plan
-
64 yo female with a complicated history of diverticulitis/colitis with fistula and abscess formations over the past 6 years with most recent admission for this in October of this year. She has declined surgery in the past.. She presents now with
abdominal collections x2 likely related to fistulas/localized perforations s/p IR drain x2 on 03/08/25 one with feculent material noted and the other with light jones purulent fluid. Situation complicated by the presence of an abdominal aortic thrombus
in the vicinity of the origin of the ALEJANDRO and need for anticoagulation.
WBC: 13.2, 19.0, 21.4, 9.0
Wound with enterococcus on preliminary results, Blood cx with NGTD
Vitals normal
Received 1 unit PRBCs 03/10
Plan:
-Back down to clears with ensure
-Start PICC and TPN today.
-OOB with PT/OT
-Continue IR drains, record daily output
-Appreciate ID following for ABX management - remains on Unasyn
-Ok to continue heparin gtt from surgical standpoint, would avoid oral anticoagulation at this time
-Discussed surgical options with patient again this AM. Holding off for now but considering later this week if no improvement. Patient resistant to surgery at this time. Refused stoma marking yesterday.
Subjective Data
Subjective Data
Date of Service: March 12, 2025
Patient states she feels no improvement. Denies nausea or vomiting. Still having some pain on her left side.
Objective Data
-
Vital Signs
Temp Pulse Resp BP Pulse Ox
98.1 F 82 14 111/51 98
03/12/25 02:35 03/12/25 06:00 03/12/25 06:00 03/12/25 06:00 03/12/25 06:00
Intake & Output
03/11/25 03/12/25 03/13/25
06:59 06:59 06:59
Intake Total 250 / 250
Output Total
Balance 250 / 250 -
Intake:
Blood Product Amount Infused ( 250 / 250
mL)
Packed Rbc Leukoreduced Unit 250 / 250
[id number]
Output:
Drain Output (Total)
Left Lower Abdomen Placed in IR 20 / 20
Left Lower Back Placed in IR 70 / 70
Other:
Number of approximated SMALL 1
amounts of urine
Number of approximated MODERATE 1
amounts of urine
Number of approximated LARGE 1 1
amounts of urine
How many times incontinent 1
MODERATE amount urine
Lab Results
03/12/25 02:39
03/12/25 02:39
Physical Exam
-
General: No Acute Distress and AOx3
Abdomen: Soft, Non Distended and Tender (left side)
Skin: Warm and Dry
[2025-03-12] MEDS: PROTONIX 40 MG PO (08:49)
[2025-03-12] MEDS: HEPARIN 25000 UNITS/250 ML IV (08:49)
[2025-03-12] MEDS: PACERONE 200 MG PO ×3 (08:49→22:33)
[2025-03-12 10:29] LABS: APTT 113.1 Sec (23.4-35.0)
--- NOTE | 2025-03-12 13:43 | W.PN.HOSP.TC ---
Addendum entered and electronically signed by Jose Cristobal MD 03/12/25 13:52:
Update - Add Barbie
Original Note:
Today's Communication/Plan
-
Monitor WBC - - suspect reactive with aflutter - improving
Abx
TPN and Surgery as per CTS
Amio
Assessment / Plan
Assessment / Plan
General: Comfortable
Respiratory: Clear to Auscultation (Anterior), Accessory Resp Muscle Use and Clear to Percussion
Cardiac: S1/S2, Irregular Rhythm and Tachycardic
GI: Soft, Nondistended, Normal Bowel Sounds and Tender (Left side of abdomen without rebound guarding rigidity)
Neuro: AO x 3
Psych: Calm
A/P: Patient is a 64y F with PMH significant for hypertension, hypothyroidism and complicated diverticulitis who presents to ED complaining of abdominal pain and weakness.
Complicated Diverticulitis
Abscess(es) with fistulous connection to colon secondary to the above
Sepsis secondary to the above
-s/p IR drain insertion into abscesses
- CW IV Unasyn per ID
- Definite surgical treatment per CRS
- Pain control, supportive care.
- Follow for clinical improvement.
-Anticipate TPN once WBC trends down - requested by CRS
-CLD
#Leucocytosis - improving
-i suspect 2/2 to afib, new onset - now improving
-monitor fever curve, wbc count
# AA thrombus with possible ALEJANDRO obstruction
Appreciate Vascular input
Recommends AC - currently on IV heparin
#New a flutter with RVR
Blood pressure soft and not tolerating beta-noam nor would tolerate Cardizem. With potassium 3.2 hold on digoxin till repletion.
Consult cardiology-
amio ggt, switched to PO amio
-Amiodarone 200 mg 3 times daily, transition to 200 twice daily at discharge
Hep to Eliquis once cleared by surgery
# Acute on chronic anemia
- No obvious external bleeding
- Suspect it may be dilutional
- S/P 2 unit of PRBC
- Follow HH
- was Transfuse 1 of those 2 units with hemoglobin 7.8 and issues with tachycardia and a flutter.
Benign Hypertension
- BP stable at present - off of all meds x 2 weeks.
- Continue to hold antihypertensive medications.
- IVF support as noted above.
Chronic Anemia
Thrombocytosis
- Stable. Hgb is at / near known baseline (increased from prior admission).
- No evidence of bleeding.
- Iron studies, B12, folate, etc all unremarkable last admission.
- Follow for changes in cell counts.
Hypothyroidism
- Stable. Continue T4 supplementation. Check TSH
Hyponatremia
-monitor
Asthma without Acute Exacerbation
- Stable. Follow for any new issues.
- Albuterol PRN.
DVT Prophylaxis: Hep ggt; Eliquis once cleared by surgery
Code Status: Full
Total time spent on today's encounter was 51 minutes which included time spent in counseling the patient/family regarding diagnosis and treatment plan as listed above, goals of care, and symptom management. Case was discussed with nursing staff,
specialists, and care coordinators/case management. All labs and imaging personally reviewed by me. Remainder the time spent in detailed review of previous records, lab data, imaging, and other medical provider documentation.
Anticipated Discharge: > 48 hours
Subjective/Interval History
-
Date of Service: March 12, 2025
no acute events
Objective Data
-
Labs:
Laboratory Results
03/12/25 03/12/25 03/12/25
02:39 10:08 13:33
WBC 13.2 H
Hgb 10.1 L
Hct 30.9 L
Plt Count 525 H
APTT 75.9 H 113.1 H
Sodium 137 Pending
Potassium 4.1 Pending
Chloride 111 H Pending
Carbon Dioxide 25 Pending
BUN 9 Pending
Creatinine 0.5 L Pending
Glucose 85 Pending
Calcium 7.5 L Pending
Total Bilirubin 0.8 Pending
AST 17 Pending
ALT 13 Pending
Alkaline Phosphatase 217 H Pending
03/12/25
18:00
WBC
Hgb
Hct
Plt Count
APTT Pending
Sodium
Potassium
Chloride
Carbon Dioxide
BUN
Creatinine
Glucose
Calcium
Total Bilirubin
AST
ALT
Alkaline Phosphatase
Vital Signs:
Vital Signs
Temp Pulse Resp BP Pulse Ox
98.1 F 78 15 102/72 97
03/12/25 11:38 03/12/25 12:00 03/12/25 12:00 03/12/25 12:00 03/12/25 13:04
I&O
03/11/25 03/12/25 03/13/25
06:59 06:59 06:59
Intake Total 250 / 250
Output Total 90 / 90
Balance 250 / 250 -90 / -90
Review of Systems
-
History Source: Patient
All other systems: Not reviewed unless documented
Physical Exam
-
General: Comfortable
Respiratory: Clear to Auscultation (Anterior), Accessory Resp Muscle Use and Clear to Percussion
Cardiac: S1/S2, Irregular Rhythm and Tachycardic
GI: Soft, Nondistended, Normal Bowel Sounds and Tender (Left side of abdomen without rebound guarding rigidity)
Neuro: AO x 3
Psych: Calm
--- NOTE | 2025-03-12 14:33 | W.PN.ID1 ---
Date of Service
Date of Service: March 12, 2025
Today's Communication
Continue antibiotics. See below�
Assessment / Plan
Intra-abdominal abscess x 2 with fistulae to colon
Fever -resolved
Leukocytosis
Abdominal pain
Lactic acidosis
Abdominal aortic thrombus
Asthma
GERD
HTN
Hypothyroidism
Uterine fibroids
Diverticulitis
Recommendations:
s/p perc drain placement x 2
Abscess culture with diphtheroids, yeast and Enterococcus
Continue Unasyn 3g IV q6h. add micafungin 100 mg IV every 24 hours
Continue with supportive measures.
Trend white count and fever curve.
����������������������������������������������������������
Chief Complaint
-: Other (abd abscess/fistula)
Subjective / Review of Systems
Review of Systems: No Fever and No Chills
Vital Signs / Physical Exam
Vital Signs
Vital Signs
Temp Pulse Resp BP Pulse Ox
98.1 F 78 15 102/72 97
03/12/25 11:38 03/12/25 12:00 03/12/25 12:00 03/12/25 12:00 03/12/25 13:04
Physical Exam
Constitutional: No Acute Distress, Comfortable, Chronically Ill and Non-toxic
Eyes: Sclera Anicteric
Cardiovascular: Regular Rate and S1/S2; Negative Murmur
Pulmonary: Clear
Gastrointestinal: Soft, Tender (left abd), Non Distended and Other (2 KENRICK drain: A feculent output, B purulent output)
Extremities: Edema; Negative Cyanosis or Erythema
Skin: Warm and Dry; Negative Rash or Jaundice
Neurological: Awake and AO x 3
Psychological: Calm
Objective Data
Lab Data
Lab Results
03/12/25 02:39
APTT 113.1 Sec (23.4-35.0) H 03/12/25 10:08
Estimated Creat Clear 78 ml/min 03/12/25 02:39
Lactic Acid 2.4 mmol/L (0.7-2.0) H 03/08/25 03:22
Total Bilirubin 0.8 mg/dl (0.2-1.3) 03/12/25 02:39
AST 17 U/L (14-36) 03/12/25 02:39
ALT 13 U/L (0-35) 03/12/25 02:39
Alkaline Phosphatase 217 U/L (38-126) H 03/12/25 02:39
Most recent labs reviewed.
Micro Results:
03/08/25 04:26 Blood Culture - Preliminary
Blood/Venous No Growth in 4 days- Final report to follow
03/08/25 04:30 Blood Culture - Preliminary
Blood/Venous No Growth in 4 days- Final report to follow
03/08/25 16:41 Wound Culture - Final
Abscess Enterococcus faecalis
Yeast
Diptheroids
Gram Stain - Final
03/08/25 17:10 Wound Culture - Final
Abscess Diptheroids
Gram Stain - Final
Imaging:
03/08/2025 CT abdomen/pelvis with IV contrast: 2 large abscesses, one within the left anterior abdominal wall, and 1 within the left retroperitoneum noted, with the former measuring 10.4 x 6.4 x 11 cm, and the latter measuring 9.3 x 5.7 x 8.7 cm.
There is a possible fistulous communication between the colon and the abscess. There is inflammation in the splenic flexure and proximal descending colon. Please see full dictation for additional detail. Film personally viewed.
[2025-03-12 16:00] LABS: Magnesium 1.6 mg/dl (1.6-2.3); Triglycerides 117 mg/dl (10-149)
[2025-03-12] MEDS: MYCAMINE 105 MG IV (17:28)
[2025-03-12] MEDS: NOVOLOG FLEXPEN-LOW RESISTANCE SC ×2 (17:36→23:45)
--- NOTE | 2025-03-12 17:42 | W.PN.CARDCBS ---
Today's Communication / Plan
-
Continue oral amiodarone
Continue IV heparin with transition to Eliquis when safe from a surgical standpoint
Impression / Plan
-
Impression:
Newly detected atrial flutter with rapid ventricular response
History of sinus tachycardia
History of diverticulitis with fistulas/abscesses, currently admitted for 2 abscesses left abdomen, now with percutaneous drains
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
Asthma
GERD
Hypertension
Hypothyroidism
Degenerative joint disease
Chronic anemia
Hyperlipidemia
Thrombocytosis
Echo October 2024: EF 55-60%, normal diastolic function, aortic sclerosis without regurgitation or stenosis, normal RV, normal atria, trace MR, normal right heart, could not determine pulmonary artery systolic pressure
Plan:
Presents with recurrent intra-abdominal infection/fistula/abscess being treated with antibiotics per infectious disease
While here identified as having a self-limited episode of atrial flutter with conversion to normal sinus rhythm following the initiation of amiodarone therapy
Continue p.o. amiodarone 200 mg 3 times daily with transition to 200 mg once daily on discharge
[id number] score is 2. At a minimum recommend short-term anticoagulation. Currently on heparin and will transition to Eliquis when safe from a surgical standpoint.
Will likely need longer-term anticoagulation given thrombus in her abdominal aorta.
We will continue to follow.
Progress Note - Administrative Underwriter
Subjective
Date of Service: March 12, 2025
No acute overnight events. Patient is resting comfortably in bed in the IMU. Telemetry reviewed, maintaining sinus rhythm.
Objective
Labs:
03/12/25 02:39
03/12/25 13:33
Labs
Hgb 10.1 g/dL (12.0-16.0) L 03/12/25 02:39
Hct 30.9 % (37.0-47.0) L 03/12/25 02:39
Plt Count 525 10^3/uL (130-400) H 03/12/25 02:39
APTT 113.1 Sec (23.4-35.0) H 03/12/25 10:08
Sodium Cancelled 03/12/25 13:33
Potassium Cancelled 03/12/25 13:33
BUN Cancelled 03/12/25 13:33
Creatinine Cancelled 03/12/25 13:33
Glucose Cancelled 03/12/25 13:33
Troponins
03/11/25
11:09
Troponin I < 0.012
Vital Signs and I&O:
Vital Signs
Temp Pulse Resp BP Pulse Ox
98.6 F 82 13 109/62 96
03/12/25 15:09 03/12/25 16:00 03/12/25 16:00 03/12/25 14:00 03/12/25 16:00
Vital Signs
Temp Pulse Resp BP Pulse Ox
98.6 F 82 13 109/62 96
03/12/25 15:09 03/12/25 16:00 03/12/25 16:00 03/12/25 14:00 03/12/25 16:00
Intake & Output
03/10/25 03/11/25 03/12/25 03/13/25
06:59 06:59 06:59 06:59
Intake Total 2618 / 2618 250 / 250
Output Total 220 / 220 90 / 90
Balance 2398 / 2398 250 / 250 -90 / -90
Physical Exam
Physical Exam
Gen: NAD, AAOx3
HEENT: NC/AT, sclera anicteric
Neck: No JVD
CV: RRR, NL s1/s2, no M/R/G
Lungs: CTAB
Abd: S/ND
Ext: No LE edema
Skin: Warm, dry
Neuro: Non-focal
[2025-03-12] MEDS: Parenteral Nutrition, Central 920 IV (20:02)
[2025-03-12 20:31] LABS: APTT 95.7 Sec (23.4-35.0)
[2025-03-12 23:40] LABS: Glucose - Point of Care 120 mg/dl (70-99)
[2025-03-13] VITALS (14 sets, daily range): BP systolic 96–129; BP diastolic 58–113; PULSE 93–95; O2SAT 97–98; BMI 29.5
[2025-03-13] MEDS: UNASYN IV ×5 (00:20→23:51)
[2025-03-13] MEDS: ZOFRAN 4 MG IV ×2 (01:02→18:30)
[2025-03-13] MEDS: MORPHINE SULFATE 4 MG IV ×5 (02:37→20:52)
[2025-03-13 03:06] LABS: APTT 67.8 Sec (23.4-35.0)
[2025-03-13 05:04] LABS: ALT (SGPT) 12 U/L (0-35); AST (SGOT) 13 U/L (14-36); Albumin 1.5 g/dl (3.5-5.0); Alkaline Phosphatase 212 U/L (38-126); Blood Urea Nitrogen 8 mg/dl (7-17); Calcium 7.3 mg/dl (8.4-10.2); Carbon Dioxide 22 mmol/L (22-30); Chloride 111 mmol/L (98-107); Estimated Creatinine Clearance 91 ml/min; Glucose 140 mg/dl (70-99); Magnesium 1.7 mg/dl (1.6-2.3); Potassium 4.0 mmol/L (3.5-5.1); Sodium 135 mmol/L (135-145); Total Protein 3.8 g/dl (6.3-8.2); eGFR > 60.00
--- NOTE | 2025-03-13 05:10 | PTCARENOTE ---
Assumed care of pt from isaías RN, Pt aaox3. NSR on monitor. SpO2 98% on RA. Heparin gtt infusing at 1250 u/hr. TPN infusing (see MAR). Assessment and vitals as documented. Pt resting in bed with call vergara in reach.
[2025-03-13] MEDS: SYNTHROID 125 MCG PO (05:38)
[2025-03-13 05:51] LABS: Glucose - Point of Care 133 mg/dl (70-99)
[2025-03-13] MEDS: NOVOLOG FLEXPEN-LOW RESISTANCE SC ×5 (05:52→23:28)
[2025-03-13] MEDS: PACERONE 200 MG PO ×3 (08:11→20:52)
[2025-03-13] MEDS: PROTONIX 40 MG PO (08:12)
[2025-03-13 08:28] LABS: Hematocrit 27.6 % (37.0-47.0); Hemoglobin 8.9 g/dL (12.0-16.0); Mean Corp Hgb Conc. 32.2 g/dL (33.0-37.0); Mean Corpuscular Volume 83.9 fL (81.0-99.0); Nucleated Red Blood Cells % 0 %; Platelet Count 524 10^3/uL (130-400); Red Cell Dist. Width 16.7 % (11.5-14.5)
--- NOTE | 2025-03-13 09:13 | W.PN.ID1 ---
Date of Service
Date of Service: March 13, 2025
Today's Communication
Continue antibiotics.
Assessment / Plan
Intra-abdominal abscess x 2 with fistulae to colon
Fever -resolved
Leukocytosis
Abdominal pain
Lactic acidosis
Abdominal aortic thrombus
Asthma
GERD
HTN
Hypothyroidism
Uterine fibroids
Diverticulitis
Recommendations:
s/p perc drain placement x 2
Abscess culture with diphtheroids, yeast and Enterococcus.
- Lab to send out diphtheroids and yeast for further identification and potential susceptibility data.
Continue Unasyn 3g IV q6h (d#7), micafungin 100 mg IV q24h (d#2)
Continue with supportive measures.
Trend white count and fever curve. Follow drain output.
Await potential surgery.
����������������������������������������������������������
Chief Complaint
-: Other (abd abscess/fistula)
Subjective / Review of Systems
Review of Systems: No Fever, No Chills, Abdominal Pain and No Skin Rash
Vital Signs / Physical Exam
Vital Signs
Vital Signs
Temp Pulse Resp BP Pulse Ox
98.3 F 88 22 129/72 98
03/13/25 07:20 03/13/25 06:00 03/13/25 06:00 03/13/25 06:00 03/13/25 06:00
Physical Exam
Constitutional: No Acute Distress, Comfortable, Chronically Ill and Non-toxic
Eyes: Sclera Anicteric
Cardiovascular: Regular Rate and S1/S2; Negative Murmur
Pulmonary: Clear
Gastrointestinal: Soft, Tender (left abd), Non Distended and Other (2 KENRICK drain: A feculent output, B purulent output)
Extremities: Edema; Negative Cyanosis or Erythema
Skin: Warm and Dry; Negative Rash or Jaundice
Neurological: Awake and AO x 3
Psychological: Calm
Objective Data
Lab Data
Lab Results
03/13/25 08:19
03/13/25 04:20
APTT 67.8 Sec (23.4-35.0) H 03/13/25 02:32
Estimated Creat Clear 91 ml/min 03/13/25 04:20
Lactic Acid 2.4 mmol/L (0.7-2.0) H 03/08/25 03:22
Total Bilirubin 0.6 mg/dl (0.2-1.3) 03/13/25 04:20
AST 13 U/L (14-36) L 03/13/25 04:20
ALT 12 U/L (0-35) 03/13/25 04:20
Alkaline Phosphatase 212 U/L (38-126) H 03/13/25 04:20
Most recent labs reviewed.
Micro Results:
03/08/25 16:41 Fungus Mold Identification - Pending
Abscess
03/08/25 16:41 Wound Culture - Final
Abscess Enterococcus faecalis
Yeast
Diptheroids
Gram Stain - Final
03/08/25 04:26 Blood Culture - Final
Blood/Venous No Growth - Final Report
03/08/25 04:30 Blood Culture - Final
Blood/Venous No Growth - Final Report
03/08/25 17:10 Wound Culture - Final
Abscess Diptheroids
Gram Stain - Final
Imaging:
03/08/2025 CT abdomen/pelvis with IV contrast: 2 large abscesses, one within the left anterior abdominal wall, and 1 within the left retroperitoneum noted, with the former measuring 10.4 x 6.4 x 11 cm, and the latter measuring 9.3 x 5.7 x 8.7 cm.
There is a possible fistulous communication between the colon and the abscess. There is inflammation in the splenic flexure and proximal descending colon. Please see full dictation for additional detail. Film personally viewed.
Care Review
Plan reviewed with: Physician (CRS)
--- NOTE | 2025-03-13 09:57 | W.PN.CARDCBS ---
Today's Communication / Plan
-
Remains in sinus rhythm. Continue amiodarone 200 mg p.o. 3 times daily.
Continue IV heparin. Hemoglobin at 8.9. Continue to follow.
Once a decision is made regarding surgery would then consider transitioning to Eliquis.
She is tolerating light diet for now
Impression / Plan
-
Impression:
Newly detected atrial flutter with rapid ventricular response
History of sinus tachycardia
History of diverticulitis with fistulas/abscesses, currently admitted for 2 abscesses left abdomen, now with percutaneous drains
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
Asthma
GERD
Hypertension
Hypothyroidism
Degenerative joint disease
Chronic anemia
Hyperlipidemia
Thrombocytosis
Echo October 2024: EF 55-60%, normal diastolic function, aortic sclerosis without regurgitation or stenosis, normal RV, normal atria, trace MR, normal right heart, could not determine pulmonary artery systolic pressure
Plan:
Presents with recurrent intra-abdominal infection/fistula/abscess being treated with antibiotics per infectious disease
While here identified as having a self-limited episode of atrial flutter with conversion to normal sinus rhythm following the initiation of amiodarone therapy
Continue p.o. amiodarone 200 mg 3 times daily with transition to 200 mg once daily on discharge. She is currently tolerating a p.o. diet
Still having abdominal pains and there is consideration for surgery next week. Will hold off initiating Eliquis until plan regarding possible surgery is established. Continue IV heparin.
Hemoglobin at 8.9. Continue to follow.
[id number] score is 2. At a minimum recommend short-term anticoagulation. Currently on heparin and will transition to Eliquis when a decision is made on possible surgery
Will likely need longer-term anticoagulation given thrombus in her abdominal aorta.
We will continue to follow.
Progress Note - Combination Technician
Subjective
Date of Service: March 13, 2025
Remains in sinus rhythm this morning. Still having abdominal pains. Denies any overt bleeding and breathing is stable.
Objective
Labs:
03/13/25 08:19
03/13/25 04:20
Labs
Hgb 8.9 g/dL (12.0-16.0) L 03/13/25 08:19
Hct 27.6 % (37.0-47.0) L 03/13/25 08:19
Plt Count 524 10^3/uL (130-400) H 03/13/25 08:19
APTT 67.8 Sec (23.4-35.0) H 03/13/25 02:32
Sodium 135 mmol/L (135-145) 03/13/25 04:20
Potassium 4.0 mmol/L (3.5-5.1) 03/13/25 04:20
BUN 8 mg/dl (7-17) 03/13/25 04:20
Creatinine 0.6 mg/dL (0.6-1.0) 03/13/25 04:20
Glucose 140 mg/dl (70-99) H 03/13/25 04:20
Troponins
03/11/25
11:09
Troponin I < 0.012
Vital Signs and I&O:
Vital Signs
Temp Pulse Resp BP Pulse Ox
98.3 F 88 22 129/72 98
03/13/25 07:20 03/13/25 06:00 03/13/25 06:00 03/13/25 06:00 03/13/25 06:00
Vital Signs
Temp Pulse Resp BP Pulse Ox
98.3 F 88 22 129/72 98
03/13/25 07:20 03/13/25 06:00 03/13/25 06:00 03/13/25 06:00 03/13/25 06:00
Intake & Output
03/11/25 03/12/25 03/13/25 03/14/25
06:59 06:59 06:59 06:59
Intake Total 250 / 250 900 / 900
Output Total 90 / 75 / 75
Balance 250 / 250 -90 / 90 825 / 825
Physical Exam
Physical Exam
GEN: No distress, awake, Ox3
HEENT: supple, anicteric, mmm
LUNGS: CTA, no wheezes/rales
CV: Reg, S1/S2, 1/6 syst LSB, no gallop
ABD: soft, BS+, + tender
EXT: No edema
NEURO: Gross non-focal
SKIN: No rash
[2025-03-13] MEDS: HEPARIN 25000 UNITS/250 ML IV (10:13)
[2025-03-13 11:04] LABS: APTT 48.8 Sec (23.4-35.0)
[2025-03-13 12:30] LABS: Glucose - Point of Care 158 mg/dl (70-99)
--- NOTE | 2025-03-13 12:47 | W.PN.CRS1 ---
Today's Communication / Plan
-
Advance to full's
Continue TPN, holding surgery for now
Assessment/Plan
-
64 yo female with a complicated history of diverticulitis/colitis with fistula and abscess formations over the past 6 years with most recent admission for this in October of this year. She has declined surgery in the past.. She presents now with
abdominal collections x2 likely related to fistulas/localized perforations s/p IR drain x2 on 03/08/25 one with feculent material noted and the other with light jones purulent fluid. Situation complicated by the presence of an abdominal aortic thrombus
in the vicinity of the origin of the ALEJANDRO and need for anticoagulation.
WBC: 13.4, 13.2, 19.0, 21.4, 9.0
Wound with enterococcus on preliminary results, Blood cx with NGTD
Vitals normal
Received 1 unit PRBCs 03/10
Plan:
- Advance to full's with Ensure
- Continue TPN
-OOB with PT/OT
-Continue IR drains, record daily output
-Appreciate ID following for ABX management - remains on Unasyn
-Ok to continue heparin gtt from surgical standpoint, would avoid oral anticoagulation at this time
- She had been tentatively added to the OR schedule tomorrow. She has not worsened and her WBC remains the same. We will hold off on surgery for now and plan for possibly next week. Discussed with the patient who is in agreement.
Subjective Data
Subjective Data
Date of Service: March 13, 2025
Patient states she feels 'about the same'. She is hungry for more foods. Denies nausea or vomiting.
Objective Data
-
Vital Signs
Temp Pulse Resp BP Pulse Ox
98.7 F 93 11 103/71 95
03/13/25 12:27 03/13/25 12:00 03/13/25 12:00 03/13/25 12:00 03/13/25 12:00
Intake & Output
03/12/25 03/13/25 03/14/25
06:59 06:59 06:59
Intake Total 900 / 900
Output Total 90 / 90 75 / 75
Balance -90 / -90 825 / 825
Intake:
Oral fluids 580 / 580
IV piggybacks 300 / 300
Amount instilled into Drain (
Total)
Left Lower Abdomen Placed in IR 10 / 10
Left Lower Back Placed in IR 10 / 10
Output:
Drain Output (Total) 90 / 90 75 / 75
Left Lower Abdomen Placed in IR 20 / 20 50 / 50
Left Lower Back Placed in IR 70 / 70
Other:
Number of approximated MODERATE 1
amounts of urine
Number of approximated LARGE 1
amounts of urine
Lab Results
03/13/25 08:19
03/13/25 04:20
Physical Exam
-
General: No Acute Distress and AOx3
Abdomen: Soft, Tender (Left-sided tenderness) and Other (KENRICK drains with feculent output)
--- NOTE | 2025-03-13 13:09 | W.PN.HOSP.TC ---
Today's Communication/Plan
-
Unasyn, Barbie
TPN
adv diet as per CRS
Hep ggt
Surgery as per CRS - anticipate next week
Assessment / Plan
Assessment / Plan
General: Comfortable
Respiratory: Clear to Auscultation (Anterior), Accessory Resp Muscle Use and Clear to Percussion
Cardiac: S1/S2, Irregular Rhythm and Tachycardic
GI: Soft, Nondistended, Normal Bowel Sounds and Tender (Left side of abdomen without rebound guarding rigidity)
Neuro: AO x 3
Psych: Calm
A/P: Patient is a 64y F with PMH significant for hypertension, hypothyroidism and complicated diverticulitis who presents to ED complaining of abdominal pain and weakness.
Complicated Diverticulitis
Abscess(es) with fistulous connection to colon secondary to the above
Sepsis secondary to the above
-s/p IR drain insertion into abscesses
- CW IV Unasyn, micafungin per ID
- Definite surgical treatment per CRS�tentatively next week
- Pain control, supportive care.
- Follow for clinical improvement.
- TPN started 03/12
- Advancing diet and monitor
#Leucocytosis - improving
-i suspect 2/2 to afib, new onset - now improving, stable
-monitor fever curve, wbc count
# AA thrombus with possible ALEJANDRO obstruction
Appreciate Vascular input
Recommends AC - currently on IV heparin
#New a flutter with RVR
Blood pressure soft and not tolerating beta-noam nor would tolerate Cardizem. With potassium 3.2 hold on digoxin till repletion.
Consult cardiology-
amio ggt, switched to PO amio
-Amiodarone 200 mg 3 times daily, transition to 200 twice daily at discharge
�Hep to Eliquis once cleared by surgery
# Acute on chronic anemia
- No obvious external bleeding
- Suspect it may be dilutional
- S/P 2 unit of PRBC
- Follow HH
- was Transfuse 1 of those 2 units with hemoglobin 7.8 and issues with tachycardia and a flutter.
Benign Hypertension
- BP stable at present - off of all meds x 2 weeks.
- Continue to hold antihypertensive medications.
- IVF support as noted above.
Chronic Anemia
Thrombocytosis
- Stable. Hgb is at / near known baseline (increased from prior admission).
- No evidence of bleeding.
- Iron studies, B12, folate, etc all unremarkable last admission.
- Follow for changes in cell counts.
Hypothyroidism
- Stable. Continue T4 supplementation. Check TSH
Hyponatremia
-monitor
Asthma without Acute Exacerbation
- Stable. Follow for any new issues.
- Albuterol PRN.
DVT Prophylaxis: Hep ggt; Eliquis once cleared by surgery
Code Status: Full
Total time spent on today's encounter was 53 minutes which included time spent in counseling the patient/family regarding diagnosis and treatment plan as listed above, goals of care, and symptom management. Case was discussed with nursing staff,
specialists, and care coordinators/case management. All labs and imaging personally reviewed by me. Remainder the time spent in detailed review of previous records, lab data, imaging, and other medical provider documentation.
Anticipated Discharge: > 48 hours
Subjective/Interval History
-
Date of Service: March 13, 2025
No acute events overnight
Objective Data
-
Labs:
Laboratory Results
03/13/25 03/13/25 03/13/25
02:32 04:20 08:19
WBC 13.4 H
Hgb 8.9 L
Hct 27.6 L
Plt Count 524 H
APTT 67.8 H
Sodium 135
Potassium 4.0
Chloride 111 H
Carbon Dioxide 22
BUN 8
Creatinine 0.6
Glucose 140 H
Calcium 7.3 L
Total Bilirubin 0.6
AST 13 L
ALT 12
Alkaline Phosphatase 212 H
03/13/25 03/13/25 03/13/25
10:10 10:45 17:00
WBC
Hgb
Hct
Plt Count
APTT Cancelled 48.8 H Pending
Sodium
Potassium
Chloride
Carbon Dioxide
BUN
Creatinine
Glucose
Calcium
Total Bilirubin
AST
ALT
Alkaline Phosphatase
Vital Signs:
Vital Signs
Temp Pulse Resp BP Pulse Ox
98.7 F 93 11 103/71 95
03/13/25 12:27 03/13/25 12:00 03/13/25 12:00 03/13/25 12:00 03/13/25 12:00
I&O
03/12/25 03/13/25 03/14/25
06:59 06:59 06:59
Intake Total 900 / 900
Output Total 90 / 90 75 / 75
Balance -90 / -90 825 / 825
Review of Systems
-
History Source: Patient
All other systems: Not reviewed unless documented
Physical Exam
-
General: Comfortable
Respiratory: Clear to Auscultation (Anterior), Accessory Resp Muscle Use and Clear to Percussion
Cardiac: S1/S2, Irregular Rhythm and Tachycardic
GI: Soft, Nondistended, Normal Bowel Sounds and Tender (Left side of abdomen without rebound guarding rigidity)
Neuro: AO x 3
Psych: Calm
--- NOTE | 2025-03-13 13:29 | PTCARENOTE ---
hep gtt increased to 1450 units/hr per protocol. pt ambulated out of chair x2 w/ therapy. pt resting comfortably.
--- NOTE | 2025-03-13 15:24 | CM ---
Patient with Dx Diverticulitis, Intra-abdominal Abscesses with fistula to colon, sepsis. Plan possible surgery next week. Room air. Drains in place. Full liquids/TPN. Receiving IV Micafungin, IV Unasyn, Heparin gtt. PT/OT; assist of 2,
recommend skilled rehab.
CM continuing to follow for d/c needs.
Plan TBD.
[2025-03-13] MEDS: MYCAMINE 105 MG IV (16:08)
[2025-03-13 17:47] LABS: APTT 148.3 Sec (23.4-35.0)
[2025-03-13 18:26] LABS: Glucose - Point of Care 122 mg/dl (70-99)
[2025-03-13] MEDS: Parenteral Nutrition, Central 1120 IV (20:40)
[2025-03-13 23:39] LABS: Glucose - Point of Care 130 mg/dl (70-99)
[2025-03-14] VITALS (16 sets, daily range): BP systolic 95–135; BP diastolic 57–112; PULSE 88–90; O2SAT 98; BMI 29.6
[2025-03-14 00:28] LABS: APTT 68.8 Sec (23.4-35.0)
[2025-03-14] MEDS: MORPHINE SULFATE 4 MG IV ×5 (01:02→19:19)
--- NOTE | 2025-03-14 04:51 | PTCARENOTE ---
assumed care of patient from previous RN. AAOx3. NSR on monitor. 91% on RA. Heparin gtt running at 1350. TPN running at 47. Assessment and vital signs as charted. call vergara in reach.
[2025-03-14] MEDS: UNASYN IV ×3 (05:05→19:19)
[2025-03-14] MEDS: SYNTHROID 125 MCG PO (05:05)
[2025-03-14 05:27] LABS: Glucose - Point of Care 121 mg/dl (70-99)
[2025-03-14] MEDS: NOVOLOG FLEXPEN-LOW RESISTANCE SC ×2 (05:30→18:45)
[2025-03-14 06:08] LABS: Hematocrit 26.1 % (37.0-47.0); Hemoglobin 8.5 g/dL (12.0-16.0); Mean Corp Hgb Conc. 32.6 g/dL (33.0-37.0); Mean Corpuscular Volume 83.4 fL (81.0-99.0); Nucleated Red Blood Cells % 0 %; Platelet Count 490 10^3/uL (130-400); Red Cell Dist. Width 17.0 % (11.5-14.5)
[2025-03-14 06:16] LABS: APTT 82.6 Sec (23.4-35.0)
[2025-03-14] MEDS: HEPARIN 25000 UNITS/250 ML IV (06:21)
[2025-03-14 06:54] LABS: ALT (SGPT) < 10 U/L (0-35); AST (SGOT) 13 U/L (14-36); Albumin 1.6 g/dl (3.5-5.0); Alkaline Phosphatase 131 U/L (38-126); Blood Urea Nitrogen 9 mg/dl (7-17); Calcium 8.2 mg/dl (8.4-10.2); Carbon Dioxide 20 mmol/L (22-30); Chloride 108 mmol/L (98-107); Estimated Creatinine Clearance 92 ml/min; Glucose 655 mg/dl (70-99); Magnesium 2.1 mg/dl (1.6-2.3); Potassium 5.3 mmol/L (3.5-5.1); Sodium 132 mmol/L (135-145); Total Protein 3.8 g/dl (6.3-8.2); eGFR > 60.00
--- NOTE | 2025-03-14 07:54 | W.PN.CRS1 ---
Today's Communication / Plan
-
low residue
let TPN bag run out at 9pm and then stop
continue abx
holding off on surgery today
Assessment/Plan
-
64 yo female with a complicated history of diverticulitis/colitis with fistula and abscess formations over the past 6 years with most recent admission for this in October of this year. She has declined surgery in the past.. She presents now with
abdominal collections x2 likely related to fistulas/localized perforations s/p IR drain x2 on 03/08/25 one with feculent material noted and the other with light jones purulent fluid. Situation complicated by the presence of an abdominal aortic thrombus
in the vicinity of the origin of the ALEJANDRO and need for anticoagulation.
WBC: 10.5, 13.4, 13.2, 19.0, 21.4, 9.0
Vitals normal
Received 1 unit PRBCs 03/10
Plan:
- Advance to low residue with Ensure
- Continue TPN today, will let bag run out around 9pm. Will reassess tomorrow to see if she tolerated low residue. If not, will reorder fulls and TPN.
-OOB with PT/OT
-Continue IR drains, record daily output
-Appreciate ID following for ABX management - remains on Unasyn
-Ok to continue heparin gtt from surgical standpoint, would avoid oral anticoagulation at this time
- We will hold off on surgery for now and plan for possibly next week. Discussed with the patient who is in agreement.
Subjective Data
Subjective Data
Date of Service: March 14, 2025
Patient states she is 'starving'. She has not had any bowel movements. She notices air in the VARGAS drains.
Objective Data
-
Vital Signs
Temp Pulse Resp BP Pulse Ox
98.5 F 85 13 130/71 97
03/14/25 07:20 03/14/25 06:00 03/14/25 06:00 03/14/25 06:00 03/14/25 02:00
Intake & Output
03/13/25 03/14/25 03/15/25
06:59 06:59 06:59
Intake Total 900 / 900 756 / 756
Output Total 75 / 75
Balance 825 / 825 756 / 756
Intake:
Oral fluids 580 / 580
IV piggybacks 300 / 300 300 / 300
TPN/PPN 456 / 456
Amount instilled into Drain (
Total)
Left Lower Abdomen Placed in IR 10 / 10
Left Lower Back Placed in IR 10 / 10
Output:
Drain Output (Total) 75 / 75
Left Lower Abdomen Placed in IR 50 / 50
Left Lower Back Placed in IR 25 / 25
Other:
Number of approximated MODERATE 1 1
amounts of urine
Number of approximated LARGE 1
amounts of urine
Lab Results
03/14/25 05:52
Physical Exam
-
General: No Acute Distress and AOx3
Abdomen: Soft, Non Distended, Tender (left side, mild) and Other (vargas drains with feculent/jones green pus output)
Skin: Warm and Dry
[2025-03-14 08:36] LABS: Blood Urea Nitrogen 11 mg/dl (7-17); Calcium 7.7 mg/dl (8.4-10.2); Carbon Dioxide 25 mmol/L (22-30); Chloride 111 mmol/L (98-107); Estimated Creatinine Clearance 92 ml/min; Glucose 110 mg/dl (70-99); Potassium 3.5 mmol/L (3.5-5.1); Sodium 134 mmol/L (135-145); eGFR > 60.00
[2025-03-14] MEDS: PROTONIX 40 MG PO (09:06)
[2025-03-14] MEDS: PACERONE 200 MG PO ×3 (09:06→23:32)
[2025-03-14] MEDS: NOVOLOG FLEXPEN-LOW RESISTANCE 1 UNITS SC (11:38)
[2025-03-14 11:48] LABS: Glucose - Point of Care 163 mg/dl (70-99)
[2025-03-14 13:28] LABS: APTT 103.3 Sec (23.4-35.0)
--- NOTE | 2025-03-14 13:35 | PTCARENOTE ---
Assumed care of patient at beginning of this shift from previous RN with heparin infusing at 13.5ml/hr and TPN infusing via PICC. Surgery in to see patient and upgraded diet to low residue.; patient tolerated meal. Patient NSR with occasional PACs.
VARGAS drain x2 with milky drainage noted. Administered morphine for pain at vargas insertion sites with relief. Patient prefers lights off, curtain pulled and door closed. See worklist for full assessment and vital signs.
--- NOTE | 2025-03-14 14:28 | W.PN.ID1 ---
Date of Service
Date of Service: March 14, 2025
Today's Communication
Continue antibiotics
Assessment / Plan
Intra-abdominal abscess x 2 with fistulae to colon
Fever -resolved
Leukocytosis
Abdominal pain
Lactic acidosis
Abdominal aortic thrombus
Asthma
GERD
HTN
Hypothyroidism
Uterine fibroids
Diverticulitis
Recommendations:
s/p perc drain placement x 2
Abscess culture with diphtheroids, yeast and Enterococcus.
- Lab to send out diphtheroids and yeast for further identification and potential susceptibility data.
Continue Unasyn 3g IV q6h (d#8), micafungin 100 mg IV q24h (d#3)
Continue with supportive measures.
Trend white count and fever curve. Follow drain output.
Await potential surgery next week.
����������������������������������������������������������
Chief Complaint
-: Other (abd abscess/fistula)
Subjective / Review of Systems
Review of Systems: No Fever
Vital Signs / Physical Exam
Vital Signs
Vital Signs
Temp Pulse Resp BP Pulse Ox
98.7 F 90 19 114/70 95
03/14/25 11:00 03/14/25 12:00 03/14/25 12:00 03/14/25 12:00 03/14/25 12:00
Physical Exam
Constitutional: No Acute Distress, Comfortable, Chronically Ill and Non-toxic
Eyes: Sclera Anicteric
Cardiovascular: Regular Rate and S1/S2; Negative Murmur
Pulmonary: Clear
Gastrointestinal: Soft, Tender (left abd), Non Distended and Other (2 KENRICK drain: A feculent output, B purulent output)
Extremities: Edema; Negative Cyanosis or Erythema
Skin: Warm and Dry; Negative Rash or Jaundice
Psychological: Calm
Objective Data
Lab Data
Lab Results
03/14/25 05:52
03/14/25 07:30
APTT 103.3 Sec (23.4-35.0) H 03/14/25 12:46
Estimated Creat Clear 92 ml/min 03/14/25 07:30
Lactic Acid 2.4 mmol/L (0.7-2.0) H 03/08/25 03:22
Total Bilirubin 0.5 mg/dl (0.2-1.3) 03/14/25 05:52
AST 13 U/L (14-36) L 03/14/25 05:52
ALT < 10 U/L (0-35) 03/14/25 05:52
Alkaline Phosphatase 131 U/L (38-126) H 03/14/25 05:52
Most recent labs reviewed.
Micro Results:
03/08/25 16:41 Fungus Mold Identification - Pending
Abscess
03/08/25 16:41 Wound Culture - Final
Abscess Enterococcus faecalis
Yeast
Diptheroids
Gram Stain - Final
03/08/25 04:26 Blood Culture - Final
Blood/Venous No Growth - Final Report
03/08/25 04:30 Blood Culture - Final
Blood/Venous No Growth - Final Report
03/08/25 17:10 Wound Culture - Final
Abscess Diptheroids
Gram Stain - Final
Imaging:
03/08/2025 CT abdomen/pelvis with IV contrast: 2 large abscesses, one within the left anterior abdominal wall, and 1 within the left retroperitoneum noted, with the former measuring 10.4 x 6.4 x 11 cm, and the latter measuring 9.3 x 5.7 x 8.7 cm.
There is a possible fistulous communication between the colon and the abscess. There is inflammation in the splenic flexure and proximal descending colon. Please see full dictation for additional detail. Film personally viewed.
--- NOTE | 2025-03-14 14:30 | W.PN.HOSP.TC ---
Addendum entered and electronically signed by Jose Cristobal MD 03/14/25 15:50:
Severe protein calorie malnutrition of chronic illness
Original Note:
Today's Communication/Plan
-
Abx
Surgery tentatively next week
Amio
Hep ggt
downgrade to tele
Assessment / Plan
Assessment / Plan
General: Comfortable
Respiratory: Clear to Auscultation (Anterior), Accessory Resp Muscle Use and Clear to Percussion
Cardiac: S1/S2, Irregular Rhythm and Tachycardic
GI: Soft, Nondistended, Normal Bowel Sounds and Tender (Left side of abdomen without rebound guarding rigidity)
Neuro: AO x 3
Psych: Calm
A/P: Patient is a 64y F with PMH significant for hypertension, hypothyroidism and complicated diverticulitis who presents to ED complaining of abdominal pain and weakness.
Complicated Diverticulitis
Abscess(es) with fistulous connection to colon secondary to the above
Sepsis secondary to the above
-s/p IR drain insertion into abscesses
- CW IV Unasyn, micafungin per ID
- Definite surgical treatment per CRS�tentatively next week
- Pain control, supportive care.
- Follow for clinical improvement.
- TPN started 03/12 - dced 03/14
- Advancing diet and monitor
#Leucocytosis - improving
-i suspect 2/2 to afib, new onset - now improving, stable
-monitor fever curve, wbc count
# AA thrombus with possible ALEJANDRO obstruction
Appreciate Vascular input
Recommends AC - currently on IV heparin
#New a flutter with RVR
Blood pressure soft and not tolerating beta-noam nor would tolerate Cardizem. With potassium 3.2 hold on digoxin till repletion.
Consult cardiology-
amio ggt, switched to PO amio
-Amiodarone 200 mg 3 times daily, transition to 200 twice daily at discharge
�Hep to Eliquis once cleared by surgery
# Acute on chronic anemia
- No obvious external bleeding
- Suspect it may be dilutional
- S/P 2 unit of PRBC
- Follow HH
- was Transfuse 1 of those 2 units with hemoglobin 7.8 and issues with tachycardia and a flutter.
Benign Hypertension
- BP stable at present - off of all meds x 2 weeks.
- Continue to hold antihypertensive medications.
- IVF support as noted above.
Chronic Anemia
Thrombocytosis
- Stable. Hgb is at / near known baseline (increased from prior admission).
- No evidence of bleeding.
- Iron studies, B12, folate, etc all unremarkable last admission.
- Follow for changes in cell counts.
Hypothyroidism
- Stable. Continue T4 supplementation. Check TSH
Hyponatremia
-monitor
Asthma without Acute Exacerbation
- Stable. Follow for any new issues.
- Albuterol PRN.
DVT Prophylaxis: Hep ggt; Eliquis once cleared by surgery
Code Status: Full
Anticipated Discharge: > 48 hours
Subjective/Interval History
-
Date of Service: March 14, 2025
no acute events overnight, tolerating diet
Objective Data
-
Labs:
Laboratory Results
03/14/25 03/14/25 03/14/25
05:52 07:30 11:59
WBC 10.5
Hgb 8.5 L
Hct 26.1 L
Plt Count 490 H
APTT 82.6 H Cancelled
Sodium 132 L 134 L
Potassium 5.3 H D 3.5 D
Chloride 108 H 111 H
Carbon Dioxide 20 L 25
BUN 9 11
Creatinine 0.6 0.5 L
Glucose 655 H* 110 H
Calcium 8.2 L 7.7 L
Total Bilirubin 0.5
AST 13 L
ALT < 10
Alkaline Phosphatase 131 H
03/14/25
12:46
WBC
Hgb
Hct
Plt Count
APTT 103.3 H
Sodium
Potassium
Chloride
Carbon Dioxide
BUN
Creatinine
Glucose
Calcium
Total Bilirubin
AST
ALT
Alkaline Phosphatase
Vital Signs:
Vital Signs
Temp Pulse Resp BP Pulse Ox
98.7 F 90 19 114/70 95
03/14/25 11:00 03/14/25 12:00 03/14/25 12:00 03/14/25 12:00 03/14/25 12:00
I&O
03/13/25 03/14/25 03/15/25
06:59 06:59 06:59
Intake Total 900 / 900 756 / 756
Output Total 75 / 75
Balance 825 / 825 756 / 756
Review of Systems
-
History Source: Patient
All other systems: Not reviewed unless documented
Physical Exam
-
General: Comfortable
Respiratory: Clear to Auscultation (Anterior), Accessory Resp Muscle Use and Clear to Percussion
Cardiac: S1/S2, Irregular Rhythm and Tachycardic
GI: Soft, Nondistended, Normal Bowel Sounds and Tender (Left side of abdomen without rebound guarding rigidity)
Neuro: AO x 3
Psych: Calm
Data Reviewed
-
CT Scan: Report Reviewed by me
Ultrasound: Report Reviewed by me
Labs: Labs Reviewed by me
--- NOTE | 2025-03-14 15:47 | W.PN.CARDCBS ---
Today's Communication / Plan
-
Continue amiodarone 200 mg p.o. 3 times daily
Continue IV heparin until oral Eliquis and GI issues are stable
Check QT interval with amiodarone loading
Impression / Plan
-
Impression:
Newly detected atrial flutter with rapid ventricular response
History of sinus tachycardia
History of diverticulitis with fistulas/abscesses, currently admitted for 2 abscesses left abdomen, now with percutaneous drains
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
Asthma
GERD
Hypertension
Hypothyroidism
Degenerative joint disease
Chronic anemia
Hyperlipidemia
Thrombocytosis
Echo October 2024: EF 55-60%, normal diastolic function, aortic sclerosis without regurgitation or stenosis, normal RV, normal atria, trace MR, normal right heart, could not determine pulmonary artery systolic pressure
Plan:
Remains in sinus rhythm on 200 mg p.o. 3 times daily amiodarone which was started on 03/11
Eventually changed to amiodarone 200 mg p.o. twice daily on discharge
Continue IV heparin until able to be anticoagulated with oral Eliquis
She has eaten earlier today.
Will follow-up QT interval with amiodarone loading
Progress Note - Agitator Operator
Subjective
Date of Service: March 14, 2025
No complaints
Objective
Labs:
03/14/25 05:52
03/14/25 07:30
Labs
Hgb 8.5 g/dL (12.0-16.0) L 03/14/25 05:52
Hct 26.1 % (37.0-47.0) L 03/14/25 05:52
Plt Count 490 10^3/uL (130-400) H 03/14/25 05:52
APTT 103.3 Sec (23.4-35.0) H 03/14/25 12:46
Sodium 134 mmol/L (135-145) L 03/14/25 07:30
Potassium 3.5 mmol/L (3.5-5.1) D 03/14/25 07:30
BUN 11 mg/dl (7-17) 03/14/25 07:30
Creatinine 0.5 mg/dL (0.6-1.0) L 03/14/25 07:30
Glucose 110 mg/dl (70-99) H 03/14/25 07:30
Vital Signs and I&O:
Vital Signs
Temp Pulse Resp BP Pulse Ox
97.6 F 90 19 114/70 95
03/14/25 15:00 03/14/25 12:00 03/14/25 12:00 03/14/25 12:00 03/14/25 12:00
Vital Signs
Temp Pulse Resp BP Pulse Ox
97.6 F 90 19 114/70 95
03/14/25 15:00 03/14/25 12:00 03/14/25 12:00 03/14/25 12:00 03/14/25 12:00
Intake & Output
03/12/25 03/13/25 03/14/25 03/15/25
06:59 06:59 06:59 06:59
Intake Total 900 / 900 756 / 756
Output Total 90 / 90 75 / 75 35 / 35
Balance -90 / -90 825 / 825 756 / 756 -35 / -35
Physical Exam
Physical Exam
General: Well developed, well nourished in NAD.
Neck: Supple, no JVD, HJR, carotids +2 B/L, no bruits bilaterally.
Heart: Non displaced PMI, RRR, no murmurs, No S3, S4, no rubs.
Lungs: Clear to auscultation bilaterally, no wheeze, rhonchi, rubs bilaterally,
normal expiratory phase.
Extremities: No clubbing, cyanosis or edema bilaterally.
Neuro: Grossly nonfocal, awake, alert and oriented x3.
[2025-03-14] MEDS: MYCAMINE 105 MG IV (15:53)
[2025-03-14] MEDS: ROXICODONE 5 MG PO (17:12)
--- NOTE | 2025-03-14 18:32 | PTCARENOTE ---
Received pt from IMU, VSS, JPx2 flushed and WC changed over dressings. Pt AAOx3, oriented to call vergara and room, no new orders at this time.
[2025-03-14 18:45] LABS: Glucose - Point of Care 146 mg/dl (70-99)
[2025-03-15 00:19] LABS: Glucose - Point of Care 112 mg/dl (70-99)
[2025-03-15] MEDS: MORPHINE SULFATE 4 MG IV ×5 (00:24→19:51)
[2025-03-15] MEDS: UNASYN IV ×5 (00:25→23:24)
[2025-03-15] MEDS: NOVOLOG FLEXPEN-LOW RESISTANCE SC ×3 (00:26→11:17)
[2025-03-15] MEDS: HEPARIN 25000 UNITS/250 ML IV (02:52)
[2025-03-15 03:23] VITALS: BP 107/57
[2025-03-15] MEDS: SYNTHROID 125 MCG PO (04:47)
[2025-03-15 05:35] LABS: Hematocrit 24.8 % (37.0-47.0); Hemoglobin 7.9 g/dL (12.0-16.0); Mean Corp Hgb Conc. 31.9 g/dL (33.0-37.0); Mean Corpuscular Volume 81.3 fL (81.0-99.0); Nucleated Red Blood Cells % 0 %; Platelet Count 491 10^3/uL (130-400); Red Cell Dist. Width 17.1 % (11.5-14.5)
[2025-03-15 05:42] LABS: APTT 106.8 Sec (23.4-35.0)
[2025-03-15 06:00] VITALS: BMI 29.6
[2025-03-15 06:01] LABS: ALT (SGPT) < 10 U/L (0-35); AST (SGOT) 12 U/L (14-36); Albumin 1.7 g/dl (3.5-5.0); Alkaline Phosphatase 161 U/L (38-126); Blood Urea Nitrogen 12 mg/dl (7-17); Calcium 7.4 mg/dl (8.4-10.2); Carbon Dioxide 22 mmol/L (22-30); Chloride 109 mmol/L (98-107); Estimated Creatinine Clearance 92 ml/min; Glucose 91 mg/dl (70-99); Magnesium 1.7 mg/dl (1.6-2.3); Potassium 3.8 mmol/L (3.5-5.1); Sodium 133 mmol/L (135-145); Total Protein 4.1 g/dl (6.3-8.2); eGFR > 60.00
[2025-03-15 07:15] VITALS: BP 112/62
[2025-03-15] MEDS: PACERONE 200 MG PO ×3 (08:35→22:11)
[2025-03-15] MEDS: PROTONIX 40 MG PO (08:35)
--- NOTE | 2025-03-15 09:55 | W.PN.ID1 ---
Date of Service
Date of Service: March 15, 2025
Today's Communication
Continue antibiotics.
Assessment / Plan
Intra-abdominal abscess x 2 with fistulae to colon
- s/p perc drain placement x 2
Fever
- resolved
Leukocytosis
- resolved
Abdominal pain
Lactic acidosis
Abdominal aortic thrombus
Asthma
GERD
HTN
Hypothyroidism
Uterine fibroids
Diverticulitis
Recommendations:
Abscess culture with diphtheroids, yeast and Enterococcus.
- Lab to send out diphtheroids and yeast for further identification and potential susceptibility data.
Continue Unasyn 3g IV q6h (d#9), micafungin 100 mg IV q24h (d#4)
Continue with supportive measures.
Trend white count and fever curve. Follow drain output.
CRS notes reviewed, and apparently patient does not wish for surgery at the present time.
Likely will require a course of IV antibiotics in an attempt to decrease overall inflammation in anticipation of eventual surgery. Anticipated course of IV antibiotics would be at least 2 to 3 weeks.
Given that patient is now on amiodarone, she will likely need to stay on micafungin given potential interaction between Diflucan and amiodarone.
����������������������������������������������������������
Chief Complaint
-: Other (abd abscess/fistula)
Subjective / Review of Systems
Review of Systems: No Fever and No Chills
Vital Signs / Physical Exam
Vital Signs
Vital Signs
Temp Pulse Resp BP Pulse Ox
98.3 F 82 16 112/62 98
03/15/25 07:15 03/15/25 07:15 03/15/25 07:15 03/15/25 07:15 03/15/25 07:15
Physical Exam
Constitutional: No Acute Distress, Comfortable, Chronically Ill and Non-toxic
Eyes: Sclera Anicteric
Cardiovascular: Regular Rate and S1/S2; Negative Murmur
Pulmonary: Clear
Gastrointestinal: Soft, Tender (left abd), Non Distended and Other (2 KENRICK drain: A feculent output, B purulent output)
Extremities: Edema; Negative Cyanosis or Erythema
Skin: Warm and Dry; Negative Rash or Jaundice
Psychological: Calm
Objective Data
Lab Data
Lab Results
03/15/25 04:49
03/15/25 04:49
APTT 106.8 Sec (23.4-35.0) H 03/15/25 04:49
Estimated Creat Clear 92 ml/min 03/15/25 04:49
Lactic Acid 2.4 mmol/L (0.7-2.0) H 03/08/25 03:22
Total Bilirubin 0.3 mg/dl (0.2-1.3) 03/15/25 04:49
AST 12 U/L (14-36) L 03/15/25 04:49
ALT < 10 U/L (0-35) 03/15/25 04:49
Alkaline Phosphatase 161 U/L (38-126) H 03/15/25 04:49
Most recent labs reviewed.
Micro Results:
03/08/25 16:41 Fungus Mold Identification - Pending
Abscess
03/08/25 16:41 Wound Culture - Final
Abscess Enterococcus faecalis
Yeast
Diptheroids
Gram Stain - Final
03/08/25 04:26 Blood Culture - Final
Blood/Venous No Growth - Final Report
03/08/25 04:30 Blood Culture - Final
Blood/Venous No Growth - Final Report
03/08/25 17:10 Wound Culture - Final
Abscess Diptheroids
Gram Stain - Final
Imaging:
03/08/2025 CT abdomen/pelvis with IV contrast: 2 large abscesses, one within the left anterior abdominal wall, and 1 within the left retroperitoneum noted, with the former measuring 10.4 x 6.4 x 11 cm, and the latter measuring 9.3 x 5.7 x 8.7 cm.
There is a possible fistulous communication between the colon and the abscess. There is inflammation in the splenic flexure and proximal descending colon. Please see full dictation for additional detail. Film personally viewed.
[2025-03-15 11:15] VITALS: BP 118/63
[2025-03-15 12:17] VITALS: BMI 29.6
--- NOTE | 2025-03-15 12:20 | W.PN.CRS1 ---
Today's Communication / Plan
-
Regular diet.
Assessment/Plan
-
Patient with diverticulitis/colitis with fistula and abscess formation.
1. Tolerating diet. Requesting unrestricted diet. Will order regular. Encouraged diet supplements/Ensure.
2. WBC normalized. Continue drain care and IV antibiotics per ID.
3. Conversation had with the patient at the bedside. Given her progress and her hope to improve her nutritional situation, holding off on idea of surgery next week. Anticipate looking at my schedule and letting her up for surgery a month or so
from now, hopefully with a better nutritional situation and less inflammation. She relays she is committed to undergo such an operation.
4. Disposition per hospitalist.
Subjective Data
Subjective Data
Date of Service: March 15, 2025
Seen in a.m. at bedside.
Minimal left-sided discomfort.
Has an appetite. Is eating and tolerating without nausea.
Objective Data
-
Vital Signs
Temp Pulse Resp BP Pulse Ox
98.5 F 90 18 118/63 98
03/15/25 11:15 03/15/25 11:15 03/15/25 11:15 03/15/25 11:15 03/15/25 11:15
Intake & Output
03/14/25 03/15/25 03/16/25
06:59 06:59 06:59
Intake Total 756 / 756 1128 / 1128
Output Total 70 / 70
Balance 756 / 756 1058 / 1058
Intake:
Oral fluids 800 / 800
IV piggybacks 300 / 300 120 / 120
TPN/PPN 456 / 456 188 / 188
Amount instilled into Drain (
Total)
Left Lower Abdomen Placed in IR 10 / 10 10 10
Left Lower Back Placed in IR 10 / 10
Output:
Drain Output (Total) 70 / 70
Left Lower Abdomen Placed in IR 45 / 45
Left Lower Back Placed in IR
Other:
Number of approximated MODERATE 1 2
amounts of urine
Number of approximated LARGE 1 1
amounts of urine
Lab Results
03/15/25 04:49
03/15/25 04:49
Physical Exam
-
General: No Acute Distress
Chest: Clear
Cardiovascular: Regular Rate & Rhythm
Abdomen: Non Distended and Tender (Mild left-sided; drains with murky output)
--- NOTE | 2025-03-15 12:47 | CM ---
CM following re: discharge planning.
Reviewed pt's chart, met with pt.
Per Colorectal surgery, holding off on idea of surgery next week.
PT and OT evaluations noted - SNF level of care recommended. Pt is aware, expressed her agreement and pt stated their parents are at [facility] and she preferred [facility]. 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
alone and pr feels she might not needs SNF level of care staying in the hospital for a few more days and pot feels she will be improved physically.
Pt gave me her permission to make a referral to [facility] as of now. A referral to [facility] made.
PT and OT will re-evaluate the pt to determine and to confirm the next level of care at discharge.
D/C plan: as of today, [facility] for a short term rehab.
CM will follow with discharge plan updates as hospitalization progresses
--- NOTE | 2025-03-15 13:03 | W.PN.HOSP.TC ---
Today's Communication/Plan
-
Dispo plan for IV abx outpatient, PICC already in place
Anticipate switching IV Hep to Eliquis today
diet as per surgery
Assessment / Plan
Assessment / Plan
General: Comfortable
Respiratory: Clear to Auscultation (Anterior), Accessory Resp Muscle Use and Clear to Percussion
Cardiac: S1/S2, Irregular Rhythm and Tachycardic
GI: Soft, Nondistended, Normal Bowel Sounds and Tender (Left side of abdomen without rebound guarding rigidity)
Neuro: AO x 3
Psych: Calm
A/P: Patient is a 64y F with PMH significant for hypertension, hypothyroidism and complicated diverticulitis who presents to ED complaining of abdominal pain and weakness.
Complicated Diverticulitis
Abscess(es) with fistulous connection to colon secondary to the above
Sepsis secondary to the above
-s/p IR drain insertion into abscesses
- CW IV Unasyn, micafungin per ID
- Definite surgical treatment per CRS - holding off until possibly next month
- Pain control, supportive care.
- Follow for clinical improvement.
- TPN started 03/12 - dced 03/14
- Advancing diet and monitor
#Leucocytosis - improving
-i suspect 2/2 to afib, new onset - now improving, stable - + infection
-monitor fever curve, wbc count
# AA thrombus with possible ALEJANDRO obstruction
Appreciate Vascular input
Recommends AC - currently on IV heparin
#New a flutter with RVR
Blood pressure soft and not tolerating beta-noam nor would tolerate Cardizem. With potassium 3.2 hold on digoxin till repletion.
Consult cardiology-
amio ggt, switched to PO amio
-Amiodarone 200 mg 3 times daily, transition to 200 twice daily at discharge
�Hep to Eliquis once cleared by surgery
# Acute on chronic anemia
- No obvious external bleeding
- Suspect it may be dilutional
- S/P 2 unit of PRBC
- Follow HH
- was Transfuse 1 of those 2 units with hemoglobin 7.8 and issues with tachycardia and a flutter.
Benign Hypertension
- BP stable at present - off of all meds x 2 weeks.
- Continue to hold antihypertensive medications.
- IVF support as noted above.
Chronic Anemia
Thrombocytosis
- Stable. Hgb is at / near known baseline (increased from prior admission).
- No evidence of bleeding.
- Iron studies, B12, folate, etc all unremarkable last admission.
- Follow for changes in cell counts.
Hypothyroidism
- Stable. Continue T4 supplementation. Check TSH
Hyponatremia
-monitor
Asthma without Acute Exacerbation
- Stable. Follow for any new issues.
- Albuterol PRN.
DVT Prophylaxis: Hep ggt; Eliquis once cleared by surgery
Code Status: Full
Anticipated Discharge: 24 - 48 hours
Subjective/Interval History
-
Date of Service: March 15, 2025
tolerating LRD diet
Objective Data
-
Labs:
Laboratory Results
03/15/25
04:49
WBC 8.9
Hgb 7.9 L
Hct 24.8 L
Plt Count 491 H
APTT 106.8 H
Sodium 133 L
Potassium 3.8
Chloride 109 H
Carbon Dioxide 22
BUN 12
Creatinine 0.6
Glucose 91
Calcium 7.4 L
Total Bilirubin 0.3
AST 12 L
ALT < 10
Alkaline Phosphatase 161 H
Vital Signs:
Vital Signs
Temp Pulse Resp BP Pulse Ox
98.5 F 90 18 118/63 98
03/15/25 11:15 03/15/25 11:15 03/15/25 11:15 03/15/25 11:15 03/15/25 11:15
I&O
03/14/25 03/15/25 03/16/25
06:59 06:59 06:59
Intake Total 756 / 756 1128 / 1128
Output Total 70 / 70
Balance 756 / 756 1058 / 1058
Review of Systems
-
History Source: Patient
All other systems: Not reviewed unless documented
Physical Exam
-
General: Comfortable
Respiratory: Clear to Auscultation and Clear to Percussion
Cardiac: S1/S2, Irregular Rhythm and Tachycardic
GI: Soft, Nondistended, Normal Bowel Sounds and Tender (Left side of abdomen without rebound guarding rigidity)
Musculoskeletal: No Clubbing
Skin: Warm
Neuro: AO x 3
Psych: Calm
Data Reviewed
-
CT Scan: Report Reviewed by me
Ultrasound: Report Reviewed by me
Labs: Labs Reviewed by me
--- NOTE | 2025-03-15 13:54 | W.PN.CARDCBS ---
Addendum entered and electronically signed by Mario Alberto Broderick MD 03/15/25 15:03:
I saw and examined the patient.
The Devulcanizer Loader's note was reviewed and I agree with the note.
Comment:
GEN: No distress, awake, Ox3
HEENT: supple, anicteric, mmm
LUNGS: CTA, no wheezes/rales
CV: Reg, S1/S2, 1/6 syst LSB, no gallop
ABD: soft, BS+, + mild tend
EXT: No edema
NEURO: Gross non-focal
SKIN: No rash
Plan:
Remains in sinus rhythm. Continue amiodarone will decrease to 200 mg twice daily in AM.
Okay to switch over to Eliquis when no clear plans for surgery have been established.
Weight is up significantly. Will check proBNP. If elevated will add IV Lasix.
Original Note:
Today's Communication / Plan
-
Continue amiodarone, would plan to transition to twice daily dosing in a.m.
IV heparin transitioning to Eliquis. follow hemoglobin
check proBNP. Consider for dose of IV Lasix
will arrange OP cardiac follow up
Impression / Plan
-
Impression:
Newly detected atrial flutter with rapid ventricular response
History of sinus tachycardia
History of diverticulitis with fistulas/abscesses, currently admitted for 2 abscesses left abdomen, now with percutaneous drains
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
Asthma
GERD
Hypertension
Hypothyroidism
Degenerative joint disease
Chronic anemia
Hyperlipidemia
Thrombocytosis
Echo October 2024: EF 55-60%, normal diastolic function, aortic sclerosis without regurgitation or stenosis, normal RV, normal atria, trace MR, normal right heart, could not determine pulmonary artery systolic pressure
Plan:
- She remains in sinus rhythm on review of telemetry overnight. Continue amiodarone, currently on 200 mg 3 times daily dosing. QTc stable by EKG 03/15. Would plan to discharge on 200 mg twice daily
- Plan for transition from IV heparin to Eliquis tonight. Hemoglobin 7.9, follow
- Thus far she is tolerating regular diet. remains with drains in place. plan for nutritional improvement and likely OP surgical intervention per colorectal
- She reports she feels as though her legs are swollen and she is short of breath. Not requiring supp O2. Check proBNP. She is asking about benefit of Lasix, would consider giving IV dose x 1, although swelling could also be related to
hypoalbuminemia
- Plan for SNF upon discharge
- Will arrange for outpatient cardiac follow-up
Progress Note - Spin Instructor
Subjective
Date of Service: March 15, 2025
Reports shortness of breath. Reports 'constant abdominal pain'. Reports lower extremity edema. Denies nausea or vomiting
Objective
Labs:
03/15/25 04:49
03/15/25 04:49
Labs
Hgb 7.9 g/dL (12.0-16.0) L 03/15/25 04:49
Hct 24.8 % (37.0-47.0) L 03/15/25 04:49
Plt Count 491 10^3/uL (130-400) H 03/15/25 04:49
APTT 106.8 Sec (23.4-35.0) H 03/15/25 04:49
Sodium 133 mmol/L (135-145) L 03/15/25 04:49
Potassium 3.8 mmol/L (3.5-5.1) 03/15/25 04:49
BUN 12 mg/dl (7-17) 03/15/25 04:49
Creatinine 0.6 mg/dL (0.6-1.0) 03/15/25 04:49
Glucose 91 mg/dl (70-99) 03/15/25 04:49
Vital Signs and I&O:
Vital Signs
Temp Pulse Resp BP Pulse Ox
98.5 F 90 18 118/63 98
03/15/25 11:15 03/15/25 11:15 03/15/25 11:15 03/15/25 11:15 03/15/25 11:15
Vital Signs
Temp Pulse Resp BP Pulse Ox
98.5 F 90 18 118/63 98
03/15/25 11:15 03/15/25 11:15 03/15/25 11:15 03/15/25 11:15 03/15/25 11:15
Intake & Output
03/13/25 03/14/25 03/15/25 03/16/25
07:59 07:59 07:59 07:59
Intake Total 900 / 900 756 / 756 1128 / 1128
Output Total 75 / 75 70 / 70
Balance 825 / 825 756 / 756 1058 / 1058
Physical Exam
Physical Exam
GEN: No distress, awake, alert, oriented, EOMI x3
HEENT: supple, anicteric, mmm
LUNGS: CTA bilaterally, no wheezes/rales
CV: Reg, S1/S2, no murmur
ABD: soft, BS+, NT/ND
EXT: No cyanosis, clubbing. Trace edema of bilateral lower extremity
NEURO: Gross non-focal
SKIN: Warm, pink, dry. No rash
[2025-03-15 15:05] VITALS: BP 119/66
[2025-03-15] MEDS: MYCAMINE 105 MG IV (16:20)
[2025-03-15] MEDS: LASIX 20 MG IV (16:23)
[2025-03-15] MEDS: ELIQUIS 5 MG PO (19:52)
[2025-03-15] MEDS: FLUSH (NSS) 2 FLUSH IV ×2 (19:52→23:24)
[2025-03-15 19:57] VITALS: BP 119/72
[2025-03-15 23:28] VITALS: BP 122/77
[2025-03-16] MEDS: MORPHINE SULFATE 4 MG IV ×5 (00:34→20:25)
[2025-03-16] MEDS: FLUSH (NSS) 2 FLUSH IV ×5 (00:36→23:32)
[2025-03-16 03:39] VITALS: BP 120/69
[2025-03-16] MEDS: SYNTHROID 125 MCG PO (04:59)
[2025-03-16] MEDS: UNASYN IV ×4 (04:59→23:26)
[2025-03-16] MEDS: FLUSH (NSS) 1 FLUSH IV (05:21)
[2025-03-16 06:00] VITALS: BMI 29.6
[2025-03-16 07:20] VITALS: BP 120/57
[2025-03-16 09:04] LABS: Hematocrit 24.3 % (37.0-47.0); Hemoglobin 7.8 g/dL (12.0-16.0); Mean Corp Hgb Conc. 32.1 g/dL (33.0-37.0); Mean Corpuscular Volume 81.5 fL (81.0-99.0); Platelet Count 478 10^3/uL (130-400); Red Cell Dist. Width 17.6 % (11.5-14.5)
[2025-03-16] MEDS: PACERONE 200 MG PO ×2 (09:12→19:37)
[2025-03-16] MEDS: PROTONIX 40 MG PO (09:12)
[2025-03-16] MEDS: ELIQUIS 5 MG PO ×2 (09:12→19:37)
[2025-03-16 09:15] LABS: APTT 52.1 Sec (23.4-35.0)
[2025-03-16 09:22] LABS: ALT (SGPT) < 10 U/L (0-35); AST (SGOT) 11 U/L (14-36); Albumin 1.8 g/dl (3.5-5.0); Alkaline Phosphatase 143 U/L (38-126); Blood Urea Nitrogen 13 mg/dl (7-17); Calcium 7.4 mg/dl (8.4-10.2); Carbon Dioxide 26 mmol/L (22-30); Chloride 106 mmol/L (98-107); Estimated Creatinine Clearance 92 ml/min; Glucose 96 mg/dl (70-99); Potassium 3.7 mmol/L (3.5-5.1); Sodium 133 mmol/L (135-145); Total Protein 4.3 g/dl (6.3-8.2); eGFR > 60.00
--- NOTE | 2025-03-16 11:16 | W.PN.CARDCBS ---
Today's Communication / Plan
-
Overall improved and stabilized from a cardiac standpoint. She does have some ankle edema
Will give a one-time dose of Lasix 20 mg IV now.
Impression / Plan
-
Impression:
Newly detected atrial flutter with rapid ventricular response
History of sinus tachycardia
History of diverticulitis with fistulas/abscesses, currently admitted for 2 abscesses left abdomen, now with percutaneous drains
Abdominal aortic thrombus, probable compromise of ALEJADNRO
Asthma
GERD
Hypertension
Hypothyroidism
Degenerative joint disease
Chronic anemia
Hyperlipidemia
Thrombocytosis
Echo October 2024: EF 55-60%, normal diastolic function, aortic sclerosis without regurgitation or stenosis, normal RV, normal atria, trace MR, normal right heart, could not determine pulmonary artery systolic pressure
Plan:
Remains in sinus rhythm
Continue amiodarone but reduce from 200 3 times daily to 200 twice daily
Plan will be discharged on 200 mg twice daily to complete 30 days at this dose and then reduce to 200 mg daily. QTc is 445 ms on ECG today
She has been transition from intravenous heparin to Eliquis. Hemoglobin stable at 7.8.
Her weight is not up significantly and proBNP is also not significantly elevated. , But she does have bilateral ankle edema.
Will give 1 dose of 20 mg IV Lasix today
Plan is tentatively for SNF upon discharge
Will arrange for outpatient cardiac follow-up
Will sign off, please call back if re-consult is needed.
Progress Note - Specialty Cook
Subjective
Date of Service: March 16, 2025
She tells me that her main complaint is feeling generalized weakness. She is looking forward to working with PT today she is hoping to avoid a rehab stay at discharge.
Objective
Labs:
03/16/25 08:41
03/16/25 08:41
Labs
Hgb 7.8 g/dL (12.0-16.0) L 03/16/25 08:41
Hct 24.3 % (37.0-47.0) L 03/16/25 08:41
Plt Count 478 10^3/uL (130-400) H 03/16/25 08:41
APTT 52.1 Sec (23.4-35.0) H 03/16/25 08:41
Sodium 133 mmol/L (135-145) L 03/16/25 08:41
Potassium 3.7 mmol/L (3.5-5.1) 03/16/25 08:41
BUN 13 mg/dl (7-17) 03/16/25 08:41
Creatinine 0.6 mg/dL (0.6-1.0) 03/16/25 08:41
Glucose 96 mg/dl (70-99) 03/16/25 08:41
Vital Signs and I&O:
Vital Signs
Temp Pulse Resp BP Pulse Ox
98.4 F 83 16 120/57 97
03/16/25 07:20 03/16/25 07:20 03/16/25 07:20 03/16/25 07:20 03/16/25 07:20
Vital Signs
Temp Pulse Resp BP Pulse Ox
98.4 F 83 16 120/57 97
03/16/25 07:20 03/16/25 07:20 03/16/25 07:20 03/16/25 07:20 03/16/25 07:20
Intake & Output
03/14/25 03/15/25 03/16/25 03/17/25
06:59 06:59 06:59 06:59
Intake Total 756 / 756 1128 / 1128 2177 / 2177
Output Total 70 / 70 830 / 830
Balance 756 / 756 1058 / 1058 1347 / 1347
Physical Exam
Physical Exam
Elderly woman no acute distress resting in bed
Regular rate and rhythm normal S1 and S2 no S3 no S4 is a grade 1/6 apical holosystolic murmur no rubs
Lungs are clear to auscultation bilaterally without wheezes rales or rhonchi
Abdomen soft nontender nondistended with normoactive bowel sounds
Extremities with +1 ankle edema bilaterally
[2025-03-16 11:40] VITALS: BP 125/61
[2025-03-16 12:11] LABS: Uric Acid 4.9 mg/dl (2.5-6.2)
[2025-03-16] MEDS: LASIX 40 MG IV (12:17)
--- NOTE | 2025-03-16 12:27 | W.PN.HOSP.TC ---
Today's Communication/Plan
-
IV abx selection for SNF and eventual Home as patient will likely need prolong course of abx prior to surgery
Eliquis
IV lasix
XR foot, Uric acid f/u
transition IV pain regimen to PO
Assessment / Plan
Assessment / Plan
General: Comfortable
Respiratory: Clear to Auscultation (Anterior), Accessory Resp Muscle Use and Clear to Percussion
Cardiac: S1/S2, Irregular Rhythm and Tachycardic
GI: Soft, Nondistended, Normal Bowel Sounds and Tender (Left side of abdomen without rebound guarding rigidity)
Neuro: AO x 3
Psych: Calm
A/P: Patient is a 64y F with PMH significant for hypertension, hypothyroidism and complicated diverticulitis who presents to ED complaining of abdominal pain and weakness.
Complicated Diverticulitis
Abscess(es) with fistulous connection to colon secondary to the above
Sepsis secondary to the above
-s/p IR drain insertion into abscesses
- CW IV Unasyn, micafungin per ID - ID recs for IV abx outpt
- Definite surgical treatment per CRS - holding off until possibly next month
- Pain control, supportive care - start transitioning to oral regimen
- Follow for clinical improvement.
- TPN started 03/12 - dced 03/14
- Advancing diet and monitor
#LE Edema
-bnp not sig elevated although weight is up
-IV lasix PRN and monitor
#Right Toe Erythema/tenderness
-May have been traumatic
- CR
-Uric Acid
-Already on abx
# AA thrombus with possible ALEJANDRO obstruction
Appreciate Vascular input
Recommends AC - Switched to Eliquis
#New a flutter with RVR
Blood pressure soft and not tolerating beta-noam nor would tolerate Cardizem. With potassium 3.2 hold on digoxin till repletion.
Consult cardiology-
amio ggt, switched to PO amio
-Amiodarone 200 mg 3 times daily - transition to 200 twice daily
�Hep to Eliquis
# Acute on chronic anemia
- No obvious external bleeding
- Suspect it may be dilutional
- S/P 2 unit of PRBC
- Follow HH
Benign Hypertension
- BP stable at present - off of all meds x 2 weeks.
- Continue to hold antihypertensive medications.
- IVF support as noted above.
Chronic Anemia
Thrombocytosis
- Stable. Hgb is at / near known baseline (increased from prior admission).
- No evidence of bleeding.
- Iron studies, B12, folate, etc all unremarkable last admission.
- Follow for changes in cell counts.
Hypothyroidism
- Stable. Continue T4 supplementation. Check TSH
Hyponatremia
-monitor
Asthma without Acute Exacerbation
- Stable. Follow for any new issues.
- Albuterol PRN.
DVT Prophylaxis: Eliquis
Code Status: Full
Anticipated Discharge: > 48 hours
Subjective/Interval History
-
Date of Service: March 16, 2025
three toes of the rightg devulcanizer tender, red
Objective Data
-
Labs:
Laboratory Results
03/16/25
08:41
WBC 9.1
Hgb 7.8 L
Hct 24.3 L
Plt Count 478 H
APTT 52.1 H
Sodium 133 L
Potassium 3.7
Chloride 106
Carbon Dioxide 26
BUN 13
Creatinine 0.6
Glucose 96
Calcium 7.4 L
Total Bilirubin 0.3
AST 11 L
ALT < 10
Alkaline Phosphatase 143 H
Vital Signs:
Vital Signs
Temp Pulse Resp BP Pulse Ox
98.1 F 79 16 125/61 98
03/16/25 11:40 03/16/25 11:40 03/16/25 11:40 03/16/25 11:40 03/16/25 11:40
I&O
03/15/25 03/16/25 03/17/25
06:59 06:59 06:59
Intake Total 1128 / 1128 2177 / 2177
Output Total 70 / 70 830 / 830
Balance 1058 / 1058 1347 / 1347
Review of Systems
-
History Source: Patient
All other systems: Not reviewed unless documented
Physical Exam
-
General: Comfortable
Respiratory: Clear to Auscultation and Clear to Percussion
Cardiac: S1/S2, Irregular Rhythm and Tachycardic
GI: Soft, Nondistended, Normal Bowel Sounds and Tender (Left side of abdomen without rebound guarding rigidity)
Musculoskeletal: No Clubbing, Edema, Right Lower Extrem, Edema, Left Lower Extrem and Other (right foot - three toes noted with erythema and tenderness)
Skin: Warm
Neuro: AO x 3
Psych: Calm
Data Reviewed
-
CT Scan: Report Reviewed by me
Ultrasound: Report Reviewed by me
Labs: Labs Reviewed by me
[2025-03-16 15:10] VITALS: BP 100/66
[2025-03-16] MEDS: MYCAMINE 105 MG IV (16:27)
[2025-03-16 19:25] VITALS: BP 121/67
--- NOTE | 2025-03-16 20:44 | PTCARENOTE ---
Patient is not comfortable with taking oxycodone tonight due to her allergy to codeine. She is concerned it could make her 'violently ill'. Advised covering provider. Order received a one time dose of Morphine.
[2025-03-16 23:04] VITALS: BP 126/62
[2025-03-17] MEDS: FLUSH (NSS) 2 FLUSH IV (02:37)
[2025-03-17] MEDS: MORPHINE SULFATE 4 MG IV ×3 (02:37→23:06)
[2025-03-17 03:32] VITALS: BP 126/60
[2025-03-17] MEDS: UNASYN IV ×4 (05:24→23:07)
[2025-03-17] MEDS: SYNTHROID 125 MCG PO (05:24)
[2025-03-17 06:00] VITALS: BMI 29.1
[2025-03-17 07:10] VITALS: BP 135/80
[2025-03-17] MEDS: PROTONIX 40 MG PO (07:48)
[2025-03-17] MEDS: ELIQUIS 5 MG PO ×2 (07:48→23:00)
[2025-03-17] MEDS: PACERONE 200 MG PO ×2 (07:48→23:00)
--- NOTE | 2025-03-17 11:29 | W.PN.ID1 ---
Date of Service
Date of Service: March 17, 2025
Today's Communication
Continue antibiotics.
Assessment / Plan
Intra-abdominal abscess x 2 with fistulae to colon
- s/p perc drain placement x 2
Fever
- resolved
Leukocytosis
- resolved
Abdominal pain
Lactic acidosis
Abdominal aortic thrombus
Asthma
GERD
HTN
Hypothyroidism
Uterine fibroids
Diverticulitis
Recommendations:
Abscess culture with diphtheroids, yeast and Enterococcus.
- Lab has sent out diphtheroids and yeast for further identification and susceptibility data.
Continue Unasyn 3g IV q6h (d#11), micafungin 100 mg IV q24h (d#6)
Continue with supportive measures.
Trend white count and fever curve. Follow drain output.
CRS notes reviewed, and apparently patient does not wish for surgery at the present time.
Patient will require a course of IV antibiotics in an attempt to decrease overall inflammation in anticipation of eventual surgery. Anticipated course of IV antibiotics would be at least 2 to 3 weeks.
Given that patient is now on amiodarone, she will likely need to stay on micafungin given potential interaction between Diflucan and amiodarone.
����������������������������������������������������������
Chief Complaint
-: Other (abd abscess/fistula)
Subjective / Review of Systems
Review of Systems: No Fever, No Chills and Abdominal Pain
Vital Signs / Physical Exam
Vital Signs
Vital Signs
Temp Pulse Resp BP Pulse Ox
98.0 F 92 16 135/80 98
03/17/25 07:10 03/17/25 07:48 03/17/25 07:10 03/17/25 07:48 03/17/25 07:10
Physical Exam
Constitutional: No Acute Distress, Comfortable, Chronically Ill and Non-toxic
Eyes: Sclera Anicteric
Cardiovascular: Regular Rate and S1/S2; Negative Murmur
Pulmonary: Clear
Gastrointestinal: Soft, Tender (left abd), Non Distended and Other (2 KENRICK drain: A feculent output, B purulent output. Output seems to be diminishing.)
Extremities: Edema; Negative Cyanosis or Erythema
Skin: Warm and Dry; Negative Rash or Jaundice
Psychological: Calm
Objective Data
Lab Data
Lab Results
03/16/25 08:41
03/16/25 08:41
APTT 52.1 Sec (23.4-35.0) H 03/16/25 08:41
Estimated Creat Clear 92 ml/min 03/16/25 08:41
Lactic Acid 2.4 mmol/L (0.7-2.0) H 03/08/25 03:22
Total Bilirubin 0.3 mg/dl (0.2-1.3) 03/16/25 08:41
AST 11 U/L (14-36) L 03/16/25 08:41
ALT < 10 U/L (0-35) 03/16/25 08:41
Alkaline Phosphatase 143 U/L (38-126) H 03/16/25 08:41
Most recent labs reviewed.
Micro Results:
03/08/25 16:41 Fungus Mold Identification - Pending
Abscess
03/08/25 16:41 Wound Culture - Final
Abscess Enterococcus faecalis
Yeast
Diptheroids
Gram Stain - Final
03/08/25 04:26 Blood Culture - Final
Blood/Venous No Growth - Final Report
03/08/25 04:30 Blood Culture - Final
Blood/Venous No Growth - Final Report
03/08/25 17:10 Wound Culture - Final
Abscess Diptheroids
Gram Stain - Final
Imaging:
03/08/2025 CT abdomen/pelvis with IV contrast: 2 large abscesses, one within the left anterior abdominal wall, and 1 within the left retroperitoneum noted, with the former measuring 10.4 x 6.4 x 11 cm, and the latter measuring 9.3 x 5.7 x 8.7 cm.
There is a possible fistulous communication between the colon and the abscess. There is inflammation in the splenic flexure and proximal descending colon. Please see full dictation for additional detail. Film personally viewed.
[2025-03-17 11:35] VITALS: BP 114/68
--- NOTE | 2025-03-17 12:15 | W.PN.HOSP.TC ---
Today's Communication/Plan
-
IV lasix PRN
IV Abx
Oral Pain Regimen
Amio, Eliquis
Engaged with CM for disposition efforts
Assessment / Plan
Assessment / Plan
General: Comfortable
Respiratory: Clear to Auscultation (Anterior), Accessory Resp Muscle Use and Clear to Percussion
Cardiac: S1/S2, Irregular Rhythm and Tachycardic
GI: Soft, Nondistended, Normal Bowel Sounds and Tender (Left side of abdomen without rebound guarding rigidity)
Neuro: AO x 3
Psych: Calm
A/P: Patient is a 64y F with PMH significant for hypertension, hypothyroidism and complicated diverticulitis who presents to ED complaining of abdominal pain and weakness.
Complicated Diverticulitis
Abscess(es) with fistulous connection to colon secondary to the above
Sepsis secondary to the above
-s/p IR drain insertion into abscesses
- CW IV Unasyn, micafungin per ID - ID recs for IV abx outpt
- Definite surgical treatment per CRS - holding off until possibly next month
- Pain control, supportive care - start transitioning to oral regimen, oxy
- Follow for clinical improvement.
- TPN started 03/12 - dced 03/14
- Advancing diet and monitor
#LE Edema
-bnp not sig elevated although weight is up
-IV lasix PRN and monitor
#Right Toe Erythema/tenderness, improving
-May have been traumatic
- CR, edema
-Uric Acid�WNL
-Already on abx
# AA thrombus with possible ALEJANDRO obstruction
Appreciate Vascular input
Recommends AC - Switched to Eliquis
#New a flutter with RVR
Blood pressure soft and not tolerating beta-noam nor would tolerate Cardizem. With potassium 3.2 hold on digoxin till repletion.
Consult cardiology-
amio ggt, switched to PO amio
-Amiodarone 200 mg 3 times daily - transition to 200 twice daily
�Hep to Eliquis
# Acute on chronic anemia
- No obvious external bleeding
- Suspect it may be dilutional
- S/P 2 unit of PRBC
- Follow HH
Benign Hypertension
- BP stable at present - off of all meds x 2 weeks.
- Continue to hold antihypertensive medications.
- IVF support as noted above.
Chronic Anemia
Thrombocytosis
- Stable. Hgb is at / near known baseline (increased from prior admission).
- No evidence of bleeding.
- Iron studies, B12, folate, etc all unremarkable last admission.
- Follow for changes in cell counts.
Hypothyroidism
- Stable. Continue T4 supplementation. Check TSH
Hyponatremia
-monitor
Asthma without Acute Exacerbation
- Stable. Follow for any new issues.
- Albuterol PRN.
DVT Prophylaxis: Eliquis
Code Status: Full
Anticipated Discharge: 24 - 48 hours
Subjective/Interval History
-
Date of Service: March 17, 2025
no acute events
Objective Data
-
Vital Signs:
Vital Signs
Temp Pulse Resp BP Pulse Ox
98.0 F 92 16 135/80 98
03/17/25 07:10 03/17/25 07:48 03/17/25 07:10 03/17/25 07:48 03/17/25 07:10
I&O
03/16/25 03/17/25 03/18/25
06:59 06:59 06:59
Intake Total 2177 / 2177 1740 / 1740
Output Total 830 / 830 3740 / 3740
Balance 1347 / 1347 -1999 /
Review of Systems
-
History Source: Patient
All other systems: Not reviewed unless documented
Physical Exam
-
General: Comfortable
Respiratory: Clear to Auscultation and Clear to Percussion
Cardiac: S1/S2, Irregular Rhythm and Tachycardic
GI: Soft, Nondistended, Normal Bowel Sounds and Tender (Left side of abdomen without rebound guarding rigidity)
Musculoskeletal: No Clubbing, Edema, Right Lower Extrem, Edema, Left Lower Extrem and Other (right foot - three toes noted with erythema and tenderness-improved)
Skin: Warm
Neuro: AO x 3
Psych: Calm
Data Reviewed
-
CT Scan: Report Reviewed by me
Ultrasound: Report Reviewed by me
Labs: Labs Reviewed by me
[2025-03-17] MEDS: ROXICODONE 5 MG PO (13:54)
[2025-03-17] MEDS: ZOFRAN 4 MG IV (14:29)
[2025-03-17 15:27] VITALS: BP 128/70
[2025-03-17] MEDS: MYCAMINE 105 MG IV (16:47)
[2025-03-17 19:17] VITALS: BP 120/62
[2025-03-17 23:25] VITALS: BP 124/77
[2025-03-18] VITALS (9 sets, daily range): BP systolic 113–135; BP diastolic 60–81; PULSE 91; BMI 29.4
[2025-03-18] MEDS: ZOFRAN 4 MG IV ×2 (03:58→16:28)
[2025-03-18 04:59] LABS: Hematocrit 23.3 % (37.0-47.0); Hemoglobin 7.5 g/dL (12.0-16.0); Mean Corp Hgb Conc. 32.2 g/dL (33.0-37.0); Mean Corpuscular Volume 82.6 fL (81.0-99.0); Platelet Count 480 10^3/uL (130-400); Red Cell Dist. Width 18.5 % (11.5-14.5)
[2025-03-18 05:11] LABS: ALT (SGPT) < 10 U/L (0-35); AST (SGOT) 11 U/L (14-36); Albumin 1.8 g/dl (3.5-5.0); Alkaline Phosphatase 132 U/L (38-126); Blood Urea Nitrogen 14 mg/dl (7-17); Calcium 7.3 mg/dl (8.4-10.2); Carbon Dioxide 26 mmol/L (22-30); Chloride 109 mmol/L (98-107); Estimated Creatinine Clearance 92 ml/min; Glucose 87 mg/dl (70-99); Magnesium 1.5 mg/dl (1.6-2.3); Potassium 3.9 mmol/L (3.5-5.1); Sodium 134 mmol/L (135-145); Total Protein 4.2 g/dl (6.3-8.2); Triglycerides 142 mg/dl (10-149); eGFR > 60.00
[2025-03-18] MEDS: MORPHINE SULFATE 4 MG IV ×3 (06:01→18:30)
[2025-03-18] MEDS: UNASYN IV ×3 (06:01→17:57)
[2025-03-18] MEDS: SYNTHROID 125 MCG PO (06:01)
--- NOTE | 2025-03-18 07:36 | W.PN.HOSP.TC ---
Today's Communication/Plan
-
repeat CT scan
c/w abx
Amio per Cards
pain medication prn
transfuse 1U pRBC
OAC with Eliquis
Assessment / Plan
Assessment / Plan
Patient is a 64y F with PMH significant for hypertension, hypothyroidism and recent complicated diverticulitis with x2 abscess formation and recent discharge on 11/26/2024 who presents to [facility] ED complaining of abdominal pain and weakness.
#Complicated Diverticulitis
#Abscesses with fistulous connection to colon 2* diverticulitis
#Sepsis 2* above
- s/p IR drain insertion into abscesses x2
- drain sites cleat, dry, intact
- draining purulent nonbloody discharge, anterior > posterior
- TPN started 03/12 - d/c'd 03/14
- CW IV Unasyn, micafungin per ID - ID recs for IV abx outpt
- Definite surgical treatment per CRS - holding off until medically stable
- Pain control, supportive care - pt reports unresolved pain with PO oxy -- c/w IV morphine, with attempts to transition to oral regimen
- ADAT
- persistent pain unchanged since drain placement -- repeat CT w/ IV & Oral
#LE Edema
- proBNP 545, not significantly elevated
- no clinical signs of volume overload at this time
- IV Lasix prn, I/Os, daily weights
#Right Toe Erythema/tenderness, improving
- More likely traumatic
- CR r foot - severe soft tissue swelling, osteoarthritis
- Uric Acid wnl -- no clinical signs of gout
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
- seen by vascular -- recommends AC - Switched to Eliquis 5mg po bid
#New a flutter with RVR
- Blood pressure soft and not tolerating beta-noam nor would tolerate Cardizem. K 3.2, held off on digoxin -- cardiology consult -- Amio ggt -- Amio 200mg TID -- now Amio 200mg BID for 4 weeks, then 200mg qd per Cardiology
� OAC with Eliquis 5mg BID
#Acute on chronic anemia
- No signs of active bleeding, suspect dilutional vs. ACD 2* intraabdominal infection
- S/P 2 unit of PRBC -- transfuse again 03/18
- Follow HH
#Benign Hypertension
- BP stable at present - off of all meds x 2 weeks [facility]
- Continue to hold antihypertensive medications and monitor BP which has so far been stable
#Chronic Anemia
#Thrombocytosis
- Stable. Hgb is at / near known baseline (increased from prior admission).
- No evidence of bleeding.
- Iron studies, B12, folate, etc all unremarkable last admission.
- Follow for changes in cell counts.
#Hypothyroidism
- Stable. TSH 31.70
- on Levothyroxine 125mcg at home but hasn't been taking for several weeks
- keep same dose and recheck as outpatient
#Hyponatremia
- c/t monitor bmp
#Asthma without Acute Exacerbation
- Stable
- Albuterol prn
DVT Prophylaxis: Eliquis
Code Status: Full code
Anticipated Discharge: 24 - 48 hours
Subjective/Interval History
-
Date of Service: March 18, 2025
Overnight patient reports continuing pain, minimally improved with oxy. No new fevers or chills.
Objective Data
-
Labs:
Laboratory Results
03/18/25
04:17
WBC 10.7
Hgb 7.5 L
Hct 23.3 L
Plt Count 480 H
Sodium 134 L
Potassium 3.9
Chloride 109 H
Carbon Dioxide 26
BUN 14
Creatinine 0.6
Glucose 87
Calcium 7.3 L
Total Bilirubin 0.3
AST 11 L
ALT < 10
Alkaline Phosphatase 132 H
Vital Signs:
Vital Signs
Temp Pulse Resp BP Pulse Ox
99.8 F 92 18 135/75 97
03/18/25 03:29 03/18/25 03:29 03/18/25 03:29 03/18/25 03:29 03/18/25 03:29
I&O
03/17/25 03/18/25 03/19/25
06:59 06:59 06:59
Intake Total 1740 / 1740 600 / 600
Output Total 3740 / 3740 1432 / 1432
Balance -1999 / -1999 - /
Review of Systems
-
History Source: Patient
All other systems: Reviewed and negative
Constitutional: Reports No Symptoms
EENT: Reports No Symptoms Reported
Respiratory: Reports No Symptoms
Cardiac: Reports No Symptoms
Abdomen/GI: Reports Abdominal Pain; Denies Nausea, Vomiting, Bloody Stools or Black Stools
Genitourinary: Reports No Symptoms
Musculoskeletal: Reports No Symptoms
Skin: Reports No Symptoms
Neuro: Reports No Symptoms
Endocrine: Reports No Symptoms
Physical Exam
-
General: Well Developed, Well Nourished, No Apparent Distress and Comfortable
HEENT: Normocephalic, Atraumatic, Moist Mucous Membranes, Anicteric, [place] Conjunctivae, No Ptosis, PERRLA, Nose Appears Normal and Ears Appear Normal
Respiratory: Clear to Auscultation and Non Labored Respirations; Negative Wheezes, Rales, Rhonchi or Crackles
Cardiac: Regular Rhythm and S1/S2; Negative Murmur, Rub or Gallop
Breast: Deferred by me
GI: Soft, Nondistended, Normal Bowel Sounds, Tender and Other (L side anterior and posterior dressing with KENRICK drains, clean, dry intact, tender to palpation ant>post)
Rectal: Deferred by Provider
Genito-urinary: No Costovertebral Tender
Musculoskeletal: No Clubbing, No Cyanosis and No Edema
Skin: Warm, Dry and IV Access / Catheter Site
Neuro: AO x 3
Psych: Calm
[2025-03-18] MEDS: ELIQUIS 5 MG PO ×2 (08:56→21:13)
[2025-03-18] MEDS: PACERONE 200 MG PO ×2 (08:56→21:13)
[2025-03-18] MEDS: PROTONIX 40 MG PO (08:56)
[2025-03-18] MEDS: MAGNESIUM OXIDE 500 MG PO (08:56)
--- NOTE | 2025-03-18 09:06 | W.PN.CRS1 ---
Today's Communication / Plan
-
Continue current diet and drains.
Antibiotics as per ID.
Consider transfusion for chronic anemia.
Assessment/Plan
-
Patient with diverticulitis/colitis with fistula and abscess formation status post percutaneous drainage x 2 on 03/08/2025.
1. Tolerating diet. Encouraged diet supplements/Ensure.
2. WBC normalized. Continue drain care and IV antibiotics per ID.
3. Her hemoglobin continues to slowly drift down. Consider transfusion in anticipation of future surgery. There is no indication for surgery at this time as she wants to give herself a chance to feel stronger.
4. Disposition per hospitalist.
Subjective Data
Procedure
Still with some left-sided abdominal pain but much improved since admission. She is still using morphine I advised her to switch to oral medications. Her appetite is good and she is tolerating a low residue diet. Her bowels are soft. The drain
with 72 cc of output.
Subjective Data
Date of Service: March 18, 2025
Objective Data
-
Vital Signs
Temp Pulse Resp BP Pulse Ox
98.5 F 93 16 113/60 96
03/18/25 07:15 03/18/25 07:15 03/18/25 07:15 03/18/25 08:56 03/18/25 07:15
Intake & Output
03/17/25 03/18/25 03/19/25
06:59 06:59 06:59
Intake Total 1740 / 1740 600 / 600 310 / 310
Output Total 3740 / 3740 1432 / 1432
Balance -1999 / -1999 -832 / -832 310 / 310
Intake:
Oral fluids 1140 / 1140 600 / 600
IV fluids (Total) 240 / 240 70 / 70
IV piggybacks 340 / 340 240 / 240
Amount instilled into Drain (
Total)
Left Lower Abdomen Placed in IR 10 / 10
Left Lower Back Placed in IR 10
Output:
Drain Output (Total) 115 / 115 72 / 72
Left Lower Abdomen Placed in IR 95 / 95 70 / 70
Left Lower Back Placed in IR /
Urine, Voided 3625 / 3625 1360 / 1360
Other:
Number of approximated MODERATE 6 3
amounts of urine
Lab Results
03/18/25 04:17
03/18/25 04:17
Physical Exam
-
General: No Acute Distress
Abdomen: Soft, Non Distended, Non Tender and Other (Drains with seropurulent output (the more medial drain with very little output))
Extremities: Symmetrical Edema
--- NOTE | 2025-03-18 10:42 | CM ---
CM continues to follow for discharge planning. Current plan is short term SNF at [facility] vs. discharge to home pending updated PT/OT evaluation.
--- NOTE | 2025-03-18 11:19 | W.PN.ID1 ---
Date of Service
Date of Service: March 18, 2025
Today's Communication
Continue current course of antibiotics.
Assessment / Plan
Intra-abdominal abscess x 2 with fistulae to colon
- s/p perc drain placement x 2
Fever
- resolved
Leukocytosis
- resolved
Abdominal pain
Lactic acidosis
Abdominal aortic thrombus
Asthma
GERD
HTN
Hypothyroidism
Uterine fibroids
Diverticulitis
Recommendations:
Abscess culture with diphtheroids, yeast and Enterococcus.
- Lab has sent out diphtheroids and yeast for further identification and susceptibility data.
Continue Unasyn 3g IV q6h (d#12), micafungin 100 mg IV q24h (d#7)
Continue with supportive measures.
Trend white count and fever curve. Follow drain output.
Patient will require a course of IV antibiotics in an attempt to decrease overall inflammation in anticipation of eventual surgery. Anticipated course of IV antibiotics would be at least 2 to 3 weeks.
Given that patient is now on amiodarone, she will likely need to stay on micafungin given potential interaction between Diflucan and amiodarone.
����������������������������������������������������������
Chief Complaint
-: Other (abd abscess/fistula)
Subjective / Review of Systems
Patient seen and examined. Reports little pain at present, but received morphine.
Review of Systems: No Fever and No Chills
Vital Signs / Physical Exam
Vital Signs
Vital Signs
Temp Pulse Resp BP Pulse Ox
98.5 F 93 16 113/60 96
03/18/25 07:15 03/18/25 07:15 03/18/25 07:15 03/18/25 08:56 03/18/25 07:15
Physical Exam
Constitutional: No Acute Distress, Comfortable, Chronically Ill and Non-toxic
Eyes: Sclera Anicteric
Cardiovascular: Regular Rate and S1/S2; Negative Murmur
Pulmonary: Clear
Gastrointestinal: Soft, Tender (left abd), Non Distended and Other (2 KENRICK drain: A feculent output, B purulent output. Output seems to be diminishing.)
Extremities: Edema; Negative Cyanosis or Erythema
Skin: Warm and Dry; Negative Rash or Jaundice
Psychological: Calm
Objective Data
Lab Data
Lab Results
03/18/25 04:17
03/18/25 04:17
APTT 52.1 Sec (23.4-35.0) H 03/16/25 08:41
Estimated Creat Clear 92 ml/min 03/18/25 04:17
Lactic Acid 2.4 mmol/L (0.7-2.0) H 03/08/25 03:22
Total Bilirubin 0.3 mg/dl (0.2-1.3) 03/18/25 04:17
AST 11 U/L (14-36) L 03/18/25 04:17
ALT < 10 U/L (0-35) 03/18/25 04:17
Alkaline Phosphatase 132 U/L (38-126) H 03/18/25 04:17
Most recent labs reviewed.
Micro Results:
03/08/25 16:41 Fungus Mold Identification - Pending
Abscess
03/08/25 16:41 Wound Culture - Final
Abscess Enterococcus faecalis
Yeast
Diptheroids
Gram Stain - Final
03/08/25 04:26 Blood Culture - Final
Blood/Venous No Growth - Final Report
03/08/25 04:30 Blood Culture - Final
Blood/Venous No Growth - Final Report
03/08/25 17:10 Wound Culture - Final
Abscess Diptheroids
Gram Stain - Final
Imaging:
03/08/2025 CT abdomen/pelvis with IV contrast: 2 large abscesses, one within the left anterior abdominal wall, and 1 within the left retroperitoneum noted, with the former measuring 10.4 x 6.4 x 11 cm, and the latter measuring 9.3 x 5.7 x 8.7 cm.
There is a possible fistulous communication between the colon and the abscess. There is inflammation in the splenic flexure and proximal descending colon. Please see full dictation for additional detail. Film personally viewed.
Care Review
Plan reviewed with: Physician (Hospitalist)
--- NOTE | 2025-03-18 15:18 | W.PN.UPDATE ---
Update Note
Progress Note Update
Seen and examined by me independently in collaboration with the medical secretary.
Lab data and imaging data reviewed.
Addendum as below :
Patient tells me today that she is still in pain and not much improved since hospitalization. She points to her left upper quadrant as where the pain is. Afebrile. Bowel sounds present soft left upper quadrant tenderness noted no rebound guarding
rigidity. White count has normalized. With ongoing pain symptoms I would repeat a CT of the abdomen pelvis to rule out any focal complication. She has a KENRICK drains in situ. She is on antibiotics and antifungals. Colorectal surgery and ID
following.
Patient had severe anemia with hemoglobin 7.5. She needed transfusion support during this admission. Check Hemoccult stools to make sure there is no GI bleed issue. Check iron studies. Transfuse 1 unit of PRBC as patient is feeling weak and
fatigued and anemia is severe.
Discussed with colorectal surgery
Total time spent on today's encounter was 52 minutes which included time spent in counseling the patient/family regarding diagnosis and treatment plan as listed above, goals of care, and symptom management. Case was discussed with nursing staff,
specialists, and care coordinators/case management. All labs and imaging personally reviewed by me. Remainder the time spent in detailed review of previous records, lab data, imaging, and other medical provider documentation.
[2025-03-18] MEDS: MYCAMINE 105 MG IV (15:27)
[2025-03-18] MEDS: OMNIPAQUE 50 ML PO (15:37)
[2025-03-18 16:54] LABS: Iron < 20 ug/dl (37-170)
[2025-03-18 17:00] LABS: Total Iron Binding Capacity 136 ug/dl (265-497)
[2025-03-18 17:36] LABS: Ferritin 226.0 ng/ml (11.1-264.0)
[2025-03-19] VITALS (7 sets, daily range): BP systolic 120–136; BP diastolic 68–83; BMI 29.2
[2025-03-19] MEDS: UNASYN IV ×4 (00:37→17:06)
[2025-03-19] MEDS: ZOFRAN 4 MG IV ×3 (00:42→22:05)
[2025-03-19] MEDS: MORPHINE SULFATE 4 MG IV ×5 (00:42→22:04)
--- NOTE | 2025-03-19 02:35 | DOWNTIME ---
There was a [employer] Client Team Primary Care Physician Downtime on 03/19/2025 from 0100 to 03/19/2025 at 0220. Downtime documentation of patient's care, including medication administrations, has been reconciled in the electronic record per guidelines. Refer to the
patient's paper chart under the miscellaneous tab to see printed paper medication records and downtime forms.
[2025-03-19] MEDS: SYNTHROID 125 MCG PO (05:19)
--- NOTE | 2025-03-19 07:58 | W.PN.HOSP.TC ---
Addendum entered and electronically signed by Cristian Pacheco MD 03/19/25 14:29:
Seen and examined by me independently in collaboration with the medical facilities section director.
Lab data and imaging data reviewed.
Addendum as below :
Continued abdominal pain and needing narcotic regimen. Tenderness without rebound in the left side of the abdomen noted. CT of the abdomen pelvis shows almost complete resolution of posterior collection and very much improved right anterior
collection. Still there is segmental colitis. She is afebrile and white count has improved. Continue the KENRICK drains as per colorectal surgery. Continue with antibiotics antifungals. She has a PICC line in.
Patient has chronic anemia with intermittent drop in H&H. There is trace streaks of blood in the stool which could be from her colitis. No active GI bleed. She is hemodynamically stable. Continue with the colitis treatment. Follow H&H closely
and transfuse as needed.
Start DC planning okay from colorectal standpoint.
Original Note:
Today's Communication/Plan
-
c/w abx
c/w Eliquis
PT/OT for SNF planning
c/w bowel regimen
Assessment / Plan
Assessment / Plan
Patient is a 64y F with PMH significant for hypertension, hypothyroidism and recent complicated diverticulitis with x2 abscess formation and recent discharge on 11/26/2024 who presents to [facility] ED complaining of abdominal pain and weakness.
#Complicated Diverticulitis
#Abscesses with fistulous connection to colon 2* diverticulitis
#Sepsis 2* above
- s/p IR drain insertion into abscesses x2
- drain sites cleat, dry, intact
- draining purulent nonbloody discharge, anterior > posterior
- TPN started 03/12 - d/c'd 03/14
- c/w IV Unasyn, micafungin per ID
- Definite surgical treatment per CRS - holding off until medically stable
- Pain control, supportive care - pt reports unresolved pain with PO oxy -- c/w IV morphine, with attempts to transition to oral regimen
- ADAT
- persistent pain unchanged since drain placement -- repeat CT w/ IV & Oral showing 1) near resolved anterior abscess, 2) resolved posterior abscess, 3) colitis w/ possible partial SBO -- started on bowel regimen
- BM with Miralax w/ streaks of blood -- afternoon hgb (03/19) 9.5 -- likely consequence of abdominal abscess/healing fistulas. No hemodynamic instability, large volume blood loss, or bruising.
- continue with discharge planning for SNF
#LE Edema
- proBNP 545, not significantly elevated
- no clinical signs of volume overload at this time
- IV Lasix prn, I/Os, daily weights
#Right Toe Erythema/tenderness, improving
- More likely traumatic
- CR r foot - severe soft tissue swelling, osteoarthritis
- Uric Acid wnl -- no clinical signs of gout
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
- seen by vascular -- recommends AC - c/w Eliquis 5mg po bid
#New a flutter with RVR
- Blood pressure soft and not tolerating beta-noam nor would tolerate Cardizem. K 3.2, held off on digoxin -- cardiology consult -- Amio ggt -- Amio 200mg TID -- now po Amio 200mg BID for 4 weeks, then 200mg qd per Cardiology
� OAC with Eliquis 5mg BID
#Acute on chronic anemia
- No signs of active bleeding, suspect dilutional vs. ACD 2* intraabdominal infection
- S/P 2 unit of PRBC -- transfuse again 03/18
- Follow HH
#Benign Hypertension
- BP stable at present - off of all meds x 2 weeks JERKER
- Continue to hold antihypertensive medications and monitor BP which has so far been stable
#Chronic Anemia
#Thrombocytosis
- Stable. Hgb is at / near known baseline (increased from prior admission).
- No evidence of bleeding.
- Iron studies, B12, folate, etc all unremarkable last admission.
- Follow for changes in cell counts.
#Hypothyroidism
- Stable. TSH 31.70
- on Levothyroxine 125mcg at home but hasn't been taking for several weeks
- keep same dose and recheck as outpatient
#Hyponatremia
- c/t monitor bmp
#Asthma without Acute Exacerbation
- Stable
- Albuterol prn
DVT Prophylaxis: Eliquis
Code Status: Full code
Anticipated Discharge: Within 24 hours
Subjective/Interval History
-
Date of Service: March 19, 2025
Still complaining of abdominal pain, requiring IV morphine overnight, does not want to take Oxy. No new fevers or chills. Passing gas and had BM yesterday. Making urine.
Objective Data
-
Vital Signs:
Vital Signs
Temp Pulse Resp BP Pulse Ox
99.8 F 89 17 135/73 96
03/19/25 03:28 03/19/25 03:28 03/19/25 03:28 03/19/25 03:28 03/19/25 03:28
I&O
03/18/25 03/19/25 03/20/25
06:59 06:59 06:59
Intake Total 600 / 600 2455 / 2455
Output Total 1432 / 1432 2130 / 2130
Balance -832 / -832 325 / 325
Review of Systems
-
History Source: Patient
All other systems: Reviewed and negative
Constitutional: Reports No Symptoms
EENT: Reports No Symptoms Reported
Respiratory: Reports No Symptoms
Cardiac: Reports No Symptoms
Abdomen/GI: Reports Abdominal Pain; Denies Nausea, Vomiting, Diarrhea, Bloody Stools, Black Stools or Hematemesis
Breast: Reports No Symptoms
Genitourinary: Reports No Symptoms
Musculoskeletal: Reports No Symptoms
Skin: Reports No Symptoms
Neuro: Reports No Symptoms
Endocrine: Reports No Symptoms
Hematologic / Lymphatic: Reports No Symptoms
Physical Exam
-
General: Well Developed, Well Nourished, No Apparent Distress and Comfortable
HEENT: Normocephalic, Atraumatic, Moist Mucous Membranes, Anicteric, Petal Conjunctivae, No Ptosis, PERRLA, Nose Appears Normal and Ears Appear Normal
Respiratory: Clear to Auscultation and Non Labored Respirations; Negative Wheezes, Rales, Rhonchi or Crackles
Cardiac: Regular Rhythm and S1/S2; Negative Murmur, Rub or Gallop
Breast: Deferred by me
GI: Soft, Nondistended, Normal Bowel Sounds, Tender and Other (2 left side anterior/flank drains, ant - purulent, nonbloody drainage; post - minimal drainage. )
Rectal: Deferred by Provider
Genito-urinary: No Costovertebral Tender
Musculoskeletal: No Clubbing, No Cyanosis, Edema, Right Lower Extrem (trace edema) and Edema, Left Lower Extrem (trace edema)
Skin: Warm, Dry and IV Access / Catheter Site
Neuro: AO x 3 and Nonfocal/Grossly Intact
Psych: Calm
--- NOTE | 2025-03-19 08:36 | W.PN.CRS1 ---
Today's Communication / Plan
-
Relistor.
?another transfusion.
Continue current measures.
Assessment/Plan
-
Patient with diverticulitis/colitis with fistula and abscess formation status post percutaneous drainage x 2 on 03/08/2025.
1. Tolerating diet. Encouraged diet supplements/Ensure.
2. Yesterday's CT reviewed. Appears to be resolution of fluid collections. Splenic flexure colitis noted. Significant stool burden with ?component of partial LBO on left. Will review imaging with IR. My leaning given the fact that both drains
are productive is to leave both in until eventual surgery. In regards to the stool burden, a factor may be narcotic induced constipation. She is passing flatus and having occasional BMs. Will add Relistor to counteract the effects of narcotics on
GI tract.
3. WBC normalized. Continue drain care and IV antibiotics per ID.
3. Her hemoglobin is 7.5 from 7.8 after transfusion of 1 u PRBCs overnight. No obvious active bleeding. Consider another transfusion in anticipation of future surgery. There is no indication for surgery at this time as she wants to give herself
a chance to feel stronger. I am working with my office to get her on my schedule for the OR in 3-4 weeks.
4. Disposition to SNF per hospitalist.
Subjective Data
Subjective Data
Date of Service: March 19, 2025
Tolerating diet.
Still admits to left sided abdominal pain. Occasional nausea.
Objective Data
-
Vital Signs
Temp Pulse Resp BP Pulse Ox
98.8 F 85 16 120/68 97
03/19/25 07:15 03/19/25 07:15 03/19/25 07:15 03/19/25 07:15 03/19/25 07:15
Intake & Output
03/18/25 03/19/25 03/20/25
06:59 06:59 06:59
Intake Total 600 / 600 2455 / 2455
Output Total 1432 / 1432 2130 / 2130
Balance -832 / -832 325 / 325
Intake:
Oral fluids 600 / 600 1200 / 1200
IV fluids (Total) 130 / 130
IV piggybacks 605 / 605
Amount instilled into Drain ( 20 / 20
Total)
Left Lower Abdomen Placed in IR 10 / 10
Left Lower Back Placed in IR 10 / 10
Blood products 250 / 250
Blood Product Amount Infused ( 250 / 250
mL)
Packed Rbc Leukoreduced Unit 250 / 250
[id number]
Output:
Drain Output (Total) 72 / 72 80 / 80
Left Lower Abdomen Placed in IR 70 / 70 75 / 75
Left Lower Back Placed in IR 2 / 2 5 / 5
Urine, Voided 1360 / 1360 2049 / 2049
Other:
Number of approximated SMALL 2
amounts of urine
Number of approximated MODERATE 3 1
amounts of urine
Lab Results
03/18/25 04:17
03/18/25 04:17
Physical Exam
-
General: No Acute Distress
Chest: Clear
Cardiovascular: Regular Rate & Rhythm
Abdomen: Non Distended, Tender (left sided) and Other (both drains with jones output)
[2025-03-19] MEDS: ELIQUIS 5 MG PO ×2 (09:03→20:55)
[2025-03-19] MEDS: PROTONIX 40 MG PO (09:04)
[2025-03-19] MEDS: PACERONE 200 MG PO ×2 (09:04→20:56)
[2025-03-19] MEDS: MIRALAX 17 GRAMS PO (09:08)
[2025-03-19] MEDS: RELISTOR 8 MG SC (09:32)
--- NOTE | 2025-03-19 10:36 | PTCARENOTE ---
pt received miralax this morning for this RN.pt with bowel movement and streaks of blood were noted. heme test completed, results (+). MD made aware. pt then verbalizing nausea. prn zofran given. see MAR for proper documentation
--- NOTE | 2025-03-19 11:17 | W.PN.ID1 ---
Date of Service
Date of Service: March 19, 2025
Today's Communication
Continue abx.
Assessment / Plan
Intra-abdominal abscess x 2 with fistulae to colon
- s/p perc drain placement x 2
Fever
- resolved
Leukocytosis
- resolved
Abdominal pain
Lactic acidosis
Abdominal aortic thrombus
Asthma
GERD
HTN
Hypothyroidism
Uterine fibroids
Diverticulitis
Recommendations:
Abscess culture with diphtheroids, yeast and Enterococcus.
- Lab has sent out diphtheroids and yeast for further identification and susceptibility data.
--> Continue Unasyn 3g IV q6h (d#13), micafungin 100 mg IV q24h (d#8).
Continue with supportive measures.
Trend white count and fever curve. Follow drain output.
Patient will require a course of IV antibiotics in an attempt to decrease overall inflammation in anticipation of eventual surgery. Anticipated course of IV antibiotics would be at least 2 to 3 weeks.
Given that patient is now on amiodarone, she will likely need to stay on micafungin given potential interaction between Diflucan and amiodarone.
����������������������������������������������������������
Chief Complaint
-: Other (abd abscess/fistula)
Subjective / Review of Systems
Patient seen and examined. Reports constipation prior, but has been given laxatives, and now notes significant abdominal discomfort.
Review of Systems: No Fever and No Chills
Vital Signs / Physical Exam
Vital Signs
Vital Signs
Temp Pulse Resp BP Pulse Ox
98.9 F 94 16 124/72 96
03/19/25 11:05 03/19/25 11:05 03/19/25 11:05 03/19/25 11:05 03/19/25 11:05
Physical Exam
Constitutional: No Acute Distress, Comfortable, Chronically Ill and Non-toxic
Eyes: Sclera Anicteric
Cardiovascular: Regular Rate and S1/S2; Negative S3/S4 or Murmur
Pulmonary: Clear; Negative Wheezes
Gastrointestinal: Soft, Tender (left abd), Non Distended and Other (2 KENRICK drain: A) feculent output (scant), B) purulent output. Output seems to be diminishing.)
Extremities: Edema; Negative Cyanosis or Erythema
Skin: Warm and Dry; Negative Rash or Jaundice
Psychological: Calm
Objective Data
Lab Data
Lab Results
03/18/25 04:17
APTT 52.1 Sec (23.4-35.0) H 03/16/25 08:41
Estimated Creat Clear 92 ml/min 03/18/25 04:17
Lactic Acid 2.4 mmol/L (0.7-2.0) H 03/08/25 03:22
Total Bilirubin 0.3 mg/dl (0.2-1.3) 03/18/25 04:17
AST 11 U/L (14-36) L 03/18/25 04:17
ALT < 10 U/L (0-35) 03/18/25 04:17
Alkaline Phosphatase 132 U/L (38-126) H 03/18/25 04:17
Most recent labs reviewed.
Micro Results:
03/08/25 16:41 Fungus Mold Identification - Pending
Abscess
03/08/25 16:41 Wound Culture - Final
Abscess Enterococcus faecalis
Yeast
Diptheroids
Gram Stain - Final
03/08/25 04:26 Blood Culture - Final
Blood/Venous No Growth - Final Report
03/08/25 04:30 Blood Culture - Final
Blood/Venous No Growth - Final Report
03/08/25 17:10 Wound Culture - Final
Abscess Diptheroids
Gram Stain - Final
Imaging:
03/08/2025 CT abdomen/pelvis with IV contrast: 2 large abscesses, one within the left anterior abdominal wall, and 1 within the left retroperitoneum noted, with the former measuring 10.4 x 6.4 x 11 cm, and the latter measuring 9.3 x 5.7 x 8.7 cm.
There is a possible fistulous communication between the colon and the abscess. There is inflammation in the splenic flexure and proximal descending colon. Please see full dictation for additional detail. Film personally viewed.
[2025-03-19 12:03] LABS: Hematocrit 29.5 % (37.0-47.0); Hemoglobin 9.5 g/dL (12.0-16.0); Mean Corp Hgb Conc. 32.2 g/dL (33.0-37.0); Mean Corpuscular Volume 83.1 fL (81.0-99.0); Platelet Count 479 10^3/uL (130-400); Red Cell Dist. Width 18.6 % (11.5-14.5)
--- NOTE | 2025-03-19 14:50 | CM ---
Patient seen at bedside. Patient stated that she does not want to go home but wants SNF placement. Patient states that she is bleeding and may need surgery sooner than planned. Patient request for SNF; [facility] pending bed availability. CM will continue
to follow for discharge planning needs.
Plan; SNF: [facility] pending bed availability and will need auth
[2025-03-19] MEDS: MYCAMINE 105 MG IV (15:40)
[2025-03-19] MEDS: COLACE 100 MG PO (20:55)
[2025-03-20] VITALS (7 sets, daily range): BP systolic 117–134; BP diastolic 70–79; PULSE 91–95; O2SAT 99; BMI 28.6
[2025-03-20] MEDS: UNASYN IV ×3 (00:13→12:27)
[2025-03-20] MEDS: MORPHINE SULFATE 4 MG IV ×2 (02:52→09:01)
[2025-03-20 04:42] LABS: Hematocrit 27.5 % (37.0-47.0); Hemoglobin 9.0 g/dL (12.0-16.0); Mean Corp Hgb Conc. 32.7 g/dL (33.0-37.0); Mean Corpuscular Volume 82.3 fL (81.0-99.0); Platelet Count 451 10^3/uL (130-400); Red Cell Dist. Width 18.6 % (11.5-14.5)
[2025-03-20] MEDS: SYNTHROID 125 MCG PO (05:30)
--- NOTE | 2025-03-20 07:30 | W.PN.HOSP.TC ---
Addendum entered and electronically signed by Cristian Pacheco MD 03/20/25 15:00:
Seen and examined by me independently in collaboration with the emergency medical services coordinator.
Lab data reviewed.
Addendum as below :
Patient without fevers. Tolerating diet.
Abdomen soft with some tenderness in the left upper quadrant but without rebound guarding rigidity.
Had a bowel movement yesterday.
H&H compared to yesterday stable.
Colorectal surgery and ID input from yesterday noted.
Colorectal surgery planning on an outpatient surgery. To continue with antibiotics and antifungal per ID
Feel she is medically stable for discharge today to rehab.
Total time of discharge 35 minutes
Original Note:
Today's Communication/Plan
-
d/c to [facility]
c/w Amiodarone (instructions in dc paperwork)
c/w IV Abx/Antifungals
c/w pain medications
follow up with CRS for definitive surgical treatment
Assessment / Plan
Assessment / Plan
Patient is a 64y F with PMH significant for hypertension, hypothyroidism and recent complicated diverticulitis with x2 abscess formation and recent discharge on 11/26/2024 who presents to [facility] ED complaining of abdominal pain and weakness.
#Complicated Diverticulitis
#Abscesses with fistulous connection to colon 2* diverticulitis
#Sepsis 2* above
- s/p IR drain insertion into abscesses x2
- drain sites cleat, dry, intact
- draining purulent nonbloody discharge, anterior > posterior
- TPN started 03/12 - d/c'd 03/14
- c/w IV Unasyn, micafungin per ID -- likely to continue until definitive surgical treatment
- Definite surgical treatment per CRS - hoping to schedule within 3-4 weeks.
- Pain control, supportive care -- will d/c on Oxycodone 5mg q4h, with follow up with [facility] Physician.
- ADAT
- persistent pain unchanged since drain placement -- repeat CT w/ IV & Oral showing 1) near resolved anterior abscess, 2) resolved posterior abscess, 3) colitis w/ possible partial SBO -- started on bowel regimen
- BM with Miralax w/ streaks of blood -- afternoon hgb (03/19) 9.5 -- likely consequence of abdominal abscess/healing fistulas. No hemodynamic instability, large volume blood loss, or bruising.
- Final dispo to [facility]
#LE Edema
- proBNP 545, not significantly elevated
- no clinical signs of volume overload at this time
- IV Lasix prn, I/Os, daily weights
#Right Toe Erythema/tenderness, improving
- More likely traumatic
- CR r foot - severe soft tissue swelling, osteoarthritis
- Uric Acid wnl -- no clinical signs of gout
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
- seen by vascular -- recommends AC - c/w Eliquis 5mg po bid
#New a flutter with RVR
- Blood pressure soft and not tolerating beta-noam nor would tolerate Cardizem. K 3.2, held off on digoxin -- cardiology consult -- Amio ggt -- Amio 200mg TID -- now po Amio 200mg BID for 4 weeks, then 200mg qd per Cardiology
� OAC with Eliquis 5mg BID
#Acute on chronic anemia
#Thrombocytosis
- Iron studies, B12, folate, etc all unremarkable last admission.
- No signs of active bleeding, suspect dilutional vs. ACD 2* intraabdominal infection
- S/P 2 unit of PRBC -- transfuse again 03/18
- Follow HH
CHRONIC
#Benign Hypertension
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
- Continue to hold antihypertensive medications and monitor BP which has so far been stable
#Hypothyroidism
- Stable. TSH 31.70
- on Levothyroxine 125mcg at home but hasn't been taking for several weeks
- keep same dose and recheck as outpatient
#Hyponatremia
- c/t monitor bmp
#Asthma without Acute Exacerbation
- Stable
- Albuterol prn
DVT Prophylaxis: Eliquis
Code Status: Full code
Anticipated Discharge: Today
Subjective/Interval History
-
Date of Service: March 20, 2025
Feeling better this morning. BM improving on miralax/senna. Still having pain, has been getting IV morphine only, does not like oxy as it makes her nauseous.
Objective Data
-
Labs:
Laboratory Results
03/20/25
04:31
WBC 8.0
Hgb 9.0 L
Hct 27.5 L
Plt Count 451 H
Vital Signs:
Vital Signs
Temp Pulse Resp BP Pulse Ox
98.7 F 87 18 134/79 97
03/20/25 03:12 03/20/25 03:12 03/20/25 03:12 03/20/25 03:12 03/20/25 03:12
I&O
03/19/25 03/20/25 03/21/25
06:59 06:59 06:59
Intake Total 2455 / 2455 1065 / 1065
Output Total 2130 / 2130 66 / 66
Balance 325 / 325 999 / 999
Review of Systems
-
History Source: Patient
All other systems: Reviewed and negative
Constitutional: Reports No Symptoms
EENT: Reports No Symptoms Reported
Respiratory: Reports No Symptoms
Cardiac: Reports No Symptoms
Abdomen/GI: Reports Abdominal Pain; Denies Nausea, Vomiting, Diarrhea or Constipated
Breast: Reports No Symptoms
Genitourinary: Reports No Symptoms
Musculoskeletal: Reports No Symptoms
Skin: Reports No Symptoms
Neuro: Reports No Symptoms
Endocrine: Reports No Symptoms
Hematologic / Lymphatic: Reports No Symptoms
Physical Exam
-
General: Well Developed, Well Nourished, No Apparent Distress and Comfortable
HEENT: Normocephalic, Atraumatic, Moist Mucous Membranes, Anicteric, [place] Conjunctivae, No Ptosis, PERRLA and Nose Appears Normal
Respiratory: Clear to Auscultation and Non Labored Respirations; Negative Wheezes, Rales or Rhonchi
Cardiac: Regular Rhythm and S1/S2; Negative Murmur, Rub or Gallop
Breast: Deferred by me
GI: Soft, Nondistended, Normal Bowel Sounds, Tender and Other (drain site dressings clean, dry, intact. Purulent drainage from ant drain, minimal to no drainage from posterior drain.)
Rectal: Deferred by Provider
Genito-urinary: Deferred by me
Musculoskeletal: No Clubbing, No Cyanosis and No Edema
Skin: Warm, Dry and IV Access / Catheter Site
Neuro: AO x 3
Psych: Calm
[2025-03-20] MEDS: PROTONIX 40 MG PO (08:58)
[2025-03-20] MEDS: COLACE 100 MG PO (08:59)
[2025-03-20] MEDS: ELIQUIS 5 MG PO (08:59)
[2025-03-20] MEDS: PACERONE 200 MG PO (09:00)
[2025-03-20] MEDS: MIRALAX PO (09:00)
[2025-03-20] MEDS: RELISTOR SC ×2 (09:29→09:45)
[2025-03-20] MEDS: RELISTOR 8 MG SC (09:50)
[2025-03-20] MEDS: ZOFRAN 4 MG IV (10:15)
--- NOTE | 2025-03-20 10:28 | CM ---
CM spoke with Sonia today regarding discharge plans. She does not feel that she is able to return directly home and would like to go to [facility] at discharge. Will need updated PT/OT notes for authorization.
Plan: CM following to coordinate transfer to [facility] when medically ready.
[2025-03-20] MEDS: ROXICODONE 10 MG PO (13:49)
--- NOTE | 2025-03-20 14:38 | CM ---
Addendum entered by Charis Myers 03/20/25 15:38:
Pt has been approved for transfer to [facility] today. Her brother will transport via car.
[facility] authorization [id number] for DOS 03/20-03/25/2025.
[facility] Report: [phone]
[facility]
Original Note:
Pt for discharge to SNF. [facility] not have a bed available; [facility] is offering a bed for today.
[facility] authorization being requested.
Pt's brother will drive her to [facility] once authorization obtained.
--- NOTE | 2025-03-20 15:06 | W.PN.CRS1 ---
Today's Communication / Plan
-
Disposition per hospitalist.
Assessment/Plan
-
Patient with diverticulitis/colitis with fistula and abscess formation status post percutaneous drainage x 2 on 03/08/2025.
1. Tolerating diet. Encouraged diet supplements/Ensure.
2. continue Relistor.
3. WBC normal. Continue drain care and IV antibiotics per ID.
3. Her hemoglobin is 9.0 from 9.5. No obvious active bleeding.
4. Patient is tentatively on the OR schedule for April 11.
5. Disposition to SNF per hospitalist. Will need to follow up with me in office in a week and with her pattern marker for clearance in a week.
Subjective Data
Subjective Data
Date of Service: March 20, 2025
In good spirits.
Still some L sided abdominal discomfort.
No nausea.
Objective Data
-
Vital Signs
Temp Pulse Resp BP Pulse Ox
98.2 F 90 18 128/71 96
03/20/25 11:18 03/20/25 11:18 03/20/25 11:18 03/20/25 11:18 03/20/25 11:18
Intake & Output
03/19/25 03/20/25 03/21/25
06:59 06:59 06:59
Intake Total 2455 / 2455 1065 / 1065
Output Total 2130 / 2130 66 / 66
Balance 325 / 325 999 / 999
Intake:
Oral fluids 1200 / 1200 660 / 660
IV fluids (Total) 130 / 130 60 / 60
IV piggybacks 605 / 605 345 / 345
Amount instilled into Drain ( 20 / 20
Total)
Left Lower Abdomen Placed in IR 10 / 10
Left Lower Back Placed in IR 10 / 10
Blood products 250 / 250
Blood Product Amount Infused ( 250 / 250
mL)
Packed Rbc Leukoreduced Unit 250 / 250
[id number]
Output:
Drain Output (Total) 80 / 80 66 /
Left Lower Abdomen Placed in IR 75 / 75
Left Lower Back Placed in IR 5 / 5
Urine, Voided 2049
Other:
Number of approximated SMALL 2
amounts of urine
Number of approximated MODERATE 1 3
amounts of urine
Number of unmeasured liquid
stools
Rectum 1
Lab Results
03/20/25 04:31
03/18/25 04:17
Physical Exam
-
General: No Acute Distress
Cardiovascular: Regular Rate & Rhythm
Abdomen: Non Distended, Tender (mild L sided) and Other (2 drains with mucopurulent output)
[2025-03-20] MEDS: MYCAMINE 105 MG IV (15:37)
--- NOTE | 2025-03-20 16:05 | PTCARENOTE ---
report called to accepting nurse at [facility]. Pt completing 1600 micafungin. Updated on D/C plan, brother will be giving her a ride. No change in physical assessment. CB in reach.
[2025-03-20] MEDS: ROXICODONE 5 MG PO (17:19)
--- NOTE | 2025-03-20 17:59 | W.DCSUMMARY ---
Discharge Summary
Discharge Data
Date of Admission: 03/08/25
Date of Discharge: 03/20/25
Total time spent discharging patient (in min): >30m
-
Pending Results: No
Hospital Course
Discharging Physician : Dr. Pacheco
Disposition : SNF
Primary care physician : Unknown
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
Chronic Discharge diagnosis : Essential hypertension, hypothyroidism, hyponatremia, asthma without acute exacerbation, thrombocytosis, lower extremity edema
Hospital Course :
Patient is a 64y F with PMH significant for hypertension, hypothyroidism and recent complicated diverticulitis with x2 abscess formation and recent discharge on 11/26/2024 who presents to [facility] complaining of abdominal pain and weakness.
#Complicated Diverticulitis
#Abscesses with fistulous connection to colon 2* diverticulitis
#Sepsis 2* above
Patient was septic on admission, given IV fluids, antibiotics, blood cultures drawn. CT of the abdomen pelvis with and without IV contrast and oral contrast was done on 03/08/2025 (full report below) which revealed two large abscesses, one within
the left anterior abdominal wall and one within the left retroperitoneum. IR was consulted and 2 percutaneous drains were placed in the abdomen (procedure report below). Wound cultures were taken at that time which demonstrated Enterococcus
faecalis, yeast, diphtheroids. Blood cultures showed no growth. ID was consulted and she was put on IV Unasyn and micafungin. Colorectal surgery was consulted; surgery was discussed at last hospitalization, however she initially did not want to
pursue it. The topic was revisited during this admission, however due to current abscess formation the decision was made to pursue medical management until patient was deemed stable for surgery. Pain control was managed with IV morphine and p.o.
oxycodone. She was started on TPN from 03/12 to 03/14, after which time she was advanced to clear liquids and then finally low residue diet. Repeat CT imaging on 03/18/2025 (full report below) revealed a completely resolved posterior fluid collection
and a near resolved anterior fluid collection. She was started on bowel regimen and stool softeners. She had an episode of bloody streaks in stool, however hemoglobin was stable. She was ultimately discharged to [facility] for skilled rehab
and continued IV antibiotics/antifungal treatment. Patient was tentatively scheduled for OR with Dr. Jett colorectal surgery on April 11. She will need cardiac clearance for this surgery.
#LE Edema
proBNP was 545 during admission, and she had no clinical signs of volume overload. She was continued on IV Karrie as needed, I/Os and daily weights were monitored during admission.
#Right Toe Erythema/tenderness
Concern admission for right toe erythema/tenderness. Unlikely to be gout as uric acid was within normal limits and there were no other clinical signs of gout, more likely traumatic. X-ray of the right foot demonstrated severe soft tissue swelling
and osteoarthritis. Managed with pain meds.
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
CT abdomen pelvis on 03/08/2025 demonstrated abdominal aortic thrombus with possible ALEJANDRO obstruction. Vascular surgery was consulted, recommended anticoagulation, patient was started on Eliquis 5 mg p.o. twice daily. Follow-up scheduled with
vascular surgery for 04/08/2025, with likely repeat imaging.
#New a flutter with RVR
She had a self-limited episode of atrial flutter as seen on EKG from 03/10/2025 which demonstrated atrial flutter with a 2-1 block. Cardiology was consulted. She had rapid conversion to normal sinus rhythm following initiation of amiodarone drip.
She was continued on IV amiodarone through the night with a transition to oral amiodarone 200 mg 3 times daily, then transitioned to amiodarone 200 mg twice daily during hospital stay. She was ultimately discharged on amiodarone 200 mg twice daily
to continue for 4 weeks total, before finally transitioning to amiodarone 200 mg/day per cardiology. Cardiology follow-up scheduled for 04/23/2025 she was also started on oral anticoagulation with Eliquis 5 mg twice daily for prophylaxis.
#Acute on chronic anemia
#Thrombocytosis
Iron studies, B12, folate studies done during last admission were all unremarkable. There were no signs of active bleeding. Anemia presumed secondary to IV fluid administration and anemia of chronic disease secondary to chronic intra-abdominal
infection as described above. Patient was transfused a total of 3 units of PRBCs due to hemoglobin around or below 7. Hemoglobin on discharge 03/20/2025 was 9.0.
#Benign Hypertension
Patient had not been taking meds for at least 2 weeks prior to admission. Blood pressure stable during admission without hyper or hypotensive crisis. Antihypertensive medications held during this admission due to stable BPs. Reevaluate blood
pressure in outpatient setting and reassess need for antihypertensive medications.
#Hypothyroidism
TSH 31.70 on 03/10/2025. Had been off levothyroxine for several weeks. Continued with home dose 125 mcg/day.
#Asthma without Acute Exacerbation
Stable during admission, not in acute exacerbation, continued on albuterol as needed.
Important imaging findings :
CT Abd/Pel (IV only)-DH only (03/08/2025):
1. Two large abscesses, one within the left anterior abdominal wall and one within the left retroperitoneum, as detailed above.
2. Suspected fistulous communications arising from the splenic flexure/proximal descending colon, likely communicating to each abscess cavity.
3. Filling defect within the distal abdominal aorta, which measures 7 mm in thickness and causes approximately 50% narrowing of the distal abdominal aorta. This abnormality has significantly increased in size compared to prior CT dated 12/13/2024, at
which time it measured approximately 3 mm in thickness. Significant increase in size compared to recent prior CT is suggestive of a thrombotic component, and the lesion appears to be obstructing the origin of the inferior mesenteric artery on the
current study. Inferior mesenteric artery was widely patent on prior CT.
US Periph Art LOWER Ext w JEANNETTE (03/11/2025):
IMPRESSION:
1. Right ankle brachial index in the normal range at 1.11. The right toe brachial index was unobtainable. No phasicity of the right digital PPG waveform. Mild stenosis of the mid right superficial femoral artery. No severe stenoses identified.
2. No focal flow-limiting stenosis is identified. Left ankle brachial index in the normal range at 1.14. The left toe brachial index is significantly decreased at 0.23.
CR Chest Portable - 1 View (03/12/2025):
IMPRESSION:
1. Left PICC tip projects over the cavoatrial junction, in satisfactory position.
2. Clear lungs.
CR Foot - Right 2 Views (03/16/2025):
IMPRESSION:
1. Severe soft tissue swelling and subcutaneous edema throughout the dorsal right foot and throughout the right ankle.
2. Mild polyarticular osteoarthritis in the interphalangeal joints of the right 3rd, 4th, and 5th toes.
3. Moderate arthritis of the naviculocuneiform and tarsometatarsal joints.
CT Abd/pel W Iv And Oral Contr (03/18/2025):
IMPRESSION:
1. Left anterior abdominal wall abscess is near completely resolved status post drain placement. Complete interval resolution of the previously seen left posterior retroperitoneal abscess status post drain placement.
2. Severe colitis of the splenic flexure redemonstrated. Redemonstration of prominent stool distention of the colon proximal to this suggesting a partially obstructive component.
Procedure findings :
CT Drain [place]/Retro Space; XA Mod Sedation Addl; XA Mod Sedation First (03/08/2025):
IMPRESSION: Successful CT guided drainage catheter placement into a retroperitoneal abscess, yielding 70 mL of grossly purulent fluid.
XA Soft Tissue Fluid Drain (03/08/2025):
1. Successful ultrasound-guided abdominal wall fluid collection drainage catheter placement, yielding purulent fluid and foul-smelling gas.
2. Following this procedure, a second drain was placed into the retroperitoneal abscess using CT guidance (please see separate report).
Discharge Plan
-
Patient Disposition: Alf/SNF
Discharge Diagnosis/Procedures: Complicated Diverticulitis, Abscess, Colonic Fistula, Sepsis, Abdominal Aortic Thrombus, New Aflutter with RVR, Acute on Chronic Anemia
Condition: Good
Diet: Low Residue
Activity: As tolerated
Driving Restrictions: As prior to admission
Blood Work: Weekly CBC to monitor Hgb as she required multiple transfusions during hospital stay
Others Tests: CT chest/abdomen/pelvis within 1 month (script in our system) please call central scheduling for appt (before vascular surgery follow up appt please) [phone]
Referrals:
Home Chacon MD [Active, Vascular Surgery] - 04/08/25 2:30 pm
Referral Note: Vascular surgery office follow-up
Rosalind Allen CRNP [Specified Professional Personl, Cardiology] - 04/23/25 2:40 pm
Referral Note: You have a cardiology follow-up appointment at the [place] office with Dr. Wu's nurse practitioner, Rosalind. Please call with questions
UNKNOWN - PT DOES,NOT KNOW [Family Provider]
Additional Discharge Medication Instructions: NEW MEDICATIONS
ELIQUIS:
Take Eliquis 5mg tablet twice per day until otherwise instructed by vascular surgeon Dr. Chacon at appointment on 04/08/2025 at 2:30pm.
AMIODARONE:
Take Amiodarone 200mg tablet twice per day for 4 weeks, then decrease to 200mg once per day until otherwise instructed by tourist information assistant.
MICAFUNGIN/UNASYN:
Micafungin 100mg every 24 hours
Unasyn (Ampicillin/Sulbactam) 3g in Sodium chloride solution every 6 hours
OXYCODONE:
Take one Oxycodone 5mg tablet every four hours as needed for pain until seen by physician at Rehab.
BOWEL REGIMEN:
Continue with Daily Miralax and Docusate Sodium every 12 hours for opioid induced constipation/ease of bowel movements given colonic fistulas. Take Senno-docusate tablet once per day as needed if you remain constipated despite Miralax/Docusate
Sodium.
Prescriptions:
New
polyethylene glycol 3350 17 gram Powder In Packet
17 g PO DAILY 60 Days Qty: 60 0RF
docusate sodium 100 mg Capsule
100 mg PO BID 60 Days Qty: 120 0RF
Eliquis 5 mg Tablet
5 mg PO BID 60 Days Qty: 120 0RF
Micafungin Sodium [Mycamine] 100 MG
Dextrose 5%/Water 100 ml [D5w] 100 ML
105 mls/hr IV Q24H
Reason for use: Infection
Ordered By: Tim Lee MD, Resident
Last Taken: 03/20/25 15:37 105 mls
amiodarone [Pacerone] 200 mg Tablet
200 mg PO BID 30 Days Qty: 60 0RF
sennosides-docusate sodium 8.6-50 mg Tablet
1 tab PO DAILYPRN PRN (Reason: constipation) Qty: 30 0RF
Ampicillin/Sulbactam 3 G [Unasyn] 3 GM
0.9% Sodium Chloride 100 ml [Nss] 100 ML
240 mls/hr IV Q6H
Ordered By: Tim Lee MD, Resident
Last Taken: 03/20/25 12:27 120 mls
oxycodone 5 mg tablet
5 mg PO Q6H PRN (Reason: Pain) Qty: 14 0RF
Continued
losartan 50 MG tablet
50 mg PO DAILY
levothyroxine [Synthroid] 125 MCG tablet
125 mcg PO DAILY
Patient Comments:
11/12/24: BRAND ONLY!
atorvastatin 80 mg Tablet
80 mg PO DAILY
alprazolam 0.5 mg Tablet
0.5 mg PO DAILYPRN PRN (Reason: anxiety)
montelukast 10 mg Tablet
10 mg PO DAILY
albuterol sulfate 90 mcg/actuation Hfa Aerosol Inhaler
2 puff INHALATION R Q6HPRN PRN (Reason: sob)
omeprazole magnesium [Prilosec OTC] 20 mg Tablet,Delayed Release (Dr/Ec)
20 mg PO HS
cholecalciferol (vitamin D3) [Vitamin D3] 25 mcg (1,000 unit) Tablet
25 mcg PO DAILY
Discharge Orders:
Discharge Patient (As Directed); Ordered 03/20/25
Ordered By: Tim Lee
Discharge Date and Time
Discharge Date/Time: 03/20/25 17:45
Print Language: ESTONIAN
== END 2025-03-20 17:45 | DRG 871 ==
LOC: 2 NORTH 05:59
PROVIDERS: Internal Medicine; Nurse Practitioner Gerontology; Physician Assistant; Radiology Vascular & Interventional Radiology; Registered Nurse; ADMITTING PHYSICIAN Hospitalist; ATTENDING PHYSICIAN Internal Medicine; CONSULT PHYSICIAN Internal Medicine Cardiovascular Disease; EMERGENCY PHYSICIAN Student in an Organized Health Care Education/Training Program; OTHER PHYSICIAN Internal Medicine Infectious Disease; OTHER PHYSICIAN Surgery; OTHER PHYSICIAN Surgery Vascular Surgery
PROC: 0W9F30Z Drainage of Abdominal Wall with Drainage Device, Percutaneous Approach (ICD-10-PCS; 2025-03-08)
PROC: 30233N1 Transfusion of Nonautologous Red Blood Cells into Peripheral Vein, Percutaneous Approach (ICD-10-PCS; 2025-03-09)
DX: A41.9 Sepsis, unspecified organism (principal); E43 Unspecified severe protein-calorie malnutrition; K65.1 Peritoneal abscess; K57.20 Diverticulitis of large intestine with perforation and abscess without bleeding; I74.10 Embolism and thrombosis of unspecified parts of aorta; I48.92 Unspecified atrial flutter; E87.1 Hypo-osmolality and hyponatremia; E03.9 Hypothyroidism, unspecified; J45.909 Unspecified asthma, uncomplicated; D75.839 Thrombocytosis, unspecified; I10 Essential (primary) hypertension; D63.8 Anemia in other chronic diseases classified elsewhere; E66.9 Obesity, unspecified; K21.9 Gastro-esophageal reflux disease without esophagitis; K76.9 Liver disease, unspecified; Z88.5 Allergy status to narcotic agent; E78.00 Pure hypercholesterolemia, unspecified; F41.9 Anxiety disorder, unspecified; M15.9 Polyosteoarthritis, unspecified; B95.2 Enterococcus as the cause of diseases classified elsewhere; I70.0 Atherosclerosis of aorta; Z79.890 Hormone replacement therapy; Z79.899 Other long term (current) drug therapy; Z68.28 Body mass index [BMI] 28.0-28.9, adult
CPT/HCPCS: 10030; 49406; 71045; 73620; 74177; 80048; 80053; 82248; 82728; 82962; 83540; 83550; 83605; 83690; 83735; 83789; 83880; 84100; 84134; 84439; 84443; 84478; 84481; 84484; 84550; 85014; 85018; 85025; 85027; 85730; 86850; 86900; 86901; 86920; 87040; 87070; 87077; 87107; 87186; 87205; 93005; 93922; 93925; 96361; 96365; 96367; 96375; 97116; 97163; 97167; 97530; 97535; 99152; 99153; 99285; J1335; P9016; Q9967

== ENCOUNTER 2025-04-18 05:50 | Inpatient (IN) | payer OTHER, SELFPAY ==
[2025-04-08 14:09] VITALS: BMI 24.9
[2025-04-08 14:30] LABS: INR 1.50; PT 18.3 Sec (11.4-14.6)
[2025-04-08 14:31] LABS: APTT 50.7 Sec (23.4-35.0)
[2025-04-08 14:32] LABS: Hematocrit 32.3 % (37.0-47.0); Hemoglobin 9.9 g/dL (12.0-16.0); Mean Corp Hgb Conc. 30.7 g/dL (33.0-37.0); Mean Corpuscular Volume 87.1 fL (81.0-99.0); Platelet Count 618 10^3/uL (130-400); Red Cell Dist. Width 20.5 % (11.5-14.5)
[2025-04-08 14:57] LABS: ALT (SGPT) < 10 U/L (0-35); AST (SGOT) 13 U/L (14-36); Albumin 2.9 g/dl (3.5-5.0); Alkaline Phosphatase 176 U/L (38-126); Blood Urea Nitrogen 12 mg/dl (7-17); Calcium 8.7 mg/dl (8.4-10.2); Carbon Dioxide 27 mmol/L (22-30); Chloride 104 mmol/L (98-107); Estimated Creatinine Clearance 55 ml/min; Glucose 87 mg/dl (70-99); Potassium 5.1 mmol/L (3.5-5.1); Sodium 136 mmol/L (135-145); Total Protein 6.2 g/dl (6.3-8.2); eGFR > 60.00
[2025-04-09 08:22] LABS: Glycohemoglobin (HgbA1c) 5.3 % (4.0-5.6)
--- NOTE | 2025-04-10 13:56 | CM ---
Addendum entered by Rossy Vieira RN 04/15/25 12:12:
CM spoke with patient via lives telephone. Patient is currently an inpatient at [facility]. Patient may pay to hold the bed at [facility] for discharge post operative. CM advised that PT will have to make the recommendation for SNF and patient
will need authorization for transfer.
PLAN: Return to [facility].
Original Note:
CM reviewed medical records. CM was referred to patient from PAT RN to discuss discharge plan. CM left message.
--- NOTE | 2025-04-11 08:26 | PTCARENOTE ---
Patients 04/08 INR 1.50- Colleen @ Dr. Hall office notified
[2025-04-18] VITALS (17 sets, daily range): BP systolic 10–131; BP diastolic 66–77; BMI 24.9; BMI 25.6
[2025-04-18] MEDS: NEURONTIN 600 MG PO (07:18)
[2025-04-18] MEDS: HEPARIN 5000 UNITS SC (07:18)
[2025-04-18] MEDS: RELISTOR 12 MG SC (07:24)
[2025-04-18] MEDS: NORMOSOL-R/PLASMALYTE-A 1000 IV ×2 (07:25→20:45)
--- NOTE | 2025-04-18 16:14 | W.IMMPOSTOP ---
Surgical Immed Post Op Note
-
Primary Surgeon: Ruperto Knox MD
Assisting Surgeon: Vic Jett MD
Roof Shingler: RAQUEL London
Pre-op Diagnosis: Duodenal fistula
Post-op Diagnosis: Same
Procedure Performed:
1. Upper endoscopy
2. Robotic primary repair of duodenotomy in 2 layers
Anesthesia Type: General
Specimen / Cultures: None
Estimated Blood Loss: 7 cc for my portion of the procedure
Complications: None
Operative Findings: Called in to assist with an intraoperative small bowel fistula to the sigmoid. Most recent CT scan reviewed, which demonstrated a likely fistula from the duodenum to the sigmoid. Upper endoscopy performed which confirmed a leak
in the distal third portion of the duodenum. The inflamed tissue surrounding the duodenotomy was excised. The mucosa was identified and the duodenotomy was closed in 2 layers with 2-0 V-Loc 180 sutures in the longitudinal direction. A subsequent
repeat endoscopy was performed while the repair was submerged under saline confirming that the repair was airtight and that the duodenum was not overly narrowed. The case was then turned back to Dr. Jett to perform his colorectal anastomosis. A
tongue of omentum was then split and placed under the colon mesentary and over the duodenal repair and secured with a few small tacking 2-0 Vicryl sutures. An NG tube was placed and confirmed to be in good position on visual inspection. A 19
Bengali round Neal drain was then introduced through one of the port sites near our repair and secured to the skin with a 2-0 nylon suture. The case was then once again turned back to Dr. Jett to complete the procedure.
POST OP PLAN:
Imaging: None, will plan for an upper GI in 3 to 4 days with plans for a full liquid diet at most for 4 weeks.
Labs: Routine AM
Diet: Strict n.p.o., NG tube to low intermittent wall suction if. Will start TPN
Analgesia: Tylenol 650mg q6 Teri, Dilaudid 0.5mg q2h PRN
Neuro/vascular checks: Per unit protocol
AC/AP: Hold Therapeutic AC, Ok for DVT PPx
Activity: Ad Dasia
Wound/Incisions/Drains: KENRICK to bulb suction
Abx: Will plan for 4 days of antibiotics.
Dispo: IMU
[2025-04-18 16:54] LABS: B.E. - POC -2.5 mmol/L; Glucose - POC 189 mg/dl (70-99); HCO3 - POC 24 mmol/L (21-28); Hematocrit - POC 22 % PCV (37-47); Hemodilution- POC No; Hemoglobin Calculated - POC 7.5; Ionized Calcium - POC 1.04 mmol/L (1.15-1.33); Lactate - POC 1.75 mmol/L (0.36-0.75); O2 Saturation %Calculated-POC 62.8 % (94-98); PCO2 - POC 52 mmHg (35-48); PO2 - POC 37 mmHg (83-108); Potassium - POC 4.0 mmol/L (3.5-5.1); Sodium - POC 138 mmol/L (136-145); Specimen Type - POC Venous; pH - POC 7.28 (7.35-7.45)
--- NOTE | 2025-04-18 18:15 | W.IMMPOSTOP ---
Addendum entered and electronically signed by Vic Jett MD 04/19/25 16:53:
Clarification: the small abscess was a retroperitoneal abscess.
Addendum entered and electronically signed by Vic Jett MD 04/18/25 18:52:
Also of note, plan per Dr. Knox is to keep npo with NGT at least through next Tuesday. He recommends TPN starting tomorrow. Potential for imaging of duodenal repair next Tuesday prior to considering enteric nutrition.
Original Note:
Surgical Immed Post Op Note
-
Primary Surgeon: Presley Jett MD
Assisting Surgeon: RAQUEL Meeks; Irish Holder MD-[id number]
Pre-op Diagnosis: diverticulitis of colon with coloenteric fistulas
Post-op Diagnosis: same
Procedure Performed: 1) robotic sigmoidectomy/left colectomy 2) takedown of 2 coloenteric fistulas (coloduodenal and coloileal) 3) takedown of splenic flexure 4) loop ileostomy creation 5) flexible sigmoidoscopy
Anesthesia Type: general plus local
Specimen / Cultures: sigmiod and descending colon including sources of the 2 fistulas
Estimated Blood Loss: 750 cc
Complications: no immediate
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
scarring/inflammation 4) small collection of mucopurulent material in left retroperitoneum 5) mild transverse colon distension
[address]--the higher one is draining the duodenal repair site. The lower, the pelvis.
NGT in stomach--confirmed intraoperatively.
Patient received 2 grams of IV TXA for oozing intraoperatively. Also received 2 uPRBCs.
Of note, Dr. Knox of general surgery performed an intraoperaative EGD and robotically repaired the duodenum and reinforced the repair with an omental patch. I pulled up the ileal side of the ileocolic fistula as the loop ileostomy.
Phelan, stents, and ureteral ICG by Dr. Tompkins of urology. R stent removed at end of case.
Will send to IMU. Will continue Invanz for 4 days due to the small abscess.
Patient's brother, Tobin, updated via phone conversation.
[2025-04-18] MEDS: DILAUDID 0.25 MG IV ×2 (19:10→20:48)
[2025-04-18 19:11] LABS: Blood Urea Nitrogen 16 mg/dl (7-17); Calcium 8.8 mg/dl (8.4-10.2); Carbon Dioxide 22 mmol/L (22-30); Chloride 103 mmol/L (98-107); Estimated Creatinine Clearance 55 ml/min; Glucose 148 mg/dl (70-99); Magnesium 4.1 mg/dl (1.6-2.3); Potassium 3.9 mmol/L (3.5-5.1); Sodium 133 mmol/L (135-145); eGFR > 60.00
[2025-04-18 19:13] LABS: Hematocrit 29.1 % (37.0-47.0); Hemoglobin 9.4 g/dL (12.0-16.0); Mean Corp Hgb Conc. 32.3 g/dL (33.0-37.0); Mean Corpuscular Volume 88.2 fL (81.0-99.0); Platelet Count 558 10^3/uL (130-400); Red Cell Dist. Width 18.6 % (11.5-14.5)
[2025-04-18 19:45] LABS: Nucleated Red Blood Cells % 0 %
--- NOTE | 2025-04-18 20:26 | CON.HOSP ---
Family Physician
-
Family Physician: EDWARDO Calle
Chief Complaint
-
surgery
History of Present Illness
64-year-old female past medical history of complicated diverticulitis complicated by abscesses/coloenteric fistulas, abdominal aortic thrombus possible ALEJANDRO obstruction, new onset atrial flutter with RVR, acute on chronic anemia, hypertension,
hypothyroidism, asthma, who underwent robotic sigmoidectomy with left colectomy and takedown of 2 coloenteric fistulas today.
Patient complains of abdominal pain after surgery.
Patient denies smoking or alcohol use.
Medical History
Past Medical History
Past Medical History: Reports Other (complicated diverticulitis complicated by abscesses/coloenteric fistulas, abdominal aortic thrombus possible ALEJANDRO obstruction, new onset atrial flutter with RVR, acute on chronic anemia, hypertension,
hypothyroidism, asthma)
Past Surgical History: Reports Other (robotic sigmoidectomy with left colectomy and takedown of 2 coloenteri fistulas, IR tube for diverticular abscesses )
Social History
Tobacco: Non-smoker
Alcohol: None
Drug: None
Allergies / Home Medications
Allergies reflects when Allergies were last updated in [employer].
Home Medications with original date entered in [employer]
Allergy/Medication List:
Allergies
Allergy/AdvReac Type Severity Reaction Status Date / Time
codeine Allergy Nausea / Verified 04/18/25 06:27
Vomiting
Latex, Natural Rubber Allergy Swelling Verified 04/18/25 06:27
Home Medications
levothyroxine 125 mcg tablet (Synthroid) 125 mcg PO DAILY Thyroid 01/01/19
losartan 50 mg tablet 50 mg PO DAILY Blood Pressure 01/01/19
albuterol sulfate 90 mcg/actuation aerosol inhaler 2 puff inhalation R Q6HPRN PRN sob 11/12/24
alprazolam 0.5 mg tablet 0.5 mg PO DAILYPRN PRN anxiety 11/12/24
atorvastatin 80 mg tablet 80 mg PO DAILY High Cholesterol 11/12/24
cholecalciferol (vitamin D3) 25 mcg (1,000 unit) tablet (Vitamin D3) 25 mcg PO DAILY Supplement 11/12/24
montelukast 10 mg tablet 10 mg PO DAILY Allergies 11/12/24
omeprazole magnesium 20 mg tablet,delayed release (Prilosec OTC) 20 mg PO HS Gastrointestinal Issue 11/12/24
Ampicillin/Sulbactam 3 G [Unasyn] 3 gm 240 mls/hr IV Q6H 03/20/25
Micafungin Sodium [Mycamine] 100 mg 105 mls/hr IV Q24H Infection 03/20/25
amiodarone 200 mg tablet (Pacerone) 200 mg PO BID 30 days #60 tabs 03/20/25
apixaban 5 mg tablet (Eliquis) 5 mg PO BID Blood clot prevention/tx 60 days #120 tabs 03/20/25
docusate sodium 100 mg capsule 100 mg PO BID Constipation 60 days #120 caps 03/20/25
oxycodone 5 mg tablet 5 mg PO Q6H PRN Pain #14 tabs 03/20/25
polyethylene glycol 3350 17 gram oral powder packet 17 g PO DAILY Constipation 60 days #60 packets 03/20/25
sennosides 8.6 mg-docusate sodium 50 mg tablet 1 tab PO DAILYPRN PRN constipation #30 tabs 03/20/25
Milk of Magnesia 30 ml PO PRN PRN constipation 04/10/25
acetaminophen 325 mg tablet 650 mg PO Q6H PRN pain/fever 04/10/25
bisacodyl 10 mg rectal suppository (Dulcolax (bisacodyl)) 10 mg OH DAILY PRN constipation 04/10/25
diclofenac sodium 1 % topical gel 2 g topical BID 04/10/25
metronidazole 500 mg tablet 500 mg PO DIRECTED pre op 04/10/25
neomycin 500 mg tablet 1 g PO DIRECTED pre op 04/10/25
sodium chloride 0.9 % (flush) 10 ml IV Q12H 04/10/25
sodium phosphates 19 gram-7 gram/118 mL enema (Fleet Enema) 118 ml OH ONCE PRN constipation 04/10/25
sodium sul 1.479 gram-potas ch 0.188 gram-magnes sul 0.225 gram tablet (Sutab) 0 tab PO DIRECTED pre op 04/10/25
Review of Systems
-
History Source: Patient
A 12 point Review of Systems was completed except as noted: Yes
Constitutional: Reports No Symptoms
EENT: Reports No Symptoms
Respiratory: Reports No Symptoms
Cardiac: Reports No Symptoms
Abdomen/GI: Reports No Symptoms
: Reports No Symptoms
Musculoskeletal: Reports No Symptoms
Skin: Reports No Symptoms
Neurological: Reports No Symptoms
Endocrine: Reports No Symptoms
Hematologic/Lymphatic: Reports No Symptoms
Psych: Reports No Symptoms
Physical Exam
Vital Signs
Vital Signs
Temp Pulse Resp BP Pulse Ox
97.3 F 83 9 107/74 98
04/18/25 19:30 04/18/25 19:15 04/18/25 19:15 04/18/25 19:15 04/18/25 19:15
Physical Exam
General: Well Developed, Well Nourished and No Apparent Distress
HEENT: Normocephalic, Moist Mucous Membranes and Atraumatic
Respiratory: Clear
Cardiac: S1/S2 and Regular Rhythm; Negative Murmur or Rub
GI: Soft, Non Tender, Non Distended and Normal Bowel Sounds
Rectal: Deferred by Provider
Musculoskeletal: No Clubbing, No Cyanosis and No Edema
Skin: Negative Rash
Neuro: Nonfocal/Grossly Intact
Laboratory Results
-
Laboratory Results
04/18/25 18:42
04/18/25 18:42
PT 18.3 Sec (11.4-14.6) H 04/08/25 12:23
INR 1.50 04/08/25 12:23
APTT 50.7 Sec (23.4-35.0) H 04/08/25 12:23
Total Bilirubin 0.4 mg/dl (0.2-1.3) 04/08/25 12:23
AST 13 U/L (14-36) L 04/08/25 12:23
ALT < 10 U/L (0-35) 04/08/25 12:23
Alkaline Phosphatase 176 U/L (38-126) H 04/08/25 12:23
Data Reviewed
-
Lab Data: Labs Reviewed
Old Records: Reviewed
Impression / Plan
-
IMPRESSION:
PLAN:
# Complicated diverticulitis complicated by abscesses/2 coloenteric fistulas status post robotic sigmoidectomy with left colectomy and takedown of 2 coloenteric fistulas
- Recent sepsis secondary to complicated diverticulitis with abscesses requiring IR tubes for drainage
-Prior abscess culture showed diphtheroids, yeast and Enterococcus
- Underwent robotic sigmoidectomy with left colectomy and takedown of 2 coloenteri fistulas today
-Patient has 750 cc of blood loss with oozing, received 2 units of blood with Hb 9.4 after surgery
- NG tube and Phelan catheter placed
- N.p.o. for several days including oral medications
- Colorectal planning on starting TPN tomorrow
- Continue Unasyn, micafungin as per ID recommendation previously
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
- Evaluate by vascular surgery who recommended anticoagulation with Eliquis 5 twice daily
- Hold off anticoagulation today
- Will need to eventually resume heparin drip when cleared by colorectal
Recently diagnosed atrial flutter with RVR
- Was started on amiodarone previously by cardiology
- Needs to be anticoagulated for this when cleared by colorectal
- Change amiodarone oral to IV drip
Acute on chronic anemia
Thrombocytosis
Essential hypertension
Hypothyroidism
- Hold levothyroxine
Asthma
- Continue albuterol as needed
- Hold montelukast
Chronic hyponatremia
Anxiety
- As needed IV Ativan daily for anxiety
Hyperlipidemia
- Hold statin
GERD
- Protonix 40 IV daily
Full code
DVT prophylaxis SCDs
N.p.o.
[2025-04-18] MEDS: OFIRMEV 100 IV (22:13)
[2025-04-18] MEDS: UNASYN IV (22:19)
[2025-04-18] MEDS: MYCAMINE 105 MG IV (22:31)
[2025-04-18] MEDS: CORDARONE 518 MG IV (22:45)
--- NOTE | 2025-04-18 23:26 | VATNOTE ---
called to one picc lumen unable to flush; assessed; cathflo ordered; dressing changed due to blood on stat lock and no biopatch on insertion site. caps changed as well.
[2025-04-18] MEDS: CATHFLO/ACTIVASE 2 MG INTRACATH (23:47)
[2025-04-19] VITALS (30 sets, daily range): BP systolic 108–139; BP diastolic 64–88; BMI 25.7
--- NOTE | 2025-04-19 00:05 | PTCARENOTE ---
New admit from PACU. pt awake & alert, drowsy but oriented & able to follow commands/answer questions. NSR on monitor, on RA 97%. R NGT to low intermittent suction, brown/green drainage. Ileostomy bag in place, small bloody drainage. 2x R abdomen KENRICK
drains, B draining > A. Phelan & stents in place, draining tea colored urine. Multiple lab sites on abdomen with glue. SCDs/TEDS. Q2T. IVF running. IVabx, antifungal, AMIO, ofirmev all running. Triple lumen PICC, one catheter was not flushign VAT at
bedside, cathflow ordered. VSS. NO other issues at this time. Will monitor.
--- NOTE | 2025-04-19 00:07 | VATNOTE ---
WHITE LUMEN OF 6FR TL L PICC COMPLETELY OCCLUDED. CATHFLO PROTOCOL INITITATED WITH STOPCOCK PER POLICY. PCN AWARE OF INTERVETNION AND PLAN OF CARE. VAT TO FOLLOW
[2025-04-19] MEDS: DILAUDID 0.5 MG IV ×2 (00:30→04:41)
--- NOTE | 2025-04-19 02:17 | VATNOTE ---
CATHFLO ASPIRATED AND EXCELLENT BR OBTAINED FROM WHITE LUMEN. CAP CHANGED AND FLUSHED WITH 20CC NSS. PCN AWARE OF OUTCOME.
[2025-04-19] MEDS: OFIRMEV 100 IV ×4 (03:15→21:50)
[2025-04-19] MEDS: CHLORASEPTIC/SORE THROAT SPRAY 1 SPRAY PO ×2 (04:51→19:15)
[2025-04-19] MEDS: UNASYN IV ×4 (04:52→22:33)
[2025-04-19] MEDS: ZOFRAN 4 MG IV (04:52)
[2025-04-19] MEDS: NORMOSOL-R/PLASMALYTE-A 1000 IV (04:55)
[2025-04-19 04:56] LABS: Hematocrit 24.3 % (37.0-47.0); Hemoglobin 7.9 g/dL (12.0-16.0); Mean Corp Hgb Conc. 32.5 g/dL (33.0-37.0); Mean Corpuscular Volume 85.9 fL (81.0-99.0); Nucleated Red Blood Cells % 0 %; Platelet Count 486 10^3/uL (130-400); Red Cell Dist. Width 19.0 % (11.5-14.5)
[2025-04-19 05:20] LABS: Blood Urea Nitrogen 15 mg/dl (7-17); Calcium 7.6 mg/dl (8.4-10.2); Carbon Dioxide 24 mmol/L (22-30); Chloride 103 mmol/L (98-107); Estimated Creatinine Clearance 47 ml/min; Glucose 122 mg/dl (70-99); Magnesium 3.4 mg/dl (1.6-2.3); Potassium 4.0 mmol/L (3.5-5.1); Sodium 132 mmol/L (135-145); eGFR > 60.00
--- NOTE | 2025-04-19 05:35 | PTCARENOTE ---
350cc tea colored urine from angulo, sediment. JPs draining well, so far B 216cc, A 80cc. NGT draining brown/green 400cc. Very small amount blood in ileostomy bag. Dilaudid for pain, pt states she may want to try morphine instead today. TT GEOLOGICAL ENGINEER about
morning labs, recheck h&h @ noon, GEOLOGICAL ENGINEER will order iv anxiety meds.
[2025-04-19] MEDS: VALIUM INJECTION 2 MG IV (05:44)
--- NOTE | 2025-04-19 06:57 | W.PN.UPDATE ---
Update Note
Progress Note Update
Patient requested morphine for pain stating it worked better the last time she was here. I added Morphine 4 mg IV for severe pain prn.
[2025-04-19] MEDS: MORPHINE SULFATE 4 MG IV ×2 (07:42→12:26)
[2025-04-19] MEDS: NSS (PRESERVATIVE FREE) 10 ML IV (07:44)
[2025-04-19] MEDS: PROTONIX IV 40 MG IV (07:44)
--- NOTE | 2025-04-19 08:16 | PTCARENOTE ---
Patient received from mold shifter. Patient resting in bed comfortably, although with complaints of pain. AAO, VSS. No events noted overnight. Complaints of 9/10 abdominal pain, see MAR. NG tube set to low intermittent suction, green/brown
output. Right Ileostomy, minimal serosanguineous output, red and budded stoma. 2 right sided KENRICK drains with serosanguineous output. Phelan in place, to be removed POD #2. Normosol @ 80mL/hr. Amio gtt at 0.5mg/min. Continuing ABX and Ofirmev.
No testing scheduled at this time. Call vergara in reach.
--- NOTE | 2025-04-19 08:34 | W.PN.CRS1 ---
Today's Communication / Plan
-
maintain ngt
OOB
start TPN
continue abx
pain control
stent removed
Assessment/Plan
-
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
WBC: 18.8 (24.5), Hgb 7.9 (9.4)
-Maintain NGT at least through Tuesday per Dr. Clarke. Possible imaging of duodenal repair next week to consider enteric feedings.
-Will start TPN today, nutrition consulted for recs. PICC placement.
-Continue campbell drains for now -the higher one is draining the duodenal repair site. The lower, the pelvis.
-Anemia today (due to blood loss mixed with dilution). Repeating H/H at noon. S/p 2 units PRBCs in OR. 2g TXA given in OR. If hemoglobin drops below 7, will transfuse.
-TEDS/SCDS for DVT prophylaxis. Holding Lovenox due to anemia.
-OOB as tolerated with PT.
-Continue Relistor
-Incentive spirometry q1 hours while awake
-Continue Unasyn for 4 days total post op due to small abscess found intraop
-Maintain angulo for I/O's. Stent removed at bedside.
-Wound RN for ileostomy care
-Pain control: Tylenol standing, Morphine 4mg q 4 hours PRN. Valium 2mg q 6 PRN for anxiety.
-OR pathology pending
-Ileostomy loop in place for now
-Appreciate hospitalist
Subjective Data
Procedure
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
Subjective Data
Date of Service: April 19, 2025
Patient states she is in pain. She denies nausea or vomiting. No function from her ileostomy yet.
Objective Data
-
Vital Signs
Temp Pulse Resp BP Pulse Ox
97.7 F 83 12 115/69 95
04/19/25 02:37 04/19/25 04:00 04/19/25 04:00 04/19/25 04:00 04/19/25 04:00
Intake & Output
04/18/25 04/19/25 04/20/25
06:59 06:59 06:59
Intake Total 500 / 500 1565 / 1565
Output Total 1051 / 1051 400 / 400
Balance -551 / -551 1165 / 1165
Intake:
IV fluids (Total) 500 / 500 960 / 960
Normosol 500 / 500
IV piggybacks 545 / 545
Amount instilled into GI Tube ( 0 / 0 60 / 60
Total)
[place] Sump 0 / 0 60 / 60
Output:
Drain Output (Total) 296 / 296
Right Upper Abdomen Janes- 80 / 80
Pisano A
Right Upper Abdomen Janes- 216 / 216
Pisano B
Gastrointestinal tube output ( 55 / 55 400 / 400
Total)
[place] Sump 55 / 55 400 / 400
Urine, Angulo 700 / 700
Lab Results
04/19/25 04:26
Physical Exam
-
General: No Acute Distress and AOx3
Abdomen: Soft, Tender (by incisions) and Other (ileostomy warm and pink, no output yet, stoma loop in place)
Skin: Warm and Dry
Incision: Clear, Dry, Intact
[2025-04-19] MEDS: RELISTOR 12 MG SC (08:53)
[2025-04-19] MEDS: DILAUDID 0.25 MG IV (10:48)
--- NOTE | 2025-04-19 11:23 | W.PN.GS2 ---
Today's Communication / Plan
-
Morphine ASSURANCE ANALYST
NPO with NGT
Monitor drain outputs
Start TPN
Assessment / Plan
-
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
POD #1 Robotic sigmoidectomy/left colectomy, takedown of coloenteric fistulas: coloileal by CRS (Johnie) with loop ileostomy creation and coloduodenal by GS (Abilio) with primary repair of duodenotomy in 2 layers. Cystoscopy with placement of
ureteral stents for identification of the ureters by urology (Turner)
Upper KENRICK (A) near duodenal repair: SSF (nonbilious)
Lower KENRICK (B) in pelivs: SSF
AFVSS
Leukocytosis present, but trending down
Acute blood loss anemia present, trending down today. S/P TXA and 2 units PRBC's during case d/t oozing
Plan:
--Keep NPO x ice chips for comfort
--PO amio converted to IV
--Continue NGT through the weekend, will plan SBFT study on Tuesday to evaluate repair prior to removal
--Initiated on TPN given plans for prolonged NPO. Dietary consulted. Patient has LUE PICC
--Encourage OOB/Mobility
--Morphine ASSURANCE ANALYST for pain management
--ABX x4 days in immediate post op period
--C/W Angulo
--Continue with AC on hold. Hold chemical VTE ppx as well given drop in h/h
--SCDs while in bed
Subjective Data
-
Date of Service: April 19, 2025
Pt seen and examined at bedside with Dr. Knox. Denies n/v. Reports her pain responds better to morphine not Dilaudid. Doesn't feel like pain is managed enough to get OOB and increase activity.
Objective Data
-
Intake and Output
04/18/25 04/19/25 04/20/25
06:59 06:59 06:59
Intake Total 500 / 500 1565 / 1565
Output Total 1051 / 1051 400 / 400
Balance -551 / -551 1165 / 1165
Intake:
IV fluids (Total) 500 / 500 960 / 960
Normosol 500 / 500
IV piggybacks 545 / 545
Amount instilled into GI Tube ( 0 / 0 60 / 60
Total)
[place] Sump 0 / 0 60 / 60
Output:
Drain Output (Total) 296 / 296
Right Upper Abdomen Janes- 80 / 80
Pisano A
Right Upper Abdomen Janes- 216 / 216
Pisano B
Gastrointestinal tube output ( 55 / 55 400 / 400
Total)
[place] Sump 55 / 55 400 / 400
Urine, Angulo 700 / 700
Vital Signs
Temp Pulse Resp BP Pulse Ox
98.4 F 79 12 115/67 93
04/19/25 07:52 04/19/25 08:00 04/19/25 08:00 04/19/25 08:00 04/19/25 08:00
Lab Results
04/19/25 04:26
Calcium 7.6 mg/dl (8.4-10.2) L 04/19/25 04:26
Magnesium 3.4 mg/dl (1.6-2.3) H 04/19/25 04:26
Total Bilirubin 0.4 mg/dl (0.2-1.3) 04/08/25 12:23
AST 13 U/L (14-36) L 04/08/25 12:23
ALT < 10 U/L (0-35) 04/08/25 12:23
Alkaline Phosphatase 176 U/L (38-126) H 04/08/25 12:23
Total Protein 6.2 g/dl (6.3-8.2) L 04/08/25 12:23
Albumin 2.9 g/dl (3.5-5.0) L 04/08/25 12:23
Physical Exam
-
NAD
ABD soft, ND, minimally tender
Ileostomy pink, viable. Minimal bowel sweat in appliance
KENRICK A and B both with SSF, nonbilious
Patient has a angulo catheter: Yes
Patient has a central line: Yes (Left PICC)
--- NOTE | 2025-04-19 11:26 | CM ---
Patient seen at bedside in IMU. Patient stated that she was anticipating returning to [facility] and had paid for 2 days of a bed hold but had asked her brother to cancel it due to the need to stay longer at per physicians. Patient plan is for
SNF following discharge from and she plans to return to [facility] if at all possible. CM will send referral via all scripts and await response. Prior to admission last time to patient resided alone in a [place] with 1 DEBI, Patient was
independent at that time with ADL's. Patient has a walker and a new nebulizer. Patient also has a previous history with [facility] and [facility]. Patient PCP is [facility] Nelly Guillermo and she uses the [facility] on [address]. Patient brother is contact
person, no POA at this time. Patient plan is to return to SNF when medically stable for discharge. CM will continue to follow for discharge planning needs.
Plan; SNF; patient choice [facility] if bed available.
--- NOTE | 2025-04-19 11:44 | W.PN.UPDATE ---
Update Note
Progress Note Update
I saw and evaluated the patient. I reviewed the resident�s note and agree with findings and plan as documented in the resident�s note.
c/o severe abd pain. No flatus yet.
Gen: NAD, AAOx3.
Eyes: EOMI, PERRLA, no scleral icterus.
Neck: supple.
CV: RRR, +S1/S2, no m/r/g.
Resp: CTAB anteriorly, no rales, wheezes, or rhonchi.
Abd: absent BS, soft (to very light palpation), tenderness to very light palpation, ND
Skin: No rashes.
Neuro: CN 2-12 intact, non-focal.
Psych: Normal mood and affect.
Complicated diverticulitis:
-complicated by abscesses, 2 coloenteric fistulas s/p robotic sigmoidectomy with L colectomy and takedown of 2 coloenteric fistulas on 04/18/25
-recent sepsis secondary to complicated diverticulitis with abscesses requiring IR tubes for drainage
-Prior abscess culture showed diphtheroids, yeast and Enterococcus
-750cc of acute blood loss (anemia) with oozing, received 2U pRBCs
-NGT and Phelan catheter placed
-NPO including meds
-CRS planning on starting TPN
-continue Unasyn/micafungin as per ID recommendation previously. Would recommend formal ID c/s.
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
-evaluated by vascular surgery who recommended anticoagulation with Eliquis 5 twice daily
-start heparin gtt once cleared by CRS
Recently diagnosed atrial flutter with RVR:
-cont amio gtt
-start heparin gtt once cleared by CRS
Other problems:
Acute on chronic anemia (component of acute blood loss due to surgery): Trend Hb, transfuse for Hb < 7.
Thrombocytosis, chronic
Essential HTN
Hypothyroidism: resume levoxyl once taking PO
Asthma: albuterol PRN
Chronic hyponatremia
Anxiety: IV Ativan PRN
HLD: resume statin once taking PO
GERD: cont PPI
Discussed with CRS
FULL/SCDs
Total time spent on today's encounter was 50 minutes which included time spent in counseling the patient/family regarding diagnosis and treatment plan as listed above, goals of care, and symptom management. Case was discussed with nursing staff,
specialists, and care coordinators/case management. All labs and imaging personally reviewed by me. Remainder the time spent in detailed review of previous records, lab data, imaging, and other medical provider documentation.
--- NOTE | 2025-04-19 12:02 | W.PN.HOSP.TC ---
Today's Communication/Plan
-
- follow up with Colorectal
Assessment / Plan
Assessment / Plan
Complicated diverticulitis complicated by abscesses/2 coloenteric fistulas status post robotic sigmoidectomy with left colectomy and takedown of 2 coloenteric fistulas
Sepsis:
- Wound culture on 03/08/2025 showed diphtheroid, yeast, enterococcus, has IR tubes for drainage of abscesses, consider formal ID consult
- 750 cc of acute blood loss, recieevd 2 units of prbc
- Colorectal surgery awaiting to start TPN, keep patient NPO
- Continue angulo catheter and ng tube
- Continue unasyn and micafungin
- Continue zofran PRN for nausea/ vomiting
- Continue pain control PRN
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
- Evaluate by vascular surgery who recommended anticoagulation with Eliquis 5 twice daily
- resume heparin gtt drip when cleared by colorectal
Recently diagnosed atrial flutter with RVR
- Eliquis recc
- continue amiodarone IV
Acute on chronic anemia:
- Repeat h&h
- most recent hgb 7.9, trending down from 9.4
- no signs of clinical bleeding
Thrombocytosis:
- today platelet count is 486 trending down from 558, due to Most likely reactive due to iron deficiency anemia
Essential hypertension:
- Asymptomatic, 115/67,
Hypothyroidism
- Hold levothyroxine
Asthma
- Continue albuterol as needed
- Hold montelukast
Chronic hyponatremia
Anxiety
- As needed IV Ativan daily for anxiety
Hyperlipidemia
- Hold statin
GERD
- Protonix 40 IV daily
Full code
DVT prophylaxis SCDs
N.p.o.
Anticipated Discharge: 24 - 48 hours
Subjective/Interval History
-
Date of Service: April 19, 2025
Pt complaints of abdominal pain.
Pt placed on morphine overnight for pain control.
Objective Data
-
Labs:
Laboratory Results
04/19/25 04/19/25 04/19/25
04:26 11:39 12:00
WBC 18.8 H
Hgb 7.9 L Pending
Hct 24.3 L Pending
Plt Count 486 H
Sodium 132 L Pending
Potassium 4.0 Pending
Chloride 103 Pending
Carbon Dioxide 24 Pending
BUN 15 Pending
Creatinine 1.0 Pending
Glucose 122 H Pending
Calcium 7.6 L Pending
Total Bilirubin Pending
AST Pending
ALT Pending
Alkaline Phosphatase Pending
Vital Signs:
Vital Signs
Temp Pulse Resp BP Pulse Ox
98.4 F 79 12 115/67 93
04/19/25 07:52 04/19/25 08:00 04/19/25 08:00 04/19/25 08:00 04/19/25 08:00
I&O
04/18/25 04/19/25 04/20/25
06:59 06:59 06:59
Intake Total 500 / 500 1565 / 1565
Output Total 1051 / 1051 400 / 400
Balance -551 / -551 1165 / 1165
Review of Systems
-
History Source: Patient
All other systems: Reviewed and negative
Constitutional: Reports No Symptoms
EENT: Reports No Symptoms Reported
Respiratory: Reports No Symptoms
Cardiac: Reports No Symptoms
Abdomen/GI: Reports Abdominal Pain; Denies Nausea, Vomiting, Diarrhea or Constipated
Breast: Reports No Symptoms
Genitourinary: Reports No Symptoms
Musculoskeletal: Reports No Symptoms
Skin: Reports No Symptoms
Neuro: Reports No Symptoms
Endocrine: Reports No Symptoms
Hematologic / Lymphatic: Reports No Symptoms
Physical Exam
-
General: Well Developed, Well Nourished, No Apparent Distress and Comfortable
HEENT: Normocephalic, Atraumatic, Moist Mucous Membranes, Anicteric, [place] Conjunctivae, No Ptosis, PERRLA and Nose Appears Normal
Respiratory: Clear to Auscultation and Non Labored Respirations; Negative Wheezes, Rales or Rhonchi
Cardiac: Regular Rhythm and S1/S2; Negative Murmur, Rub or Gallop
GI: Soft, Nondistended, Normal Bowel Sounds, Tender and Other (drain site dressings clean, dry, intact. Purulent drainage from ant drain, minimal to no drainage from posterior drain.)
Rectal: Deferred by Provider
Genito-urinary: Deferred by me
Musculoskeletal: No Clubbing, No Cyanosis and No Edema
Skin: Warm, Dry and IV Access / Catheter Site
Neuro: AO x 3
Psych: Calm
Data Reviewed
-
Diagnostic Radiology: Report Reviewed by me and Discussed with Physician
Labs: Labs Reviewed by me and Discussed with Physician
--- NOTE | 2025-04-19 12:25 | OR.RPT ---
Operative Report
Operative Report
Patient Name: Sonia Gipson
: 1960
Date of Operation: 04/18/2025
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
Postoperative Diagnosis: Duodenal fistula
Procedure(s):
1. EGD
2. Robotic repair of a duodenotomy in 2 layers
Surgeon(s):
Dr. Knox
Pallet Stone Positioner(s):
RAQUEL London
Anesthesia: General
Estimated Blood Loss: 7 cc for my portion of the procedure
Urine Output: None
Drains/Lines/Implants: 19 Azeri round Neal drain
Specimens: None
Indication for surgery: Please see Dr. Jett separately dictated operative report.
Operative Findings: I was called in to assist with an intraoperative small bowel fistula to the sigmoid. Most recent CT scan reviewed, which demonstrated a likely fistula from the duodenum to the sigmoid. Upper endoscopy performed which confirmed
a leak in the distal third portion of the duodenum. The inflamed tissue surrounding the duodenotomy was excised. The mucosa was identified and the duodenotomy was closed in 2 layers with 2-0 V-Loc 180 sutures in the longitudinal direction. A
subsequent repeat endoscopy was performed while the repair was submerged under saline confirming that the repair was airtight and that the duodenum was not overly narrowed. The case was then turned back to Dr. Jett to perform his colorectal
anastomosis. A tongue of omentum was then split and placed under the colon mesentary and over the duodenal repair and secured with a few small tacking 2-0 Vicryl sutures. An NG tube was placed and confirmed to be in good position on visual
inspection. A 19 Azeri round Neal drain was then introduced through one of the port sites near our repair and secured to the skin with a 2-0 nylon suture. The case was then once again turned back to Dr. Jett to complete the procedure.
Details of the operation:
I was called in to assist Dr. Jett with management of a coloenteric fistula identified intraoperatively. I reviewed the patient's CT scan which demonstrated a likely fistula from the duodenum to the sigmoid. I began by doing an upper endoscopy
which demonstrated a normal esophagus and stomach as well as first portion of the duodenum. I was able to intubate the third portion of the duodenum fairly easily and it was clear through transillumination and air leakage that this was indeed the
site of the fistula. The scope was then pulled back into the stomach and desufflated while I took over at the robotic console from Dr. Jett. I had my community relations assistant shuffle the camera and instruments to get better triangulation of the duodenotomy.
There was a significant amount of inflammatory rind surrounding the fistula which was mostly excised in order to better visualize the true hole and repair it. The hole measured roughly 1 cm but given the amount of inflamed tissue distally I felt
that a transverse closure would not be feasible and I felt that closure in the longitudinal direction would narrow the lumen minimally. Using a running 2-0 180 V-Loc suture taking full-thickness bites I closed the duodenotomy. I secured this with
a another 2�0 180 V-Loc running Lembert suture taking seromuscular bites to close the opening. I then returned to manage the endoscope and navigated back to the third portion of the duodenum using CO2 for insufflation and a leak test was performed
with my community relations assistant flooding the repair under water. No bubbles were identified confirming an airtight closure. I did want to buttress this repair with some omentum but given that Dr. Jett wanted to perform colorectal anastomosis we elected to
wait until further in the operation to do this. I then turned the case back over to Dr. Jett.
After completion of his anastomosis, I was called back into the room and an omental split was performed using bipolar energy device and the tongue of omentum was passed underneath the mesocolon over the duodenotomy repair. This was secured in 2
places using Vicryl suture. We then had a 19 Azeri round Neal drain introduced through 1 of a port sites and laid just below our repair. This was secured at the skin with a 2-0 nylon suture. This concluded my portion of the procedure and the
case was handed once again back to Dr. Jett.
I was the attending physician and performed my portion of the procedure with assistance of the MULTIMEDIA SERVICES MANAGER above. The EGD is being requested as a separate billable procedure as it was necessary to confirm the location of the injury and as well as to
perform the leak test.
Ruperto Knox MD
[2025-04-19 12:47] LABS: Hematocrit 21.6 % (37.0-47.0); Hemoglobin 7.2 g/dL (12.0-16.0)
[2025-04-19 13:11] LABS: ALT (SGPT) < 10 U/L (0-35); AST (SGOT) 16 U/L (14-36); Albumin 2.0 g/dl (3.5-5.0); Alkaline Phosphatase 103 U/L (38-126); Blood Urea Nitrogen 16 mg/dl (7-17); Calcium 7.3 mg/dl (8.4-10.2); Carbon Dioxide 24 mmol/L (22-30); Chloride 102 mmol/L (98-107); Estimated Creatinine Clearance 47 ml/min; Glucose 173 mg/dl (70-99); Magnesium 3.1 mg/dl (1.6-2.3); Potassium 4.1 mmol/L (3.5-5.1); Sodium 129 mmol/L (135-145); Total Protein 4.2 g/dl (6.3-8.2); Triglycerides 119 mg/dl (10-149); eGFR > 60.00
[2025-04-19] MEDS: D5/0.45%NACL 1000 IV ×2 (14:56→15:55)
--- NOTE | 2025-04-19 15:08 | PN.CDI ---
CDI
- -
CDI:
Physician Documentation Request
Admit Date: 04/18/25 05:50
Dear Doctor Johnie,
Please review the following and provide your response in the progress notes.
Clinical Indicators:
Pt admitted with diverticulitis of colon with coloenteric fistulas s/p sigmoidectomy /ileostomy creation on 04/18
Documented per post op update note, '. small collection of mucopurulent material in left retroperitoneum .... Will continue Invanz for 4 days due to the small abscess.....'
Please provide the suspected location of the documented abscess:
Retroperitoneal Abscess
Other Abscess location --
Other ( please specify)
Use of terms such as suspected, likely, concern for, or probable (associated with a specific diagnosis that is being evaluated, monitored, or treated as if it exists) are acceptable and can be coded in the inpatient setting, when documented at the
time of discharge.
Thank you,
Rose Caruso RN
CDI Specialist
[place] [facility]
Please use your independent medical judgment in providing your response.
--- NOTE | 2025-04-19 15:26 | WOUNDNOTE ---
[facility] RN NOTE: Patient is s/p Complicated diverticulitis complicated by abscesses/2 coloenteric fistulas status post robotic sigmoidectomy with left colectomy and takedown of 2 coloenteric fistulas, ileostomy placement on 04/18. Patient awake and
assessed with Dr. Ruth and MELVI Rico. Stoma is pink and slightly budded with some serosanguineous drainage. Ileostomy information at bedside for patient review over the weekend. Ostomy supplies ordered to bedside. Plan is for SNF. Patient
would like to go back to [facility]. Will follow up with ostomy teaching next week.
--- NOTE | 2025-04-19 15:31 | CON.INTV ---
Consultation
Consultation Request
Date/Time Consultation Requested: 04/19
Date/Time Consultation Performed: 04/19
Reason for Consultation: Critical care
Medical History
-
History of Present Illness:
History obtained from reviewing hospital records. 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 Patient
underwent robotic sigmoidectomy with left colectomy and takedown of 2 coloenteric fistulas on 04/18/2025. Patient apparently had 750 cc of blood loss requiring 2 units of blood. For this reason Eliquis remained held. TPN was started 04/19. Patient
was given TXA in the OR given bleeding. Patient also maintained on Unasyn therapy for small abscess found intraoperatively. Micafungin was also added. Due to increased risk for bleeding, KENRICK drainage with blood, patient was transferred to ICU for
further management 04/19/25
Patient was also hospitalized from 03/08 to 03/20/25 with sepsis. Imaging showed 2 large abscess. Percutaneous drains were placed at that time, cultures grew Enterococcus faecalis and yeast. Patient was treated with Unasyn and micafungin.
Colorectal surgery was consulted. Plan was for IV antibiotics, antifungal therapy and eventual surgery 04/11. Patient had CT abdomen/pelvis 03/08 which showed intra abdominal aortic thrombus and possible ALEJANDRO obstruction. Vascular surgery was
consulted and anticoagulation was recommended with Eliquis. Hospital course was also complicated by new onset atrial flutter treated with amiodarone, discharged on oral amiodarone
Patient was maintained on antibiotics from October to November, off antibiotics from December to January doing well. Symptoms returned in February
Patient was hospitalized in October 2024 with complicated diverticulitis with abscess formation. Patient refused surgery at that time per records.
Patient has lost 50 pounds over the past year unintentionally
.
PMH: Complicated diverticulitis with abscess/coloenteric fistula, status post robotic sigmoidectomy with left colectomy and takedown of fistula with loop ileostomy, robotic repair of duodenotomy. Atrial flutter/fibrillation, hypertension,
hypothyroidism, history of asthma, GERD, chronic anemia. 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 Percutaneous tube for diverticular abscess. Ureteral stent placement. History of uterine fibroid. History of
tonsillectomy, fibroid surgery, cholecystectomy.
Past Medical History
Past Medical History: None (See above)
Past Surgical History: None (See above)
Social History
Tobacco: Non-smoker
Alcohol: None
Drug: None
Personal: Single
Living: Alone
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
Family History
Family History: Other (Father age 91. Mother age 87. 1 brother with asthma. There is a family history of ovarian cancer, non-Hodgkin's lymphoma. No children)
Allergies / Home Medications
Allergies
Allergy/AdvReac Type Severity Reaction Status Date / Time
codeine Allergy Nausea / Verified 04/18/25 06:27
Vomiting
Latex, Natural Rubber Allergy Swelling Verified 04/18/25 06:27
Home Medications
�Medication �Instructions �Recorded �Confirmed �Last Taken �Type
levothyroxine 125 mcg tablet 125 mcg PO DAILY Thyroid 01/01/19 04/18/25 04/17/25 06:00 History
(Synthroid)
losartan 50 mg tablet 50 mg PO DAILY Blood Pressure 01/01/19 04/18/25 04/17/25 09:00 History
albuterol sulfate 90 mcg/actuation 2 puff inhalation R Q6HPRN PRN sob 11/12/24 04/10/25 Unknown History
aerosol inhaler
alprazolam 0.5 mg tablet 0.5 mg PO DAILYPRN PRN anxiety 11/12/24 04/18/25 04/17/25 23:59 History
atorvastatin 80 mg tablet 80 mg PO DAILY High Cholesterol 11/12/24 04/18/25 04/17/25 09:00 History
cholecalciferol (vitamin D3) 25 25 mcg PO DAILY Supplement 11/12/24 04/18/25 04/17/25 09:00 History
mcg (1,000 unit) tablet (Vitamin
D3)
montelukast 10 mg tablet 10 mg PO DAILY Allergies 11/12/24 04/10/25 Unknown History
omeprazole magnesium 20 mg 20 mg PO HS Gastrointestinal Issue 11/12/24 04/18/25 04/17/25 21:00 History
tablet,delayed release (Prilosec
OTC)
Ampicillin/Sulbactam 3 G [Unasyn] 240 mls/hr IV Q6H 03/20/25 04/18/25 04/17/25 12:00 Rx
3 gm
Micafungin Sodium [Mycamine] 100 mg 105 mls/hr IV Q24H Infection 03/20/25 04/18/25 04/16/25 16:00 Rx
apixaban 5 mg tablet (Eliquis) 5 mg PO BID Blood clot 03/20/25 04/18/25 04/15/25 18:00 Rx
prevention/tx 60 days #120 tabs
docusate sodium 100 mg capsule 100 mg PO BID Constipation 60 days 03/20/25 04/18/25 04/17/25 08:00 Rx
#120 caps
oxycodone 5 mg tablet 5 mg PO Q6H PRN Pain #14 tabs 03/20/25 04/18/25 04/17/25 16:00 Rx
polyethylene glycol 3350 17 gram 17 g PO DAILY Constipation 60 days 03/20/25 04/18/25 Unknown Rx
oral powder packet #60 packets
sennosides 8.6 mg-docusate sodium 1 tab PO DAILYPRN PRN constipation 03/20/25 04/18/25 Unknown Rx
50 mg tablet #30 tabs
Milk of Magnesia 30 ml PO PRN PRN constipation 04/10/25 04/10/25 Unknown History
acetaminophen 325 mg tablet 650 mg PO Q6H PRN pain/fever 04/10/25 04/10/25 Unknown History
bisacodyl 10 mg rectal suppository 10 mg [place] DAILY PRN constipation 04/10/25 04/10/25 Unknown History
(Dulcolax (bisacodyl))
diclofenac sodium 1 % topical gel 2 g topical BID Pain 04/10/25 04/18/25 04/17/25 History
metronidazole 500 mg tablet 500 mg PO DIRECTED pre op 04/10/25 04/18/25 04/17/25 15:00 History
neomycin 500 mg tablet 1 g PO DIRECTED pre op 04/10/25 04/18/25 04/17/25 15:30 History
sodium chloride 0.9 % (flush) 10 ml IV Q12H FLUSH 04/10/25 04/18/25 04/18/25 05:15 History
sodium phosphates 19 gram-7 118 ml [place] ONCE PRN constipation 04/10/25 04/10/25 Unknown History
gram/118 mL enema (Fleet Enema)
sodium sul 1.479 gram-potas ch 0 tab PO DIRECTED pre op 04/10/25 04/18/25 04/17/25 15:30 History
0.188 gram-magnes sul 0.225 gram
tablet (Sutab)
amiodarone 200 mg tablet (Pacerone) 200 mg PO BID Arrhythmia 04/19/25 04/18/25 04/17/25 21:00 History
Review of Systems
Vitals / Labs / Diagnostic Testing
Vital Signs
Temp Pulse Resp BP Pulse Ox
98.2 F 81 17 132/75 95
04/19/25 11:46 04/19/25 14:00 04/19/25 14:00 04/19/25 14:00 04/19/25 14:00
Lab Data
04/19/25 12:36
Diagnostic Testing:
Physical Exam
-
HEENT: Normocephalic, Anicteric and Other (Left upper extremity PICC line)
Cardiovascular: S1/S2, Regular Rhythm and Murmur (n)
Respiratory: Wheeze (n), Rales (n), Rhonchi (n) and Non-Labored Respirations
GI: Soft, Non Distended and Tender (Dressings in place, multiple KENRICK drains, serosanguineous, no jesus blood)
Neurology: Awake, Alert, No Motor Deficits (Moves all extremities) and Other (Nonfocal exam, cranial nerves appear to be grossly intact)
Skin: Other (Mildly pallorous)
General: Comfortable (Conversant)
Assessment
-
64-year-old female with complex history dating back to October 2024 when she developed diverticulitis complicated by abscess formation on chronic antibiotics told me 2024, returned in February 2025 with multiple abscesses, discharged on antibiotics,
returned for robotic sigmoidectomy/left colectomy, takedown of coloenteric fistula 04/18/2025 with creation of loop ileostomy, primary repair of duodenotomy in 2 layers. She had significant blood loss intraoperatively received TXA and 2 units during
case. She has been transferred to ICU for further management 04/19
S/p robotic sigmoidectomy/left colectomy, takedown of coloenteric fistula with creation of loop ileostomy 04/18
Primary repair of duodenotomy 04/18
Complicated by 750 cc blood loss requiring TXA, 2U PRBCs
Complicated diverticulitis initially presented October 2024 with abscess
Wound culture positive for Streptococcus, yeast
Discharged on antibiotics, improved
Presented February 2025 with recurrence of abscess, coloenteric fistula
Wound culture positive for Enterococcus, yeast
Discharged on antibiotics
Readmitted 04/18/2025 for robotic sigmoidectomy
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
Per abdominal imaging February 2025
On Eliquis therapy
New onset atrial fibrillation/flutter February 2025
On Eliquis/amiodarone
Hyponatremia
Hyperglycemia
Small left pleural effusion per imaging 03/18/2025
Conditions present prior to admission
History of chronic anemia
Hypercholesterolemia/hypertension
Hypothyroidism
GERD
History of uterine leiomyoma
Plan/recommendations
At this time, patient with complex history over the past 5 months
Hospital records reviewed at length
Salient features include initial response to antibiotic therapy as outpatient, self-administered by patient via PICC line
Started on Eliquis therapy for possible aortic clot per imaging, followed by vascular
Started on amiodarone for new onset atrial flutter February 2025
Presently had significant blood loss 04/18 requiring multiple units of blood, TXA
Multiple KENRICK drains present with serosanguineous fluid but no jesus blood per my review
Patient currently receiving another unit of blood
Most recent hemoglobin 7.2 down from 7.9 this morning. Platelets are normal. Coagulation studies normal
Moving forward
Continue with supportive care
Follow KENRICK drainage output, Eliquis has been held
Serial hemoglobin
Patient remains NPO. NG tube in place
TPN to be started per surgery
patient remains on Unasyn, micafungin
Hemodynamically stable at this time
Echocardiogram from October 2024 with normal biventricular function
Obtain EKG
Chest x-ray from 04/18 without acute findings
Small left pleural effusion per imaging in February
Patient without any significant oxygen requirement
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
Evaluated by vascular
Hold anticoagulation due to bleeding at this time
DVT prophylaxis: Mechanical DVT prophylaxis for now due to bleeding
GI prophylaxis: Remains on IV Protonix
Reviewed with critical care nursing, respiratory care
Reviewed with colorectal service
Will follow
TCCT 35 min
[2025-04-19 15:46] LABS: INR 1.16; PT 15.1 Sec (11.4-14.6)
[2025-04-19 15:47] LABS: Glucose - Point of Care 106 mg/dl (70-99)
[2025-04-19 15:47] LABS: APTT 33.8 Sec (23.4-35.0)
[2025-04-19] MEDS: MORPHINE PCA 30 IV (15:52)
--- NOTE | 2025-04-19 16:30 | PTCARENOTE ---
Patient transferred to ICU. Kath TUBBS received report. Patient transferred with all known belongings.
--- NOTE | 2025-04-19 16:42 | PTCARENOTE ---
Rec'd patient from IMU around 1530. Patient alert and oriented. MAEx4. VSS. NSR on tele. Pulse ox 97-98% on RA. Lung sounds cta. Abdomen round/soft/tender. Right abdomen KENRICK drains x2 with serosanguineous drainage. Ileostomy with scant amount of
serosanguineous drainage. NGT to LIS. Phelan in place; miko output with sediment. PULMONARY PHYSICAL THERAPIST pump initiated for pain control. 1 unit PRBCs transfusing. Repeat H&H s/p transfusion. Updated on plan of care. Call vergara within reach.
--- NOTE | 2025-04-19 17:41 | PTCARENOTE ---
1 unit PRBCs transfused. Vitals stable.
[2025-04-19] MEDS: NOVOLOG FLEXPEN-LOW RESISTANCE SC ×2 (18:06→23:25)
[2025-04-19 18:18] LABS: Glucose - Point of Care 103 mg/dl (70-99)
--- NOTE | 2025-04-19 19:49 | PTCARENOTE ---
Patient Aox3, VSS, NSR on monitor, TEDS and SCDs are on, trace edema to lower extremities, + pulses. C/o 8/10 on PROJECT SPECIALIST pump, pain was 10/10 before PROJECT SPECIALIST was started. NPO, TPN to be started tonight. Q6hour BG. Belly is soft, tender, NGT right nare 50cm
to LIS, x2JP drains with serosanguineous fluid. Colostomy with budded stoma, serioussangounes fluid. Lower abdominal incision CDI. Phelan with yellow urine with sediment. Pt has call vergara at bed side, offers no other complaints.
[2025-04-19] MEDS: DESENEX/MITRAZOL/ZEASORB 1 APPLIC TOPICAL (20:19)
[2025-04-19] MEDS: Parenteral Nutrition, Central 910 IV (21:50)
[2025-04-19] MEDS: MYCAMINE 105 MG IV (22:34)
[2025-04-19] MEDS: CORDARONE 518 MG IV (22:43)
[2025-04-19 23:23] LABS: Glucose - Point of Care 118 mg/dl (70-99)
[2025-04-20] VITALS (46 sets, daily range): BP systolic 97–164; BP diastolic 55–115; PULSE 73; O2SAT 96; BMI 25.7
[2025-04-20 00:41] LABS: Hematocrit 26.4 % (37.0-47.0); Hemoglobin 8.8 g/dL (12.0-16.0)
[2025-04-20] MEDS: MORPHINE PCA 30 IV ×2 (01:53→16:25)
[2025-04-20] MEDS: OFIRMEV 100 IV ×4 (02:42→21:28)
[2025-04-20] MEDS: UNASYN IV ×4 (04:07→23:19)
[2025-04-20 04:43] LABS: Hematocrit 26.2 % (37.0-47.0); Hemoglobin 8.7 g/dL (12.0-16.0); Mean Corp Hgb Conc. 33.2 g/dL (33.0-37.0); Mean Corpuscular Volume 86.2 fL (81.0-99.0); Nucleated Red Blood Cells % 0 %; Platelet Count 407 10^3/uL (130-400); Red Cell Dist. Width 18.8 % (11.5-14.5)
[2025-04-20 05:06] LABS: Blood Urea Nitrogen 18 mg/dl (7-17); Calcium 7.9 mg/dl (8.4-10.2); Carbon Dioxide 25 mmol/L (22-30); Chloride 106 mmol/L (98-107); Estimated Creatinine Clearance 52 ml/min; Glucose 122 mg/dl (70-99); Magnesium 2.8 mg/dl (1.6-2.3); Potassium 3.9 mmol/L (3.5-5.1); Sodium 133 mmol/L (135-145); eGFR > 60.00
[2025-04-20] MEDS: NOVOLOG FLEXPEN-LOW RESISTANCE SC ×3 (05:21→19:22)
[2025-04-20 05:29] LABS: Glucose - Point of Care 103 mg/dl (70-99)
[2025-04-20] MEDS: CHLORASEPTIC/SORE THROAT SPRAY 1 SPRAY PO ×2 (06:04→11:01)
--- NOTE | 2025-04-20 07:17 | W.PN.INTV ---
Today's Communication / Plan
Recommendations
KENRICK drainage improved
Hgb at noon
ECG with prolonged Qtc. Rasta noted
dc zofran
replete potassium
Assessment
-
64-year-old female with complex history dating back to October 2024 when she developed diverticulitis complicated by abscess formation on chronic antibiotics told me 2024, returned in February 2025 with multiple abscesses, discharged on antibiotics,
returned for robotic sigmoidectomy/left colectomy, takedown of coloenteric fistula 04/18/2025 with creation of loop ileostomy, primary repair of duodenotomy in 2 layers. She had significant blood loss intraoperatively received TXA and 2 units during
case. She has been transferred to ICU for further management 04/19
S/p robotic sigmoidectomy/left colectomy, takedown of coloenteric fistula with creation of loop ileostomy 04/18
Primary repair of duodenotomy 04/18
Complicated by 750 cc blood loss requiring TXA, 2U PRBCs
Complicated diverticulitis initially presented October 2024 with abscess
Wound culture positive for Streptococcus, yeast
Discharged on antibiotics, improved
Presented February 2025 with recurrence of abscess, coloenteric fistula
Wound culture positive for Enterococcus, yeast
Discharged on antibiotics
Readmitted 04/18/2025 for robotic sigmoidectomy
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
Per abdominal imaging February 2025
On Eliquis therapy
New onset atrial fibrillation/flutter February 2025
On Eliquis/amiodarone
Hyponatremia
Hyperglycemia
Small left pleural effusion per imaging 03/18/2025
Conditions present prior to admission
History of chronic anemia
Hypercholesterolemia/hypertension
Hypothyroidism
GERD
History of uterine leiomyoma
Plan/recommendations
At this time, patient remains critically ill but appears comfortable
Hemodynamically stable
Hemoglobin 8.7 as of early this morning, increased from 7.2 following 1 unit transfusion
KENRICK drainage serosanguineous, more serous
NG tube in place
Pain is controlled per patient
Summary of events preadmission and since 04/18:
Salient features include initial response to antibiotic therapy as outpatient, self-administered by patient via PICC line
Started on Eliquis therapy for possible aortic clot per imaging, followed by vascular
Started on amiodarone for new onset atrial flutter February 2025
Presently had significant blood loss 04/18 requiring multiple units of blood, TXA
Multiple KENRICK drains present with serosanguineous fluid but no jesus blood per my review
Moving forward
Continue with supportive care
Follow KENRICK drainage output, Eliquis has been held, heparin plans to be resumed today. Ascending aortic clot noted per imaging
Serial hemoglobin
Patient remains NPO. NG tube in place
TPN initiated
patient remains on Unasyn, micafungin
Follow-up hemoglobin at noon
Hemodynamically stable at this time
Echocardiogram from October 2024 with normal biventricular function
EKG with normal sinus rhythm, QT corrected 592
Pt on Amiodarone Rx
pre-admission ECG wit nl Qtc. Has had ECG in the past with prolonged QTc in past
Will d/c zofran. Compazine prn
keep K>4, Mg>2.0
Will try to minimize IV Amio dose as able. D/w Pharmacy
Chest x-ray from 04/18 without acute findings
Small left pleural effusion per imaging in February
Patient without any significant oxygen requirement
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
Evaluated by vascular
Anticoagulation held, now heparin gtt plans to resume
Was on Eliquis preadmission
DVT prophylaxis: Mechanical DVT prophylaxis for now due to bleeding, heparin drip resumed
GI prophylaxis: Remains on IV Protonix
Reviewed with critical care nursing, respiratory care
Reviewed with colorectal service
TCCT 31 min
Subjective Dataa
Subjective Data
Date of Service:
Date of Service: April 20, 2025
Subjective:
Overall, no significant change clinically. Patient denies chest pain, shortness of breath. Abdominal pain continues. KENRICK drain is noted, serosanguineous. Urine output adequate, NG tube drainage 400 cc
Objective Data
Data Reviewed
Vital Signs / I&O / Oxygen:
Vital Signs
Temp Pulse Resp BP Pulse Ox
98.6 F 67 9 102/55 96
04/20/25 03:07 04/20/25 06:00 04/20/25 06:00 04/20/25 06:00 04/20/25 06:00
Intake and Output
04/19/25 04/20/25 04/21/25
06:59 06:59 06:59
Intake Total 500 / 500 3435.5 / 3435.5
Output Total 1051 / 1051 3000 / 3000
Balance -551 / -551 435.5 / 435.5
SaO2 96
Physical Exam
General: Comfortable
HEENT: Normocephalic and Anicteric
Cardiovascular: S1-S2, Regular Rhythm, Murmur (n) and Rub (n)
Respiratory: Wheeze (n), Crackles (n), Rhonchi (n) and Non-Labored Respirations
GI: Soft, Non Distended, Tender, Other (Ostomy) and Other (KENRICK drains)
Neurology: Awake, Alert and No Motor Deficits
Skin: Jaundice (n), Rash (n) and Other (Mild pallor)
Labs/Micro/Reports
Lab Data
04/20/25 04:06
04/20/25 04:06
Laboratory Results
04/19/25
15:27
PT 15.1 H
INR 1.16
APTT 33.8
--- NOTE | 2025-04-20 08:09 | W.PN.UPDATE ---
Update Note
Progress Note Update
I saw and evaluated the patient. I reviewed the resident�s note and agree with findings and plan as documented in the resident�s note.
Abd pain better controlled today. No flatus yet.
Gen: NAD, AAOx3.
Eyes: EOMI, PERRLA, no scleral icterus.
Neck: supple.
CV: remains RRR, +S1/S2, no m/r/g.
Resp: remains CTAB anteriorly, no rales, wheezes, or rhonchi.
Abd: hypoactive BS, soft (to very light palpation), tenderness to very light palpation, ND
Skin: No rashes.
Neuro: CN 2-12 intact, non-focal.
Psych: Normal mood and affect.
Complicated diverticulitis:
-complicated by abscesses, 2 coloenteric fistulas s/p robotic sigmoidectomy with L colectomy and takedown of 2 coloenteric fistulas on 04/18/25
-recent sepsis secondary to complicated diverticulitis with abscesses requiring IR tubes for drainage
-Prior abscess culture showed diphtheroids, yeast and Enterococcus
-750cc of acute blood loss (anemia) with oozing, s/p 2U pRBCs
-NGT and Phelan catheter placed
-NPO including meds, currently on TPN
-Morphine SENIOR LEAD JAVA DEVELOPER for pain control
-continue Unasyn/micafungin as per ID recommendation previously. Would recommend formal ID c/s.
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
-evaluated by vascular surgery who recommended anticoagulation with Eliquis 5 twice daily
-start heparin gtt once cleared by CRS
Recently diagnosed atrial flutter with RVR:
-cont amio gtt
-start heparin gtt once cleared by CRS
Other problems:
Acute on chronic anemia (component of acute blood loss due to surgery): Trend Hb, transfuse for Hb < 7.
Thrombocytosis, chronic
Essential HTN: currently hypotensive
Hypothyroidism: resume levoxyl once taking PO (or change to IV if 3 days without Levoxyl)
Asthma: albuterol PRN
Chronic hyponatremia
Anxiety: IV Ativan PRN
HLD: resume statin once taking PO
GERD: cont PPI
FULL/SCDs
[2025-04-20] MEDS: DESENEX/MITRAZOL/ZEASORB 1 APPLIC TOPICAL ×2 (08:27→22:12)
[2025-04-20] MEDS: PROTONIX IV 40 MG IV (08:29)
[2025-04-20] MEDS: NSS (PRESERVATIVE FREE) 10 ML IV (08:29)
--- NOTE | 2025-04-20 09:10 | PTCARENOTE ---
Received pt awake and alert.Speech is appropriate.+[facility].Assisted OOB with PT/OT minimal assistance.c/o mod-severe abdominal pain.Utilizing Morphine SORTING AND FOLDING SUPERVISOR appropriately.SR with prolonged QT noted.Left PICC intact with Amiodarone gtt and TPN infusing.
Lungs CTA.POX 98% O2 2l NC.ETCO2 intact.NPO.[place] to low suction draining bilious.Colostomy draining small amount sero sang drainage.Phelan discontinued at 0900.Skin integrity as documented.KENRICK A and KENRICK B draining sero sang.Plan of care discussed with
pt.
--- NOTE | 2025-04-20 10:32 | W.PN.HOSP.TC ---
Today's Communication/Plan
-
See A/P
Assessment / Plan
Assessment / Plan
Assessment/plan
64-year-old female with complicated diverticulitis initially presented October 2024 with abscesses. Wound culture was positive for Streptococcus, yeast at that time. She was discharged on antibiotics, improved. Then returned February 2025 with
recurrence of abscesses, coloenteric fistula. Wound cultures positive for Enterococcus, yeast, discharged on antibiotics. Readmitted 04/18/2025 for robotic sigmoidectomy. Procedure done.
#Complicated diverticulitis complicated by abscesses, 2 coloenteric fistulas S/p robotic sigmoidectomy/left colectomy, takedown of coloenteric fistula with creation of loop ileostomy 04/18
-Primary repair of duodenotomy 04/18
-Recent sepsis secondary to complicated diverticulitis with abscesses requiring IR tubes for drainage
-Prior abscesses positive for Enterococcus, yeast
-Continue Unasyn, micafungin recommended by ID in the past
-Consider ID consult given ID recommended IV antibiotics as above in the past
-Morphine HIGH PRESSURE KETTLE OPERATOR for pain control
-N.p.o., currently on TPN
-NGT, Phelan catheter in place
#Abdominal aortic thrombus possible ALEJANDRO obstruction
-Evaluate by vascular surgery who recommended anticoagulation with Eliquis 5 twice daily
-Start heparin GTT once cleared by colorectal surgery
#Recently diagnosed atrial flutter with RVR
-Rate controlled with amiodarone IV drip
-Will need anticoagulation once cleared by colorectal surgery
#Acute on chronic anemia
-750 cc of acute blood loss anemia with oozing, s/p 2 units PRBCs
-Monitor H&H
-No overt signs of bleeding
#Hypothyroidism-resume levothyroxine when tolerates p.o.
#Asthma
-Continue albuterol as needed
-Hold montelukast
#Chronic hyponatremia
#Anxiety
-As needed IV Ativan daily for anxiety
#Hyperlipidemia
-Resume statin when tolerates p.o.
#GERD
-Protonix 40 IV daily
#Chronic thrombocytosis
#Essential hypertension
CODE STATUS full code
DVT prophylaxis SCD
Anticipated Discharge: > 48 hours
Subjective/Interval History
-
Date of Service: April 20, 2025
Objective Data
-
Labs:
Laboratory Results
04/20/25 04/20/25 04/20/25
00:00 04:06 12:00
WBC 17.5 H Pending
Hgb 8.8 L D 8.7 L Pending
Hct 26.4 L 26.2 L Pending
Plt Count 407 H Pending
APTT Pending
Sodium 133 L
Potassium 3.9
Chloride 106
Carbon Dioxide 25
BUN 18 H
Creatinine 0.9
Glucose 122 H
Calcium 7.9 L
Vital Signs:
Vital Signs
Temp Pulse Resp BP Pulse Ox
98.6 F 67 9 102/55 96
04/20/25 03:07 04/20/25 06:00 04/20/25 06:00 04/20/25 06:00 04/20/25 06:00
I&O
04/19/25 04/20/25 04/21/25
06:59 06:59 06:59
Intake Total 500 / 500 3435.5 / 3435.5
Output Total 1051 / 1051 3000 / 3000
Balance -551 / -551 435.5 / 435.5
Review of Systems
-
All other systems: Reviewed and negative (Except as documented)
Physical Exam
-
General: Comfortable
HEENT: Normocephalic
Respiratory: Clear to Auscultation
Cardiac: Regular Rhythm and S1/S2
GI: Soft, Nondistended, Tender, Ostomy and Other (KENRICK drain)
Neuro: Awake
[2025-04-20] MEDS: RELISTOR 12 MG SC (11:01)
[2025-04-20 12:10] LABS: Glucose - Point of Care 103 mg/dl (70-99)
[2025-04-20] MEDS: KCL 160 MEQ IV (12:47)
--- NOTE | 2025-04-20 12:47 | PTCARENOTE ---
Pt assessed.No change in assessment noted.ECG completed as ordered.Potassium rider infusing as ordered.
[2025-04-20 13:22] LABS: Hematocrit 28.9 % (37.0-47.0); Hemoglobin 10.0 g/dL (12.0-16.0); Mean Corp Hgb Conc. 34.6 g/dL (33.0-37.0); Mean Corpuscular Volume 85.0 fL (81.0-99.0); Platelet Count 442 10^3/uL (130-400); Red Cell Dist. Width 18.8 % (11.5-14.5)
[2025-04-20 13:45] LABS: APTT 38.0 Sec (23.4-35.0)
--- NOTE | 2025-04-20 14:27 | W.PN.GS2 ---
Addendum entered and electronically signed by Jesus Alberto Infante MD 04/20/25 15:02:
OK for hep gtt no bolus
Addendum entered and electronically signed by Jesus Alberto Infante MD 04/20/25 14:59:
I saw and examined the patient.
The CRUSHER AND BINDER OPERATOR's note was reviewed and I agree with the note.
Comment: Stable. Pain controlled. stoma PPV, drains ss (non bilious). Plan to maintain NPO/IVF/NGT until Tuesday for UGI to evaluate duodenal closure
Original Note:
Today's Communication / Plan
-
start heparin
ID eval
NPO/NGT
Assessment / Plan
-
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
H/O Aortic thrombus with partial ALEJANDRO obstruction, has been on Eliquis which was held for OR
POD #2 Robotic sigmoidectomy/left colectomy, takedown of coloenteric fistulas: coloileal by CRS (Johnie) with loop ileostomy creation and coloduodenal by GS (Abilio) with primary repair of duodenotomy in 2 layers. Cystoscopy with placement of
ureteral stents for identification of the ureters by urology (Turner)
NGT minimal bilious outputs
Stoma with minimal bowel sweat
Upper KENRICK (A) near duodenal repair: SSF (nonbilious)
Lower KENRICK (B) in pelivs: SSF
AFVSS
Leukocytosis present, trending up
H/H stable s/p transfusion yesterday, s/p 2 units total with TXA given in the OR
Plan:
--Keep NPO x ice chips for comfort, give meds IV
--Continue NGT through the , will plan SBFT study on Tuesday to evaluate repair prior to removal
--Anticipate prolonged NPO. Continue TPN via PICC. Dietary following.
--Encourage OOB/Mobility
--Morphine PACKAGE YARNS DRYING MACHINE OPERATOR for pain management
--Initial plan for ABX x4 days in post op period, given h/o polymicrobial abscesses and current leukocytosis will consult ID to assist with management
--Voiding trial today
--Start Heparin gtt no bolus and follow labs, not ready for PO AC
--IS while awake
--Consult stoma nurse to follow
Subjective Data
-
Date of Service: April 20, 2025
Pt seen and evaluated at bedside with Dr. Infante. Denies n/v. Pain has been an issue, but feels a bit better with increased PACKAGE YARNS DRYING MACHINE OPERATOR dosing. Questions addressed.
Objective Data
-
Intake and Output
04/19/25 04/20/25 04/21/25
06:59 06:59 06:59
Intake Total 500 / 500 3435.5 / 3510.2 522.9 / 522.9
Output Total 1051 / 1051 3000 / 3000 200 / 200
Balance -551 / -551 435.5 / 510.2 322.9 / 322.9
Intake:
Oral fluids 0 / 0
IV fluids (Total) 500 / 500 2150.5 / 2187.2 256.9 / 256.9
Amio 250.5 / 267.2 116.9 / 116.9
D5/0.45%NaCl 1,000 ml @ 20 mls/ 300 / 320 140 / 140
hr IV .Q24H PRN Rx#:[id number]
Normosol 500 / 500 640 / 640
IV piggybacks 665 / 665
TPN/PPN 266 / 266
Amount instilled into GI Tube ( 0 / 0 370 / 370
Total)
Grady Sump 0 / 0 370 / 370
Blood Product Amount Infused ( 250 / 250
mL)
Packed Rbc Leukoreduced Unit 250 / 250
[id number]
Output:
Drain Output (Total) 296 / 296 420 / 420
Right Upper Abdomen Janes- 80 / 80 225 / 225
Pisano A
Right Upper Abdomen Janes- 216 / 216 195 / 195
Pisano B
Gastrointestinal tube output ( 400 / 400
Total)
Grady Sump 400 / 400
Urine, Angulo 700 / 700 2180 / 2180 200 / 200
Vital Signs
Temp Pulse Resp BP Pulse Ox
98.6 F 67 9 130/68 96
04/20/25 03:07 04/20/25 13:30 04/20/25 13:30 04/20/25 13:30 04/20/25 13:30
Lab Results
04/20/25 13:05
04/20/25 04:06
Calcium 7.9 mg/dl (8.4-10.2) L 04/20/25 04:06
Phosphorus 3.8 mg/dl (2.5-4.5) 04/20/25 04:06
Magnesium 2.8 mg/dl (1.6-2.3) H 04/20/25 04:06
Total Bilirubin 0.3 mg/dl (0.2-1.3) 04/19/25 12:36
AST 16 U/L (14-36) 04/19/25 12:36
ALT < 10 U/L (0-35) 04/19/25 12:36
Alkaline Phosphatase 103 U/L (38-126) 04/19/25 12:36
Total Protein 4.2 g/dl (6.3-8.2) L 04/19/25 12:36
Albumin 2.0 g/dl (3.5-5.0) L 04/19/25 12:36
Physical Exam
-
NAD
ABD soft, ND, minimally tender
Ileostomy pink, viable. Minimal bowel sweat in appliance
KENRICK A and B both with SSF, nonbilious
Patient has a angulo catheter: No
Patient has a central line: Yes (Left PICC)
[2025-04-20] MEDS: HEPARIN 25000 UNITS/250 ML IV (14:51)
--- NOTE | 2025-04-20 16:56 | CON.ID ---
Consultation
-
Date/Time Consultation Requested: April 20, 2025 170
Date/Time Consultation Performed: April 20, 20251699
Requesting Provider: EDWARDO Vasquez
Performing Provider: Dr. Michelle Carver
Reason for Consultation: Leukocytosis
Chief Complaint / Past History
Chief Complaint
Here for bowel surgery
History of Present Illness
Sonia Gipson is a 64-year-old female being evaluated for post-op leukocytosis.
The patient is known to the Infectious Diseases service, having been seen during a prior admission at [facility] in mid to late October, during which time she was found to have a abdominal abscess. Cultures at that time revealed the presence
of strep species yeast and diphtheroids. She was ultimately discharged on a course of ertapenem and Diflucan. She was followed in the outpatient setting, and completed her course of ertapenem on 12/14/24. She was then hospitalized from 03/08 - 03/20
complicated acute diverticulitis, contained perforation with abscesses with fistulous connection to colon, sepsis, AAA thrombus with possible ALEJANDRO obstruction, new flutter with RVR. 03/08 perc drain cx: C. dubliniensis, E faecalis, diphtheroid,
lactobacillus rhamnosus. She was treated with Unasyn and micafungin with near complete resolution of left anterior abd wall abscess and left posterior retroperitoneal abscess.
She was admitted April 18 and underwent robotic left colectomy, takedown of to coloenteric fistula, primary repair of duodenotomy, loop ileostomy creation. Small collection of mucopurulent abscess noted in the peritoneum. Admission white count
24.5 which improved to 17.5 but currently trending up 21.5. She is currently on day 3 Unasyn and micafungin. She reports some post-op pain. No fevers or chills. No cough or shortness of breath. No urine symptoms.
Past History
Additional Past Medical History:
Asthma
GERD
HTN
Aflutter
Hypothyroidism
Complicated diverticular abscesses with colo-enteric fistula
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
Uterine fibroids
Additional Past Surgical History:
Uterine fibroid surgery
Cholecystectomy
Allergy History:
codeine Allergy (Verified 04/18/25 06:27)
Nausea / Vomiting
Latex, Natural Rubber Allergy (Verified 04/18/25 06:27)
Swelling
Medications Reviewed: Yes
Current Antibiotics:
Unasyn
Micafungin
Social History
Tobacco: Non-Smoker
Alcohol: None
Drug: None
Personal: Single
Living: Alone
Employment: Retired
Family History
Family History: Not Pertinent
Review of Systems
Review of Systems
General: Negative Fever or Chills
HEENT: Negative Sinus Problems or Headache
Respiratory: Negative Dyspnea or Cough
Gasteroenterology: Negative Nausea, Vomiting or Diarrhea
Genital / Urological: Negative Dysuria or Flank Pain
Endocrine: Weakness
All systems: All other systems were reviewed and were negative
Vital Signs
Temp Pulse Resp BP Pulse Ox
97.9 F 67 9 130/68 96
04/20/25 12:00 04/20/25 13:30 04/20/25 13:30 04/20/25 13:30 04/20/25 13:30
Physical Exam
Physical Exam
Constitutional: No Acute Distress and Non-toxic
Head: Other (NGT in place)
Eyes: No Conjunctival Hemorrhage and Sclera Anicteric
Cardiovascular: Regular Rate and S1/S2
Pulmonary: Clear
Gastrointestinal: Soft, Tender (right ileostomy dark brown liquid output. KENRICK drain x 2 serosanguinous fluid.) and Decreased Bowel Sounds
Genito-Urinary: Negative CVA Tenderness
Extremities: Negative Edema
Skin: Negative Rash
Neurological: AO x 3
Lines: PICC
LUE no erythema
Lab / Diagnostic Study Results
04/20/25 13:05
04/20/25 04:06
Abs Immat Gran (auto) 0.1 10^3/uL (0-0.05) H 04/20/25 04:06
Absolute Neuts (auto) 14.8 10^3/uL (1.4-6.5) H 04/20/25 04:06
Absolute Lymphs (auto) 1.7 10^3/uL (1.2-3.4) 04/20/25 04:06
Absolute Monos (auto) 0.8 10^3/uL (0.1-0.6) H 04/20/25 04:06
Absolute Basos (auto) 0.0 10^3/uL (0-0.2) 04/20/25 04:06
Immature Gran % 0.7 % (0-0.5) H 04/20/25 04:06
Neutrophils % 84.3 % (42.2-75.2) H 04/20/25 04:06
Lymphocytes % 9.7 % (20.5-51.1) L 04/20/25 04:06
Monocytes % 4.5 % (1.7-9.3) 04/20/25 04:06
Eosinophils % 0.6 % (0-6) 04/20/25 04:06
Basophils % 0.2 % (0-2) 04/20/25 04:06
PT 15.1 Sec (11.4-14.6) H 04/19/25 15:27
INR 1.16 04/19/25 15:27
Microbiology Results
Micro:
04/19/25 05:44 MRSA Screen - Final
Nose No Methicillin Resistant Staphylococcus aureus isolated.
04/18 CXR: Left PICC line is present with tip in good position, within the SVC.
Assessment / Plan
# Leukocytosis trending up
# Residual small abscess left retroperitoneum
# Recent h/o of complicated diverticular abscesses coloenteric fistulae status post PERC drain and course of Unasyn plus micafungin.
# 04/18 s/p robotic left colectomy, takedown of two coloenteric fistulas (coloduodenal and coloileal), repair of duodenotomy, loop ileostomy. Small mucopurulent abscess noted in L RP.
- Previous 03/08 abd abcess cx: C. dubliniensis, E faecalis, diphtheroid, Lactobacillus rhamnosus.
- Continue Unasyn and Micafungin (d3)
- Add IV Vancomycin
- Trend wbc
--- NOTE | 2025-04-20 17:34 | PTCARENOTE ---
Pt assessed.No change in assessment noted.1 person minimal assist back to bed.Tolerated 8 hours oob.Voided yellow urine on commode.
[2025-04-20 18:53] LABS: Glucose - Point of Care 111 mg/dl (70-99)
[2025-04-20] MEDS: VANCOCIN 535 MG IV (21:12)
[2025-04-20] MEDS: Parenteral Nutrition, Central 1210 IV (21:47)
[2025-04-20] MEDS: MYCAMINE 105 MG IV (22:13)
[2025-04-20] MEDS: VALIUM INJECTION 2 MG IV (22:13)
[2025-04-20 22:25] LABS: APTT 87.8 Sec (23.4-35.0)
--- NOTE | 2025-04-20 23:24 | PHA.VAN.IN ---
Assessment
- Assessment
Renal Function: Appears similar to baseline
Concomitant Antimicrobials: Ampicillin/sulbactam and micafungin
AUC Dosing Plan
- Dosing Variables
Dosing Weight (kg): 65.9
Dosing CrCl (ml/min): 52
Vd coefficient (L/kg): 0.7
- Empiric Dosing
Initial / Loading Dose: Vancomycin 1750mg given 04/20 ~2099
Maintenance Regimen: Vancomycin 1000mg IV Q24h to start 04/21 at 1000
Estimated AUC (mcg*h/mL): 472
Estimated Peak (mcg*h/mL): 32
Estimated Trough (mcg/ml): 11
Estimated Half Life (H): 14.6
- Monitoring
No levels ordered at this time: Will follow up and order levels prior to steady state.
Pharmacokinetics Vancomycin I
- -
Patient Age: 64
Patient Sex: Female
Vancomycin Day #: 1
Indication: Gi / Intra-Abdominal
Requesting Provider: Dr. Carver
Pertinent Antimicrobial Allergies:
no pertinent antibiotic allergies
Height / Weight:
Height 5 ft 3 in
Actual Weight 65.9 kg
- Vital Signs / Lab Results
Temp Pulse Resp BP Pulse Ox
97.7 F 76 12 139/79 98
04/20/25 19:36 04/20/25 17:30 04/20/25 17:30 04/20/25 16:30 04/20/25 17:30
Lab Results - Hematology
04/18/25 04/19/25 04/20/25
18:42 04:26 04:06
WBC 24.5 H 18.8 H 17.5 H
04/20/25
13:05
WBC 21.5 H
Lab Results - Chemistry
04/18/25 04/19/25 04/19/25
18:42 04:26 12:36
BUN 16 15 16
Creatinine 0.9 1.0 1.0
Estimated Creat Clear 55 47 47
Albumin 2.0 L
04/20/25
04:06
BUN 18 H
Creatinine 0.9
Estimated Creat Clear 52
Albumin
Microbiology Results
04/19/25 05:44 MRSA Screen - Final
Nose No Methicillin Resistant Staphylococcus aureus isolated.
[2025-04-20 23:38] LABS: Glucose - Point of Care 125 mg/dl (70-99)
[2025-04-21] VITALS (42 sets, daily range): BP systolic 87–168; BP diastolic 62–98; BMI 26.5
[2025-04-21] MEDS: NOVOLOG FLEXPEN-LOW RESISTANCE SC ×4 (00:13→18:36)
[2025-04-21] MEDS: OFIRMEV IV (03:05)
[2025-04-21] MEDS: UNASYN IV ×4 (04:14→22:16)
[2025-04-21] MEDS: CHLORASEPTIC/SORE THROAT SPRAY 1 SPRAY PO ×2 (04:26→22:56)
[2025-04-21 04:32] LABS: Hematocrit 28.9 % (37.0-47.0); Hemoglobin 9.5 g/dL (12.0-16.0); Mean Corp Hgb Conc. 32.9 g/dL (33.0-37.0); Mean Corpuscular Volume 87.3 fL (81.0-99.0); Platelet Count 383 10^3/uL (130-400); Red Cell Dist. Width 18.7 % (11.5-14.5)
[2025-04-21 04:58] LABS: Blood Urea Nitrogen 13 mg/dl (7-17); Calcium 8.0 mg/dl (8.4-10.2); Carbon Dioxide 25 mmol/L (22-30); Chloride 110 mmol/L (98-107); Estimated Creatinine Clearance 67 ml/min; Glucose 128 mg/dl (70-99); Magnesium 2.1 mg/dl (1.6-2.3); Potassium 3.7 mmol/L (3.5-5.1); Sodium 136 mmol/L (135-145); eGFR > 60.00
[2025-04-21 05:04] LABS: APTT 151.4 Sec (23.4-35.0)
[2025-04-21 05:18] LABS: Glucose - Point of Care 128 mg/dl (70-99)
[2025-04-21] MEDS: POTASSIUM PHOSPHATE 259.0909 MEQ IV (06:42)
--- NOTE | 2025-04-21 07:16 | W.PN.INTV ---
Addendum entered and electronically signed by Redd Hurd MD 04/21/25 12:19:
Patient transferred to IMU
We will sign off. Please call with questions
Addendum entered and electronically signed by Redd Hurd MD 04/21/25 10:52:
Patient received potassium phosphate earlier this morning
Second order of potassium chloride discontinued
Reviewed with critical care nursing
Original Note:
Today's Communication / Plan
Recommendations
Continue supportive care
EKG 04/22, prolonged QT noted
Avoid other QT prolonging medications. Amiodarone therapy noted
Maintain potassium greater than 4, magnesium greater than 2
Hemoglobin stable
Okay for transfer out of ICU to IMU. We will sign off once transferred. Please call with questions
Assessment
-
64-year-old female with complex history dating back to October 2024 when she developed diverticulitis complicated by abscess formation on chronic antibiotics told me 2024, returned in February 2025 with multiple abscesses, discharged on antibiotics,
returned for robotic sigmoidectomy/left colectomy, takedown of coloenteric fistula 04/18/2025 with creation of loop ileostomy, primary repair of duodenotomy in 2 layers. She had significant blood loss intraoperatively received TXA and 2 units during
case. She has been transferred to ICU for further management 04/19
S/p robotic sigmoidectomy/left colectomy, takedown of coloenteric fistula with creation of loop ileostomy 04/18
Primary repair of duodenotomy 04/18
Complicated by 750 cc blood loss requiring TXA, 2U PRBCs
Complicated diverticulitis initially presented October 2024 with abscess
Wound culture positive for Streptococcus, yeast
Discharged on antibiotics, improved
Presented February 2025 with recurrence of abscess, coloenteric fistula
Wound culture positive for Enterococcus, yeast
Discharged on antibiotics
Readmitted 04/18/2025 for robotic sigmoidectomy
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
Per abdominal imaging February 2025
On Eliquis therapy, presently on heparin drip
New onset atrial fibrillation/flutter February 2025
On Eliquis/amiodarone as outpatient
Hyponatremia
Hyperglycemia
Small left pleural effusion per imaging 03/18/2025
Conditions present prior to admission
History of chronic anemia
Hypercholesterolemia/hypertension
Hypothyroidism
GERD
History of uterine leiomyoma
Plan/recommendations
At this time, patient appears to be comfortable without complaints
Hemodynamically stable
Hemoglobin 9.5 as of early this morning, increased from 7.2 following 2U, stable
KENRICK drainage serosanguineous, more serous
NG tube in place
Pain is controlled per patient
Summary of events preadmission and since 04/18:
Salient features include initial response to antibiotic therapy as outpatient, self-administered by patient via PICC line
Started on Eliquis therapy for possible aortic clot per imaging, followed by vascular
Started on amiodarone for new onset atrial flutter February 2025
Presently had significant blood loss 04/18 requiring multiple units of blood, TXA
Multiple KENRICK drains present with serosanguineous fluid but no jesus blood per my review
Moving forward
Continue with supportive care
Follow KENRICK drainage output, Eliquis has been held, heparin continues, no boluses
Serial hemoglobin, stable
Patient remains NPO. NG tube in place
TPN continues
patient remains on Unasyn, micafungin
Hemodynamically stable at this time
Echocardiogram from October 2024 with normal biventricular function
EKG with normal sinus rhythm, QT corrected 569
Pt on Amiodarone Rx
pre-admission ECG wit nl Qtc. Has had ECG in the past with prolonged QTc in past
Will d/c zofran. Compazine prn
keep K>4, Mg>2.0
Will try to minimize IV Amio dose as able. D/w Pharmacy, currently 0.5 mg gtt
Chest x-ray from 04/18 without acute findings
Small left pleural effusion per imaging in February
Patient without any significant oxygen requirement
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
Evaluated by vascular
Anticoagulation held, now heparin gtt continues, avoid bolus given bleeding intraoperatively
Was on Eliquis preadmission
DVT prophylaxis: Mechanical DVT prophylaxis for now due to bleeding, heparin drip resumed
GI prophylaxis: Remains on IV Protonix
Reviewed with critical care nursing
Reviewed with primary service, surgical team
Okay for transfer out of ICU. We will sign off. Please call with questions
Subjective Dataa
Subjective Data
Date of Service:
Date of Service: April 21, 2025
Subjective:
Patient appears to be comfortable. Denies any significant shortness of breath, nausea. Abdominal pain is controlled. Remains on a heparin drip, hemoglobin stable. KENRICK drainage seems to be more serous and less sanguinous.
Objective Data
Data Reviewed
Vital Signs / I&O / Oxygen:
Vital Signs
Temp Pulse Resp BP Pulse Ox
97.6 F 63 10 129/71 96
04/21/25 03:12 04/21/25 05:30 04/21/25 05:30 04/21/25 05:30 04/21/25 05:30
Intake and Output
04/20/25 04/21/25 04/22/25
06:59 06:59 06:59
Intake Total 3777.5 / 3852.2 2134.8 / 2134.8
Output Total 3000 / 3000 2355 / 2355
Balance 777.5 / 852.2 -220.2 / -220.2
SaO2 96
Nasal Cannula flow liters per 2
minute
Physical Exam
General: Comfortable
HEENT: Normocephalic and Anicteric
Cardiovascular: S1-S2, Regular Rhythm, Murmur (n) and Rub (n)
Respiratory: Wheeze (n), Crackles (n), Rhonchi (n) and Non-Labored Respirations
GI: Soft, Non Distended, Tender, Other (Ostomy) and Other (KENRICK drains)
Neurology: Awake, Alert and No Motor Deficits
Skin: Jaundice (n), Rash (n) and Other (Mild pallor)
Labs/Micro/Reports
Lab Data
04/21/25 04:13
04/21/25 04:13
Laboratory Results
04/20/25 04/20/25 04/21/25
13:05 22:07 04:13
APTT 38.0 H 87.8 H 151.4 H*
Microbiology
04/19/25 05:44 Nose MRSA Screen - Final
No Methicillin Resistant Staphylococcus aureus isolated.
--- NOTE | 2025-04-21 07:19 | W.PN.HOSP.TC ---
Today's Communication/Plan
-
See A/P
Assessment / Plan
Assessment / Plan
Assessment/plan
64-year-old female with complicated diverticulitis initially presented October 2024 with abscesses. Wound culture was positive for Streptococcus, yeast at that time. She was discharged on antibiotics, improved. Then returned February 2025 with
recurrence of abscesses, coloenteric fistula. Wound cultures positive for Enterococcus, yeast, discharged on antibiotics. Readmitted 04/18/2025 for robotic sigmoidectomy. Procedure done.
#Complicated diverticulitis complicated by abscesses, 2 coloenteric fistulas S/p robotic sigmoidectomy/left colectomy, takedown of coloenteric fistula with creation of loop ileostomy 04/18
-Primary repair of duodenotomy 04/18
-Recent sepsis secondary to complicated diverticulitis with abscesses requiring IR tubes for drainage
-Prior abscesses positive for Enterococcus, yeast
-Continue Unasyn, micafungin (d4), IV vancomycin(D2) added to regimen
-Morphine LINING BASTER for pain control
-N.p.o., currently on TPN
#Abdominal aortic thrombus possible ALEJANDRO obstruction
-Evaluate by vascular surgery who recommended anticoagulation with Eliquis 5 twice daily
-Currently on heparin GTT
#Recently diagnosed atrial flutter with RVR
-Rate controlled with amiodarone IV drip
-Continue anticoagulation with heparin gtt.
#Acute on chronic anemia
-750 cc of acute blood loss anemia with oozing, s/p 2 units PRBCs
-Monitor H&H
-No overt signs of bleeding
#Hypothyroidism-IV Synthroid
#Asthma
-Continue albuterol as needed
-Hold montelukast
#Chronic hyponatremia
#Anxiety
-As needed IV Ativan daily for anxiety
#Hyperlipidemia
-Resume statin when tolerates p.o.
#GERD
-Protonix 40 IV daily
#Chronic thrombocytosis
#Essential hypertension
CODE STATUS full code
DVT prophylaxis heparin GTT
Anticipated Discharge: > 48 hours
Subjective/Interval History
-
Date of Service: April 21, 2025
Objective Data
-
Labs:
Laboratory Results
04/20/25 04/21/25
22:07 04:13
WBC 17.3 H
Hgb 9.5 L
Hct 28.9 L
Plt Count 383
APTT 87.8 H 151.4 H*
Sodium 136
Potassium 3.7
Chloride 110 H
Carbon Dioxide 25
BUN 13
Creatinine 0.7
Glucose 128 H
Calcium 8.0 L
Vital Signs:
Vital Signs
Temp Pulse Resp BP Pulse Ox
97.6 F 63 10 129/71 96
04/21/25 03:12 04/21/25 05:30 04/21/25 05:30 04/21/25 05:30 04/21/25 05:30
I&O
04/20/25 04/21/25 04/22/25
06:59 06:59 06:59
Intake Total 3777.5 / 3852.2 2134.8 / 2134.8
Output Total 3000 / 3000 2355 / 2355
Balance 777.5 / 852.2 -220.2 / -220.2
Review of Systems
-
All other systems: Reviewed and negative (Except as documented)
Physical Exam
-
General: Comfortable
HEENT: Normocephalic
Respiratory: Clear to Auscultation
Cardiac: Regular Rhythm and S1/S2
GI: Soft, Nontender, Nondistended, Ostomy and Other (KENRICK drain)
Neuro: Awake
[2025-04-21] MEDS: COMPAZINE 5 MG IV ×2 (07:26→22:15)
--- NOTE | 2025-04-21 08:00 | PTCARENOTE ---
Received pt sleeping.Awakens to voice.Speech is appropriate.+[facility].c/o abdominal pain and is using Morphine IMAGING SERVICES DIRECTOR appropriately.SR with prolonged QT noted.Left PICC intact with Amiodarone,Heparin gtts and TPN infusing.ETCO2 intact with RA.Lungs
CTA.NPO.Colostomy draining liquid brown green stool.[place]udson draining bilious.Voiding yellow urine.Skin integrity as documented.Plan of care discussed with pt.
--- NOTE | 2025-04-21 08:12 | PHA.VAN.FU ---
Vancomycin Assessment / Plan
- Assessment
Renal Function: Stable
WBC's are: Trending Down
In the past 24 hrs, patient has been: Afebrile
Concomitant Antimicrobials: ampicillin/sulbactam, micafungin
- Dosing Plan
Continue: Vanc 1000mg Q24H
if scr continues to improve, may consider changing to Q12 interval vs obtaining pre-steady state trough
- Monitoring Plan
No level(s) ordered at this time: consider levels in next few days
- Follow Up
Pharmacy will continue to follow.
Vancomycin Follow UP
- -
Patient Age: 64
Patient Sex: Female
Vancomycin Day #: 2
Indication: Gi / Intra-Abdominal
Requesting Provider: Dr. Carver
Pertinent Antimicrobial Allergies:
no pertinent antibiotic allergies
Height / Weight:
Height 5 ft 3 in
Actual Weight 67.9 kg
- Vital Signs / Lab Results
Temp Pulse Resp BP Pulse Ox
97.6 F 91 15 129/83 96
04/21/25 03:12 04/21/25 07:30 04/21/25 07:30 04/21/25 07:30 04/21/25 07:30
Lab Results - Hematology
04/18/25 04/19/25 04/20/25
18:42 04:26 04:06
WBC 24.5 H 18.8 H 17.5 H
04/20/25 04/21/25
13:05 04:13
WBC 21.5 H 17.3 H
Lab Results - Chemistry
04/18/25 04/19/25 04/19/25
18:42 04:26 12:36
BUN 16 15 16
Creatinine 0.9 1.0 1.0
Estimated Creat Clear 55 47 47
Albumin 2.0 L
04/20/25 04/21/25
04:06 04:13
BUN 18 H 13
Creatinine 0.9 0.7
Estimated Creat Clear 52 67
Albumin
Microbiology Results
04/19/25 05:44 MRSA Screen - Final
Nose No Methicillin Resistant Staphylococcus aureus isolated.
[2025-04-21] MEDS: DESENEX/MITRAZOL/ZEASORB 1 APPLIC TOPICAL ×2 (08:46→19:29)
[2025-04-21] MEDS: PROTONIX IV 40 MG IV (08:46)
[2025-04-21] MEDS: NSS (PRESERVATIVE FREE) 10 ML IV (08:46)
[2025-04-21] MEDS: OFIRMEV 100 IV ×3 (08:47→19:29)
--- NOTE | 2025-04-21 08:47 | W.PN.UPDATE ---
Update Note
Progress Note Update
I saw and evaluated the patient. I reviewed the resident�s note and agree with findings and plan as documented in the resident�s note.
c/o nausea. No flatus yet.
Gen: NAD, AAOx3.
Eyes: EOMI, PERRLA, no scleral icterus.
Neck: supple.
CV: continues to remain RRR, +S1/S2, no m/r/g.
Resp: continues to remain CTAB anteriorly, no rales, wheezes, or rhonchi.
Abd: +BS, soft, NT to light palpation, ND
Skin: No rashes.
Neuro: CN 2-12 intact, non-focal.
Psych: Normal mood and affect.
04/19/25 05:44 Nose MRSA Screen - Final
No Methicillin Resistant Staphylococcus aureus isolated.
Complicated diverticulitis:
-complicated by abscesses, 2 coloenteric fistulas s/p robotic sigmoidectomy with L colectomy and takedown of 2 coloenteric fistulas on 04/18/25
-recent sepsis secondary to complicated diverticulitis with abscesses requiring IR tubes for drainage
-Prior abscess culture showed diphtheroids, yeast, and Enterococcus
-750cc of acute blood loss (anemia) with oozing, s/p 2U pRBCs
-NGT and Phelan catheter placed
-NPO including meds, currently on TPN
-Morphine PUMPER GAUGER APPRENTICE for pain control
-continue Unasyn/micafungin as per ID
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
-evaluated by vascular surgery who recommended anticoagulation with Eliquis 5 twice daily
-currently on heparin gtt
Recently diagnosed atrial flutter with RVR:
-cont amio/heparin gtts
Other problems:
Acute on chronic anemia (component of acute blood loss due to surgery): s/p 2U pRBCs, trend Hb, transfuse for Hb < 7.
Thrombocytosis, chronic
Essential HTN: currently hypotensive
Hypothyroidism: start IV synthroid
Asthma: albuterol PRN
Chronic hyponatremia
Anxiety: IV Ativan PRN
HLD: resume statin once taking PO
GERD: cont PPI
FULL/SCDs
--- NOTE | 2025-04-21 09:50 | W.PN.ID1 ---
Date of Service
Date of Service: April 21, 2025
Today's Communication
Continue abx's.
Assessment / Plan
# Leukocytosis improved today
# Residual small abscess left retroperitoneum
# Recent h/o of complicated diverticular abscesses coloenteric fistulae status post PERC drain and course of Unasyn plus micafungin.
# 04/18 s/p robotic left colectomy, takedown of two coloenteric fistulas (coloduodenal and coloileal), repair of duodenotomy, loop ileostomy. Small mucopurulent abscess noted in L RP.
- Previous 03/08 abd abcess cx: C. dubliniensis, E faecalis, diphtheroid, Lactobacillus rhamnosus.
- Continue Unasyn and Micafungin (d4)
- Continue IV Vancomycin (d2)
- Trend wbc
Chief Complaint
-: Leukocytosis
Subjective / Review of Systems
Post-op pain stable.
Vital Signs / Physical Exam
Vital Signs
Vital Signs
Temp Pulse Resp BP Pulse Ox
97.6 F 91 15 129/83 96
04/21/25 03:12 04/21/25 07:30 04/21/25 07:30 04/21/25 07:30 04/21/25 07:30
Physical Exam
Constitutional: No Acute Distress
Head: Other (NGT)
Cardiovascular: Regular Rate and S1/S2
Pulmonary: Clear
Gastrointestinal: Soft, Tender (mild), Decreased Bowel Sounds and Other (KENRICK drains x 2 serosanguinous fluid)
Extremities: Negative Edema
Neurological: AO x 3
Lines: PICC (LUE)
Objective Data
Lab Data
Lab Results
04/21/25 04:13
04/21/25 04:13
PT 15.1 Sec (11.4-14.6) H 04/19/25 15:27
INR 1.16 04/19/25 15:27
APTT 151.4 Sec (23.4-35.0) H* 04/21/25 04:13
Estimated Creat Clear 67 ml/min 04/21/25 04:13
Total Bilirubin 0.3 mg/dl (0.2-1.3) 04/19/25 12:36
AST 16 U/L (14-36) 04/19/25 12:36
ALT < 10 U/L (0-35) 04/19/25 12:36
Alkaline Phosphatase 103 U/L (38-126) 04/19/25 12:36
Most recent labs reviewed.
Micro Results:
04/19/25 05:44 MRSA Screen - Final
Nose No Methicillin Resistant Staphylococcus aureus isolated.
04/18 CXR: Left PICC line is present with tip in good position, within the SVC.
[2025-04-21] MEDS: MORPHINE PCA 30 IV (10:33)
[2025-04-21] MEDS: CORDARONE 518 MG IV (10:37)
[2025-04-21] MEDS: VANCOCIN 200 IV (10:46)
--- NOTE | 2025-04-21 11:21 | W.PN.GS2 ---
Today's Communication / Plan
-
Focus on ambulation today. Continue NG tube.
Will reorder TPN
Assessment / Plan
-
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
H/O Aortic thrombus with partial ALEJANDRO obstruction, has been on Eliquis which was held for OR
POD #3 Robotic sigmoidectomy/left colectomy, takedown of coloenteric fistulas: coloileal by CRS (Johnie) with loop ileostomy creation and coloduodenal by GS (Abilio) with primary repair of duodenotomy in 2 layers. Cystoscopy with placement of
ureteral stents for identification of the ureters by urology (Turner)
NGT minimal bilious outputs
Stoma with minimal bowel sweat
Upper KENRICK (A) near duodenal repair: SSF (nonbilious)
Lower KENRICK (B) in pelivs: SSF
Plan:
--Keep NPO x ice chips for comfort, give meds IV
--Continue NGT through the weekend, will plan SBFT study on Tuesday to evaluate duodenum repair prior to removal
--Anticipate prolonged NPO. Continue TPN via PICC. Dietary following.
--Encourage OOB/Mobility
--Morphine DIRECTOR OF PHYSICAL EDUCATION for pain management
--Initial plan for ABX x4 days in post op period, given h/o polymicrobial abscesses and current leukocytosis will consult ID to assist with management
--Heparin gtt, follow labs, not ready for PO AC
--IS while awake
--Consult stoma nurse to follow
Time Spent
Total Time Spent with Patient (in minutes): 20
Subjective Data
-
Date of Service: April 21, 2025
Interval Events:
No acute events overnight. Slept well. Pain Controlled. Denies Nausea/Vomiting, +bowel function.
Objective Data
-
Intake and Output
04/20/25 04/21/25 04/22/25
06:59 06:59 06:59
Intake Total 3777.5 / 3852.2 2134.8 / 2134.8
Output Total 3000 / 3000 2355 / 2355
Balance 777.5 / 852.2 -220.2 / -220.2
Intake:
Oral fluids 0 / 0
IV fluids (Total) 2150.5 / 2187.2 1058.8 / 1058.8
Amio 250.5 / 267.2 400.8 / 400.8
D5/0.45%NaCl 1,000 ml @ 20 mls/ 300 / 320 480 / 480
hr IV .Q24H PRN Rx#:[id number]
Heparin 178 / 178
Normosol 640 / 640
IV piggybacks 665 / 665
TPN/PPN 342 / 380 956 / 956
Feeding tube flush amount 90 / 90
Amount instilled into GI Tube ( 370 / 370 30 / 30
Total)
Marble Sump 370 / 370 30 / 30
Blood Product Amount Infused ( 250 / 250
mL)
Packed Rbc Leukoreduced Unit 250 / 250
[id number]
Output:
Liquid stool amount 10 / 10
Colostomy 10 / 10
Drain Output (Total) 420 / 420 215 / 215
Right Upper Abdomen Janes- 225 / 225 165 / 165
Pisano A
Right Upper Abdomen Janes- 195 / 195 50 / 50
Pisano B
Gastrointestinal tube output ( 400 / 400 130 / 130
Total)
Marble Sump 400 / 400 130 / 130
Urine, Angulo 2180 / 2180 1650 / 1650
Urine, Voided 350 / 350
Vital Signs
Temp Pulse Resp BP Pulse Ox
97.6 F 91 15 129/83 96
04/21/25 03:12 04/21/25 07:30 04/21/25 07:30 04/21/25 07:30 04/21/25 07:30
Lab Results
04/21/25 04:13
04/21/25 04:13
Calcium 8.0 mg/dl (8.4-10.2) L 04/21/25 04:13
Phosphorus 2.4 mg/dl (2.5-4.5) L 04/21/25 04:13
Magnesium 2.1 mg/dl (1.6-2.3) 04/21/25 04:13
Total Bilirubin 0.3 mg/dl (0.2-1.3) 04/19/25 12:36
AST 16 U/L (14-36) 04/19/25 12:36
ALT < 10 U/L (0-35) 04/19/25 12:36
Alkaline Phosphatase 103 U/L (38-126) 04/19/25 12:36
Total Protein 4.2 g/dl (6.3-8.2) L 04/19/25 12:36
Albumin 2.0 g/dl (3.5-5.0) L 04/19/25 12:36
Physical Exam
-
GENERAL/NEURO: Awake, Alert, no distress
CHEST: Unlabored breathing on RA
ABDOMEN: Soft, Non-Tender, Non-Distended, incisions clean dry and intact. KENRICK A and B both serosanguineous. Ostomy pink patent and productive of green enteric contents. Some air in the bag.
Patient has a angulo catheter: No
Patient has a central line: No
--- NOTE | 2025-04-21 12:00 | PTCARENOTE ---
Pt assessed.Assisted oob to chair with 1 person minimal assist using rolling walker.
[2025-04-21 12:44] LABS: APTT 54.1 Sec (23.4-35.0)
[2025-04-21 14:02] LABS: Glucose - Point of Care 143 mg/dl (70-99)
[2025-04-21] MEDS: HEPARIN 25000 UNITS/250 ML IV (14:36)
--- NOTE | 2025-04-21 16:00 | PTCARENOTE ---
Pt assessed.No change in assessment noted.
[2025-04-21] MEDS: LEVOTHROID 93.75 MCG IV (17:08)
[2025-04-21] MEDS: RELISTOR 12 MG SC (18:24)
[2025-04-21 18:40] LABS: Glucose - Point of Care 106 mg/dl (70-99)
[2025-04-21 20:06] LABS: APTT 116.9 Sec (23.4-35.0)
[2025-04-21] MEDS: Parenteral Nutrition, Central 1220 IV (22:02)
[2025-04-21] MEDS: VALIUM INJECTION 2 MG IV (22:15)
[2025-04-21] MEDS: MYCAMINE 105 MG IV (22:56)
[2025-04-22] VITALS (14 sets, daily range): BP systolic 113–160; BP diastolic 70–109; PULSE 80–82; O2SAT 96; BMI 26.5
--- NOTE | 2025-04-22 00:06 | PTCARENOTE ---
Received pt resting in bed, AAOx3. Reports 6-03/07 abdominal pain. DISTANCE LEARNING ADMINISTRATOR morphine in use for pain. Valium given HS. [facility]. SR on tele. HR 70s. Afebrile. + pulses. Trace LE edema. On RA. Spo2 97%. Lungs dim bibasilar. + bowel sounds. Colostomy with dark
green liquid output. KENRICK drainsx2 on right side with serous output - dressings changed. NG tube flushed per orders, connected to LIWS with green output. NPO except chips. Purewick in place with yellow urine output. MASD under breasts. Bathed with
CHG. Refused mouth care tonight. L TL PICC with heparin gtt, amio gtt, and TPN.
[2025-04-22 00:43] LABS: Glucose - Point of Care 149 mg/dl (70-99)
[2025-04-22] MEDS: NOVOLOG FLEXPEN-LOW RESISTANCE SC ×4 (00:46→18:18)
[2025-04-22] MEDS: OFIRMEV 100 IV ×3 (02:54→15:07)
[2025-04-22 03:33] LABS: Hematocrit 28.7 % (37.0-47.0); Hemoglobin 9.3 g/dL (12.0-16.0); Mean Corp Hgb Conc. 32.4 g/dL (33.0-37.0); Mean Corpuscular Volume 88.3 fL (81.0-99.0); Platelet Count 388 10^3/uL (130-400); Red Cell Dist. Width 18.7 % (11.5-14.5)
[2025-04-22 03:46] LABS: APTT 112.2 Sec (23.4-35.0)
[2025-04-22] MEDS: UNASYN IV ×4 (03:51→21:28)
[2025-04-22] MEDS: D5/0.45%NACL 1000 IV (03:52)
[2025-04-22 04:03] LABS: ALT (SGPT) 10 U/L (0-35); AST (SGOT) 13 U/L (14-36); Albumin 2.0 g/dl (3.5-5.0); Alkaline Phosphatase 130 U/L (38-126); Blood Urea Nitrogen 10 mg/dl (7-17); Calcium 8.0 mg/dl (8.4-10.2); Carbon Dioxide 23 mmol/L (22-30); Chloride 109 mmol/L (98-107); Estimated Creatinine Clearance 78 ml/min; Glucose 131 mg/dl (70-99); Magnesium 1.6 mg/dl (1.6-2.3); Potassium 3.7 mmol/L (3.5-5.1); Sodium 136 mmol/L (135-145); Total Protein 4.3 g/dl (6.3-8.2); Triglycerides 187 mg/dl (10-149); eGFR > 60.00
[2025-04-22] MEDS: MORPHINE PCA 30 IV ×2 (05:29→18:58)
[2025-04-22] MEDS: VANCOCIN 200 IV (05:38)
[2025-04-22 05:51] LABS: Glucose - Point of Care 133 mg/dl (70-99)
[2025-04-22] MEDS: COMPAZINE 5 MG IV ×3 (06:26→20:33)
--- NOTE | 2025-04-22 07:35 | W.PN.HOSP.TC ---
Today's Communication/Plan
-
See plan
Assessment / Plan
Assessment / Plan
Physical Exam
Gen: NAD, AAOx3.
HEENT: Normocephalic
Neck: supple.
CV: continues to remain RRR, +S1/S2
Resp: continues to remain CTAB anteriorly
Abd: +BS, soft, NT to light palpation, ND
Skin: Warm. Dry.
Neuro: CN 2-12 intact, non-focal.
Psych: Normal mood and affect.
Assessment/plan
64-year-old female with complicated diverticulitis initially presented in October 2024 with abscesses. Wound culture was positive for Streptococcus, yeast at that time. She was discharged on antibiotics, improved. Then returned February 2025 with
recurrence of abscesses, coloenteric fistula. Wound cultures positive for Enterococcus, yeast, discharged on antibiotics. Readmitted 04/18/2025 for robotic sigmoidectomy. Procedure done.
#Complicated diverticulitis complicated by abscesses, 2 coloenteric fistulas S/p robotic sigmoidectomy/left colectomy, takedown of 2 coloenteric fistulas with creation of loop ileostomy 04/18
#Residual small abscess left retroperitoneum
-Brief history: diverticulitis complicated by abscess formation 2024, returned in February 2025 with multiple abscesses, discharged on antibiotics, returned for robotic sigmoidectomy/left colectomy, takedown of coloenteric fistula
with creation of loop ileostomy, primary repair of duodenotomy in 2 layers. She had significant blood loss intraoperatively received TXA and 2 units during case. She had been transferred to ICU for further management
04/19/25
-Primary repair of duodenotomy 04/18 (as above)
-Recent sepsis secondary to complicated diverticulitis with abscesses requiring IR tubes for drainage
-Prior abscess culture positive for Enterococcus, yeast and diphtheroids
-Continue Unasyn, micafungin (d5), IV vancomycin(D3) added to regimen
-Morphine ROLL FILLER for pain control
-N.p.o., currently on TPN
-NGT -- surgery will plan SBFT per general surgery to evaluate duodenum repair prior to removal of NGT
-Phelan catheter were previously placed
-NPO including meds, currently on TPN
-GI series as per colorectal surgery
-Encourage OOB/Mobility
#Abdominal aortic thrombus possible ALEJANDRO obstruction
-Evaluate by vascular surgery who recommended anticoagulation with Eliquis 5 twice daily
-Currently on heparin GTT
#Recently diagnosed atrial flutter with RVR
-Rate controlled with amiodarone IV drip
-Continue anticoagulation with heparin gtt (in lieu of home Eliquis)
#Acute on chronic anemia
-750 cc of acute blood loss anemia with oozing, s/p 2 units PRBCs
-Monitor H&H
-No overt signs of bleeding
#Hypothyroidism
-IV Synthroid
#Asthma
-Continue albuterol as needed
-Hold montelukast
#Chronic hyponatremia
#Essential Hypertension
-Blood pressures are elevated/stable
#Anxiety
-As needed IV Ativan daily for anxiety
#Hyperlipidemia
-Resume statin when tolerates p.o.
#GERD
-Protonix 40 IV daily
#Chronic thrombocytosis
#Essential hypertension
CODE STATUS full code
DVT prophylaxis heparin GTT
Patient on NG tube, Heparin Drip, antifungal and broad spectrum antibiotics and TPN is a high risk encounter.
Anticipated Discharge: > 48 hours
Subjective/Interval History
-
Date of Service: April 22, 2025
Patient was seen and examined. She reported abdominal pain has improved overall. She still had some nausea. She denied any fever, chest pain, shortness of breath or feelings of leg swelling.
Objective Data
-
Labs:
Laboratory Results
04/21/25 04/22/25 04/22/25
19:28 02:50 03:07
WBC 16.8 H
Hgb 9.3 L
Hct 28.7 L
Plt Count 388
APTT 116.9 H Cancelled 112.2 H
Sodium 136
Potassium 3.7
Chloride 109 H
Carbon Dioxide 23
BUN 10
Creatinine 0.6
Glucose 131 H
Calcium 8.0 L
Total Bilirubin 0.2
AST 13 L
ALT 10
Alkaline Phosphatase 130 H
04/22/25
10:00
WBC
Hgb
Hct
Plt Count
APTT Pending
Sodium
Potassium
Chloride
Carbon Dioxide
BUN
Creatinine
Glucose
Calcium
Total Bilirubin
AST
ALT
Alkaline Phosphatase
Vital Signs:
Vital Signs
Temp Pulse Resp BP Pulse Ox
97.5 F 83 17 149/86 97
04/22/25 03:00 04/22/25 06:00 04/22/25 06:00 04/22/25 06:00 04/22/25 06:00
I&O
04/21/25 04/22/25 04/23/25
06:59 06:59 06:59
Intake Total 2134.8 / 2231.5 2891.8 / 2891.8
Output Total 2355 / 2355 1919 / 192
Balance -220.2 / -123.5 971.8 / 971.8
[2025-04-22] MEDS: NSS (PRESERVATIVE FREE) 10 ML IV (07:44)
[2025-04-22] MEDS: PROTONIX IV 40 MG IV (07:44)
[2025-04-22] MEDS: DESENEX/MITRAZOL/ZEASORB 1 APPLIC TOPICAL ×2 (07:45→21:31)
--- NOTE | 2025-04-22 10:19 | PHA.VAN.FU ---
Vancomycin Assessment / Plan
- Assessment
Renal Function: Stable
WBC's are: Trending Down
In the past 24 hrs, patient has been: Afebrile
Concomitant Antimicrobials: Unasyn 3 gram IV q6h, Miafungin 100 mg IV q24h
- Dosing Plan
Continue: Vancomycin 1000 mg IV q24h
- Monitoring Plan
Trough Level: 04/23 at 05:30 AM
Pre steady state trough ordered as patients Scr is improving
- Follow Up
Pharmacy will continue to follow.
Vancomycin Follow UP
- -
Patient Age: 64
Patient Sex: Female
Vancomycin Day #: 3
Indication: Gi / Intra-Abdominal
Requesting Provider: Dr. Carver
Pertinent Antimicrobial Allergies:
no pertinent antibiotic allergies
Height / Weight:
Height 5 ft 3 in
Actual Weight 67.8 kg
- Vital Signs / Lab Results
Temp Pulse Resp BP Pulse Ox
97.5 F 83 17 149/86 97
04/22/25 03:00 04/22/25 06:00 04/22/25 06:00 04/22/25 06:00 04/22/25 06:00
Lab Results - Hematology
04/20/25 04/20/25 04/21/25
04:06 13:05 04:13
WBC 17.5 H 21.5 H 17.3 H
04/22/25
03:07
WBC 16.8 H
Lab Results - Chemistry
04/19/25 04/20/25 04/21/25
12:36 04:06 04:13
BUN 16 18 H 13
Creatinine 1.0 0.9 0.7
Estimated Creat Clear 47 52 67
Albumin 2.0 L
04/22/25
03:07
BUN 10
Creatinine 0.6
Estimated Creat Clear 78
Albumin 2.0 L
Microbiology Results
04/19/25 05:44 MRSA Screen - Final
Nose No Methicillin Resistant Staphylococcus aureus isolated.
--- NOTE | 2025-04-22 10:30 | PTCARENOTE ---
Pt off the floor [id number] for GI series.
--- NOTE | 2025-04-22 10:36 | W.PN.ID1 ---
Date of Service
Date of Service: April 22, 2025
Today's Communication
Continue current antibiotics.
Assessment / Plan
# Leukocytosis improved today
# Residual small abscess left retroperitoneum
# Recent h/o of complicated diverticular abscesses / coloenteric fistulae; status post PERC drain and course of Unasyn plus micafungin.
# 04/18 s/p robotic left colectomy, takedown of two coloenteric fistulas (coloduodenal and coloileal), repair of duodenotomy, loop ileostomy. Small mucopurulent abscess noted in (L) RP.
Recommendations:
- Previous 03/08 abd abcess cx: C. dubliniensis, E faecalis, diphtheroid, Lactobacillus rhamnosus.
- Continue Unasyn and Micafungin (d#5)
- Continue IV Vancomycin (d#3)
- Trend wbc
Chief Complaint
-: Leukocytosis
Subjective / Review of Systems
Patient seen and examined. No specific complaints at present. Pain controlled.
Review of Systems: No Fever and No Chills
Vital Signs / Physical Exam
Vital Signs
Vital Signs
Temp Pulse Resp BP Pulse Ox
97.5 F 83 17 149/86 97
04/22/25 03:00 04/22/25 06:00 04/22/25 06:00 04/22/25 06:00 04/22/25 06:00
Physical Exam
Constitutional: No Acute Distress
Head: Other (NGT)
Cardiovascular: Regular Rate and S1/S2
Pulmonary: Clear
Gastrointestinal: Soft, Tender (mild), Decreased Bowel Sounds and Other (KENRICK drains x 2 serosanguinous fluid. [address] place.)
Extremities: Negative Edema
Neurological: AO x 3
Lines: PICC (LUE)
Objective Data
Lab Data
Lab Results
04/22/25 03:07
04/22/25 03:07
PT 15.1 Sec (11.4-14.6) H 04/19/25 15:27
INR 1.16 04/19/25 15:27
APTT 112.2 Sec (23.4-35.0) H 04/22/25 03:07
Estimated Creat Clear 78 ml/min 04/22/25 03:07
Total Bilirubin 0.2 mg/dl (0.2-1.3) 04/22/25 03:07
AST 13 U/L (14-36) L 04/22/25 03:07
ALT 10 U/L (0-35) 04/22/25 03:07
Alkaline Phosphatase 130 U/L (38-126) H 04/22/25 03:07
Most recent labs reviewed.
Micro Results:
04/19/25 05:44 MRSA Screen - Final
Nose No Methicillin Resistant Staphylococcus aureus isolated.
Imaging:
04/18 CXR: Left PICC line is present with tip in good position, within the SVC.
--- NOTE | 2025-04-22 10:52 | W.PN.CRS1 ---
Today's Communication / Plan
-
tpn
sbft per general
Assessment/Plan
-
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
H/O Aortic thrombus with partial ALEJANDRO obstruction, has been on Eliquis which was held for OR
POD #4 Robotic sigmoidectomy/left colectomy, takedown of coloenteric fistulas: coloileal by CRS (Johnie) with loop ileostomy creation and coloduodenal by GS (Abilio) with primary repair of duodenotomy in 2 layers. Cystoscopy with placement of
ureteral stents for identification of the ureters by urology (Turner)
NGT minimal bilious outputs (around 30ml)
Stoma 325ml
Upper KENRICK (A) near duodenal repair: SSF (nonbilious)
Lower KENRICK (B) in pelvis: SSF
Total drain output around 330ml
hgb 9.3 (9.5)
Plan:
--Keep NPO x ice chips for comfort, give meds IV
--Continue NGT through the weekend, will plan SBFT per general surgery to evaluate duodenum repair prior to removal
--Anticipate prolonged NPO. Continue TPN via PICC. Dietary following.
--Encourage OOB/Mobility
--Morphine CONSTRUCTION CONSULTANT for pain management
--Appreciate ID consult, on unasyn
--Heparin gtt, follow labs, not ready for PO AC
--IS while awake
--Consult stoma nurse to follow
Subjective Data
Procedure
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
Subjective Data
Date of Service: April 22, 2025
Patient states she is feeling a little bit better today. She still feels very tired. Her pain is controlled on CONSTRUCTION CONSULTANT. Denies nausea or vomiting.
Objective Data
-
Vital Signs
Temp Pulse Resp BP Pulse Ox
97.5 F 83 17 149/86 97
04/22/25 03:00 04/22/25 06:00 04/22/25 06:00 04/22/25 06:00 04/22/25 06:00
Intake & Output
04/21/25 04/22/25 04/23/25
06:59 06:59 06:59
Intake Total 2134.8 / 2231.5 2891.8 / 2990.5 197.4 / 197.4
Output Total 2355 / 2355 1920 / 1920
Balance -220.2 / -123.5 971.8 / 1070.5 197.4 / 197.4
Intake:
IV fluids (Total) 1058.8 / 1105.5 1161.8 / 1209.5 95.4 / 95.4
Amio 400.8 / 417.5 400.8 / 417.5 33.4 / 33.4
D5/0.45%NaCl 1,000 ml @ 20 mls/ 480 / 500 480 / 500 40 / 40
hr IV .Q24H PRN Rx#:[id number]
Heparin 178 / 188 281 / 292 22 / 22
IV piggybacks 400 / 400
TPN/PPN 956 / 1006 1210 / 1261 102 / 102
Feeding tube flush amount 90 / 90
Amount instilled into GI Tube ( 30 / 30 120 / 120
Total)
[place] Sump 30 / 30 120 / 120
Output:
Liquid stool amount 325 / 325
Colostomy 325 / 325
Drain Output (Total) 215 / 215 195 / 195
Right Upper Abdomen Janes- 165 / 165 115 / 115
Pisano A
Right Upper Abdomen Janes- 50 / 50 80 / 80
Pisano B
Gastrointestinal tube output ( 130 / 130 300 / 300
Total)
[place] Sump 130 / 130 300 / 300
Urine, Phelan 1650 / 1650
Urine, Voided 350 / 350 1100 / 1100
Other:
How many times incontinent 1
SATURATED amount urine
Lab Results
04/22/25 03:07
04/22/25 03:07
Physical Exam
-
General: No Acute Distress and AOx3
Abdomen: Soft and Tender (around incisions)
Skin: Warm and Dry
Incision: Clear, Dry, Intact
--- NOTE | 2025-04-22 11:55 | W.PN.GS2 ---
Today's Communication / Plan
-
SBFT
C/W drains
Assessment / Plan
-
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
H/O Aortic thrombus with partial ALEJANDRO obstruction, has been on Eliquis which was held for OR
POD #4 Robotic sigmoidectomy/left colectomy, takedown of coloenteric fistulas: coloileal by CRS (Johnie) with loop ileostomy creation and coloduodenal by GS (Abilio) with primary repair of duodenotomy in 2 layers. Cystoscopy with placement of
ureteral stents for identification of the ureters by urology (Turner)
NGT minimal bilious outputs
Stoma with some stool outputs now
Upper KENRICK (A) near duodenal repair: SSF (nonbilious)
Lower KENRICK (B) in pelivs: SSF
AFVSS
Leukocytosis trending down
h/h stable on AC
Hypophosphatemia resolved, renal function stable
Plan:
--Keep NPO x ice chips for comfort, give meds IV
--SBFT study today to evaluate duodenum repair prior to removal of NGT
--Continue TPN via PICC as per CRS. Dietary following.
--Encourage OOB/Mobility
--Morphine SALT WASHER for pain management
--ABX as per ID
--Heparin gtt, follow labs, not ready for PO AC
--IS while awake
--Consult stoma nurse to follow
--Transfer to IMU when bed available
Subjective Data
-
Date of Service: April 22, 2025
Pt seen and examined at bedside with Dr. Knox. Denies n/v. OOB to chair. Tired today. Pain well managed with rounder and backer.
Objective Data
-
Intake and Output
04/21/25 04/22/25 04/23/25
06:59 06:59 06:59
Intake Total 2134.8 / 2231.5 2891.8 / 2990.5 197.4 / 197.4
Output Total 2355 / 2355 1920 / 1920
Balance -220.2 / -123.5 971.8 / 1070.5 197.4 / 197.4
Intake:
IV fluids (Total) 1058.8 / 1105.5 1161.8 / 1209.5 95.4 / 95.4
Amio 400.8 / 417.5 400.8 / 417.5 33.4 / 33.4
D5/0.45%NaCl 1,000 ml @ 20 mls/ 480 / 500 480 / 500 40 / 40
hr IV .Q24H PRN Rx#:[id number]
Heparin 178 / 188 281 / 292 22 / 22
IV piggybacks 400 / 400
TPN/PPN 956 / 1006 1210 / 1261 102 / 102
Feeding tube flush amount 90 / 90
Amount instilled into GI Tube ( 30 / 30 120 / 120
Total)
[place] Sump 30 / 30 120 / 120
Output:
Liquid stool amount 10 / 10 325 / 325
Colostomy 10 / 10 325 / 325
Drain Output (Total) 215 / 215 195 / 195
Right Upper Abdomen Janes- 165 / 165 115 / 115
Pisano A
Right Upper Abdomen Janes- 50 / 50 80 / 80
Pisano B
Gastrointestinal tube output ( 130 / 130 300 / 300
Total)
[place] Sump 130 / 130 300 / 300
Urine, Angulo 1650 / 1650
Urine, Voided 350 / 350 1100 / 1100
Other:
How many times incontinent 1
SATURATED amount urine
Vital Signs
Temp Pulse Resp BP Pulse Ox
97.5 F 83 17 149/86 97
04/22/25 03:00 04/22/25 06:00 04/22/25 06:00 04/22/25 06:00 04/22/25 06:00
Lab Results
04/22/25 03:07
04/22/25 03:07
Calcium 8.0 mg/dl (8.4-10.2) L 04/22/25 03:07
Phosphorus 3.0 mg/dl (2.5-4.5) 04/22/25 03:07
Magnesium 1.6 mg/dl (1.6-2.3) 04/22/25 03:07
Total Bilirubin 0.2 mg/dl (0.2-1.3) 04/22/25 03:07
AST 13 U/L (14-36) L 04/22/25 03:07
ALT 10 U/L (0-35) 04/22/25 03:07
Alkaline Phosphatase 130 U/L (38-126) H 04/22/25 03:07
Total Protein 4.3 g/dl (6.3-8.2) L 04/22/25 03:07
Albumin 2.0 g/dl (3.5-5.0) L 04/22/25 03:07
Physical Exam
-
GENERAL/NEURO: Awake, Alert, no distress
CHEST: Unlabored breathing on RA
ABDOMEN: Soft, Non-Tender, Non-Distended, incisions clean dry and intact. KENRICK A and B both serosanguineous. Ostomy pink patent and productive of stool. Some air in the bag.
Patient has a angulo catheter: No
Patient has a central line: Yes (PICC)
[2025-04-22] MEDS: HEPARIN 25000 UNITS/250 ML IV (12:32)
[2025-04-22 13:07] LABS: APTT 99.2 Sec (23.4-35.0)
[2025-04-22 13:21] LABS: Glucose - Point of Care 147 mg/dl (70-99)
--- NOTE | 2025-04-22 13:42 | PTCARENOTE ---
Noted RLL crackles. Educated on and encouraged use of I/S. Pt noted to be using frequently, currently to <500ml. Encouraged to cough.
Purewick d/c'd. Ambulating with walker and staff for supervision and IV pump/line management.
--- NOTE | 2025-04-22 15:06 | CM ---
S/P perforated diverticulitis. POD #4 Robotic sigmoidectomy/left colectomy, takedown of coloenteric fistulas. NPO, NGT, TPN, IV/AB, encourage mobility, 2 KENRICK drains. Discharge POC: Therapy recommendation is SNF. Patient wants to resume STR at
[facility]. Referral previously forwarded.
--- NOTE | 2025-04-22 15:30 | WOUNDNOTE ---
[facility] RN note: Patient s/p ostomy surgery
See H&P for complete history.
PMH: diverticulitis
Ostomy location and type: RUQ stoma pink, bridge in use, peristomal skin intact.
Instructed patient ostomy pouch emptying and changing appliance using Carola wafer # [id number]
Carola pouch # [id number] Had patient open and close tail end without difficulty.
Ostomy supplies ordered from [facility] and at bedside.
Note to case management: VN services recommended for ostomy teaching.
Nursing care plan updated, will follow as needed.
--- NOTE | 2025-04-22 15:31 | WOUNDNOTE ---
[facility] RN note: Patient s/p ostomy surgery
See H&P for complete history.
PMH: diverticulitis
Ostomy location and type: RUQ stoma pink, bridge in use, peristomal skin intact. Patient reports no family will be involved with appliance change or emptying, wants to be able to do on own. Reviewed Ileostomy folder at bedside and answered all
questions.
Instructed patient ostomy pouch emptying and changing appliance using Carola wafer # [id number]
[place] pouch # [id number] Had patient open and close tail end without difficulty. Encouraged patient to assist more next pouch change.
Ostomy supplies ordered from [facility] and at bedside.
Note to case management: VN services recommended for ostomy teaching.
Nursing care plan updated, will follow as needed.
--- NOTE | 2025-04-22 15:35 | WOUNDNOTE ---
WON Note Addendum: Had patient turn self to sides, sacrum and heels are intact, pillow in use under calves.
[2025-04-22] MEDS: LEVOTHROID 93.75 MCG IV (18:17)
[2025-04-22 18:43] LABS: APTT 92.8 Sec (23.4-35.0)
--- NOTE | 2025-04-22 19:32 | PTCARENOTE ---
Pt arrived to floor in bed from ICU; Pt settled into room and assessment performed; AAO x 3; SR on monitor; Heparin/Morphine IRS AGENT, Amio and TPN infusing into triple lumen PICC on Left; New IV placed by VAT in RFA for IV Abx; Pt reports 02/05
pain throughout abd - using morphine IRS AGENT; Right KENRICK drains intact with drainage noted at abd site - dressing changed; Ileostomy draining green black liquid. R he espitia sump in place to suction draining brown liquid. Will continue to monitor and
assess.
[2025-04-22] MEDS: Parenteral Nutrition, Central 1360 IV (21:05)
[2025-04-22] MEDS: CORDARONE 518 MG IV (21:27)
[2025-04-22] MEDS: MYCAMINE 105 MG IV (21:30)
[2025-04-22] MEDS: VALIUM INJECTION 2 MG IV (22:16)
[2025-04-23] VITALS (13 sets, daily range): BP systolic 109–176; BP diastolic 80–102; BMI 26.4
[2025-04-23] MEDS: NOVOLOG FLEXPEN-LOW RESISTANCE SC ×4 (00:07→23:16)
[2025-04-23 00:09] LABS: Glucose - Point of Care 130 mg/dl (70-99)
[2025-04-23] MEDS: COMPAZINE 5 MG IV ×4 (02:33→21:13)
[2025-04-23] MEDS: UNASYN IV ×4 (05:06→21:04)
[2025-04-23] MEDS: BENADRYL 12.5 MG IV (05:06)
[2025-04-23 05:43] LABS: Hematocrit 26.2 % (37.0-47.0); Hemoglobin 8.5 g/dL (12.0-16.0); Mean Corp Hgb Conc. 32.4 g/dL (33.0-37.0); Mean Corpuscular Volume 87.3 fL (81.0-99.0); Nucleated Red Blood Cells % 0 %; Platelet Count 396 10^3/uL (130-400); Red Cell Dist. Width 18.7 % (11.5-14.5)
[2025-04-23] MEDS: VANCOCIN 200 IV (05:56)
[2025-04-23 06:23] LABS: APTT 44.7 Sec (23.4-35.0)
[2025-04-23] MEDS: FLUSH (NSS) 1 FLUSH IV (06:36)
[2025-04-23 06:56] LABS: Glucose - Point of Care 163 mg/dl (70-99)
[2025-04-23] MEDS: NOVOLOG FLEXPEN-LOW RESISTANCE 1 UNITS SC (07:17)
--- NOTE | 2025-04-23 08:43 | W.PN.ID1 ---
Date of Service
Date of Service: April 23, 2025
Today's Communication
Continue current antibiotics. Follow white count.
Assessment / Plan
# Leukocytosis improved today
# Residual small abscess left retroperitoneum
# Recent h/o of complicated diverticular abscesses / coloenteric fistulae; status post PERC drain and course of Unasyn plus micafungin.
# 04/18 s/p robotic left colectomy, takedown of two coloenteric fistulas (coloduodenal and coloileal), repair of duodenotomy, loop ileostomy. Small mucopurulent abscess noted in (L) RP.
Recommendations:
- Previous 03/08 abd abcess cx: C. dubliniensis, E faecalis, diphtheroid, Lactobacillus rhamnosus.
- Continue Unasyn and Micafungin (d#6)
- Continue IV Vancomycin (d#4)
- Trend wbc
����������������������������������������������������������
Chief Complaint
-: Leukocytosis
Subjective / Review of Systems
Patient seen and examined. Reports pain controlled; currently 02/05. Some nausea today. NG tube remains in place.
Review of Systems: No Fever and No Chills
Vital Signs / Physical Exam
Vital Signs
Vital Signs
Temp Pulse Resp BP Pulse Ox
98.6 F 92 14 164/83 96
04/23/25 02:27 04/23/25 06:00 04/23/25 06:00 04/23/25 06:00 04/23/25 03:45
Physical Exam
Constitutional: No Acute Distress
Head: Other (NGT to suction)
Eyes: Sclera Anicteric
Cardiovascular: Regular Rate and S1/S2; Negative S3/S4
Pulmonary: Clear; Negative Wheezes
Gastrointestinal: Soft, Tender (mild), Decreased Bowel Sounds and Other (KENRICK drains x [address].)
Extremities: Negative Edema
Neurological: AO x 3
Psychological: Other (Melancholy)
Lines: PICC (LUE)
Objective Data
Lab Data
Lab Results
04/23/25 05:15
04/22/25 03:07
PT 15.1 Sec (11.4-14.6) H 04/19/25 15:27
INR 1.16 04/19/25 15:27
APTT 44.7 Sec (23.4-35.0) H 04/23/25 05:15
Estimated Creat Clear 78 ml/min 04/22/25 03:07
Total Bilirubin 0.2 mg/dl (0.2-1.3) 04/22/25 03:07
AST 13 U/L (14-36) L 04/22/25 03:07
ALT 10 U/L (0-35) 04/22/25 03:07
Alkaline Phosphatase 130 U/L (38-126) H 04/22/25 03:07
Most recent labs reviewed.
Micro Results:
04/19/25 05:44 MRSA Screen - Final
Nose No Methicillin Resistant Staphylococcus aureus isolated.
Imaging:
04/18 CXR: Left PICC line is present with tip in good position, within the SVC.
Care Review
Plan reviewed with: Physician (CRS)
--- NOTE | 2025-04-23 08:46 | PHA.VAN.FU ---
Vancomycin Assessment / Plan
- Assessment
Renal Function: Stable
WBC's are: Stable
In the past 24 hrs, patient has been: Afebrile
Concomitant Antimicrobials: ampicillin/sulbactam, micafungin
- Assessment - Trough Based Monitoring
Trough Value: 10.2 - drawn ~23.5H after 2nd scheduled dose
Level Today was: Appropriate, At Pre-Steady State
- Dosing Plan
Continue: Vanc 1000mg Q24H
- Monitoring Plan
No level(s) ordered at this time: consider repeat levels in next few days
- Follow Up
Pharmacy will continue to follow.
Vancomycin Follow UP
- -
Patient Age: 64
Patient Sex: Female
Vancomycin Day #: 4
Indication: Gi / Intra-Abdominal
Requesting Provider: Dr. Carver
Pertinent Antimicrobial Allergies:
no pertinent antibiotic allergies
Height / Weight:
Height 5 ft 3 in
Actual Weight 67.7 kg
- Vital Signs / Lab Results
Temp Pulse Resp BP Pulse Ox
98.6 F 92 14 164/83 96
04/23/25 02:27 04/23/25 06:00 04/23/25 06:00 04/23/25 06:00 04/23/25 03:45
Lab Results - Hematology
04/20/25 04/21/25 04/22/25
13:05 04:13 03:07
WBC 21.5 H 17.3 H 16.8 H
04/23/25
05:15
WBC 16.9 H
Lab Results - Chemistry
04/21/25 04/22/25
04:13 03:07
BUN 13 10
Creatinine 0.7 0.6
Estimated Creat Clear 67 78
Albumin 2.0 L
Therapeutic Drug Monitoring
Vancomycin Trough 10.2 ug/ml (5-20) 04/23/25 05:15
[2025-04-23] MEDS: DESENEX/MITRAZOL/ZEASORB 1 APPLIC TOPICAL ×2 (09:20→20:29)
[2025-04-23] MEDS: NSS (PRESERVATIVE FREE) 10 ML IV (09:21)
[2025-04-23] MEDS: PROTONIX IV 40 MG IV (09:21)
--- NOTE | 2025-04-23 09:47 | CM ---
Patient seen in IMU, patient states that she does not feel good at this time, Nursing updated. Patient continues to want to go back to [facility] for further rehab. Patient will need updated referrals sent via all scripts. CM will continue to
follow for discharge planning needs.
Plan; referral to [facility] for STC; pending medical treatment plan
--- NOTE | 2025-04-23 10:23 | W.PN.GS2 ---
Today's Communication / Plan
-
--NGT clamp trial, continue with NPO, given proximal duodenal repair and risks for ileus with mild nausea
--Repeat X-ray abd for contrast progression
Assessment / Plan
-
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
H/O Aortic thrombus with partial ALEJANDRO obstruction, has been on Eliquis which was held for OR
POD #5 Robotic sigmoidectomy/left colectomy, takedown of coloenteric fistulas: coloileal by CRS (Johnie) with loop ileostomy creation and coloduodenal by GS (Abilio) with primary repair of duodenotomy in 2 layers. Cystoscopy with placement of
ureteral stents for identification of the ureters by urology (Turner)
NGT minimal non-bilious outputs
Stoma with some bilious output
Upper KENRICK (A) near duodenal repair: SSF (nonbilious)
Lower KENRICK (B) in pelivs: SSF
AFVSS
Leukocytosis stable elevation
H/h stable on AC
Hypophosphatemia resolved, renal function stable
Plan:
--NGT clamp trial, continue with NPO, given proximal duodenal repair and risks for ileus with mild nausea
--Repeat X-ray abd for contrast progression
--Continue TPN via PICC as per CRS. Dietary following.
--Encourage OOB/Mobility
--Morphine SHOE COBBLER for pain management
--ABX as per ID
--Heparin gtt, follow labs, not ready for PO AC
--IS while awake
--Consult stoma nurse to follow
--Transfer to IMU when bed available
Subjective Data
-
Date of Service: April 23, 2025
No specific complaints. Denies worsening abdominal pain. Mild nausea overnight. Reports passing some liquid via ostomy, no flatus. Minimal ambulation. Voiding.
Objective Data
-
Intake and Output
04/22/25 04/23/25 04/24/25
06:59 06:59 06:59
Intake Total 2891.8 / 2990.5 1643.1 / 1643.1 235 / 2356
Output Total 1920 / 1920 920 / 920
Balance 971.8 / 1070.5 723.1 / 723.1 2355
Intake:
IV fluids (Total) 1161.8 / 1209.5 580.1 / 580.1
Amio 400.8 / 417.5 217.1 / 217.1
D5/0.45%NaCl 1,000 ml @ 20 mls/ 480 / 500 220 / 220
hr IV .Q24H PRN Rx#:[id number]
Heparin 281 / 292 143 / 143
IV piggybacks 400 / 400 200 / 200 872 / 872
TPN/PPN 1210 / 1261 663 / 663 684 / 684
Feeding tube flush amount 200 / 200
Amount instilled into GI Tube ( 120 / 120 800 / 800
Total)
[place] Sump 120 / 120 800 / 800
Output:
Liquid stool amount 325 / 325 175 / 175
Colostomy 325 / 325 175 / 175
Drain Output (Total) 195 / 195 195 / 195
Right Upper Abdomen Janes- 115 / 115 135 / 135
Pisano A
Right Upper Abdomen Janes- 80 / 80 60 / 60
Pisano B
Gastrointestinal tube output ( 300 / 300
Total)
[place] Sump 300 / 300
Urine, Voided 1100 / 1100 550 / 550
Other:
Number of approximated SMALL 1
amounts of urine
Number of approximated MODERATE 1
amounts of urine
How many times incontinent 1 1
SATURATED amount urine
Vital Signs
Temp Pulse Resp BP Pulse Ox
98.6 F 98 19 146/84 96
04/23/25 02:27 04/23/25 08:00 04/23/25 08:00 04/23/25 08:00 04/23/25 03:45
Lab Results
04/23/25 05:15
04/22/25 03:07
Calcium 8.0 mg/dl (8.4-10.2) L 04/22/25 03:07
Phosphorus 3.0 mg/dl (2.5-4.5) 04/22/25 03:07
Magnesium 1.6 mg/dl (1.6-2.3) 04/22/25 03:07
Total Bilirubin 0.2 mg/dl (0.2-1.3) 04/22/25 03:07
AST 13 U/L (14-36) L 04/22/25 03:07
ALT 10 U/L (0-35) 04/22/25 03:07
Alkaline Phosphatase 130 U/L (38-126) H 04/22/25 03:07
Total Protein 4.3 g/dl (6.3-8.2) L 04/22/25 03:07
Albumin 2.0 g/dl (3.5-5.0) L 04/22/25 03:07
Physical Exam
-
Gen: NAD
HEENT: NGT low volume, non-bilious output
Abd: soft, mild tenderness, mild distension, non-peritoneal, incision c/d/i, ostomy PPV - mild bilious effluent, no stool or flatus, KENRICK serosang, non-bilious
Patient has a angulo catheter: No
Patient has a central line: Yes
--- NOTE | 2025-04-23 11:20 | W.PN.CRS1 ---
Today's Communication / Plan
-
NG tube per general surgery
Maintain drains
Heparin drip
Continue TPN
Assessment/Plan
-
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
H/O Aortic thrombus with partial ALEJANDRO obstruction, has been on Eliquis which was held for OR
POD #4 Robotic sigmoidectomy/left colectomy, takedown of coloenteric fistulas: coloileal by CRS (Johnie) with loop ileostomy creation and coloduodenal by GS (Abilio) with primary repair of duodenotomy in 2 layers. Cystoscopy with placement of
ureteral stents for identification of the ureters by urology (Turner)
NGT minimal bilious outputs
Stoma 175 ml
Upper VARGAS (A) near duodenal repair: SSF (nonbilious)
Lower VARGAS (B) in pelvis: SSF
Total drain output around 195 mL
hgb 8.5 (9.3) , WBC 16.9 (16.8)
Plan:
--Keep NPO for now.
--NG tube per general surgery. There was an ileus on the x-ray. She is undergoing a clamping trial today.
--Anticipate prolonged NPO. Continue TPN via PICC. Dietary following.
--Encourage OOB/Mobility. PT and OT ordered.
--Morphine AUTO PARTS PROFESSIONAL for pain management
--Appreciate ID consult, on unasyn, micafungin, and vancomycin
--Heparin gtt, follow labs, not ready for PO AC. Teds and SCDs also in place.
--IS while awake
--Wound RN for stoma management
Subjective Data
Procedure
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
Subjective Data
Date of Service: April 23, 2025
Patient states she would like to get up and walk out of bed more. The NG tube is bothering her. She has some mild nausea overnight which has resolved. She is passing some stool in her ostomy.
Objective Data
-
Vital Signs
Temp Pulse Resp BP Pulse Ox
97.5 F 98 19 146/84 96
04/23/25 07:15 04/23/25 08:00 04/23/25 08:00 04/23/25 08:00 04/23/25 03:45
Intake & Output
04/22/25 04/23/25 04/24/25
06:59 06:59 06:59
Intake Total 2891.8 / 2990.5 1643.1 / 1643.1 235 / 2356
Output Total 1920 / 1920 920 / 920
Balance 971.8 / 1070.5 723.1 / 723.1 235 / 2356
Intake:
IV fluids (Total) 1161.8 / 1209.5 580.1 / 580.1
Amio 400.8 / 417.5 217.1 / 217.1
D5/0.45%NaCl 1,000 ml @ 20 mls/ 480 / 500 220 / 220
hr IV .Q24H PRN Rx#:[id number]
Heparin 281 / 292 143 / 143
IV piggybacks 400 / 400 200 / 200 872 / 872
TPN/PPN 1210 / 1261 663 / 663 684 / 684
Feeding tube flush amount 200 / 200
Amount instilled into GI Tube ( 120 / 120 800 / 800
Total)
[place] Sump 120 / 120 800 / 800
Output:
Liquid stool amount 325 / 325 175 / 175
Colostomy 325 / 325 175 / 175
Drain Output (Total) 195 / 195 195 / 195
Right Upper Abdomen [place]- 115 / 115 135 / 135
Pisano A
Right Upper Abdomen Janes- 80 / 80 60 / 60
Pisano B
Gastrointestinal tube output ( 300 / 300
Total)
[place] Sump 300 / 300
Urine, Voided 1100 / 1100 550 / 550
Other:
Number of approximated SMALL 1
amounts of urine
Number of approximated MODERATE 1
amounts of urine
How many times incontinent 1 1
SATURATED amount urine
Lab Results
04/23/25 05:15
04/22/25 03:07
Physical Exam
-
General: No Acute Distress and AOx3
Abdomen: Soft, Non Distended, Non Tender and Other (vargas serosanginous)
Skin: Warm and Dry
[2025-04-23] MEDS: HEPARIN 25000 UNITS/250 ML IV (12:05)
[2025-04-23 12:25] LABS: Glucose - Point of Care 139 mg/dl (70-99)
--- NOTE | 2025-04-23 12:53 | W.PN.HOSP.TC ---
Today's Communication/Plan
-
See plan
Assessment / Plan
Assessment / Plan
Physical Exam
Gen: NAD, AAOx3.
HEENT: Normocephalic
Neck: supple.
CV: continues to remain RRR, +S1/S2
Resp: continues to remain CTAB anteriorly
Abd: +BS, soft, NT to light palpation, ND
Skin: Warm. Dry.
Neuro: CN 2-12 intact, non-focal.
Psych: Normal mood and affect.
Assessment/plan
64-year-old female with complicated diverticulitis initially presented in October 2024 with abscesses. Wound culture was positive for Streptococcus, yeast at that time. She was discharged on antibiotics, improved. Then returned February 2025 with
recurrence of abscesses, coloenteric fistula. Wound cultures positive for Enterococcus, yeast, discharged on antibiotics. Readmitted 04/18/2025 for robotic sigmoidectomy. Procedure done.
#Complicated diverticulitis complicated by abscesses, 2 coloenteric fistulas S/p robotic sigmoidectomy/left colectomy, takedown of 2 coloenteric fistulas with creation of loop ileostomy 04/18
#Residual small abscess left retroperitoneum
-Brief history: diverticulitis complicated by abscess formation 2024, returned in February 2025 with multiple abscesses, discharged on antibiotics, returned for robotic sigmoidectomy/left colectomy, takedown of coloenteric fistula
with creation of loop ileostomy, primary repair of duodenotomy in 2 layers. She had significant blood loss intraoperatively received TXA and 2 units during case. She had been transferred to ICU for further management
04/19/25
-Primary repair of duodenotomy 04/18 (as above)
-Recent sepsis secondary to complicated diverticulitis with abscesses requiring IR tubes for drainage
-Prior abscess culture positive for Enterococcus, yeast and diphtheroids
-Continue Unasyn and micafungin (d6), IV vancomycin(D4)
-Morphine TUBE WASHER for pain control
-N.p.o., continue TPN
-NGT -- NGT clamp trial today, continue with NPO, given proximal duodenal repair and risks for ileus with mild nausea - repeat X-ray abdominal for contrast progression
-Phelan catheter were previously placed
-GI series as per colorectal surgery
-Encourage OOB/Mobility
#Abdominal aortic thrombus possible ALEJANDRO obstruction
-Evaluate by vascular surgery who recommended anticoagulation with Eliquis 5 twice daily
-Currently on heparin GTT
#Recently diagnosed atrial flutter with RVR
-Rate controlled with amiodarone IV drip
-Continue anticoagulation with heparin gtt (in lieu of home Eliquis)
#Acute on chronic anemia
-750 cc of acute blood loss anemia with oozing, s/p 2 units PRBCs
-Monitor H&H
-No overt signs of bleeding
#Hypothyroidism
-IV Synthroid
#Asthma
-Continue albuterol as needed
-Hold montelukast
#Chronic hyponatremia
#Essential Hypertension
-Blood pressures are elevated/stable
#Anxiety
-As needed IV Ativan daily for anxiety
#Hyperlipidemia
-Resume statin when tolerates p.o.
#GERD
-Protonix 40 IV daily
#Chronic thrombocytosis
#Essential hypertension
CODE STATUS full code
DVT prophylaxis heparin GTT
Patient on NG tube, Heparin Drip, antifungal and broad spectrum antibiotics and TPN is a high risk encounter.
Anticipated Discharge: > 48 hours
Subjective/Interval History
-
Date of Service: April 23, 2025
Patient was seen and examined. She reported some abdominal pain and nausea.
Objective Data
-
Labs:
Laboratory Results
04/23/25 04/23/25
05:15 13:30
WBC 16.9 H
Hgb 8.5 L
Hct 26.2 L
Plt Count 396
APTT 44.7 H Pending
Vital Signs:
Vital Signs
Temp Pulse Resp BP Pulse Ox
97.5 F 98 19 146/84 96
04/23/25 07:15 04/23/25 08:00 04/23/25 08:00 04/23/25 08:00 04/23/25 03:45
I&O
04/22/25 04/23/25 04/24/25
06:59 06:59 06:59
Intake Total 2891.8 / 2990.5 1643.1 / 1643.1 2355
Output Total 1920 / 1920 920 / 920
Balance 971.8 / 1070.5 723.1 / 723.1 2355
[2025-04-23 15:04] LABS: APTT 84.5 Sec (23.4-35.0)
[2025-04-23 15:08] LABS: Blood Urea Nitrogen 11 mg/dl (7-17); Calcium 8.3 mg/dl (8.4-10.2); Carbon Dioxide 26 mmol/L (22-30); Chloride 108 mmol/L (98-107); Estimated Creatinine Clearance 78 ml/min; Glucose 140 mg/dl (70-99); Potassium 3.9 mmol/L (3.5-5.1); Sodium 133 mmol/L (135-145); eGFR > 60.00
--- NOTE | 2025-04-23 16:45 | PTCARENOTE ---
Patient was able to sit in the chair for approx 3 hours. Pt walking back and forth to bathroom with RW and assist x1. Pt stead on feet but just has slight trouble rising from low surfaces. Pt with TL PICC line LUE. Heparin, Morphine, TPN, D5 1/2 NS,
and Amio gtt all maintained. Pt has new R wrist IV for antibiotics. Pt's NGT clamped around 10:00 per order, flushed Q4. Pt reports nausea but no worse than this morning when told to clamp tube despite nausea by surgery. Pt treated with Compazine,
see OCT. Pt's R sided abdominal KENRICK's intact, but upper KENRICK (A) leaking around site. at bedside this morning and made aware. Dressings changed. Assessment, care and VS as charted.
[2025-04-23] MEDS: LEVOTHROID 93.75 MCG IV (17:48)
[2025-04-23 17:58] LABS: Glucose - Point of Care 141 mg/dl (70-99)
[2025-04-23] MEDS: Parenteral Nutrition, Central 1360 IV (20:30)
[2025-04-23] MEDS: MORPHINE PCA 30 IV (20:36)
[2025-04-23] MEDS: MYCAMINE 105 MG IV (21:49)
[2025-04-23 22:36] LABS: APTT 96.7 Sec (23.4-35.0)
[2025-04-23 23:15] LABS: Glucose - Point of Care 139 mg/dl (70-99)
[2025-04-23] MEDS: VALIUM INJECTION 2 MG IV (23:15)
[2025-04-24] VITALS (13 sets, daily range): BP systolic 138–163; BP diastolic 79–99; PULSE 83; O2SAT 98
[2025-04-24] MEDS: COMPAZINE 5 MG IV (03:27)
[2025-04-24] MEDS: UNASYN IV ×4 (04:56→21:19)
[2025-04-24] MEDS: VANCOCIN 200 IV (05:51)
[2025-04-24] MEDS: HEPARIN 25000 UNITS/250 ML IV ×2 (06:03→22:37)
[2025-04-24] MEDS: NOVOLOG FLEXPEN-LOW RESISTANCE 1 UNITS SC ×3 (06:12→17:13)
[2025-04-24 06:22] LABS: Glucose - Point of Care 156 mg/dl (70-99)
[2025-04-24 06:31] LABS: Hematocrit 24.3 % (37.0-47.0); Hemoglobin 7.8 g/dL (12.0-16.0); Mean Corp Hgb Conc. 32.1 g/dL (33.0-37.0); Mean Corpuscular Volume 88.4 fL (81.0-99.0); Nucleated Red Blood Cells % 0 %; Platelet Count 401 10^3/uL (130-400); Red Cell Dist. Width 18.8 % (11.5-14.5)
[2025-04-24 06:59] LABS: APTT 82.5 Sec (23.4-35.0); Magnesium 1.7 mg/dl (1.6-2.3)
--- NOTE | 2025-04-24 07:56 | VATNOTE ---
Patient is on multiple continuous medications, multiple antibiotics, and TPN. Peripheral IV access in addition to TLC PICC is required. Peripheral IV access have been frequently required d/t infiltrations, leaks, or phlebitis. Recommend to Primary
RN to run fluids and heparin through peripheral line given the viscosity of ABX and need for frequent lab draws.
Primary RN removed current right cephalic IV d/t leakage this morning. IV was restarted in the right accessory cephalic vein. Upon inspection of the right arm- phlebitis from what looks like a previous right basilic IV was noted- red, cord of 2
inches long. Patient reports the pain is better then yesterday. Unknown when phlebitis occurred.
--- NOTE | 2025-04-24 08:28 | PHA.VAN.FU ---
Vancomycin Assessment / Plan
- Assessment
Renal Function: Stable
WBC's are: Trending Down
In the past 24 hrs, patient has been: Afebrile
Concomitant Antimicrobials: ampicillin/sulbactam, micafungin
- Dosing Plan
Continue: Vanc 1000mg Q24H
- Monitoring Plan
Peak Level: peak = 18.5 - will assess with trough in AM
Trough Level: 04/25 05:30
- Follow Up
Pharmacy will continue to follow.
Vancomycin Follow UP
- -
Patient Age: 64
Patient Sex: Female
Vancomycin Day #: 5
Indication: Gi / Intra-Abdominal
Requesting Provider: Dr. Carver
Pertinent Antimicrobial Allergies:
no pertinent antibiotic allergies
Height / Weight:
Height 5 ft 3 in
Actual Weight 67.7 kg
- Vital Signs / Lab Results
Temp Pulse Resp BP Pulse Ox
97.7 F 90 14 139/87 97
04/24/25 07:11 04/24/25 06:00 04/24/25 06:00 04/24/25 06:00 04/24/25 04:00
Lab Results - Hematology
04/22/25 04/23/25 04/24/25
03:07 05:15 06:02
WBC 16.8 H 16.9 H 13.1 H
Lab Results - Chemistry
04/22/25 04/23/25
03:07 14:43
BUN 10 11
Creatinine 0.6 0.5 L
Estimated Creat Clear 78 78
Albumin 2.0 L
Therapeutic Drug Monitoring
Vancomycin Trough 10.2 ug/ml (5-20) 04/23/25 05:15
--- NOTE | 2025-04-24 08:35 | W.PN.ID1 ---
Date of Service
Date of Service: April 24, 2025
Today's Communication
Continue current antibiotics
Assessment / Plan
# Leukocytosis - improved today
# Residual small abscess left retroperitoneum
# Recent h/o of complicated diverticular abscesses / coloenteric fistulae; status post PERC drain and course of Unasyn plus micafungin.
# 04/18 s/p robotic left colectomy, takedown of two coloenteric fistulas (coloduodenal and coloileal), repair of duodenotomy, loop ileostomy. Small mucopurulent abscess noted in (L) RP.
Recommendations:
- Previous 03/08 abd abcess cx: C. dubliniensis, E faecalis, diphtheroid, Lactobacillus rhamnosus.
- Continue Unasyn and Micafungin (d#7)
- Continue IV Vancomycin (d#5)
- Trend wbc. Improvement today is encouraging.
- Monitor KENRICK output
����������������������������������������������������������
Chief Complaint
-: Leukocytosis
Subjective / Review of Systems
Patient seen and examined. Notes some mild nausea. Abdominal discomfort controlled.
Review of Systems: No Fever and No Chills
Vital Signs / Physical Exam
Vital Signs
Vital Signs
Temp Pulse Resp BP Pulse Ox
97.7 F 90 14 139/87 97
04/24/25 07:11 04/24/25 06:00 04/24/25 06:00 04/24/25 06:00 04/24/25 04:00
Physical Exam
Constitutional: No Acute Distress
Head: Other (NGT to suction)
Eyes: Sclera Anicteric
Cardiovascular: Regular Rate and S1/S2; Negative S3/S4
Pulmonary: Clear; Negative Wheezes
Gastrointestinal: Soft, Tender (mild), Decreased Bowel Sounds and Other (KENRICK drains x 2 serosanguinous fluid. [address] place.)
Extremities: Negative Edema
Neurological: AO x 3
Psychological: Other
Lines: PICC (LUE)
Objective Data
Lab Data
Lab Results
04/24/25 06:02
04/23/25 14:43
PT 15.1 Sec (11.4-14.6) H 04/19/25 15:27
INR 1.16 04/19/25 15:27
APTT 82.5 Sec (23.4-35.0) H 04/24/25 06:02
Estimated Creat Clear 78 ml/min 04/23/25 14:43
Total Bilirubin 0.2 mg/dl (0.2-1.3) 04/22/25 03:07
AST 13 U/L (14-36) L 04/22/25 03:07
ALT 10 U/L (0-35) 04/22/25 03:07
Alkaline Phosphatase 130 U/L (38-126) H 04/22/25 03:07
Most recent labs reviewed.
Micro Results:
04/19/25 05:44 MRSA Screen - Final
Nose No Methicillin Resistant Staphylococcus aureus isolated.
Imaging:
04/18 CXR: Left PICC line is present with tip in good position, within the SVC.
--- NOTE | 2025-04-24 09:02 | W.PN.CRS1 ---
Today's Communication / Plan
-
ngt per GI
OOB
Assessment/Plan
-
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
H/O Aortic thrombus with partial ALEJANDRO obstruction, has been on Eliquis which was held for OR
POD #5 Robotic sigmoidectomy/left colectomy, takedown of coloenteric fistulas: coloileal by CRS (Johnie) with loop ileostomy creation and coloduodenal by GS (Abilio) with primary repair of duodenotomy in 2 layers. Cystoscopy with placement of
ureteral stents for identification of the ureters by urology (Turner)
NGT minimal bilious outputs
Stoma 175 ml
Upper KENRICK (A) near duodenal repair: SSF (nonbilious)
Lower KENRICK (B) in pelvis: SSF
Total drain output around 200ml
hgb 7.8 (8.5), WBC 13.0 (16.9)
Plan:
--NG tube per general surgery. There was an ileus on the x-ray. She is undergoing a clamping trial. We are okay with clears after NGT removal but the decision will remain with general surgery (duodenal repair)
--Anticipate prolonged NPO. Continue TPN via PICC. Dietary following.
--Encourage OOB/Mobility. PT and OT ordered.
--Morphine HUMAN DEVELOPMENT PROFESSOR for pain management
--Appreciate ID consult, on unasyn, micafungin, and vancomycin
--Heparin gtt, follow labs, not ready for PO AC. Teds and SCDs also in place.
--IS while awake
--Wound RN for stoma management
Subjective Data
Procedure
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
Subjective Data
Date of Service: April 24, 2025
Patient states she feels some pain but not much. She denies nausea or vomiting. She would like the ngt out. She has been out of bed.
Objective Data
-
Vital Signs
Temp Pulse Resp BP Pulse Ox
97.7 F 90 14 139/87 97
04/24/25 07:11 04/24/25 06:00 04/24/25 06:00 04/24/25 06:00 04/24/25 04:00
Intake & Output
04/23/25 04/24/25 04/25/25
06:59 06:59 06:59
Intake Total 1643.1 / 1643.1 3948.4 / 3948.4
Output Total 920 / 920 1025 / 1025
Balance 723.1 / 723.1 2923.4 / 2923.4
Intake:
IV fluids (Total) 580.1 / 580.1 240 / 240
Amio 217.1 / 217.1
D5/0.45%NaCl 1,000 ml @ 20 mls/ 220 / 220
hr IV .Q24H PRN Rx#:[id number]
Heparin 143 / 143
IV piggybacks 200 / 200 1480.4 / 1480.4
TPN/PPN 663 / 663 1368 / 1368
Feeding tube flush amount 200 / 200
Amount instilled into GI Tube ( 860 / 860
Total)
[place] Sump 860 / 860
Output:
Liquid stool amount 175 / 175 275 / 275
Colostomy 175 / 175 275 / 275
Drain Output (Total) 195 / 195 200 / 200
Right Upper Abdomen Janes- 135 / 135 140 / 140
Pisano A
Right Upper Abdomen Janes- 60 / 60 60 / 60
Pisano B
Gastrointestinal tube output ( 150 / 150
Total)
[place] Sump 150 / 150
Urine, Voided 550 / 550 400 / 400
Other:
Number of approximated SMALL 1
amounts of urine
Number of approximated MODERATE 1 2
amounts of urine
How many times incontinent 1
MODERATE amount urine
How many times incontinent 1
SATURATED amount urine
Lab Results
04/24/25 06:02
04/23/25 14:43
Physical Exam
-
General: No Acute Distress and AOx3
Abdomen: Soft, Non Distended, Tender (mild around incisions) and Other (colostomy warm and pink with some output)
Wound: Other (KENRICK drain slightly bloody)
Incision: Clear, Dry, Intact
[2025-04-24] MEDS: NSS (PRESERVATIVE FREE) 10 ML IV (09:32)
[2025-04-24] MEDS: DESENEX/MITRAZOL/ZEASORB 1 APPLIC TOPICAL ×2 (09:32→21:16)
[2025-04-24] MEDS: PROTONIX IV 40 MG IV (09:32)
--- NOTE | 2025-04-24 11:31 | W.PN.GS2 ---
Today's Communication / Plan
-
clamp trials to continue
await improved stoma outputs
Assessment / Plan
-
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
H/O Aortic thrombus with partial ALEJANDRO obstruction, has been on Eliquis which was held for OR
POD #6 Robotic sigmoidectomy/left colectomy, takedown of coloenteric fistulas: coloileal by CRS (Johnie) with loop ileostomy creation and coloduodenal by GS (Abilio) with primary repair of duodenotomy in 2 layers. Cystoscopy with placement of
ureteral stents for identification of the ureters by urology (Turner)
NGT with 125cc residual after overnight clamp, minimal stoma output
Stoma with some bilious output
Upper KENRICK (A) near duodenal repair: SSF (nonbilious)
Lower KENRICK (B) in pelivs: SSF
AFVSS
Leukocytosis improving
H/h slow trend down
Hypophosphatemia resolved, renal function stable
KUB today with dilated sb loops, not much improved since yesterday
Plan:
--NGT clamp trial, continue with NPO, given proximal duodenal repair and ileus
--Continue TPN via PICC as per CRS. Dietary following.
--Encourage OOB/Mobility
--Morphine PRESSURE WASHER for pain management
--ABX as per ID
--Heparin gtt, follow Hb, not ready for PO AC
--IS while awake
--Consult stoma nurse to follow
-- Amnio gtt per cards
-- IMU status
Subjective Data
-
Date of Service: April 24, 2025
AFVSS, pain controlled with PC, denies nausea with tube clamped
Objective Data
-
Intake and Output
04/23/25 04/24/25 04/25/25
06:59 06:59 06:59
Intake Total 1643.1 / 1643.1 3948.4 / 3948.4
Output Total 920 / 920 1025 / 1025
Balance 723.1 / 723.1 2923.4 / 2923.4
Intake:
IV fluids (Total) 580.1 / 580.1 240 / 240
Amio 217.1 / 217.1
D5/0.45%NaCl 1,000 ml @ 20 mls/ 220 / 220
hr IV .Q24H PRN Rx#:[id number]
Heparin 143 / 143
IV piggybacks 200 / 200 1480.4 / 1480.4
TPN/PPN 663 / 663 1368 / 1368
Feeding tube flush amount 200 / 200
Amount instilled into GI Tube ( 860 / 860
Total)
[place] Sump 860 / 860
Output:
Liquid stool amount 175 / 175 275 / 275
Colostomy 175 / 175 275 / 275
Drain Output (Total) 195 / 195 200 / 200
Right Upper Abdomen Janes- 135 / 135 140 / 140
Pisano A
Right Upper Abdomen Janes- 60 / 60 60 / 60
Pisano B
Gastrointestinal tube output ( 150 / 150
Total)
[place] Sump 150 / 150
Urine, Voided 550 / 550 400 / 400
Other:
Number of approximated SMALL 1
amounts of urine
Number of approximated MODERATE 1 2
amounts of urine
How many times incontinent 1
MODERATE amount urine
How many times incontinent 1
SATURATED amount urine
Vital Signs
Temp Pulse Resp BP Pulse Ox
98.3 F 90 12 139/87 97
04/24/25 11:29 04/24/25 06:00 04/24/25 08:00 04/24/25 06:00 04/24/25 08:00
Lab Results
04/24/25 06:02
04/23/25 14:43
Calcium 8.3 mg/dl (8.4-10.2) L 04/23/25 14:43
Phosphorus 3.0 mg/dl (2.5-4.5) 04/22/25 03:07
Magnesium 1.7 mg/dl (1.6-2.3) 04/24/25 06:02
Total Bilirubin 0.2 mg/dl (0.2-1.3) 04/22/25 03:07
AST 13 U/L (14-36) L 04/22/25 03:07
ALT 10 U/L (0-35) 04/22/25 03:07
Alkaline Phosphatase 130 U/L (38-126) H 04/22/25 03:07
Total Protein 4.3 g/dl (6.3-8.2) L 04/22/25 03:07
Albumin 2.0 g/dl (3.5-5.0) L 04/22/25 03:07
Physical Exam
-
Gen: NAD
Abd: soft, approp ttp, stoma PPV with scant dark liquid
Patient has a angulo catheter: No
Patient has a central line: Yes (PICC)
[2025-04-24 11:58] LABS: Glucose - Point of Care 152 mg/dl (70-99)
[2025-04-24] MEDS: MORPHINE PCA 30 IV (13:07)
--- NOTE | 2025-04-24 15:09 | W.PN.HOSP.TC ---
Today's Communication/Plan
-
See plan
Assessment / Plan
Assessment / Plan
Physical Exam
Gen: NAD, AAOx3.
HEENT: Normocephalic
Neck: supple.
CV: continues to remain RRR, +S1/S2
Resp: continues to remain CTAB anteriorly
Abd: +BS, soft, ND, Mild tenderness around incisions, colostomy warm and pink with some output
Skin: Warm. Dry.
Neuro: CN 2-12 intact, non-focal.
Psych: Normal mood and affect.
Assessment/plan
64-year-old female with complicated diverticulitis initially presented in October 2024 with abscesses. Wound culture was positive for Streptococcus, yeast at that time. She was discharged on antibiotics, improved. Then returned February 2025 with
recurrence of abscesses, coloenteric fistula. Wound cultures positive for Enterococcus, yeast, discharged on antibiotics. Readmitted 04/18/2025 for robotic sigmoidectomy. Procedure done.
#Complicated diverticulitis complicated by abscesses, 2 coloenteric fistulas S/p robotic sigmoidectomy/left colectomy, takedown of 2 coloenteric fistulas with creation of loop ileostomy 04/18
#Residual small abscess left retroperitoneum
-Brief history: diverticulitis complicated by abscess formation 2024, returned in February 2025 with multiple abscesses, discharged on antibiotics, returned for robotic sigmoidectomy/left colectomy, takedown of coloenteric fistula
with creation of loop ileostomy, primary repair of duodenotomy in 2 layers. She had significant blood loss intraoperatively received TXA and 2 units during case. She had been transferred to ICU for further management
04/19/25
-Primary repair of duodenotomy 04/18 (as above)
-Recent sepsis secondary to complicated diverticulitis with abscesses requiring IR tubes for drainage
-Prior abscess culture positive for Enterococcus, yeast and diphtheroids
-Continue Unasyn and micafungin (d7), IV vancomycin(D5)
-Morphine TREE AND SHRUB WORKER for pain control
-N.p.o. and continue TPN via PICC line
-NGT -- NGT clamp trial started 04/23/25, continued today, continue with NPO, given proximal duodenal repair and risks for ileus with mild nausea - repeat X-ray showed ileus -- continue with NPO
-Phelan catheter were previously placed
-GI series as per colorectal surgery
-Encourage OOB/Mobility
#Abdominal aortic thrombus possible ALEJANDRO obstruction
-Evaluate by vascular surgery who recommended anticoagulation with Eliquis 5 twice daily
-Currently on heparin GTT
#Recently diagnosed atrial flutter with RVR
-Rate controlled with amiodarone IV drip
-Continue anticoagulation with heparin gtt (in lieu of home Eliquis)
#Acute on chronic anemia
-750 cc of acute blood loss anemia with oozing, s/p 2 units PRBCs
-Monitor H&H
-No overt signs of bleeding
#Hypothyroidism
-IV Synthroid
#Asthma
-Continue albuterol as needed
-Hold montelukast
#Chronic hyponatremia
#Essential Hypertension
-Blood pressures are elevated/stable
#Anxiety
-As needed IV Ativan daily for anxiety
#Hyperlipidemia
-Resume statin when tolerates p.o.
#GERD
-Protonix 40 IV daily
#Chronic thrombocytosis
#Essential hypertension
CODE STATUS: Full Code
DVT Prophylaxis: heparin GTT
Patient on NG tube, Heparin Drip, antifungal and broad spectrum antibiotics and TPN is a high risk encounter.
Anticipated Discharge: > 48 hours
Subjective/Interval History
-
Date of Service: April 24, 2025
Patient was seen and examined. She denied any new symptoms or complaints -- she denied fever, chills, chest pain or shortness of breath, or any new lower extremity symptoms. Still with some abdominal discomfort.
Objective Data
-
Labs:
Laboratory Results
04/24/25
06:02
WBC 13.1 H
Hgb 7.8 L
Hct 24.3 L
Plt Count 401 H
APTT 82.5 H
Vital Signs:
Vital Signs
Temp Pulse Resp BP Pulse Ox
98.3 F 91 18 138/88 97
04/24/25 11:29 04/24/25 14:00 04/24/25 14:00 04/24/25 14:00 04/24/25 14:00
I&O
04/23/25 04/24/25 04/25/25
06:59 06:59 06:59
Intake Total 1643.1 / 1643.1 3948.4 / 3948.4 0 / 0
Output Total 920 / 920 1025 / 1025 1205 / 1205
Balance 723.1 / 723.1 2923.4 / 2923.4 -1205 / -1205
--- NOTE | 2025-04-24 15:24 | PTCARENOTE ---
Patient is out of bed to chair, denying nausea when asked. NGT removed as per Dr. Ayala orders. Illeostomy with 300 liquid output. good bowel sounds. Pain managed with CLIENT SUPPORT CONSULTANT pump.
--- NOTE | 2025-04-24 15:34 | CM ---
Chart reviewed. Anticipated discharge >48 hours. PT recommends SNF when stable for discharge
[2025-04-24] MEDS: LEVOTHROID 93.75 MCG IV (16:55)
[2025-04-24 17:23] LABS: Glucose - Point of Care 155 mg/dl (70-99)
[2025-04-24] MEDS: Parenteral Nutrition, Central 1360 IV (21:11)
[2025-04-24] MEDS: MYCAMINE 105 MG IV (21:54)
[2025-04-24] MEDS: VALIUM INJECTION 2 MG IV (23:53)
[2025-04-24] MEDS: NOVOLOG FLEXPEN-LOW RESISTANCE SC (23:57)
[2025-04-25] VITALS (10 sets, daily range): BP systolic 99–151; BP diastolic 64–91; BMI 25.5
[2025-04-25 00:08] LABS: Glucose - Point of Care 146 mg/dl (70-99)
[2025-04-25 00:22] LABS: Glucose - Point of Care 133 mg/dl (70-99)
--- NOTE | 2025-04-25 02:48 | PTCARENOTE ---
Pt ambulatory to bathroom as needed with assist x1 with IV pumps. Ileostomy leaking, appliance replaced. CHG cloth bath given. Care ongoing.
[2025-04-25] MEDS: UNASYN IV ×4 (04:16→21:19)
[2025-04-25 04:48] LABS: Hematocrit 23.3 % (37.0-47.0); Hemoglobin 7.7 g/dL (12.0-16.0); Mean Corp Hgb Conc. 33.0 g/dL (33.0-37.0); Mean Corpuscular Volume 89.3 fL (81.0-99.0); Platelet Count 425 10^3/uL (130-400); Red Cell Dist. Width 19.4 % (11.5-14.5)
[2025-04-25 05:02] LABS: APTT 101.4 Sec (23.4-35.0)
[2025-04-25 05:11] LABS: Blood Urea Nitrogen 18 mg/dl (7-17); Calcium 8.2 mg/dl (8.4-10.2); Carbon Dioxide 25 mmol/L (22-30); Chloride 108 mmol/L (98-107); Estimated Creatinine Clearance 78 ml/min; Glucose 136 mg/dl (70-99); Potassium 3.9 mmol/L (3.5-5.1); Sodium 135 mmol/L (135-145); eGFR > 60.00
[2025-04-25] MEDS: VANCOCIN 200 IV (05:13)
[2025-04-25 06:04] LABS: Glucose - Point of Care 157 mg/dl (70-99)
[2025-04-25] MEDS: NOVOLOG FLEXPEN-LOW RESISTANCE 1 UNITS SC (06:12)
--- NOTE | 2025-04-25 08:24 | W.PN.CRS1 ---
Today's Communication / Plan
-
diet per general
d/c air filler
Assessment/Plan
-
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
H/O Aortic thrombus with partial ALEJANDRO obstruction, has been on Eliquis which was held for OR
POD #6 Robotic sigmoidectomy/left colectomy, takedown of coloenteric fistulas: coloileal by CRS (Johnie) with loop ileostomy creation and coloduodenal by GS (Abilio) with primary repair of duodenotomy in 2 layers. Cystoscopy with placement of
ureteral stents for identification of the ureters by urology (Turner)
NGT minimal bilious outputs
Stoma 175 ml
Upper VARGAS (A) near duodenal repair: SSF (nonbilious)
Lower VARGAS (B) in pelvis: SSF
Total drain output around 200ml
hgb 7.7 (7.8), WBC 14.1 (13.1)
Plan:
--We are okay with clears after NGT removal but the decision will remain with general surgery (duodenal repair)
--Anticipate prolonged NPO. Continue TPN via PICC. Dietary following.
--Encourage OOB/Mobility. PT and OT ordered.
--D/C CONTINUOUS YARN DYEING MACHINE OPERATOR and convert to IV morphine
--Appreciate ID consult, on unasyn, micafungin, and vancomycin
--Heparin gtt, follow labs, not ready for PO AC. Teds and SCDs also in place.
--IS while awake
--Wound RN for stoma management
Subjective Data
Procedure
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
Subjective Data
Date of Service: April 25, 2025
Patient states she feels well. She has been out of bed. Her stoma is producing bowel. She has some flatus. She is craving a milkshake.
Objective Data
-
Vital Signs
Temp Pulse Resp BP Pulse Ox
98.5 F 84 25 145/88 98
04/25/25 07:35 04/25/25 06:00 04/25/25 06:00 04/25/25 04:02 04/25/25 00:00
Intake & Output
04/24/25 04/25/25 04/26/25
06:59 06:59 06:59
Intake Total 3948.4 / 3948.4 1612 / 1612
Output Total 1025 / 1025 1725 / 1725
Balance 2923.4 / 2923.4 -113 / -113
Intake:
IV fluids (Total) 240 / 240 360 / 360
IV piggybacks 1480.4 / 1480.4 568 / 568
TPN/PPN 1368 / 1368 684 / 684
Amount instilled into GI Tube ( 860 / 860 0 / 0
Total)
[place] Sump 860 / 860 0 / 0
Output:
Liquid stool amount 275 / 275 700 / 700
Colostomy 275 / 275 700 / 700
Drain Output (Total) 200 / 200 250 / 250
Right Upper Abdomen Janes- 140 / 140 150 / 150
Pisano A
Right Upper Abdomen Janes- 60 / 60 100 / 100
Pisano B
Gastrointestinal tube output ( 150 / 150 25 / 25
Total)
[place] Sump 150 / 150 25 / 25
Urine, Voided 400 / 400 750 / 750
Other:
Number of approximated MODERATE 2 1
amounts of urine
How many times incontinent 1
MODERATE amount urine
Lab Results
04/25/25 04:24
04/25/25 04:24
Physical Exam
-
General: No Acute Distress and AOx3
Abdomen: Soft, Non Distended, Non Tender and Other (vargas bloody/serous)
Skin: Warm and Dry
Incision: Clear, Dry, Intact
[2025-04-25 08:48] LABS: Nucleated Red Blood Cells % 0 %
--- NOTE | 2025-04-25 09:02 | PHA.VAN.FU ---
Addendum entered and electronically signed by Niki Dorsey [facility] 04/25/25 10:35:
Vancomycin discontinued - no further dosing at this time; booster not entered
Original Note:
Vancomycin Assessment / Plan
- Assessment
Renal Function: Stable
WBC's are: Trending Up
In the past 24 hrs, patient has been: Afebrile
Concomitant Antimicrobials: ampicillin/sulbactam, micafungin
- Assessment - Therapeutic Drug Monitoring
Extrapolated Cmax (mcg/mL): 20.4
Peak level was drawn: Appropriately (drawn ~2.5H after end of previous infusion)
Extrapolated Cmin (mcg/mL): 8.4
Trough Drawn: Appropriately
Levels were drawn: At steady state (levels drawn after 4th scheduled dose)
Calculated AUC (mcg*h/mL): 325
Calculated ke: 0.0384
Calculated half life (H): 18
Calculated Vd (L): 80 (~1.2 L/kg)
Calculated Vanc CL (ml/min): 51
- Dosing Plan
Adjust Regimen to: Vanc 1250mg Q24H - give 500mg x1 booster today
New Regimen Predicts: AUC (419), Peak (25.9), Trough (10.9)
- Monitoring Plan
No level(s) ordered at this time: consider levels in next few days
- Follow Up
Pharmacy will continue to follow.
Vancomycin Follow UP
- -
Patient Age: 64
Patient Sex: Female
Vancomycin Day #: 6
Indication: Gi / Intra-Abdominal
Requesting Provider: Dr. Carver
Pertinent Antimicrobial Allergies:
no pertinent antibiotic allergies
Height / Weight:
Height 5 ft 3 in
Actual Weight 65.2 kg
- Vital Signs / Lab Results
Temp Pulse Resp BP Pulse Ox
98.5 F 84 25 145/88 98
04/25/25 07:35 04/25/25 06:00 04/25/25 06:00 04/25/25 04:02 04/25/25 00:00
Lab Results - Hematology
04/23/25 04/24/25 04/25/25
05:15 06:02 04:24
WBC 16.9 H 13.1 H 14.1 H
Lab Results - Chemistry
04/23/25 04/25/25
14:43 04:24
BUN 11 18 H
Creatinine 0.5 L 0.6
Estimated Creat Clear 78 78
Therapeutic Drug Monitoring
Vancomycin Peak 18.5 ug/ml (18-26) 04/24/25 09:21
Vancomycin Trough 8.9 ug/ml (5-20) 04/25/25 04:24
--- NOTE | 2025-04-25 09:10 | W.PN.ID1 ---
Date of Service
Date of Service: April 25, 2025
Today's Communication
Continue Unasyn and micafungin. Discontinue further vancomycin.
Assessment / Plan
# Leukocytosis - improved today
# Residual small abscess left retroperitoneum
# Recent h/o of complicated diverticular abscesses / coloenteric fistulae; status post PERC drain and course of Unasyn plus micafungin.
# 04/18 s/p robotic left colectomy, takedown of two coloenteric fistulas (coloduodenal and coloileal), repair of duodenotomy, loop ileostomy. Small mucopurulent abscess noted in (L) RP.
Recommendations:
- Previous 03/08 abd abcess cx: C. dubliniensis, E faecalis, diphtheroid, Lactobacillus rhamnosus.
- Continue Unasyn and Micafungin (d#8)
- Discontinue further IV Vancomycin (d#6)
- Trend wbc.
- Monitor KENRICK output
����������������������������������������������������������
Chief Complaint
-: Leukocytosis
Subjective / Review of Systems
Patient seen and examined. Overall feeling better. NG tube has been removed.
Review of Systems: No Fever and No Chills
Vital Signs / Physical Exam
Vital Signs
Vital Signs
Temp Pulse Resp BP Pulse Ox
98.5 F 84 25 145/88 98
04/25/25 07:35 04/25/25 06:00 04/25/25 06:00 04/25/25 04:02 04/25/25 00:00
Physical Exam
Constitutional: No Acute Distress
Eyes: Sclera Anicteric
Cardiovascular: Regular Rate and S1/S2; Negative S3/S4
Pulmonary: Clear; Negative Wheezes
Gastrointestinal: Soft, Tender (mild), Decreased Bowel Sounds and Other (KENRICK drains x 2 serosanguinous fluid[address].)
Extremities: Negative Edema
Neurological: AO x 3
Psychological: Other
Lines: PICC (LUE)
Objective Data
Lab Data
Lab Results
04/25/25 04:24
04/25/25 04:24
PT 15.1 Sec (11.4-14.6) H 04/19/25 15:27
INR 1.16 04/19/25 15:27
APTT 101.4 Sec (23.4-35.0) H 04/25/25 04:24
Estimated Creat Clear 78 ml/min 04/25/25 04:24
Total Bilirubin 0.2 mg/dl (0.2-1.3) 04/22/25 03:07
AST 13 U/L (14-36) L 04/22/25 03:07
ALT 10 U/L (0-35) 04/22/25 03:07
Alkaline Phosphatase 130 U/L (38-126) H 04/22/25 03:07
Most recent labs reviewed.
Micro Results:
04/19/25 05:44 MRSA Screen - Final
Nose No Methicillin Resistant Staphylococcus aureus isolated.
Imaging:
04/18 CXR: Left PICC line is present with tip in good position, within the SVC.
[2025-04-25] MEDS: NSS (PRESERVATIVE FREE) 10 ML IV (09:31)
[2025-04-25] MEDS: DESENEX/MITRAZOL/ZEASORB 1 APPLIC TOPICAL ×2 (09:31→21:15)
[2025-04-25] MEDS: PROTONIX IV 40 MG IV (09:33)
[2025-04-25] MEDS: CORDARONE 518 MG IV (09:58)
--- NOTE | 2025-04-25 11:17 | CM ---
Patient seen at bedside
SHOOTER'S HELPER to be dc
NGT dc-clear liq diet
Continue Unasyn and micafungin
PT rec SNF
prefers [facility] home SNF-referral in [facility]
PLAN: SNF pending acceptance/bed availability when stable
--- NOTE | 2025-04-25 11:46 | W.PN.GS2 ---
Today's Communication / Plan
-
CLD
Assessment / Plan
-
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
H/O Aortic thrombus with partial ALEJANDRO obstruction, has been on Eliquis which was held for OR
POD #7 Robotic sigmoidectomy/left colectomy, takedown of coloenteric fistulas: coloileal by CRS (Johnie) with loop ileostomy creation and coloduodenal by GS (Abilio) with primary repair of duodenotomy in 2 layers. Cystoscopy with placement of
ureteral stents for identification of the ureters by urology (Turner)
Stoma output increasing
Upper KENRICK (A) near duodenal repair: SSF (nonbilious)
Lower KENRICK (B) in pelivs: SSF
AFVSS
Leukocytosis slight trend up today
H/h slow trend down 7.8 --> 7.7
renal function stable
Plan:
--Adv to cld
--Continue TPN via PICC as per CRS. Dietary following.
--Encourage OOB/Mobility
--DC JUNIOR ANALYST
--ABX as per ID
--Heparin gtt, follow Hb, not ready for PO AC, if tolerates PO today would plan to restart tomorrow if CRS agrees
--IS while awake
--Consult stoma nurse to follow
-- Amnio gtt per cards
-- IMU status
Subjective Data
-
Date of Service: April 25, 2025
AFVSS, no new nausea or ab pain without NGT, increased stoma ouput
Objective Data
-
Intake and Output
04/24/25 04/25/25 04/26/25
06:59 06:59 06:59
Intake Total 3948.4 / 3948.4 1612 / 1612
Output Total 1025 / 1025 1725 / 1725
Balance 2923.4 / 2923.4 -113 / -113
Intake:
IV fluids (Total) 240 / 240 360 / 360
IV piggybacks 1480.4 / 1480.4 568 / 568
TPN/PPN 1368 / 1368 684 / 684
Amount instilled into GI Tube ( 860 / 860 0 / 0
Total)
[place] Sump 860 / 860 0 / 0
Output:
Liquid stool amount 275 / 275 700 / 700
Colostomy 275 / 275 700 / 700
Drain Output (Total) 200 / 200 250 / 250
Right Upper Abdomen Janes- 140 / 140 150 / 150
Pisano A
Right Upper Abdomen Janes- 60 / 60 100 / 100
Pisano B
Gastrointestinal tube output ( 150 / 150 25 / 25
Total)
[place] Sump 150 / 150 25 / 25
Urine, Voided 400 / 400 750 / 750
Other:
Number of approximated MODERATE 2 1
amounts of urine
How many times incontinent 1
MODERATE amount urine
Vital Signs
Temp Pulse Resp BP Pulse Ox
98.5 F 79 15 151/84 98
04/25/25 07:35 04/25/25 10:00 04/25/25 10:00 04/25/25 10:00 04/25/25 11:12
Lab Results
04/25/25 04:24
04/25/25 04:24
Calcium 8.2 mg/dl (8.4-10.2) L 04/25/25 04:24
Phosphorus 3.0 mg/dl (2.5-4.5) 04/22/25 03:07
Magnesium 1.7 mg/dl (1.6-2.3) 04/24/25 06:02
Total Bilirubin 0.2 mg/dl (0.2-1.3) 04/22/25 03:07
AST 13 U/L (14-36) L 04/22/25 03:07
ALT 10 U/L (0-35) 04/22/25 03:07
Alkaline Phosphatase 130 U/L (38-126) H 04/22/25 03:07
Total Protein 4.3 g/dl (6.3-8.2) L 04/22/25 03:07
Albumin 2.0 g/dl (3.5-5.0) L 04/22/25 03:07
Physical Exam
-
Gen: NAD
Abd: soft, aprop ttp, incisions cdi, drains ss, stoma with thin dark liquid
Patient has a angulo catheter: No
Patient has a central line: Yes (PICC)
[2025-04-25] MEDS: MORPHINE SULFATE 1 MG IV ×3 (12:07→21:27)
[2025-04-25 12:40] LABS: Glucose - Point of Care 146 mg/dl (70-99)
[2025-04-25] MEDS: NOVOLOG FLEXPEN-LOW RESISTANCE SC ×3 (12:55→23:24)
[2025-04-25] MEDS: MORPHINE SULFATE 4 MG IV ×2 (13:09→18:19)
--- NOTE | 2025-04-25 16:32 | PTCARENOTE ---
Patient tolerated clear liquids for breakfast, denying nausea when asked. Abdomen soft, normal bowel sounds, ostomy draining dark green liquid. Patient requesting to have OUTSIDE RIGGER pump discontinued. Pain is now managed with Morphine PRN. Patient walked
in hallway and used the toilet with assistance of one person.
[2025-04-25] MEDS: HEPARIN 25000 UNITS/250 ML IV (16:55)
[2025-04-25] MEDS: LEVOTHROID 93.75 MCG IV (18:18)
--- NOTE | 2025-04-25 18:27 | W.PN.HOSP.TC ---
Today's Communication/Plan
-
See plan
Assessment / Plan
Assessment / Plan
Physical Exam
Gen: NAD, AAOx3.
HEENT: Normocephalic
Neck: supple.
CV: continues to remain RRR, +S1/S2
Resp: continues to remain CTAB anteriorly
Abd: +BS, soft, ND, Mild tenderness around incisions, colostomy warm and pink with some output
Skin: Warm. Dry.
Neuro: CN 2-12 intact, non-focal.
Psych: Normal mood and affect.
Assessment/plan
64-year-old female with complicated diverticulitis initially presented in October 2024 with abscesses. Wound culture was positive for Streptococcus, yeast at that time. She was discharged on antibiotics, improved. Then returned February 2025 with
recurrence of abscesses, coloenteric fistula. Wound cultures positive for Enterococcus, yeast, discharged on antibiotics. Readmitted 04/18/2025 for robotic sigmoidectomy. Procedure done.
#Complicated diverticulitis complicated by abscesses, 2 coloenteric fistulas S/p robotic sigmoidectomy/left colectomy, takedown of 2 coloenteric fistulas with creation of loop ileostomy 04/18
#Residual small abscess left retroperitoneum
-Brief history: diverticulitis complicated by abscess formation 2024, returned in February 2025 with multiple abscesses, discharged on antibiotics, returned for robotic sigmoidectomy/left colectomy, takedown of coloenteric fistula
with creation of loop ileostomy, primary repair of duodenotomy in 2 layers. She had significant blood loss intraoperatively received TXA and 2 units during case. She had been transferred to ICU for further management
04/19/25
-Primary repair of duodenotomy 04/18 (as above)
-Recent sepsis secondary to complicated diverticulitis with abscesses requiring IR tubes for drainage
-Prior abscess culture positive for Enterococcus, yeast and diphtheroids
-Continue Unasyn and micafungin (d8); BUT STOP IV vancomycin(D6 on 04/25/25)
-Morphine SIGNWRITER for pain control stopped on 04/25/25 as per patient's request
-Continue TPN via PICC line
-Advance to Clear Liquids Diet
-NGT discontinued on 04/24/25
-Phelan catheter were previously placed
-GI series as per colorectal surgery
-Encourage OOB/Mobility
#Abdominal aortic thrombus possible ALEJANDRO obstruction
-Evaluate by vascular surgery who recommended anticoagulation with Eliquis 5 twice daily
-Currently on heparin GTT
#Recently diagnosed atrial flutter with RVR
-Rate controlled with amiodarone IV drip
-Continue anticoagulation with heparin gtt (in lieu of home Eliquis)
#Acute on chronic anemia
-750 cc of acute blood loss anemia with oozing, s/p 2 units PRBCs
-Monitor H&H
-No overt signs of bleeding
#Hypothyroidism
-IV Synthroid
#Asthma
-Continue albuterol as needed
-Hold montelukast
#Chronic hyponatremia
#Essential Hypertension
-Blood pressures are elevated/stable
#Anxiety
-As needed IV Ativan daily for anxiety
#Hyperlipidemia
-Resume statin when tolerates p.o.
#GERD
-Protonix 40 IV daily
#Chronic thrombocytosis
#Essential hypertension
CODE STATUS: Full Code
DVT Prophylaxis: heparin GTT
Patient on Heparin Drip, antifungal and broad spectrum antibiotics and TPN is a high risk encounter.
Anticipated Discharge: > 48 hours
Subjective/Interval History
-
Date of Service: April 25, 2025
Patient was seen and examined. She reported feeling good today, no significant symptoms or complaints.
Objective Data
-
Vital Signs:
Vital Signs
Temp Pulse Resp BP Pulse Ox
98.9 F 87 15 141/81 97
04/25/25 15:29 04/25/25 16:00 04/25/25 16:00 04/25/25 16:00 04/25/25 12:00
I&O
04/24/25 04/25/25 04/26/25
06:59 06:59 06:59
Intake Total 3948.4 / 3948.4 1612 / 1612
Output Total 1025 / 1025 1725 / 1725
Balance 2923.4 / 2923.4 -113 / -113
[2025-04-25 18:29] LABS: Glucose - Point of Care 140 mg/dl (70-99)
[2025-04-25] MEDS: Parenteral Nutrition, Central 1370 IV (21:15)
[2025-04-25] MEDS: MYCAMINE 105 MG IV (22:08)
[2025-04-25 22:10] LABS: Glucose - Point of Care 123 mg/dl (70-99)
[2025-04-25] MEDS: VALIUM INJECTION 2 MG IV (22:44)
[2025-04-26] VITALS (12 sets, daily range): BP systolic 110–181; BP diastolic 65–142; BMI 25.6
[2025-04-26] MEDS: MORPHINE SULFATE 4 MG IV ×6 (00:45→21:42)
--- NOTE | 2025-04-26 01:49 | PTCARENOTE ---
Pt maintained on heparin gtt, amio gtt, TPN. Pt requested PRN morphine for pain and PRN valium for anxiety, see MAR. Pt denies nausea. KENRICK drains remain intact, although continue to leak around insertion sites. Care ongoing.
[2025-04-26] MEDS: UNASYN IV ×4 (03:13→21:07)
[2025-04-26] MEDS: MORPHINE SULFATE 1 MG IV (03:19)
[2025-04-26 05:32] LABS: APTT 89.8 Sec (23.4-35.0)
[2025-04-26 05:44] LABS: Hematocrit 25.1 % (37.0-47.0); Hemoglobin 7.8 g/dL (12.0-16.0); Mean Corp Hgb Conc. 31.1 g/dL (33.0-37.0); Mean Corpuscular Volume 93.0 fL (81.0-99.0); Nucleated Red Blood Cells % 0 %; Platelet Count 516 10^3/uL (130-400); Red Cell Dist. Width 20.2 % (11.5-14.5)
[2025-04-26] MEDS: NOVOLOG FLEXPEN-LOW RESISTANCE SC ×4 (06:08→23:12)
[2025-04-26 06:18] LABS: Glucose - Point of Care 132 mg/dl (70-99)
--- NOTE | 2025-04-26 08:07 | W.PN.HOSP.TC ---
Today's Communication/Plan
-
Repeat CT with good results
Advance diet to full liquids
Resumed many oral meds, except Eliquis and Amiodarone -- if patient reliably tolerating her other oral meds in the next day or two, can switch to Eliquis and Amiodarone
Discussed with surgery teams before resuming Eliquis
Assessment / Plan
Assessment / Plan
Physical Exam
Gen: NAD, AAOx3.
HEENT: Normocephalic
Neck: supple.
CV: continues to remain RRR, +S1/S2
Resp: continues to remain CTAB anteriorly
Abd: +BS, soft, ND, Mild tenderness around incisions, colostomy warm and pink with some output
Skin: Warm. Dry.
Neuro: CN 2-12 intact, non-focal.
Psych: Normal mood and affect.
Assessment/plan
64-year-old female with complicated diverticulitis initially presented in October 2024 with abscesses. Wound culture was positive for Streptococcus, yeast at that time. She was discharged on antibiotics, improved. Then returned February 2025 with
recurrence of abscesses, coloenteric fistula. Wound cultures positive for Enterococcus, yeast, discharged on antibiotics. Readmitted 04/18/2025 for robotic sigmoidectomy. Procedure done.
#Complicated diverticulitis complicated by abscesses, 2 coloenteric fistulas S/p robotic sigmoidectomy/left colectomy, takedown of 2 coloenteric fistulas with creation of loop ileostomy 04/18
#Residual small abscess left retroperitoneum
-Brief history: diverticulitis complicated by abscess formation 2024, returned in February 2025 with multiple abscesses, discharged on antibiotics, returned for robotic sigmoidectomy/left colectomy, takedown of coloenteric fistula
with creation of loop ileostomy, primary repair of duodenotomy in 2 layers. She had significant blood loss intraoperatively received TXA and 2 units during case. She had been transferred to ICU for further management
04/19/25
-Primary repair of duodenotomy 04/18 (as above)
-Recent sepsis secondary to complicated diverticulitis with abscesses requiring IR tubes for drainage
-Prior abscess culture positive for Enterococcus, yeast and diphtheroids
-Continue Unasyn and micafungin (d9); BUT STOP IV vancomycin (D6 was on 04/25/25)
-Morphine DATA MIGRATION CONSULTANT for pain control stopped on 04/25/25 as per patient's request
-Repeat CT scan done on 04/26/25, showed no obvious extravasation of contrast/abscesses -- unclear reason as to why leukocytosis persists
-Continue TPN via PICC line
-Advance from Clear Liquids Diet to Full Liquids Diet on 04/26/[address] findings above
-NGT discontinued on 04/24/25
-GI series as per colorectal surgery
-Encourage OOB/Mobility
#Leukocytosis - Persistent
-ID will broaden coverage if leukocytosis continues to trend up
#Abdominal aortic thrombus possible ALEJANDRO obstruction
-Evaluate by vascular surgery who recommended anticoagulation with Eliquis 5 twice daily
-Currently on heparin GTT
#Recently diagnosed atrial flutter with RVR
-Rate controlled with amiodarone IV drip
-Continue anticoagulation with heparin gtt (in lieu of home Eliquis) -- if patient reliably tolerating all her other PO meds, then consider switching to Eliquis (and stopping Heparin Drip)
-Discuss with surgery teams before resuming Eliquis
#Hyponatremia
-Asymptomatic
-Continue PO FR 48 ounces
#Acute on chronic anemia
-750 cc of acute blood loss anemia with oozing, s/p 2 units PRBCs
-Monitor H&H
-No overt signs of bleeding
#Hypothyroidism
-IV Synthroid
#Asthma
-Continue albuterol as needed
-Hold montelukast
#Chronic hyponatremia
#Essential Hypertension
-Blood pressures are elevated/stable off antihypertensives, but patient is on IV Amiodarone for A-Fib
-Holding home Losartan for now in the setting of recent hyperkalemia
#Anxiety
-As needed Diazepam daily prn for anxiety (takes Ativan as needed at home)
#Hyperlipidemia
-Resumed patient's home statin on 04/26/25 since okay to start resuming PO meds
#GERD
-Protonix 40 IV daily
#Chronic thrombocytosis
#Essential hypertension
CODE STATUS: Full Code
DVT Prophylaxis: heparin GTT
Patient on Heparin Drip, antifungal and broad spectrum antibiotics and TPN is a high risk encounter.
Anticipated Discharge: > 48 hours
Subjective/Interval History
-
Date of Service: April 26, 2025
Patient was seen and examined. She reported feeling well and denied any significant pain or any other complaints.
Objective Data
-
Labs:
Laboratory Results
04/26/25
04:59
WBC 16.2 H
Hgb 7.8 L
Hct 25.1 L
Plt Count 516 H D
APTT 89.8 H
Vital Signs:
Vital Signs
Temp Pulse Resp BP Pulse Ox
98.7 F 78 13 131/71 97
04/26/25 03:00 04/26/25 04:00 04/26/25 04:00 04/26/25 04:00 04/26/25 01:01
I&O
04/25/25 04/26/25 04/27/25
06:59 06:59 06:59
Intake Total 1612 / 1612
Output Total 1725 / 1725 910 / 910
Balance -113 / -113 -910 / -910
[2025-04-26] MEDS: DESENEX/MITRAZOL/ZEASORB 1 APPLIC TOPICAL ×2 (09:26→21:06)
[2025-04-26] MEDS: NSS (PRESERVATIVE FREE) 10 ML IV (09:27)
[2025-04-26] MEDS: OMNIPAQUE 50 ML PO (09:27)
[2025-04-26] MEDS: PROTONIX IV 40 MG IV (09:27)
--- NOTE | 2025-04-26 10:09 | W.PN.GS2 ---
Addendum entered and electronically signed by Frandy Hester MD 04/26/25 10:39:
Patient seen and examined. Agree with assessment plan as documented below.
No specific complaints. Denies any worsening abdominal pain. No nausea or vomiting. Continues to have minimal liquid stool via ostomy.
Gen: NAD
Abd: soft, mild/moderate tenderness, ND, non-peritoneal, dressings c/d/i, KENRICK A serous, non-bilious, KENRICK B serosang
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
H/O Aortic thrombus with partial ALEJANDRO obstruction, has been on Eliquis which was held for OR
POD #8 Robotic sigmoidectomy/left colectomy, takedown of coloenteric fistulas: coloileal by CRS (Johnie) with loop ileostomy creation and coloduodenal by GS (Abilio) with primary repair of duodenotomy in 2 layers. Cystoscopy with placement of
ureteral stents for identification of the ureters by urology (Turner)
Stoma output increasing
Upper KENRICK (A) near duodenal repair: SSF (nonbilious)
Lower KENRICK (B) in pelivs: SSF
AFVSS
Leukocytosis trending up
H/H stable
renal function stable
Plan:
--Continue CLD, Ok for PO meds
--CT A/P planned today
--Continue TPN via PICC as per CRS. Dietary following.
--ABX as per ID
--Heparin gtt, hold on oral AC for now pending CT findings
--IMU status
Original Note:
Today's Communication / Plan
-
CT abd/pelvis pending
Assessment / Plan
-
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
H/O Aortic thrombus with partial ALEJANDRO obstruction, has been on Eliquis which was held for OR
POD #8 Robotic sigmoidectomy/left colectomy, takedown of coloenteric fistulas: coloileal by CRS (Johnie) with loop ileostomy creation and coloduodenal by GS (Abilio) with primary repair of duodenotomy in 2 layers. Cystoscopy with placement of
ureteral stents for identification of the ureters by urology (Turner)
Stoma output increasing
Upper KENRICK (A) near duodenal repair: SSF (nonbilious)
Lower KENRICK (B) in pelivs: SSF
AFVSS
Leukocytosis trending up
H/H stable
renal function stable
Plan:
--Continue CLD, Ok for PO meds
--CT a/p planned today
--Continue TPN via PICC as per CRS. Dietary following.
--Encourage OOB/Mobility
--Analgesics scheduled and prn
--ABX as per ID
--Heparin gtt, hold on oral AC for now pending CT findings
--IS while awake
--Consult stoma nurse to follow
-- IMU status
Subjective Data
-
Date of Service: April 26, 2025
Pt seen and examined at bedside with Dr. Hester. Denies n/v. Pain present but well managed. Notes she has been getting up to the chair and bathroom.
Objective Data
-
Intake and Output
04/25/25 04/26/25 04/27/25
06:59 06:59 06:59
Intake Total 1612 / 1612
Output Total 1725 / 1725 910 / 910
Balance -113 / -113 -910 / -910
Intake:
IV fluids (Total) 360 / 360
IV piggybacks 568 / 568
TPN/PPN 684 / 684
Amount instilled into GI Tube ( 0 / 0
Total)
[place] Sump 0 / 0
Output:
Liquid stool amount 700 / 700 100 / 100
Colostomy 700 / 700 100 / 100
Drain Output (Total) 250 / 250 110 / 110
Right Upper Abdomen Janes- 150 / 150 60 / 60
Pisano A
Right Upper Abdomen Janes- 100 / 100 50 / 50
Pisano B
Gastrointestinal tube output (
Total)
[place] Sump
Urine, Voided 750 / 750 700 / 700
Other:
Number of approximated SMALL 1
amounts of urine
Number of approximated MODERATE 1 1
amounts of urine
Vital Signs
Temp Pulse Resp BP Pulse Ox
98.7 F 78 13 131/71 97
04/26/25 03:00 04/26/25 04:00 04/26/25 04:00 04/26/25 04:00 04/26/25 01:01
Lab Results
04/26/25 04:59
Calcium 8.2 mg/dl (8.4-10.2) L 04/25/25 04:24
Phosphorus 3.0 mg/dl (2.5-4.5) 04/22/25 03:07
Magnesium 1.7 mg/dl (1.6-2.3) 04/24/25 06:02
Total Bilirubin 0.2 mg/dl (0.2-1.3) 04/22/25 03:07
AST 13 U/L (14-36) L 04/22/25 03:07
ALT 10 U/L (0-35) 04/22/25 03:07
Alkaline Phosphatase 130 U/L (38-126) H 04/22/25 03:07
Total Protein 4.3 g/dl (6.3-8.2) L 04/22/25 03:07
Albumin 2.0 g/dl (3.5-5.0) L 04/22/25 03:07
Physical Exam
-
Gen: NAD
Abd: soft, aprop ttp, incisions cdi, drains ss x2, stoma with thin dark liquid
Patient has a angulo catheter: No
Patient has a central line: Yes (PICC)
[2025-04-26] MEDS: HEPARIN 25000 UNITS/250 ML IV (10:57)
--- NOTE | 2025-04-26 11:18 | W.PN.CRS1 ---
Today's Communication / Plan
-
CT abdomen pelvis
Assessment/Plan
-
POD 8.
1. Patient looks well. Vitals are fine. WBC however is trending up. Hemoglobin is stably low at 7.8. Given the leukocytosis, CT of the abdomen and pelvis with water-soluble oral and rectal contrast ordered.
2. Some stoma function. Diet per general surgery. Will continue TPN for now.
3. Antibiotics per ID.
4. Out of bed/mobilize.
5. Continue other measures.
6. Appreciate help of other consultants.
Subjective Data
Procedure
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
Subjective Data
Date of Service: April 26, 2025
Mild abdominal discomfort that is improving.
Denies nausea or vomiting. Tolerating small-volume clears.
Objective Data
-
Vital Signs
Temp Pulse Resp BP Pulse Ox
98.7 F 78 13 131/71 97
04/26/25 03:00 04/26/25 04:00 04/26/25 04:00 04/26/25 04:00 04/26/25 01:01
Intake & Output
04/25/25 04/26/25 04/27/25
06:59 06:59 06:59
Intake Total 1612 / 1612
Output Total 1725 / 1725 910 / 910
Balance -113 / -113 -910 / -910
Intake:
IV fluids (Total) 360 / 360
IV piggybacks 568 / 568
TPN/PPN 684 / 684
Amount instilled into GI Tube ( 0 / 0
Total)
[place] Sump 0 / 0
Output:
Liquid stool amount 700 / 700 100 / 100
Colostomy 700 / 700 100 / 100
Drain Output (Total) 250 / 250 110 / 110
Right Upper Abdomen Janes- 150 / 150 60 / 60
Pisano A
Right Upper Abdomen Janes- 100 / 100 50 / 50
Pisano B
Gastrointestinal tube output (
Total)
[place] Sump
Urine, Voided 750 / 750 700 / 700
Other:
Number of approximated SMALL 1
amounts of urine
Number of approximated MODERATE 1 1
amounts of urine
Lab Results
04/26/25 04:59
Physical Exam
-
General: No Acute Distress
Chest: Clear
Cardiovascular: Regular Rate & Rhythm
Abdomen: Non Distended, Tender (Mild incisional) and Other (Stoma viable with some output; JPs with serosanguineous)
Extremities: No Calf Tenderness
Skin: Warm
Incision: Clear, Dry, Intact and No Skin Erythema
--- NOTE | 2025-04-26 11:57 | VATNOTE ---
Right arm phlebitis resolved
[2025-04-26 12:34] LABS: Blood Urea Nitrogen 18 mg/dl (7-17); Calcium 8.1 mg/dl (8.4-10.2); Carbon Dioxide 21 mmol/L (22-30); Chloride 99 mmol/L (98-107); Estimated Creatinine Clearance 67 ml/min; Potassium 5.4 mmol/L (3.5-5.1); Sodium 126 mmol/L (135-145); eGFR > 60.00
[2025-04-26 12:51] LABS: Glucose 867 mg/dl (70-99)
[2025-04-26 12:53] LABS: Glucose - Point of Care 141 mg/dl (70-99)
[2025-04-26] MEDS: TYLENOL 650 MG PO (13:07)
--- NOTE | 2025-04-26 13:08 | WOUNDNOTE ---
WOC RN note: Patient's stoma pink and budded with soft stoma bridge in place. Peristomal skin intact. Skin on heels intact. RN Ami reports patient's sacral skin is intact. Instructed patient how to empty and change ileostomy appliance using
Carola wafer # [id number], Laura seal and Carola pouch # [id number]. t/c SPD and ordered more ostomy supplies. Heels off bed with pillow. Patient is getting out of bed as per nursing. Next appliance change due on Tuesday. Nursing can assist with
appliance changes as needed between visits.
--- NOTE | 2025-04-26 13:24 | CM ---
CM following re: discharge planning.
Reviewed pt's chart, met with pt.
Per MD pt unlikely will need TPN at discharge.
PT and OT evaluation noted - SNF level of care recommended. Pt stated she was at [facility] for a month, did not pay for bed hold and pt requested to return back to [facility] at discharge.
A referral to [facility] noted. Per [facility] admission director they will need 24-48 hours notice prior to discharge and pt will need to have ileostomy supplies for 3-4 days.
D/C plan: [facility] when medically stable.
CM will follow with discharge plan updates as hospitalization progresses
--- NOTE | 2025-04-26 13:26 | W.PN.ID1 ---
Date of Service
Date of Service: April 26, 2025
Today's Communication
Continue antibiotics.
Assessment / Plan
# S/p robotic left colectomy, takedown of two coloenteric fistulas (coloduodenal and coloileal), repair of duodenotomy, loop ileostomy. (04/18/25)
- Small mucopurulent abscess noted in (L) RP.
# Leukocytosis
# Recent h/o of complicated diverticular abscesses / coloenteric fistulae; status post PERC drain and course of Unasyn plus micafungin.
Recommendations:
- Previous 03/08 abd abcess cx: C. dubliniensis, E faecalis, diphtheroid, Lactobacillus rhamnosus.
- Continue Unasyn and Micafungin (d#9). If white count continues to trend up, will broaden antibiotic coverage.
- Trend wbc.
- Monitor KENRICK output
����������������������������������������������������������
Chief Complaint
-: Leukocytosis
Subjective / Review of Systems
Review of Systems: No Fever and No Chills
Vital Signs / Physical Exam
Vital Signs
Vital Signs
Temp Pulse Resp BP Pulse Ox
98.7 F 84 15 144/95 97
04/26/25 03:00 04/26/25 10:29 04/26/25 10:04/26/25 10:04/26/25 12:21
Physical Exam
Constitutional: No Acute Distress
Eyes: Sclera Anicteric
Cardiovascular: Regular Rate
Pulmonary: Clear and Non Labored
Gastrointestinal: Soft, Tender (mild) and Other (KENRICK drains x [address].)
Extremities: Negative Edema
Neurological: AO x 3
Lines: PICC (LUE)
Objective Data
Lab Data
Lab Results
04/26/25 04:59
PT 15.1 Sec (11.4-14.6) H 04/19/25 15:27
INR 1.16 04/19/25 15:27
APTT 89.8 Sec (23.4-35.0) H 04/26/25 04:59
Estimated Creat Clear 67 ml/min 04/26/25 11:55
Total Bilirubin 0.2 mg/dl (0.2-1.3) 04/22/25 03:07
AST 13 U/L (14-36) L 04/22/25 03:07
ALT 10 U/L (0-35) 04/22/25 03:07
Alkaline Phosphatase 130 U/L (38-126) H 04/22/25 03:07
Most recent labs reviewed.
Micro Results:
04/19/25 05:44 MRSA Screen - Final
Nose No Methicillin Resistant Staphylococcus aureus isolated.
Imaging:
04/26/2025 CT abdomen/pelvis with contrast: no extravasation of rectal contrast to suggest anastomotic leakage. Postsurgical changes as noted in body of dictation. No evidence of drainable abscess formation. Trace free fluid within the pelvis and
within the presacral space, likely reactive for postoperative. Please see full dictation for additional detail.
04/18/25 CXR: Left PICC line is present with tip in good position, within the SVC.
[2025-04-26 14:14] LABS: Blood Urea Nitrogen 19 mg/dl (7-17); Calcium 8.0 mg/dl (8.4-10.2); Carbon Dioxide 24 mmol/L (22-30); Chloride 102 mmol/L (98-107); Estimated Creatinine Clearance 78 ml/min; Glucose 153 mg/dl (70-99); Potassium 3.9 mmol/L (3.5-5.1); Sodium 129 mmol/L (135-145); eGFR > 60.00
--- NOTE | 2025-04-26 15:01 | W.PN.UPDATE ---
Update Note
Progress Note Update
CT scan reviewed and no obvious extravasation of contrast/abscesses. Cause of leukocytosis unclear. Patient updated. Advanced to fulls.
--- NOTE | 2025-04-26 16:33 | PTCARENOTE ---
Pt with stable VS today. Following return from CT scan with rectal contrast placed. Pt had some melena and clots from rectum. Dr. Jett notified.no new orders as he feels this is old anastomatic blood. Pt tolerating liquid diet. Refused PT/OT
today. Ambulated to bathroom with supervision.
[2025-04-26] MEDS: TYLENOL PO ×4 (16:50→23:12)
[2025-04-26] MEDS: VITAMIN D3 (cholecalciferol) 25 MCG PO (17:33)
[2025-04-26] MEDS: LIPITOR 80 MG PO (17:33)
[2025-04-26 17:52] LABS: Glucose - Point of Care 146 mg/dl (70-99)
[2025-04-26] MEDS: CORDARONE 518 MG IV (19:18)
[2025-04-26] MEDS: Parenteral Nutrition, Central 1370 IV (21:02)
[2025-04-26] MEDS: MYCAMINE 105 MG IV (21:07)
--- NOTE | 2025-04-26 21:22 | PTCARENOTE ---
Pt received at beginning of shift resting in bed. AAOx3. Anxious. VSS. Afebrile. SR on CM. Amio gtt infusing at 16.7ml/hr. Heparin gtt infusing at 1400units/hr. Next PTT in for am. TPN changed out infusing as ordered. Pt noncompliant with using
pillows under heels. +1 B/L LE edema, trace pedal. Refuses SCD's after providing education for need and purpose. Two KENRICK's with minimal s/s drainage to right abdomen. Ileotomy pink/budded emptied for 200ml dark brown loose bm. Pt requested to use
bathroom. Pt refuses to wear anti-slip socks when walking around in room. With min assist pt walked to bathroom then requested bathroom light be turned off and bathroom door completely closed, curtain drawn and outer door closed with all lights off.
Explained to pt this could not be done d/t safety reasons and pt being a falls risk. Pt upset and emotional support provided. Pt then requested purewick for the night which was placed. Rest of assessment as documented. Call vergara remains within
reach. Will continue to monitor.
[2025-04-26] MEDS: FLUSH (NSS) 2 FLUSH IV (21:43)
[2025-04-26 23:11] LABS: Glucose - Point of Care 139 mg/dl (70-99)
--- NOTE | 2025-04-26 23:29 | PTCARENOTE ---
Pt requested to speak with Nursing component assembler supervisor Abimael. NS Abimael notified of pt's request and up to speak with pt. After discussion with pt and NS Abimael pt now agreeable to wear her own anti-slip slippers and will leave bathroom light on in bathroom. Pt
agrees to use call vergara for assist to and from bathroom. Pt tearful during discussion. Emotional support provided to pt. Call vergara remains within reach. Will continue to monitor.
[2025-04-26 23:56] LABS: Urine Character Clear (Clear)
[2025-04-27] VITALS (19 sets, daily range): BP systolic 115–153; BP diastolic 66–109; PULSE 89; BMI 26.1
[2025-04-27] MEDS: VALIUM INJECTION 2 MG IV (00:12)
[2025-04-27 00:59] LABS: Urine Squamous Cell >30 /LPF (Few); Urine Urothelial Cell 16-20 /LPF (FEW)
[2025-04-27 01:01] LABS: Urine Red Blood Cell 40-50 /HPF (0-2)
[2025-04-27] MEDS: MORPHINE SULFATE 4 MG IV ×5 (01:52→23:56)
[2025-04-27] MEDS: FLUSH (NSS) 2 FLUSH IV (01:52)
--- NOTE | 2025-04-27 02:16 | VATNOTE ---
Called bedside to evaluate an infiltration.
R PIV site very painful to touch, erythema noted w.o streaking, and edema less than 2' noted proximally to iv site.
House provider notified, orders for warm compress and elevation added.
--- NOTE | 2025-04-27 02:32 | PTCARENOTE ---
Pt c/o pain to right forearm IV site which Heparin gtt was infusing. Heparin gtt stopped. VAT team TT'd and pt seen. Extravasation seen. Site red, swollen. Attempted to pull fluid from cannula but only pulled small amount of blood. IV site pulled.
Per Nikita TUBBS after speaking with Holly BROOKE site removed, right forearm elevated and warm compress ordered and applied for 15 minutes every 4 hours. Warm compress currently on. Will continue to monitor.
[2025-04-27] MEDS: TYLENOL PO ×5 (03:02→19:36)
[2025-04-27] MEDS: UNASYN IV ×4 (03:49→21:22)
[2025-04-27 05:08] LABS: Hematocrit 22.6 % (37.0-47.0); Hemoglobin 7.3 g/dL (12.0-16.0); Mean Corp Hgb Conc. 32.3 g/dL (33.0-37.0); Mean Corpuscular Volume 89.7 fL (81.0-99.0); Nucleated Red Blood Cells % 0 %; Platelet Count 508 10^3/uL (130-400); Red Cell Dist. Width 20.3 % (11.5-14.5)
[2025-04-27 05:20] LABS: APTT 39.0 Sec (23.4-35.0)
[2025-04-27 06:02] LABS: Glucose - Point of Care 139 mg/dl (70-99)
--- NOTE | 2025-04-27 06:23 | W.PN.UPDATE ---
Update Note
Progress Note Update
Patient's Heparin infusion has been interrupted and held this morning due to extravasation and also blood draws. PTT came back low but will restart at previous rate and recheck in 6 hours.
--- NOTE | 2025-04-27 06:23 | PTCARENOTE ---
AM PTT 39.0. Heparin gtt was off for a certain amount of time overnight d/t extravasation and infusing antibiotic. Holly BROOKE TT'd and updated. Will keep Heparin gtt at current rate of 14ml/hr with PTT to be drawn at 1030 since pt has been
therapeutic for a while now. Will update day shift RN.
[2025-04-27] MEDS: NOVOLOG FLEXPEN-LOW RESISTANCE SC ×2 (06:40→12:09)
[2025-04-27 06:46] LABS: Hematocrit 21.5 % (37.0-47.0); Hemoglobin 7.0 g/dL (12.0-16.0); Mean Corp Hgb Conc. 32.6 g/dL (33.0-37.0); Mean Corpuscular Volume 91.1 fL (81.0-99.0); Nucleated Red Blood Cells % 0 %; Platelet Count 499 10^3/uL (130-400); Red Cell Dist. Width 20.1 % (11.5-14.5)
[2025-04-27 07:01] LABS: Albumin 2.3 g/dl (3.5-5.0); Blood Urea Nitrogen 18 mg/dl (7-17); Calcium 7.9 mg/dl (8.4-10.2); Carbon Dioxide 24 mmol/L (22-30); Chloride 105 mmol/L (98-107); Estimated Creatinine Clearance 78 ml/min; Glucose 186 mg/dl (70-99); Magnesium 1.8 mg/dl (1.6-2.3); Potassium 3.3 mmol/L (3.5-5.1); Sodium 130 mmol/L (135-145); eGFR > 60.00
[2025-04-27] MEDS: DESENEX/MITRAZOL/ZEASORB 1 APPLIC TOPICAL ×2 (07:30→19:38)
[2025-04-27] MEDS: VITAMIN D3 (cholecalciferol) 25 MCG PO (07:31)
[2025-04-27] MEDS: LIPITOR 80 MG PO (07:31)
[2025-04-27] MEDS: PROTONIX IV 40 MG IV (07:31)
[2025-04-27] MEDS: NSS (PRESERVATIVE FREE) 10 ML IV (07:32)
[2025-04-27] MEDS: HEPARIN 25000 UNITS/250 ML IV (07:42)
[2025-04-27] MEDS: KCL 270 MEQ IV (09:24)
--- NOTE | 2025-04-27 09:32 | W.PN.ID1 ---
Date of Service
Date of Service: April 27, 2025
Today's Communication
Continue antibiotics.
Assessment / Plan
# S/p robotic left colectomy, takedown of two coloenteric fistulas (coloduodenal and coloileal), repair of duodenotomy, loop ileostomy. (04/18/25)
- Small mucopurulent abscess noted in (L) RP.
# Leukocytosis
# Recent h/o of complicated diverticular abscesses / coloenteric fistulae; status post PERC drain and course of Unasyn plus micafungin.
Recommendations:
- Previous 03/08 abd abcess cx: C. dubliniensis, E faecalis, diphtheroid, Lactobacillus rhamnosus.
- Continue Unasyn and Micafungin (d#10).
- Continue to trend wbc.
- Monitor KENRICK outputs
����������������������������������������������������������
Chief Complaint
-: Leukocytosis
Subjective / Review of Systems
Review of Systems: No Fever and No Chills
Vital Signs / Physical Exam
Vital Signs
Vital Signs
Temp Pulse Resp BP Pulse Ox
98.6 F 78 13 115/67 98
04/27/25 03:25 04/27/25 04:00 04/27/25 04:00 04/27/25 04:00 04/27/25 02:00
Physical Exam
Constitutional: No Acute Distress, Comfortable and Non-toxic
Eyes: Sclera Anicteric
Cardiovascular: Regular Rate and S1/S2; Negative S3/S4
Pulmonary: Clear and Non Labored
Gastrointestinal: Soft, Tender (mild) and Other (KENRICK drains x 2 serosanguinous fluid. Ostomy [address] place.)
Extremities: Negative Edema
Neurological: AO x 3
Lines: PICC (LUE)
Objective Data
Lab Data
Lab Results
04/27/25 06:37
04/27/25 06:37
PT 15.1 Sec (11.4-14.6) H 04/19/25 15:27
INR 1.16 04/19/25 15:27
APTT 39.0 Sec (23.4-35.0) H 04/27/25 04:27
Estimated Creat Clear 78 ml/min 04/27/25 06:37
Total Bilirubin 0.2 mg/dl (0.2-1.3) 04/22/25 03:07
AST 13 U/L (14-36) L 04/22/25 03:07
ALT 10 U/L (0-35) 04/22/25 03:07
Alkaline Phosphatase 130 U/L (38-126) H 04/22/25 03:07
Most recent labs reviewed.
Micro Results:
04/26/25 23:48 Urine Culture - Pending
Urine
04/19/25 05:44 MRSA Screen - Final
Nose No Methicillin Resistant Staphylococcus aureus isolated.
Imaging:
04/26/2025 CT abdomen/pelvis with contrast: no extravasation of rectal contrast to suggest anastomotic leakage. Postsurgical changes as noted in body of dictation. No evidence of drainable abscess formation. Trace free fluid within the pelvis and
within the presacral space, likely reactive for postoperative. Please see full dictation for additional detail.
04/18/25 CXR: Left PICC line is present with tip in good position, within the SVC.
[2025-04-27 11:12] LABS: APTT 74.5 Sec (23.4-35.0)
[2025-04-27] MEDS: SYNTHROID 125 MCG PO (11:56)
[2025-04-27 12:15] LABS: Glucose - Point of Care 122 mg/dl (70-99)
--- NOTE | 2025-04-27 12:48 | W.PN.HOSP.TC ---
Today's Communication/Plan
-
cont Abx
follow Hgb
Labs in AM
no objections to GMF
Assessment / Plan
Assessment / Plan
64yo F with PMHx of cholecystectomy, asthma, hypothyrodism, HLD, anxiety, HTN, GERD, chronic thrombocytosis came with complicated diverticulitis with abscesses in October 2024, initially treated with Abx. Then developed in February 2025 with recurrent
abscesses and coloenteric fistula, initially managed with drain and Abx, then readmitted for robotic sigmoidectomy with L colectomy, loop ileostomy and two coloenteric fistula takedown on 04/18/25. Managed for TPN for postOP recovery and due to
abscess found during surgery - on Unasyn and Micofungin as per ID
A/P:
#complicated diverticulitis
#Residula L retroperitoneal abscess
TPN and advnace diet as tolerated as per Colorectal Sx
ID follows: On Unasyn?Micafungin
Repeat CT on 04/26/25 due to leukoytosis showed no contrast extravasation
#Abdominal aortic thrombus
#Possible ALEJANDRO obstruction
Vascular Sx: recommended anticoaglation, started on heparin drip pending eventual DOAC
#A.flutter with RVR
telemetry
controlled on Amiodarone
#Hyponatremia
Mild
most ikely 2/2 pain
Follow BMP
control pain
#Anemia, acute on chronic
#PHANI
postOP
follow Hgb
transfuse as needed
#5.2cm exophitic uterine fibroid
US TV as outpatient with PEDIATRIC PHYSICAL THERAPY ASSISTANT
#Essential HTN
#Anxiety
#GERD
con home meds when able
DVT ppx hep drip
Full code
I have spent at least 38min reviewing chart, test results, communication with consultants and providing direct patient care
Anticipated Discharge: > 48 hours
Subjective/Interval History
-
Date of Service: April 27, 2025
Objective Data
-
Labs:
Laboratory Results
04/27/25 04/27/25 04/27/25
04:27 04:28 06:37
WBC 13.0 H 13.4 H
Hgb 7.3 L 7.0 L
Hct 22.6 L 21.5 L
Plt Count 508 H 499 H
APTT 39.0 H
Sodium 130 L
Potassium 3.3 L
Chloride 105
Carbon Dioxide 24
BUN 18 H
Creatinine 0.6
Glucose 186 H
Calcium 7.9 L
04/27/25 04/27/25
10:40 12:29
WBC
Hgb Pending
Hct Pending
Plt Count
APTT 74.5 H
Sodium
Potassium
Chloride
Carbon Dioxide
BUN
Creatinine
Glucose
Calcium
Vital Signs:
Vital Signs
Temp Pulse Resp BP Pulse Ox
98.5 F 97 16 138/89 97
04/27/25 07:49 04/27/25 09:13 04/27/25 09:13 04/27/25 09:17 04/27/25 06:35
I&O
04/26/25 04/27/25 04/28/25
06:59 06:59 06:59
Intake Total 1372.4 / 1372.4
Output Total 910 / 910 1055 / 1055
Balance -910 / -910 317.4 / 317.4
Review of Systems
-
History Source: Patient
All other systems: Reviewed and negative
Abdomen/GI: Reports Abdominal Pain
Physical Exam
-
General: No Apparent Distress
HEENT: Normocephalic
Respiratory: Clear to Auscultation
GI: Soft, Nondistended, Tender, Ostomy and Other (KENRICK drain)
Musculoskeletal: No Clubbing, No Cyanosis and No Edema
Skin: Warm
Neuro: Awake, Alert, Oriented and AO x 3
Psych: Calm
--- NOTE | 2025-04-27 13:47 | W.PN.GS2 ---
Addendum entered and electronically signed by Frandy Hester MD 04/27/25 13:54:
Patient seen and examined. Agree with assessment plan as documented below.
Original Note:
Today's Communication / Plan
-
TPN/FLD
Hep gtt
Assessment / Plan
-
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 H/O Aortic thrombus with partial ALEJANDRO obstruction, had been on Eliquis which was held for surgery
POD #9 Robotic sigmoidectomy/left colectomy, takedown of coloenteric fistulas: coloileal by CRS (Johnie) with loop ileostomy creation and coloduodenal by GS (Abilio) with primary repair of duodenotomy in 2 layers. Cystoscopy with placement of
ureteral stents for identification of the ureters by urology (Turner)
Bowel function recovering, would like to see more stool from stoma
Upper KENRICK (A) near duodenal repair: SSF (nonbilious)
Lower KENRICK (B) in pelivs: SSF
AFVSS
Leukocytosis trending down
H/H drifting down, no active bleeding noted
renal function stable
CT from 04/26 without abscess or obvious extravasation of contrast
Plan:
--Continue FLD with supplements, Ok for PO meds
--Continue TPN via PICC, pending dietary tolerance/stoma outputs anticipate tonights bag will be her last
--Encourage OOB/Mobility
--Analgesics scheduled and prn
--ABX as per ID
--Heparin gtt, hold on oral AC for now given drift in h/h
--AM labs, will transfuse if h/h continues to drift down
--IS while awake
--Stoma nursing team following
Ok for transfer to from surgical standpoint
Subjective Data
-
Date of Service: April 27, 2025
Pt seen and examined at bedside with Dr. Hester. Denies n/v. Tolerating liquids thus far. Pain ok currently, does seem to require the morphine q4h consistently though. Questions addressed.
Objective Data
-
Intake and Output
04/26/25 04/27/25 04/28/25
06:59 06:59 06:59
Intake Total 1372.4 / 1372.4
Output Total 910 / 910 1055 / 1055
Balance -910 / -910 317.4 / 317.4
Intake:
IV piggybacks 688.4 / 688.4
TPN/PPN 684 / 684
Output:
Liquid stool amount 100 / 100 270 / 270
Colostomy 100 / 100
Ileostomy 270 / 270
Drain Output (Total) 110 / 110 185 / 185
Right Upper Abdomen Janes- 60 / 60 95 / 95
Pisano A
Right Upper Abdomen Janes- 50 / 50 90 / 90
Pisano B
Urine, Voided 700 / 700 600 / 600
Other:
Number of approximated SMALL 1
amounts of urine
Number of approximated MODERATE 1 2
amounts of urine
Vital Signs
Temp Pulse Resp BP Pulse Ox
98.5 F 97 16 138/89 97
04/27/25 07:49 04/27/25 09:13 04/27/25 09:13 04/27/25 09:17 04/27/25 06:35
Lab Results
04/27/25 06:37
Calcium 7.9 mg/dl (8.4-10.2) L 04/27/25 06:37
Phosphorus 3.1 mg/dl (2.5-4.5) 04/27/25 06:37
Magnesium 1.8 mg/dl (1.6-2.3) 04/27/25 06:37
Total Bilirubin 0.2 mg/dl (0.2-1.3) 04/22/25 03:07
AST 13 U/L (14-36) L 04/22/25 03:07
ALT 10 U/L (0-35) 04/22/25 03:07
Alkaline Phosphatase 130 U/L (38-126) H 04/22/25 03:07
Total Protein 4.3 g/dl (6.3-8.2) L 04/22/25 03:07
Albumin 2.3 g/dl (3.5-5.0) L 04/27/25 06:37
Physical Exam
-
Gen: NAD
Abd: soft, aprop ttp, incisions cdi, drains ss x2, stoma with bridge in place and brown liquid stool in appliance
Patient has a angulo catheter: No
Patient has a central line: Yes (PICC)
[2025-04-27 14:24] LABS: Hematocrit 21.1 % (37.0-47.0); Hemoglobin 6.6 g/dL (12.0-16.0)
--- NOTE | 2025-04-27 14:35 | W.PN.UPDATE ---
Update Note
Progress Note Update
Worsening Hgb. CT day prior -no significant fluid collection seen. Most likely acute on chronic anemia due to chronic disease, recent surgery, TPN and absent enteral intake
transfuse 1 unit PRBC now and follow hgb
Notify ColorectalSx, however no significant concern on physical exam.
--- NOTE | 2025-04-27 14:41 | PTCARENOTE ---
Rec'd pt this AM. Tolerating diet and PO meds. Amioderone jay villarreal now on PO Amio. Repeat Hgb 6.6. One unit PRBC ordered. Pt requires a lot of attention to address her anxiety and has very frequent requests for a variety of needs. Can be
argumentative at times. vital signs stable.
[2025-04-27] MEDS: ROXICODONE 5 MG PO ×2 (16:50→22:56)
--- NOTE | 2025-04-27 17:37 | PTCARENOTE ---
Pt ordered PO Oxy plus morphine 4mg IV for breakthrough today. She agreed to this plan with Dr. Gardiner. She then told RN she only wanted IV morphine. RN provided extensive education regarding the pain management plan. She then stated that she
always get IV morphine in the hospital and then they switch her to PO pain meds on d.c. and she is perfectly fine with that plan. RN again educated her regarding her knowledge deficit as to whether the PO meds will be helpful if she does not try
them while in the hospital. She then agreed to try PO meds but after one hour if she had no relief she would request the IV morphine. Pt continues with excessive requests from staff even when clustering of care is attempted.
[2025-04-27 18:44] LABS: Glucose - Point of Care 170 mg/dl (70-99)
[2025-04-27] MEDS: NOVOLOG FLEXPEN-LOW RESISTANCE 1 UNITS SC (19:36)
[2025-04-27] MEDS: PACERONE 200 MG PO (19:37)
--- NOTE | 2025-04-27 20:00 | PTCARENOTE ---
Received pt from previous shift. Systems reviewed, see flowsheets. Pt lying comfortably in bed, reporting 6/10 abdominal pain after recent IV morphine. SaO2 98% on RA. NSR on heart monitor. TPN infusing at 57mL/hr, heparin gtt at 14mL/hr through LUE
triple lumen PICC. Pt finished up 1 unit of PRBCs, labs to be rechecked in AM. Ileostomy with liquid brown stool. R KENRICK drains x2 with serosanguineous output. Dressings noted to be saturated, site care given. PTT to be checked at 21:00. Will continue
to monitor.
[2025-04-27] MEDS: Parenteral Nutrition, Central 1370 IV (21:07)
[2025-04-27 21:38] LABS: APTT 66.1 Sec (23.4-35.0)
[2025-04-27] MEDS: MYCAMINE 105 MG IV (21:49)
[2025-04-28] VITALS (11 sets, daily range): BP systolic 106–149; BP diastolic 64–80; BMI 26.2
[2025-04-28] MEDS: NOVOLOG FLEXPEN-LOW RESISTANCE SC ×5 (00:03→22:37)
[2025-04-28] MEDS: TYLENOL PO ×8 (00:09→23:03)
[2025-04-28 00:12] LABS: Glucose - Point of Care 130 mg/dl (70-99)
[2025-04-28] MEDS: UNASYN IV ×4 (03:35→22:55)
[2025-04-28] MEDS: HEPARIN 25000 UNITS/250 ML IV ×2 (03:35→21:27)
[2025-04-28] MEDS: MORPHINE SULFATE 4 MG IV ×5 (03:57→22:12)
[2025-04-28 04:11] LABS: APTT 75.3 Sec (23.4-35.0); Hematocrit 25.1 % (37.0-47.0); Hemoglobin 8.2 g/dL (12.0-16.0); Mean Corp Hgb Conc. 32.7 g/dL (33.0-37.0); Mean Corpuscular Volume 90.3 fL (81.0-99.0); Nucleated Red Blood Cells % 0 %; Platelet Count 522 10^3/uL (130-400); Red Cell Dist. Width 19.8 % (11.5-14.5)
[2025-04-28 04:27] LABS: ALT (SGPT) 18 U/L (0-35); AST (SGOT) 25 U/L (14-36); Albumin 2.2 g/dl (3.5-5.0); Alkaline Phosphatase 110 U/L (38-126); Blood Urea Nitrogen 20 mg/dl (7-17); Calcium 8.4 mg/dl (8.4-10.2); Carbon Dioxide 28 mmol/L (22-30); Chloride 107 mmol/L (98-107); Estimated Creatinine Clearance 78 ml/min; Glucose 100 mg/dl (70-99); Magnesium 1.9 mg/dl (1.6-2.3); Potassium 4.3 mmol/L (3.5-5.1); Sodium 134 mmol/L (135-145); Total Protein 4.5 g/dl (6.3-8.2); Triglycerides 205 mg/dl (10-149); eGFR > 60.00
[2025-04-28 05:37] LABS: Glucose - Point of Care 120 mg/dl (70-99)
[2025-04-28] MEDS: ROXICODONE 5 MG PO (05:50)
[2025-04-28] MEDS: SYNTHROID 125 MCG PO (05:50)
--- NOTE | 2025-04-28 08:16 | W.PN.ID1 ---
Date of Service
Date of Service: April 28, 2025
Today's Communication
Continue antibiotics.
Assessment / Plan
# S/p robotic left colectomy, takedown of two coloenteric fistulas (coloduodenal and coloileal), repair of duodenotomy, loop ileostomy. (04/18/25)
- Small mucopurulent abscess noted in (L) RP.
# Leukocytosis
# Recent h/o of complicated diverticular abscesses / coloenteric fistulae; status post PERC drain and course of Unasyn plus micafungin.
Recommendations:
- Previous 03/08 abd abcess cx: C. dubliniensis, E faecalis, diphtheroid, Lactobacillus rhamnosus.
- Continue Unasyn and Micafungin (d#11).
- Continue to trend wbc.
- Monitor KENRICK outputs
- Remains on TPN at present.
����������������������������������������������������������
Chief Complaint
-: Leukocytosis
Subjective / Review of Systems
Review of Systems: No Fever, No Chills and No Abdominal Pain
Vital Signs / Physical Exam
Vital Signs
Vital Signs
Temp Pulse Resp BP Pulse Ox
98.7 F 80 12 118/74 98
04/28/25 03:12 04/28/25 04:00 04/28/25 04:00 04/28/25 04:00 04/28/25 04:00
Physical Exam
Constitutional: No Acute Distress, Comfortable and Non-toxic
Eyes: Sclera Anicteric
Cardiovascular: Regular Rate and S1/S2; Negative S3/S4
Pulmonary: Clear and Non Labored
Gastrointestinal: Soft, Tender (mild) and Other (KENRICK drains x 2 serosanguinous fluid. Ostomy in place.)
Extremities: Negative Edema
Neurological: AO x 3
Lines: PICC (LUE)
Objective Data
Lab Data
Lab Results
04/28/25 03:46
04/28/25 03:46
PT 15.1 Sec (11.4-14.6) H 04/19/25 15:27
INR 1.16 04/19/25 15:27
APTT 75.3 Sec (23.4-35.0) H 04/28/25 03:46
Estimated Creat Clear 78 ml/min 04/28/25 03:46
Total Bilirubin 0.3 mg/dl (0.2-1.3) 04/28/25 03:46
AST 25 U/L (14-36) 04/28/25 03:46
ALT 18 U/L (0-35) 04/28/25 03:46
Alkaline Phosphatase 110 U/L (38-126) 04/28/25 03:46
Most recent labs reviewed.
Micro Results:
04/26/25 23:48 Urine Culture - Pending
Urine
04/19/25 05:44 MRSA Screen - Final
Nose No Methicillin Resistant Staphylococcus aureus isolated.
Imaging:
04/26/2025 CT abdomen/pelvis with contrast: no extravasation of rectal contrast to suggest anastomotic leakage. Postsurgical changes as noted in body of dictation. No evidence of drainable abscess formation. Trace free fluid within the pelvis and
within the presacral space, likely reactive for postoperative. Please see full dictation for additional detail.
04/18/25 CXR: Left PICC line is present with tip in good position, within the SVC.
[2025-04-28] MEDS: DESENEX/MITRAZOL/ZEASORB 1 APPLIC TOPICAL ×2 (08:18→19:37)
[2025-04-28] MEDS: PACERONE 200 MG PO ×2 (08:18→19:36)
[2025-04-28] MEDS: VITAMIN D3 (cholecalciferol) 25 MCG PO (08:18)
[2025-04-28] MEDS: NSS (PRESERVATIVE FREE) 10 ML IV (08:19)
[2025-04-28] MEDS: LIPITOR 80 MG PO (08:19)
[2025-04-28] MEDS: PROTONIX IV 40 MG IV (08:21)
--- NOTE | 2025-04-28 08:33 | W.PN.HOSP.TC ---
Today's Communication/Plan
-
follow Hgb q12h
cont heparin for 24h more
diet and TPN as per ColorectalSx
increased Oxycodone to 10mg q6h PRN
Abx as per ID, persistent leukocytosis noted
Assessment / Plan
Assessment / Plan
64yo F with PMHx of cholecystectomy, asthma, hypothyrodism, HLD, anxiety, HTN, GERD, chronic thrombocytosis came with complicated diverticulitis with abscesses in October 2024, initially treated with Abx. Then developed in February 2025 with recurrent
abscesses and coloenteric fistula, initially managed with drain and Abx, then readmitted for robotic sigmoidectomy with L colectomy, loop ileostomy and two coloenteric fistula takedown on 04/18/25. Managed for TPN for postOP recovery and due to
abscess found during surgery - on Unasyn and Micofungin as per ID
A/P:
#complicated diverticulitis
#Residula L retroperitoneal abscess
TPN and advnace diet as tolerated as per Colorectal Sx
ID follows: On Unasyn?Micafungin
Repeat CT on 04/26/25 due to leukoytosis showed no contrast extravasation
#Abdominal aortic thrombus
#Possible ALEJANDRO obstruction
Vascular Sx: recommended anticoaglation, started on heparin drip pending eventual DOAC
#A.flutter with RVR
telemetry
controlled on Amiodarone
#Hyponatremia
Mild
most ikely 2/2 pain
Follow BMP
control pain
#Anemia, acute on chronic
#PHANI
#Chronic thrombocytosis
Previously recommended hematology follow up
multifactorial: chronic disease, postOP
follow CBC
s/p 1 unit PRBC on 04/27/25
transfuse as needed
#5.2cm exophitic uterine fibroid
US TV as outpatient with [employer]CH[employer]
#Essential HTN
#Anxiety
#GERD
con home meds when able
DVT ppx hep drip
Full code
I have spent at least 38min reviewing chart, test results, communication with consultants and providing direct patient care
Anticipated Discharge: > 48 hours
Subjective/Interval History
-
Date of Service: April 28, 2025
Objective Data
-
Labs:
Laboratory Results
04/27/25 04/28/25 04/28/25
21:20 03:46 09:45
WBC 13.4 H
Hgb 8.2 L D
Hct 25.1 L
Plt Count 522 H
APTT 66.1 H 75.3 H Pending
Sodium 134 L
Potassium 4.3 D
Chloride 107
Carbon Dioxide 28
BUN 20 H
Creatinine 0.6
Glucose 100 H
Calcium 8.4
Total Bilirubin 0.3
AST 25
ALT 18
Alkaline Phosphatase 110
Vital Signs:
Vital Signs
Temp Pulse Resp BP Pulse Ox
98.7 F 80 12 118/74 98
04/28/25 03:12 04/28/25 04:00 04/28/25 04:00 04/28/25 04:00 04/28/25 04:00
I&O
04/27/25 04/28/25 04/29/25
06:59 06:59 06:59
Intake Total 1372.4 / 1372.4 1706 / 1706
Output Total 1055 / 1055 220 / 220
Balance 317.4 / 317.4 1486 / 1486
Review of Systems
-
History Source: Patient
All other systems: Reviewed and negative
Physical Exam
-
General: No Apparent Distress
HEENT: Normocephalic
Cardiac: Regular Rhythm
GI: Soft, Nondistended, Tender and Other (KENRIKC drain with serous and serosanguineous output)
Neuro: Awake, Alert, Oriented and AO x 3
Psych: Calm
[2025-04-28] MEDS: ROXICODONE 10 MG PO ×2 (12:02→19:36)
--- NOTE | 2025-04-28 13:08 | W.PN.GS2 ---
Addendum entered and electronically signed by Frandy Hester MD 04/28/25 13:36:
Patient seen and examined.
Pain well-controlled. No nausea or vomiting. Beginning to have more formed ostomy output. Afebrile. Voiding. Ambulating.
Gen: NAD
Abd: soft, obese, mild tenderness, ND, non-peritoneal, incision c/d/i - no erythema, ecchymosis or drainage, JPs serous, ostomy PPV - stool and flatus in appliance
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 H/O Aortic thrombus with partial ALEJANDRO obstruction, had been on Eliquis which was held for surgery
POD #10 Robotic sigmoidectomy/left colectomy, takedown of coloenteric fistulas: coloileal by CRS (Johnie) with loop ileostomy creation and coloduodenal by GS (Abilio) with primary repair of duodenotomy in 2 layers. Cystoscopy with placement of
ureteral stents for identification of the ureters by urology (Turner)
Bowel function recovering well
Upper KENRICK (A) near duodenal repair: SSF (nonbilious)
Lower KENRICK (B) in pelivs: SSF
AFVSS
Leukocytosis trending down
H/H stable s/p one unit of blood 04/27 (total of 3 units total this admission)
renal function stable
CT from 04/26 without abscess or obvious extravasation of contrast
Plan:
--Advance to LRD
--D/C TPN after this current bag is complete
--Encourage OOB/Mobility
--Analgesics scheduled and prn
--ABX as per ID
--Continue Heparin gtt, will likely be able to resume Eliquis tomorrow if h/h remains stable
--AM labs
--IS while awake
--Stoma nursing team following
Transfer to med/surg unit: 2S
Original Note:
Today's Communication / Plan
-
LRD, stop TPN
Transfer to med/surg
Assessment / Plan
-
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 H/O Aortic thrombus with partial ALEJANDRO obstruction, had been on Eliquis which was held for surgery
POD #10 Robotic sigmoidectomy/left colectomy, takedown of coloenteric fistulas: coloileal by CRS (Johnie) with loop ileostomy creation and coloduodenal by GS (Abilio) with primary repair of duodenotomy in 2 layers. Cystoscopy with placement of
ureteral stents for identification of the ureters by urology (Turner)
Bowel function recovering well
Upper KENRICK (A) near duodenal repair: SSF (nonbilious)
Lower KENRICK (B) in pelivs: SSF
AFVSS
Leukocytosis trending down
H/H stable s/p one unit of blood 04/27 (total of 3 units total this admission)
renal function stable
CT from 04/26 without abscess or obvious extravasation of contrast
Plan:
--Advance to LRD
--D/C TPN after this current bag is complete
--Encourage OOB/Mobility
--Analgesics scheduled and prn
--ABX as per ID
--Continue Heparin gtt, will likely be able to resume Eliquis tomorrow if h/h remains stable
--AM labs
--IS while awake
--Stoma nursing team following
Transfer to med/surg unit: 2S
Subjective Data
-
Date of Service: April 28, 2025
Pt seen and examined at bedside with Dr. Hester. Denies n/v. Tolerating fulls. OOB with staff to chair today. Pain well controlled. More energy today.
Objective Data
-
Intake and Output
04/27/25 04/28/25 04/29/25
06:59 06:59 06:59
Intake Total 1372.4 / 1372.4 1706 / 1706
Output Total 1055 / 1055 220 / 220
Balance 317.4 / 317.4 1486 / 1486
Intake:
IV piggybacks 688.4 / 688.4 522 / 522
TPN/PPN 684 / 684 684 / 684
Blood products 250 / 250
Blood Product Amount Infused ( 250 / 250
mL)
Packed Rbc Leukoreduced Unit 250 / 250
[id number]
Output:
Liquid stool amount 270 / 270 150 / 150
Ileostomy 270 / 270 150 / 150
Drain Output (Total) 185 / 185 70 / 70
Right Upper Abdomen Janes- 95 / 95 20 / 20
Pisano A
Right Upper Abdomen Janes- 90 / 90 50 / 50
Pisano B
Urine, Voided 600 / 600
Other:
Number of approximated MODERATE 2 3
amounts of urine
Vital Signs
Temp Pulse Resp BP Pulse Ox
98.7 F 78 18 124/80 97
04/28/25 03:12 04/28/25 08:00 04/28/25 08:00 04/28/25 08:00 04/28/25 10:37
Lab Results
04/28/25 03:46
Calcium 8.4 mg/dl (8.4-10.2) 04/28/25 03:46
Phosphorus 3.0 mg/dl (2.5-4.5) 04/28/25 03:46
Magnesium 1.9 mg/dl (1.6-2.3) 04/28/25 03:46
Total Bilirubin 0.3 mg/dl (0.2-1.3) 04/28/25 03:46
AST 25 U/L (14-36) 04/28/25 03:46
ALT 18 U/L (0-35) 04/28/25 03:46
Alkaline Phosphatase 110 U/L (38-126) 04/28/25 03:46
Total Protein 4.5 g/dl (6.3-8.2) L 04/28/25 03:46
Albumin 2.2 g/dl (3.5-5.0) L 04/28/25 03:46
Physical Exam
-
Gen: NAD
Abd: soft, aprop ttp, incisions cdi, drains ss x2, stoma with bridge in place and brown loose stool in appliance
Patient has a angulo catheter: No
Patient has a central line: Yes (PICC)
[2025-04-28 16:17] LABS: APTT 48.9 Sec (23.4-35.0)
[2025-04-28 17:47] LABS: Glucose - Point of Care 135 mg/dl (70-99)
[2025-04-28 17:53] LABS: Hematocrit 28.6 % (37.0-47.0); Hemoglobin 7.8 g/dL (12.0-16.0)
--- NOTE | 2025-04-28 19:26 | PTCARENOTE ---
pt downgraded to med surg and transferred to [address] [place] [address]. report given to Carolina.
[2025-04-28] MEDS: MYCAMINE 105 MG IV (21:28)
[2025-04-28 22:25] LABS: APTT 102.1 Sec (23.4-35.0)
[2025-04-28 22:35] LABS: Glucose - Point of Care 116 mg/dl (70-99)
[2025-04-29] MEDS: ROXICODONE 10 MG PO ×5 (02:15→23:38)
[2025-04-29 03:00] VITALS: BP 119/68
[2025-04-29] MEDS: TYLENOL PO ×6 (04:52→23:25)
[2025-04-29] MEDS: MORPHINE SULFATE 4 MG IV ×2 (04:58→15:05)
[2025-04-29] MEDS: UNASYN IV ×4 (04:58→21:32)
[2025-04-29] MEDS: SYNTHROID 125 MCG PO (04:58)
[2025-04-29 05:06] LABS: Hematocrit 24.7 % (37.0-47.0); Hemoglobin 7.8 g/dL (12.0-16.0); Mean Corp Hgb Conc. 31.6 g/dL (33.0-37.0); Mean Corpuscular Volume 92.5 fL (81.0-99.0); Nucleated Red Blood Cells % 0 %; Platelet Count 506 10^3/uL (130-400); Red Cell Dist. Width 20.6 % (11.5-14.5)
[2025-04-29 05:14] LABS: APTT 144.2 Sec (23.4-35.0)
[2025-04-29 05:24] VITALS: BMI 26.2
[2025-04-29 05:49] LABS: Albumin 2.2 g/dl (3.5-5.0)
[2025-04-29 06:45] LABS: ALT (SGPT) 23 U/L (0-35); AST (SGOT) 29 U/L (14-36); Alkaline Phosphatase 115 U/L (38-126); Blood Urea Nitrogen 21 mg/dl (7-17); Calcium 8.4 mg/dl (8.4-10.2); Carbon Dioxide 25 mmol/L (22-30); Chloride 108 mmol/L (98-107); Estimated Creatinine Clearance 67 ml/min; Glucose 90 mg/dl (70-99); Potassium 4.0 mmol/L (3.5-5.1); Sodium 134 mmol/L (135-145); Total Protein 4.6 g/dl (6.3-8.2); eGFR > 60.00
[2025-04-29 07:00] VITALS: BP 111/59
[2025-04-29] MEDS: LIPITOR 80 MG PO (08:10)
[2025-04-29] MEDS: NSS (PRESERVATIVE FREE) 10 ML IV (08:10)
[2025-04-29] MEDS: PACERONE 200 MG PO ×2 (08:10→19:36)
[2025-04-29] MEDS: VITAMIN D3 (cholecalciferol) 25 MCG PO (08:11)
[2025-04-29] MEDS: PROTONIX IV 40 MG IV (08:11)
[2025-04-29] MEDS: DESENEX/MITRAZOL/ZEASORB 1 APPLIC TOPICAL ×2 (08:12→19:37)
--- NOTE | 2025-04-29 08:56 | W.PN.GS2 ---
Today's Communication / Plan
-
KENRICK removed.
Dispo planning
Assessment / Plan
-
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 H/O Aortic thrombus with partial ALEJANDRO obstruction, had been on Eliquis which was held for surgery
POD #11 Robotic sigmoidectomy/left colectomy, takedown of coloenteric fistulas: coloileal by CRS (Johnie) with loop ileostomy creation and coloduodenal by GS (Abilio) with primary repair of duodenotomy in 2 layers. Cystoscopy with placement of
ureteral stents for identification of the ureters by urology (Turner)
Bowel function recovering well
Upper KENRICK (A) near duodenal repair: SSF (nonbilious)
Lower KENRICK (B) in pelivs: SSF
AFVSS
Leukocytosis trending down
H/H stable s/p one unit of blood 04/27 (total of 3 units total this admission)
renal function stable
CT from 04/26 without abscess or obvious extravasation of contrast
Plan:
-- KENRICK A removed at bedside.
-- Dispo per colorectal. Recommend staying on a low residue diet for an additional 6 days.
General surgery will sign off for now, please call with any questions or concerns.
No further follow-up needed
Time Spent
Total Time Spent with Patient (in minutes): 20
Subjective Data
-
Date of Service: April 29, 2025
Interval Events:
No acute events overnight. Slept well. Pain Controlled. Denies Nausea/Vomiting, +bowel function. Tolerating diet.
Objective Data
-
Intake and Output
04/28/25 04/29/25 04/30/25
06:59 06:59 06:59
Intake Total 1706 / 1706 2215 / 2215
Output Total 220 / 220 370 / 370 50 / 50
Balance 1486 / 1486 1845 / 1845 -50 / -50
Intake:
Oral fluids 960 / 960
IV fluids (Total) 215 / 215
IV piggybacks 522 / 522 480 / 480
TPN/PPN 684 / 684 560 / 560
Blood products 250 / 250
Blood Product Amount Infused ( 250 / 250
mL)
Packed Rbc Leukoreduced Unit 250 / 250
[id number]
Output:
Liquid stool amount 150 / 150 200 / 200
Ileostomy 150 / 150 200 / 200
Drain Output (Total) 70 / 70 170 / 170 50 / 50
Right Upper Abdomen Janes- 20 / 20 140 / 140 40 / 40
Pisano A
Right Upper Abdomen Janes- 50 / 50 30 / 30 10 / 10
Pisano B
Other:
Number of approximated MODERATE 3 3 1
amounts of urine
How many times incontinent 4
MODERATE amount urine
Vital Signs
Temp Pulse Resp BP Pulse Ox
97.9 F 72 18 111/59 99
04/29/25 07:00 04/29/25 07:00 04/29/25 07:00 04/29/25 07:00 04/29/25 07:00
Lab Results
04/29/25 04:48
04/29/25 04:48
Calcium 8.4 mg/dl (8.4-10.2) 04/29/25 04:48
Phosphorus 3.0 mg/dl (2.5-4.5) 04/28/25 03:46
Magnesium 1.9 mg/dl (1.6-2.3) 04/28/25 03:46
Total Bilirubin 0.3 mg/dl (0.2-1.3) 04/29/25 04:48
AST 29 U/L (14-36) 04/29/25 04:48
ALT 23 U/L (0-35) 04/29/25 04:48
Alkaline Phosphatase 115 U/L (38-126) 04/29/25 04:48
Total Protein 4.6 g/dl (6.3-8.2) L 04/29/25 04:48
Albumin 2.2 g/dl (3.5-5.0) L 04/29/25 04:48
Physical Exam
-
GENERAL/NEURO: Awake, Alert, no distress
CHEST: Unlabored breathing on RA
ABDOMEN: Soft, Non-Tender, Non-Distended, incisions clean dry and intact, ostomy is pink patent and productive of brown stool with flatus. KENRICK A with serous output. 40 cc over 24 hours, removed at bedside.
Patient has a angulo catheter: No
Patient has a central line: No
[2025-04-29] MEDS: ELIQUIS 5 MG PO ×2 (08:58→19:36)
--- NOTE | 2025-04-29 09:25 | W.PN.HOSP.TC ---
Today's Communication/Plan
-
Oxy q4hprn
cont Abx as per ID
further mgmt as per [facility]
Assessment / Plan
Assessment / Plan
64yo F with PMHx of cholecystectomy, asthma, hypothyroidism, HLD, anxiety, HTN, GERD, chronic thrombocytosis came with complicated diverticulitis with abscesses in October 2024, initially treated with Abx. Then developed in February 2025 with recurrent
abscesses and coloenteric fistula, initially managed with drain and Abx, then readmitted for robotic sigmoidectomy with L colectomy, loop ileostomy and two coloenteric fistula takedown on 04/18/25. Managed for TPN for postOP recovery and due to
abscess found during surgery - on Unasyn and Micafungin as per ID
A/P:
#complicated diverticulitis
#Residual L retroperitoneal abscess
TPN completed on 04/28/25 and advanced diet as tolerated as per Colorectal Sx
ID follows: On Unasyn?Micafungin
Repeat CT on 04/26/25 due to leukocytosis showed no contrast extravasation
Patient reporting ongoing pain 9.5/10 that improved to 6-7 on Oxycodone 10mg q6h, however patient is taking IV Morphine every 4h since does not feel that the level of the pain on oral meds appropriate. Bedside patient s comfortable and not in
distress. Declined switch to PO Dilaudid. Oxycodone interval changed to q4hprn on 04/29/25. Discussed in details with patient that decrease in pain level by 2-3 points while her remains comfortable on exam - is successful response. Discussed that pain
mgmt expectations should be realistic. Concern for opioid dependency. Would rapidly titrate as outpatient
#Abdominal aortic thrombus
#Possible ALEJANDRO obstruction
Vascular Sx: recommended anticoagulation, started on heparin drip switched to DOAC on 04/29/25
#A.flutter with RVR
telemetry
controlled on Amiodarone
#Hyponatremia
Mild
most likely 2/2 pain
Follow BMP
control pain
#Anemia, acute on chronic
#PHANI
#Chronic thrombocytosis
Previously recommended hematology follow up
multifactorial: chronic disease, postOP
follow CBC
s/p 1 unit PRBC on 04/27/25
transfuse as needed
#5.2cm exophitic uterine fibroid
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
#Essential HTN
#Anxiety
#GERD
con home meds when able
DVT ppx hep drip
Full code
I have spent at least 51min reviewing chart, test results, communication with consultants and providing direct patient care
Anticipated Discharge: > 48 hours
Subjective/Interval History
-
Date of Service: April 29, 2025
Objective Data
-
Labs:
Laboratory Results
04/28/25 04/29/25 04/29/25
22:08 04:48 12:30
WBC 11.9 H
Hgb 7.8 L
Hct 24.7 L
Plt Count 506 H
APTT 102.1 H 144.2 H Cancelled
Sodium 134 L
Potassium 4.0
Chloride 108 H
Carbon Dioxide 25
BUN 21 H
Creatinine 0.7
Glucose 90
Calcium 8.4
Total Bilirubin 0.3
AST 29
ALT 23
Alkaline Phosphatase 115
Vital Signs:
Vital Signs
Temp Pulse Resp BP Pulse Ox
97.9 F 72 18 111/59 99
04/29/25 07:00 04/29/25 07:00 04/29/25 07:00 04/29/25 07:00 04/29/25 07:00
I&O
04/28/25 04/29/25 04/30/25
06:59 06:59 06:59
Intake Total 1706 / 1706 2215 / 2215
Output Total 220 / 220 370 / 370 50 / 50
Balance 1486 / 1486 1845 / 1845 -50 / -50
Review of Systems
-
History Source: Patient
All other systems: Reviewed and negative
Abdomen/GI: Reports Abdominal Pain
Physical Exam
-
General: No Apparent Distress
HEENT: Normocephalic
GI: Soft, Nondistended and Tender
Skin: Warm
Neuro: Awake, Alert, Oriented and AO x 3
Psych: Calm
--- NOTE | 2025-04-29 10:55 | W.PN.ID1 ---
Date of Service
Date of Service: April 29, 2025
Today's Communication
Continue antibiotics.
Assessment / Plan
# S/p robotic left colectomy, takedown of two coloenteric fistulas (coloduodenal and coloileal), repair of duodenotomy, loop ileostomy. (04/18/25)
- Small mucopurulent abscess noted in (L) RP.
# Leukocytosis
# Recent h/o of complicated diverticular abscesses / coloenteric fistulae; status post PERC drain and course of Unasyn plus micafungin.
Recommendations:
- Previous 03/08 abd abcess cx: C. dubliniensis, E faecalis, diphtheroid, Lactobacillus rhamnosus.
- Continue Unasyn and Micafungin (d#12).
- Continue to trend wbc.
- Monitor KENRICK output
����������������������������������������������������������
Chief Complaint
-: Leukocytosis
Subjective / Review of Systems
Patient seen and examined. Feeling well today.
Vital Signs / Physical Exam
Vital Signs
Vital Signs
Temp Pulse Resp BP Pulse Ox
97.9 F 72 18 111/59 99
04/29/25 07:00 04/29/25 07:00 04/29/25 07:00 04/29/25 07:00 04/29/25 07:00
Physical Exam
Constitutional: No Acute Distress, Comfortable and Non-toxic
Eyes: Sclera Anicteric
Cardiovascular: Regular Rate and S1/S2; Negative S3/S4
Pulmonary: Clear and Non Labored
Gastrointestinal: Soft, Tender (mild) and Other (KENRICK drains x 1 with serosanguinous fluid. Ostomy in place.)
Extremities: Negative Edema
Neurological: AO x 3
Lines: PICC (LUE)
Objective Data
Lab Data
Lab Results
04/29/25 04:48
04/29/25 04:48
PT 15.1 Sec (11.4-14.6) H 04/19/25 15:27
INR 1.16 04/19/25 15:27
APTT Cancelled 04/29/25 12:30
Estimated Creat Clear 67 ml/min 04/29/25 04:48
Total Bilirubin 0.3 mg/dl (0.2-1.3) 04/29/25 04:48
AST 29 U/L (14-36) 04/29/25 04:48
ALT 23 U/L (0-35) 04/29/25 04:48
Alkaline Phosphatase 115 U/L (38-126) 04/29/25 04:48
Most recent labs reviewed.
Micro Results:
04/26/25 23:48 Urine Culture - Final
Urine NO GROWTH
04/19/25 05:44 MRSA Screen - Final
Nose No Methicillin Resistant Staphylococcus aureus isolated.
Imaging:
04/26/2025 CT abdomen/pelvis with contrast: no extravasation of rectal contrast to suggest anastomotic leakage. Postsurgical changes as noted in body of dictation. No evidence of drainable abscess formation. Trace free fluid within the pelvis and
within the presacral space, likely reactive for postoperative. Please see full dictation for additional detail.
04/18/25 CXR: Left PICC line is present with tip in good position, within the SVC.
[2025-04-29 11:00] VITALS: BP 112/59
[2025-04-29 15:00] VITALS: BP 106/68
--- NOTE | 2025-04-29 16:36 | W.PN.CRS1 ---
Today's Communication / Plan
-
As below
Assessment/Plan
-
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 H/O Aortic thrombus with partial ALEJANDRO obstruction, had been on Eliquis which was held for surgery
POD #11 Robotic sigmoidectomy/left colectomy, takedown of coloenteric fistulas: coloileal by CRS (Johnie) and coloduodenal by GS (Abilio) with primary repair of duodenotomy in 2 layers; creation of diverting loop ileostomy, cystoscopy with placement
of ureteral stents for identification of the ureters by urology (Turner)
AFVSS
WBC 11.9 from 13.4, Hb 7.8 from 7.8, CR 0.7
KENRICK a removed by general surgery
Plan:
-- Continue low residue diet, off TPN
--Encourage OOB/Mobility
--Pain control with Tylenol, oxycodone and morphine as needed, increase frequency to every 4 hours
--Continue Unasyn and micafungin, appreciate ID
-- Restarted Eliquis this a.m.
-- Encourage I-S/OOB; appreciate PT, recommend SNF
-- Appreciate WOCN
--General Surgery signed off
--Appreciate hospitalist consult
Dispo�likely okay for DC tomorrow once bed available; will plan to pull KENRICK prior to discharge
Subjective Data
Procedure
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
Subjective Data
Date of Service: April 29, 2025
No issues overnight, except pain not completely controlled with oxy every 6 hours. Denies N/V, having ostomy function and voiding.
Objective Data
-
Vital Signs
Temp Pulse Resp BP Pulse Ox
98.3 F 79 18 106/68 98
04/29/25 15:00 04/29/25 15:00 04/29/25 15:00 04/29/25 15:00 04/29/25 15:00
Intake & Output
04/28/25 04/29/25 04/30/25
06:59 06:59 06:59
Intake Total 1706 / 1706 2215 / 2215 240 / 240
Output Total 220 / 220 370 / 370 150 / 150
Balance 1486 / 1486 1845 / 1845 90 / 90
Intake:
Oral fluids 960 / 960
IV fluids (Total) 215 / 215
IV piggybacks 522 / 522 480 / 480 240 / 240
TPN/PPN 684 / 684 560 / 560
Blood products 250 / 250
Blood Product Amount Infused ( 250 / 250
mL)
Packed Rbc Leukoreduced Unit 250 / 250
[id number]
Output:
Liquid stool amount 150 / 150 200 / 200 100 / 100
Ileostomy 150 / 150 200 / 200 100 / 100
Drain Output (Total) 70 / 70 170 / 170 50 / 50
Right Upper Abdomen Janes- 20 / 20 140 / 140 40 / 40
Pisano A
Right Upper Abdomen Janes- 50 / 50 30 / 30 10 / 10
Pisano B
Other:
Number of approximated MODERATE 3 3 1
amounts of urine
How many times incontinent 4
MODERATE amount urine
Lab Results
04/29/25 04:48
04/29/25 04:48
Physical Exam
-
General: No Acute Distress and AOx3
HEENT: Grossly Normal
Abdomen: Soft, Non Distended, Tender (Appropriately tender near incisions; incisions well-approximated without erythema or drainage), No Guarding, No Rebound and Other (Ostomy pink and productive of stool; KENRICK A removed by general surgery, KENRICK B- 40
mL serous)
Skin: Warm and Dry
Wound: No Signs of Infection and No Skin Erythema
[2025-04-29 19:52] VITALS: BP 128/68
[2025-04-29] MEDS: FLUSH (NSS) 1 FLUSH IV (21:32)
[2025-04-29] MEDS: MYCAMINE 105 MG IV (22:11)
[2025-04-29 23:00] VITALS: BP 126/72
[2025-04-30] VITALS (8 sets, daily range): BP systolic 110–142; BP diastolic 61–71; PULSE 87; O2SAT 97; BMI 26.1
[2025-04-30] MEDS: VALIUM INJECTION 2 MG IV (01:06)
[2025-04-30] MEDS: FLUSH (NSS) 2 FLUSH IV (01:07)
[2025-04-30] MEDS: MORPHINE SULFATE 4 MG IV ×4 (02:56→21:26)
[2025-04-30] MEDS: UNASYN IV ×4 (02:57→21:17)
[2025-04-30] MEDS: TYLENOL PO ×6 (02:57→20:55)
[2025-04-30] MEDS: FLUSH (NSS) 1 FLUSH IV ×3 (02:57→10:48)
[2025-04-30] MEDS: SYNTHROID 125 MCG PO (05:32)
[2025-04-30] MEDS: ROXICODONE 10 MG PO ×3 (05:32→18:43)
[2025-04-30 06:12] LABS: Blood Urea Nitrogen 15 mg/dl (7-17); Calcium 8.5 mg/dl (8.4-10.2); Carbon Dioxide 26 mmol/L (22-30); Chloride 107 mmol/L (98-107); Estimated Creatinine Clearance 67 ml/min; Glucose 95 mg/dl (70-99); Potassium 4.2 mmol/L (3.5-5.1); Sodium 134 mmol/L (135-145); eGFR > 60.00
[2025-04-30 08:03] LABS: Glucose - Point of Care 102 mg/dl (70-99)
[2025-04-30] MEDS: DESENEX/MITRAZOL/ZEASORB 1 APPLIC TOPICAL ×2 (08:51→20:55)
[2025-04-30] MEDS: ELIQUIS 5 MG PO ×2 (08:51→20:55)
[2025-04-30] MEDS: LIPITOR 80 MG PO (08:52)
[2025-04-30] MEDS: PACERONE 200 MG PO ×2 (08:53→20:55)
[2025-04-30] MEDS: VITAMIN D3 (cholecalciferol) 25 MCG PO (08:55)
[2025-04-30] MEDS: PROTONIX IV 40 MG IV (08:56)
[2025-04-30] MEDS: NSS (PRESERVATIVE FREE) 10 ML IV (08:57)
--- NOTE | 2025-04-30 11:49 | W.PN.CRS1 ---
Today's Communication / Plan
-
KENRICK drain removed
Dispo planning
Assessment/Plan
-
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 H/O Aortic thrombus with partial ALEJANDRO obstruction, had been on Eliquis which was held for surgery
POD #12 Robotic sigmoidectomy/left colectomy, takedown of coloenteric fistulas: coloileal by CRS (Johnie) and coloduodenal by GS (Abilio) with primary repair of duodenotomy in 2 layers; creation of diverting loop ileostomy, cystoscopy with placement
of ureteral stents for identification of the ureters by urology (Turner)
AFVSS
Plan:
-- Continue low residue diet
--Encourage OOB/Mobility
--Pain control with Tylenol, oxycodone and morphine as needed, increase frequency to every 4 hours
--Continue Unasyn and micafungin, appreciate ID-I spoke to them about possibly discharging this patient as soon as today. They are thinking at least another week of IV antibiotics.
-- Continue Eliquis
-- Encourage I-S/OOB; appreciate PT, recommend SNF
-- Appreciate WOCN
--General Surgery signed off
--Appreciate hospitalist consult
--KENRICK drain #2 removed at bedside
--Dispo�okay for DC once bed is available and IV antibiotics are arranged
Subjective Data
Procedure
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
Subjective Data
Date of Service: April 30, 2025
Patient states she feels well. She overall has been doing much better. She is eating full meals. Denies nausea or vomiting. She has bowel function.
Objective Data
-
Vital Signs
Temp Pulse Resp BP Pulse Ox
98.1 F 77 16 120/62 98
04/30/25 07:05 04/30/25 08:53 04/30/25 07:05 04/30/25 08:53 04/30/25 07:05
Intake & Output
04/29/25 04/30/25 05/01/25
06:59 06:59 06:59
Intake Total 2215 / 2215 580 / 580 210 / 210
Output Total 370 / 370 165 / 165
Balance 1845 / 1845 415 / 415 210 / 210
Intake:
Oral fluids 960 / 960 90 / 90
IV fluids (Total) 215 / 215
IV piggybacks 480 / 480 580 / 580 120 / 120
TPN/PPN 560 / 560
Output:
Liquid stool amount 200 / 200 100 / 100
Ileostomy 200 / 200 100 / 100
Drain Output (Total) 170 / 170 65 / 65
Right Upper Abdomen Janes- 140 / 140 40 / 40
Pisano A
Right Upper Abdomen Janes- 30 / 30
Pisano B
Other:
Number of approximated MODERATE 3 1 3
amounts of urine
How many times incontinent 4
MODERATE amount urine
Lab Results
04/29/25 04:48
04/30/25 05:36
Physical Exam
-
General: No Acute Distress and AOx3
Abdomen: Soft, Non Distended, Non Tender and Other (Ostomy warm and pink with stool, KENRICK drain serosanguineous)
Skin: Warm and Dry
--- NOTE | 2025-04-30 12:18 | CM ---
Addendum entered by Vinicio Woodruff 04/30/25 16:23:
Ileostomy supplies information forwarded to [facility] director wholesale and she confirmed it will be ordered and they will have a bed available for pt on 05/02/25.
Accepting physician Dr. Ruperto Martel
Pt will need midline for IV antibiotic and Covid test prior to discharge.
CM will initiate an auth tomorrow.
Addendum entered by Vinicio Woodruff 04/30/25 14:58:
According to MD pt is medically stable to be discharged.
CM spoke to [facility] admission director, requested ileostomy supplies information provided and she is checking whether or not they have it at their facility or it needs to be ordered. Per admission director, pt will be accepted for
admission to [facility] when all ileostomy supplies available and pt will need 3-4 days of ileostomy supplies at discharge.
Original Note:
M following re: discharge planning.
Reviewed pt's chart, met with pt.
Pt is POD #12 Robotic sigmoidectomy/left colectomy, KENRICK drain #2 removed, continue ileostomy, continue IV antibiotic for another week, continue supportive care.
PT and OT evaluation noted - SNF level of care recommended. Pt stated she was at [facility] for a month, did not pay for bed hold and pt requested to return back to [facility] at discharge.
A referral to [facility] noted. Per [facility] admission director they will need 24-48 hours notice prior to discharge and pt will need to have ileostomy supplies for 3-4 days.
D/C plan: [facility] when medically stable.
CM will follow with discharge plan updates as hospitalization progresses
--- NOTE | 2025-04-30 12:30 | W.PN.ID1 ---
Date of Service
Date of Service: April 30, 2025
Today's Communication
Continue antibiotics. See below�
Assessment / Plan
# S/p robotic left colectomy, takedown of two coloenteric fistulas (coloduodenal and coloileal), repair of duodenotomy, loop ileostomy. (04/18/25)
- Small mucopurulent abscess noted in (L) RP.
# Leukocytosis
# Recent h/o of complicated diverticular abscesses / coloenteric fistulae; status post PERC drain and course of Unasyn plus micafungin.
Recommendations:
- Previous 03/08 abd abcess cx: C. dubliniensis, E faecalis, diphtheroid, Lactobacillus rhamnosus.
- Continue Unasyn and Micafungin (d#13).
- Would continue Unasyn for an additional 7 days.
- Micafungin can be discontinued at time of discharge.
����������������������������������������������������������
Chief Complaint
-: Leukocytosis
Subjective / Review of Systems
Review of Systems: No Fever and No Chills
Vital Signs / Physical Exam
Vital Signs
Vital Signs
Temp Pulse Resp BP Pulse Ox
98.2 F 84 16 124/61 98
04/30/25 11:15 04/30/25 11:15 04/30/25 11:15 04/30/25 11:15 04/30/25 11:15
Physical Exam
Constitutional: No Acute Distress, Comfortable and Non-toxic
Eyes: Sclera Anicteric
Cardiovascular: Regular Rate and S1/S2; Negative S3/S4
Pulmonary: Clear and Non Labored
Gastrointestinal: Soft, Tender (mild) and Other (KENRICK drain out. Ostomy in place.)
Extremities: Negative Edema
Neurological: AO x 3
Lines: PICC (LUE)
Objective Data
Lab Data
Lab Results
04/29/25 04:48
04/30/25 05:36
PT 15.1 Sec (11.4-14.6) H 04/19/25 15:27
INR 1.16 04/19/25 15:27
APTT Cancelled 04/29/25 12:30
Estimated Creat Clear 67 ml/min 04/30/25 05:36
Total Bilirubin 0.3 mg/dl (0.2-1.3) 04/29/25 04:48
AST 29 U/L (14-36) 04/29/25 04:48
ALT 23 U/L (0-35) 04/29/25 04:48
Alkaline Phosphatase 115 U/L (38-126) 04/29/25 04:48
Most recent labs reviewed.
Micro Results:
04/26/25 23:48 Urine Culture - Final
Urine NO GROWTH
04/19/25 05:44 MRSA Screen - Final
Nose No Methicillin Resistant Staphylococcus aureus isolated.
Imaging:
04/26/2025 CT abdomen/pelvis with contrast: no extravasation of rectal contrast to suggest anastomotic leakage. Postsurgical changes as noted in body of dictation. No evidence of drainable abscess formation. Trace free fluid within the pelvis and
within the presacral space, likely reactive for postoperative. Please see full dictation for additional detail.
04/18/25 CXR: Left PICC line is present with tip in good position, within the SVC.
Care Review
Plan reviewed with: Physician (Colorectal surgery)
--- NOTE | 2025-04-30 12:56 | W.PN.HOSP.TC ---
Today's Communication/Plan
-
no changes for pain meds
as pr ID - micafungin can be stoppe upon d/c, cont Unasyn for 7 more days.
No objections for d/c after establishing STR and outpatient Abx
Assessment / Plan
Assessment / Plan
64yo F with PMHx of cholecystectomy, asthma, hypothyroidism, HLD, anxiety, HTN, GERD, chronic thrombocytosis came with complicated diverticulitis with abscesses in October 2024, initially treated with Abx. Then developed in February 2025 with recurrent
abscesses and coloenteric fistula, initially managed with drain and Abx, then readmitted for robotic sigmoidectomy with L colectomy, loop ileostomy and two coloenteric fistula takedown on 04/18/25. Managed for TPN for postOP recovery and due to
abscess found during surgery - on Unasyn and Micafungin as per ID
A/P:
#complicated diverticulitis
#Residual L retroperitoneal abscess
TPN completed on 04/28/25 and advanced diet as tolerated as per Colorectal Sx
ID follows: On Unasyn?Micafungin
Repeat CT on 04/26/25 due to leukocytosis showed no contrast extravasation
Patient reporting ongoing pain 9.5/10 that improved to 6-7 on Oxycodone 10mg q6h, however patient is taking IV Morphine every 4h since does not feel that the level of the pain on oral meds appropriate. Bedside patient s comfortable and not in
distress. Declined switch to PO Dilaudid. Oxycodone interval changed to q4hprn on 04/29/25. Discussed in details with patient that decrease in pain level by 2-3 points while her remains comfortable on exam - is successful response. Discussed that pain
mgmt expectations should be realistic. Concern for opioid dependency. Would rapidly titrate as outpatient
#Abdominal aortic thrombus
#Possible ALEJANDRO obstruction
Vascular Sx: recommended anticoagulation, started on heparin drip switched to DOAC on 04/29/25
#A.flutter with RVR
telemetry
controlled on Amiodarone
#Hyponatremia
Mild
most likely 2/2 pain
Follow BMP
control pain
#Anemia, acute on chronic
#PHANI
#Chronic thrombocytosis
Previously recommended hematology follow up
multifactorial: chronic disease, postOP
follow CBC
s/p 1 unit PRBC on 04/27/25
transfuse as needed
#5.2cm exophitic uterine fibroid
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
#Essential HTN
#Anxiety
#GERD
con home meds when able
DVT ppx hep drip
Full code
I have spent at least 51min reviewing chart, test results, communication with consultants and providing direct patient care
Anticipated Discharge: Within 24 hours
Subjective/Interval History
-
Date of Service: April 30, 2025
Objective Data
-
Labs:
Laboratory Results
04/30/25
05:36
Sodium 134 L
Potassium 4.2
Chloride 107
Carbon Dioxide 26
BUN 15
Creatinine 0.7
Glucose 95
Calcium 8.5
Vital Signs:
Vital Signs
Temp Pulse Resp BP Pulse Ox
98.2 F 84 16 124/61 98
04/30/25 11:15 04/30/25 11:15 04/30/25 11:15 04/30/25 11:15 04/30/25 11:15
I&O
04/29/25 04/30/25 05/01/25
06:59 06:59 06:59
Intake Total 2215 / 2215 580 / 580 210 / 210
Output Total 370 / 370 165 / 165
Balance 1845 / 1845 415 / 415 210 / 210
Review of Systems
-
History Source: Patient
All other systems: Reviewed and negative
Physical Exam
-
General: No Apparent Distress
GI: Tender
Neuro: Awake, Alert, Oriented and AO x 3
Psych: Calm
[2025-04-30] MEDS: MYCAMINE 105 MG IV (21:18)
[2025-05-01] VITALS (7 sets, daily range): BP systolic 122–133; BP diastolic 65–73; BMI 25.7
[2025-05-01] MEDS: ROXICODONE 10 MG PO ×4 (00:29→21:09)
[2025-05-01] MEDS: TYLENOL PO ×7 (00:53→23:19)
[2025-05-01] MEDS: VALIUM INJECTION 2 MG IV (02:08)
[2025-05-01] MEDS: MORPHINE SULFATE 4 MG IV ×4 (04:13→23:18)
[2025-05-01] MEDS: UNASYN IV ×4 (04:17→21:05)
[2025-05-01] MEDS: SYNTHROID 125 MCG PO (05:19)
[2025-05-01 05:49] LABS: Hematocrit 25.8 % (37.0-47.0); Hemoglobin 8.2 g/dL (12.0-16.0); Mean Corp Hgb Conc. 31.8 g/dL (33.0-37.0); Mean Corpuscular Volume 93.8 fL (81.0-99.0); Nucleated Red Blood Cells % 0 %; Platelet Count 571 10^3/uL (130-400); Red Cell Dist. Width 20.2 % (11.5-14.5)
[2025-05-01] MEDS: NSS (PRESERVATIVE FREE) 10 ML IV (08:47)
[2025-05-01] MEDS: PROTONIX IV 40 MG IV (08:47)
[2025-05-01] MEDS: FLUSH (NSS) 1 FLUSH IV ×3 (08:48→18:27)
[2025-05-01] MEDS: PACERONE 200 MG PO ×2 (08:49→20:53)
[2025-05-01] MEDS: VITAMIN D3 (cholecalciferol) 25 MCG PO (08:49)
[2025-05-01] MEDS: LIPITOR 80 MG PO (08:49)
[2025-05-01] MEDS: ELIQUIS 5 MG PO ×2 (08:49→20:53)
[2025-05-01] MEDS: DESENEX/MITRAZOL/ZEASORB 1 APPLIC TOPICAL (08:49)
[2025-05-01 09:14] LABS: COVID-19 Antigen Negative (Negative)
--- NOTE | 2025-05-01 10:36 | W.PN.ID1 ---
Date of Service
Date of Service: May 01, 2025
Today's Communication
Continue antibiotics.
Assessment / Plan
# S/p robotic left colectomy, takedown of two coloenteric fistulas (coloduodenal and coloileal), repair of duodenotomy, loop ileostomy. (04/18/25)
- Small mucopurulent abscess noted in (L) RP.
# Leukocytosis
# Recent h/o of complicated diverticular abscesses / coloenteric fistulae; status post PERC drain and course of Unasyn plus micafungin.
Recommendations:
- Previous 03/08 abd abcess cx: C. dubliniensis, E faecalis, diphtheroid, Lactobacillus rhamnosus.
- Continue Unasyn and Micafungin (d#14).
- Would continue Unasyn for an additional 6 days.
- Micafungin can be discontinued at time of discharge.
����������������������������������������������������������
Chief Complaint
-: Leukocytosis
Subjective / Review of Systems
Review of Systems: No Fever and No Chills
Vital Signs / Physical Exam
Vital Signs
Vital Signs
Temp Pulse Resp BP Pulse Ox
97.8 F 75 16 122/65 97
05/01/25 07:00 05/01/25 08:49 05/01/25 07:00 05/01/25 08:49 05/01/25 07:00
Physical Exam
Constitutional: No Acute Distress, Comfortable and Non-toxic
Eyes: Sclera Anicteric
Cardiovascular: Regular Rate and S1/S2; Negative S3/S4
Pulmonary: Clear and Non Labored
Gastrointestinal: Soft, Tender (mild) and Other (Ostomy in place.)
Extremities: Negative Edema
Neurological: AO x 3
Lines: PICC (LUE)
Objective Data
Lab Data
Lab Results
05/01/25 05:38
04/30/25 05:36
PT 15.1 Sec (11.4-14.6) H 04/19/25 15:27
INR 1.16 04/19/25 15:27
APTT Cancelled 04/29/25 12:30
Estimated Creat Clear 67 ml/min 04/30/25 05:36
Total Bilirubin 0.3 mg/dl (0.2-1.3) 04/29/25 04:48
AST 29 U/L (14-36) 04/29/25 04:48
ALT 23 U/L (0-35) 04/29/25 04:48
Alkaline Phosphatase 115 U/L (38-126) 04/29/25 04:48
Most recent labs reviewed.
Micro Results:
04/26/25 23:48 Urine Culture - Final
Urine NO GROWTH
04/19/25 05:44 MRSA Screen - Final
Nose No Methicillin Resistant Staphylococcus aureus isolated.
Imaging:
04/26/2025 CT abdomen/pelvis with contrast: no extravasation of rectal contrast to suggest anastomotic leakage. Postsurgical changes as noted in body of dictation. No evidence of drainable abscess formation. Trace free fluid within the pelvis and
within the presacral space, likely reactive for postoperative. Please see full dictation for additional detail.
04/18/25 CXR: Left PICC line is present with tip in good position, within the SVC.
--- NOTE | 2025-05-01 11:49 | W.PN.HOSP.TC ---
Today's Communication/Plan
-
noted KENRICK drain out
cont Unasyn, Micafungin
cont current pain regimen
Assessment / Plan
Assessment / Plan
64yo F with PMHx of cholecystectomy, asthma, hypothyroidism, HLD, anxiety, HTN, GERD, chronic thrombocytosis came with complicated diverticulitis with abscesses in October 2024, initially treated with Abx. Then developed in February 2025 with recurrent
abscesses and coloenteric fistula, initially managed with drain and Abx, then readmitted for robotic sigmoidectomy with L colectomy, loop ileostomy and two coloenteric fistula takedown on 04/18/25. Managed for TPN for postOP recovery and due to
abscess found during surgery - on Unasyn and Micafungin as per ID
A/P:
#complicated diverticulitis
#Residual L retroperitoneal abscess
TPN completed on 04/28/25 and advanced diet as tolerated as per Colorectal Sx
ID follows: On Unasyn?Micafungin
Repeat CT on 04/26/25 due to leukocytosis showed no contrast extravasation
Patient reporting ongoing pain 9.5/10 that improved to 6-7 on Oxycodone 10mg q6h, however patient is taking IV Morphine every 4h since does not feel that the level of the pain on oral meds appropriate. Bedside patient s comfortable and not in
distress. Declined switch to PO Dilaudid. Oxycodone interval changed to q4hprn on 04/29/25. Discussed in details with patient that decrease in pain level by 2-3 points while her remains comfortable on exam - is successful response. Discussed that pain
mgmt expectations should be realistic. Concern for opioid dependency. Would rapidly titrate as outpatient
#Abdominal aortic thrombus
#Possible ALEJANDRO obstruction
Vascular Sx: recommended anticoagulation, started on heparin drip switched to DOAC on 04/29/25
#A.flutter with RVR
telemetry
controlled on Amiodarone
#Hyponatremia
Mild
most likely 2/2 pain
Follow BMP
control pain
#Anemia, acute on chronic
#PHANI
#Chronic thrombocytosis
Previously recommended hematology follow up
multifactorial: chronic disease, postOP
follow CBC
s/p 1 unit PRBC on 04/27/25
transfuse as needed
#5.2cm exophitic uterine fibroid
US TV as outpatient with CAN DRYER
#Essential HTN
#Anxiety
#GERD
con home meds when able
DVT ppx hep drip
Full code
I have spent at least 51min reviewing chart, test results, communication with consultants and providing direct patient care
Anticipated Discharge: Within 24 hours
Subjective/Interval History
-
Date of Service: May 01, 2025
Objective Data
-
Labs:
Laboratory Results
05/01/25
05:38
WBC 11.3 H
Hgb 8.2 L
Hct 25.8 L
Plt Count 571 H
Vital Signs:
Vital Signs
Temp Pulse Resp BP Pulse Ox
97.8 F 78 16 124/73 98
05/01/25 11:00 05/01/25 11:00 05/01/25 11:00 05/01/25 11:00 05/01/25 11:00
I&O
04/30/25 05/01/25 05/02/25
06:59 06:59 06:59
Intake Total 580 / 580 1650 / 1650 360 / 360
Output Total 165 / 165
Balance 415 / 415 1650 / 1650 360 / 360
Review of Systems
-
History Source: Patient
All other systems: Reviewed and negative
Physical Exam
-
General: No Apparent Distress
HEENT: Normocephalic
Neuro: Awake, Alert, Oriented and AO x 3
Psych: Calm
--- NOTE | 2025-05-01 13:08 | W.PN.CRS1 ---
Today's Communication / Plan
-
await dispo to SNF
Assessment/Plan
-
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 H/O Aortic thrombus with partial ALEJANDRO obstruction, had been on Eliquis which was held for surgery
POD #13 Robotic sigmoidectomy/left colectomy, takedown of coloenteric fistulas: coloileal by CRS (Johnie) and coloduodenal by GS (Abilio) with primary repair of duodenotomy in 2 layers; creation of diverting loop ileostomy, cystoscopy with placement
of ureteral stents for identification of the ureters by urology (Turner)
AFVSS
Plan:
-- Continue low residue diet
--Encourage OOB/Mobility
--Pain control with Tylenol, oxycodone and morphine as needed, increase frequency to every 4 hours
--Continue Unasyn and micafungin, appreciate ID- another week of IV antibiotics.
-- Continue Eliquis
-- Encourage I-S/OOB; appreciate PT, recommend SNF
-- Appreciate WOCN
--General Surgery signed off
--Appreciate hospitalist consult
--Dispo�okay for DC once bed is available and IV antibiotics are arranged
Subjective Data
Procedure
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
Subjective Data
Date of Service: May 01, 2025
Patient states she is feeling well. She is tolerating diet and eating full meals. Her pain is controlled. Denies nausea or vomiting. Stoma is functioning.
Objective Data
-
Vital Signs
Temp Pulse Resp BP Pulse Ox
97.8 F 78 16 124/73 98
05/01/25 11:00 05/01/25 11:00 05/01/25 11:00 05/01/25 11:00 05/01/25 11:00
Intake & Output
04/30/25 05/01/25 05/02/25
06:59 06:59 06:59
Intake Total 580 / 580 1650 / 1650 360 / 360
Output Total 165 / 165
Balance 415 / 415 1650 / 1650 360 / 360
Intake:
Oral fluids 1070 / 1070 240 / 240
IV fluids (Total) 0 / 0
IV piggybacks 580 / 580 580 / 580 120 / 120
Output:
Liquid stool amount 100 / 100
Ileostomy 100 / 100
Drain Output (Total) 65 / 65
Right Upper Abdomen Janes- 40 / 40
Pisano A
Right Upper Abdomen Janes-
Pisano B
Other:
Number of approximated MODERATE 1 3 1
amounts of urine
How many times incontinent 2
MODERATE amount urine
Lab Results
05/01/25 05:38
04/30/25 05:36
Physical Exam
-
General: No Acute Distress and AOx3
Abdomen: Soft, Non Distended, Non Tender and Other (Colostomy warm and pink with function)
Skin: Warm and Dry
--- NOTE | 2025-05-01 15:03 | CM ---
CM following re: discharge planning.
Reviewed pt's chart, met with pt.
According to MD pt is medically stable to be discharged tomorrow. Pt is aware, expressed her agreement.
IKE spoke to [facility] commercial director and she confirmed that pt is accepted for admission tomorrow. PICC line information with COVID test result faxed to [facility] at [phone].
IKE initiated an auth from [employer] for SNF level of care at [facility], spoke to sales representative printing supplies Kendra and based on pt's clinical, pt is approved for 5 initial days of S NF level of care at [facility] from tomorrow 05/02/25 till 05/06/25 with NRD
and LCD 05/06/25. Auth: [id number]. For review call [phone]
Auth information forwarded to [facility] and she confirmed that pt is accepted for admission tomorrow 05/02/25 and 11:30 a.m. hop picker time requested.
Pt is aware, expressed her great satisfaction with discharge plan outcome and she stated her brother will transport her tomorrow at 11:30 am.
[facility] nursing report: [phone]
Discharge instructions fax: [phone].
D/C plan: [facility] tomorrow 05/02/25
--- NOTE | 2025-05-01 15:28 | WOUNDNOTE ---
WON RN NOTE: Appliance changed today using Laura seal and Carola 2 3/4' appliance, patient assisted with closing tail end of pouch and applying wafer. Stoma pink, slightly budded, has bridge intact. Peristomal skin intact. Extensive teaching on
emptying, skin care, ADL's and pouch changes. Answered all questions and ordered additional supplies to last 2 wks. Patient for discharge to rehab tomorrow per nurse. Permission given by patient to enroll in secure start program and have sent to
her brother's home. Will update [facility] Website and follow as needed.
[2025-05-01] MEDS: FLUSH (NSS) 2 FLUSH IV (16:47)
[2025-05-01] MEDS: DESENEX/MITRAZOL/ZEASORB TOPICAL (20:53)
[2025-05-01] MEDS: MYCAMINE 105 MG IV (22:16)
[2025-05-02] MEDS: ROXICODONE 10 MG PO ×2 (02:54→09:45)
[2025-05-02] MEDS: UNASYN IV ×2 (03:40→09:38)
[2025-05-02] MEDS: TYLENOL PO ×4 (03:40→11:02)
[2025-05-02 03:54] VITALS: BP 129/70
--- NOTE | 2025-05-02 04:27 | PTCARENOTE ---
Resumed care of pt laying in bed resting comfortably. Pt reports pain at tolerable level at this time. IV ABX infusing as ordered via left triple lumen picc. HR in the 70's in NSR on the monitor. Midline abd incision with surg glue in place open to
air. Rt lower Quadrant Ileostomy in place. Pt denies any complaints at this time. Call vergara in reach. Will continue to monitor.
[2025-05-02] MEDS: SYNTHROID 125 MCG PO (05:31)
[2025-05-02] MEDS: MORPHINE SULFATE 4 MG IV (05:35)
[2025-05-02 06:00] VITALS: BMI 25.5
[2025-05-02 07:15] VITALS: BP 122/69
[2025-05-02] MEDS: NSS (PRESERVATIVE FREE) 10 ML IV (09:41)
[2025-05-02] MEDS: PROTONIX IV 40 MG IV (09:41)
[2025-05-02] MEDS: VITAMIN D3 (cholecalciferol) 25 MCG PO (09:42)
[2025-05-02] MEDS: ELIQUIS 5 MG PO (09:42)
[2025-05-02] MEDS: LIPITOR 80 MG PO (09:42)
[2025-05-02] MEDS: DESENEX/MITRAZOL/ZEASORB 1 APPLIC TOPICAL (09:42)
[2025-05-02] MEDS: PACERONE 200 MG PO (09:42)
--- NOTE | 2025-05-02 09:47 | W.PN.HOSP.TC ---
Today's Communication/Plan
-
no further change in mgmt, agree with discharge planning
Assessment / Plan
Assessment / Plan
64yo F with PMHx of cholecystectomy, asthma, hypothyroidism, HLD, anxiety, HTN, GERD, chronic thrombocytosis came with complicated diverticulitis with abscesses in October 2024, initially treated with Abx. Then developed in February 2025 with recurrent
abscesses and coloenteric fistula, initially managed with drain and Abx, then readmitted for robotic sigmoidectomy with L colectomy, loop ileostomy and two coloenteric fistula takedown on 04/18/25. Managed for TPN for postOP recovery and due to
abscess found during surgery - on Unasyn and Micafungin as per ID
A/P:
#complicated diverticulitis
#Residual L retroperitoneal abscess
TPN completed on 04/28/25 and advanced diet as tolerated as per Colorectal Sx
ID follows: On Unasyn?Micafungin
Repeat CT on 04/26/25 due to leukocytosis showed no contrast extravasation
Patient reporting ongoing pain 9.5/10 that improved to 6-7 on Oxycodone 10mg q6h, however patient is taking IV Morphine every 4h since does not feel that the level of the pain on oral meds appropriate. Bedside patient s comfortable and not in
distress. Declined switch to PO Dilaudid. Oxycodone interval changed to q4hprn on 04/29/25. Discussed in details with patient that decrease in pain level by 2-3 points while her remains comfortable on exam - is successful response. Discussed that pain
mgmt expectations should be realistic. Concern for opioid dependency. Would rapidly titrate as outpatient
#Abdominal aortic thrombus
#Possible ALEJANDRO obstruction
Vascular Sx: recommended anticoagulation, started on heparin drip switched to DOAC on 04/29/25
#A.flutter with RVR
telemetry
controlled on Amiodarone
#Hyponatremia
Mild
most likely 2/2 pain
Follow BMP
control pain
#Anemia, acute on chronic
#PHANI
#Chronic thrombocytosis
Previously recommended hematology follow up
multifactorial: chronic disease, postOP
follow CBC
s/p 1 unit PRBC on 04/27/25
transfuse as needed
#5.2cm exophitic uterine fibroid
US TV as outpatient with [employer]IC
#Essential HTN
#Anxiety
#GERD
con home meds when able
DVT ppx hep drip
Full code
I have spent at least 6min reviewing chart, test results, communication with consultants and providing direct patient care
Anticipated Discharge: Within 24 hours
Subjective/Interval History
-
Date of Service: May 02, 2025
Objective Data
-
Vital Signs:
Vital Signs
Temp Pulse Resp BP Pulse Ox
98.1 F 74 16 122/69 98
05/02/25 07:15 05/02/25 07:15 05/02/25 07:15 05/02/25 07:15 05/02/25 03:54
I&O
05/01/25 05/02/25 05/03/25
06:59 06:59 06:59
Intake Total 1650 / 1650 480 / 480
Balance 1650 / 1650 480 / 480
Review of Systems
-
History Source: Patient
All other systems: Reviewed and negative
Physical Exam
-
General: No Apparent Distress
HEENT: Normocephalic
Neuro: Awake, Alert, Oriented and AO x 3
Psych: Calm
--- NOTE | 2025-05-02 09:49 | W.PN.CRS1 ---
Today's Communication / Plan
-
Discharge once rehab bed available
Assessment/Plan
-
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 H/O Aortic thrombus with partial ALEJANDRO obstruction, had been on Eliquis which was held for surgery
POD # 14 robotic sigmoidectomy/left colectomy, takedown of coloenteric fistulas: coloileal by CRS (Johnie) and coloduodenal by GS (Abilio) with primary repair of duodenotomy in 2 layers; creation of diverting loop ileostomy, cystoscopy with
placement of ureteral stents for identification of the ureters by urology (uTrner)
AFVSS
Plan:
-- Continue low residue diet
--Encourage OOB/Mobility
--Pain control with Tylenol, oxycodone as needed
--Continue Unasyn and micafungin, appreciate ID- another week of IV antibiotics.
-- Continue Eliquis
-- Encourage I-S/OOB; appreciate PT, recommend SNF
-- Appreciate WOCN
--General Surgery signed off
--Appreciate hospitalist consult
--Dispo�okay for DC once bed is available and IV antibiotics are arranged
Subjective Data
Procedure
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
Subjective Data
Date of Service: May 02, 2025
Patient states that she is healing well. She has no complaints. She is tolerating diet. She has no nausea or vomiting. Her colostomy has function.
Objective Data
-
Vital Signs
Temp Pulse Resp BP Pulse Ox
98.1 F 74 16 122/69 98
09/04/25 07:15 05/02/25 07:15 05/02/25 07:15 05/02/25 07:15 05/02/25 03:54
Intake & Output
05/01/25 05/02/25 05/03/25
06:59 06:59 06:59
Intake Total 1650 / 1650 480 / 480
Balance 1650 / 1650 480 / 480
Intake:
Oral fluids 1070 / 1070 240 / 240
IV fluids (Total) 0 / 0
IV piggybacks 580 / 580 240 / 240
Other:
Number of approximated MODERATE 3 1
amounts of urine
How many times incontinent 2
MODERATE amount urine
Lab Results
05/01/25 05:38
04/30/25 05:36
Physical Exam
-
General: No Acute Distress and AOx3
Abdomen: Soft, Non Distended, Non Tender and Other (Colostomy warm and pink with function)
Skin: Warm and Dry
--- NOTE | 2025-05-02 10:47 | PTCARENOTE ---
Patient's ostomy emptied for moderate amount of soft stool. Patient not interested in caring for or emptying ostomy. Patient to be discharged today. Her brother is picking her up and transporting her to [facility] at 1130. Ostomy supplies sent
with patient. [facility] notified of her forklift picker time/report given.
[2025-05-02 11:00] VITALS: BP 139/89
--- NOTE | 2025-05-02 11:16 | CM ---
spoke with Violeta from [facility]
she has all auth information - set for today
Patient discharged today
IMM n/a
PLAN: [facility] today
report: [phone]
fax: [phone]
brother to transport
== END 2025-05-02 11:32 | DRG 326 ==
LOC: 2 SOUTH 05:50
PROVIDERS: Hospitalist; Internal Medicine; Internal Medicine Infectious Disease; Physician Assistant; Registered Nurse; Specialist; Surgery; ADMITTING PHYSICIAN Surgery; CONSULT PHYSICIAN Internal Medicine Critical Care Medicine; CONSULT PHYSICIAN Internal Medicine Infectious Disease; FAMILY PHYSICIAN Nurse Practitioner Family; OTHER PHYSICIAN Hospitalist
PROC: 3E04317 Introduction of Other Thrombolytic into Central Vein, Percutaneous Approach (ICD-10-PCS; 2025-04-18)
PROC: 0DQ98ZZ Repair Duodenum, Via Natural or Artificial Opening Endoscopic (ICD-10-PCS; 2025-04-18)
PROC: 0DT Gastrointestinal System, Resection (ICD-10-PCS; 2025-04-18)
PROC: 0DTN8ZZ Resection of Sigmoid Colon, Via Natural or Artificial Opening Endoscopic (ICD-10-PCS; 2025-04-18)
PROC: 8E0W8CZ Robotic Assisted Procedure of Trunk Region, Via Natural or Artificial Opening Endoscopic (ICD-10-PCS; 2025-04-18)
PROC: 30243N1 Transfusion of Nonautologous Red Blood Cells into Central Vein, Percutaneous Approach (ICD-10-PCS; 2025-04-18)
PROC: 0T788DZ Dilation of Bilateral Ureters with Intraluminal Device, Via Natural or Artificial Opening Endoscopic (ICD-10-PCS; 2025-04-18)
PROC: 0DN Gastrointestinal System, Release (ICD-10-PCS; 2025-04-18)
PROC: 0D1B4Z4 Bypass Ileum to Cutaneous, Percutaneous Endoscopic Approach (ICD-10-PCS; 2025-04-18)
PROC: 0DJD8ZZ Inspection of Lower Intestinal Tract, Via Natural or Artificial Opening Endoscopic (ICD-10-PCS; 2025-04-18)
PROC: 3E0436Z Introduction of Nutritional Substance into Central Vein, Percutaneous Approach (ICD-10-PCS; 2025-04-19)
DX: K57.20 Diverticulitis of large intestine with perforation and abscess without bleeding (principal); K68.19 Other retroperitoneal abscess; D62 Acute posthemorrhagic anemia; E87.1 Hypo-osmolality and hyponatremia; K63.2 Fistula of intestine; I74.09 Other arterial embolism and thrombosis of abdominal aorta; I48.92 Unspecified atrial flutter; E46 Unspecified protein-calorie malnutrition; K56.7 Ileus, unspecified; I48.91 Unspecified atrial fibrillation; I10 Essential (primary) hypertension; E03.9 Hypothyroidism, unspecified; J45.909 Unspecified asthma, uncomplicated; D75.839 Thrombocytosis, unspecified; F41.9 Anxiety disorder, unspecified; R73.9 Hyperglycemia, unspecified; E78.00 Pure hypercholesterolemia, unspecified; K66.0 Peritoneal adhesions (postprocedural) (postinfection); D63.8 Anemia in other chronic diseases classified elsewhere; D50.9 Iron deficiency anemia, unspecified; K21.9 Gastro-esophageal reflux disease without esophagitis; E83.39 Other disorders of phosphorus metabolism; Z91.040 Latex allergy status; Z88.5 Allergy status to narcotic agent; Z11.52 Encounter for screening for COVID-19; Z79.890 Hormone replacement therapy; Z79.01 Long term (current) use of anticoagulants; Z90.49 Acquired absence of other specified parts of digestive tract; Z82.5 Family history of asthma and other chronic lower respiratory diseases; Z80.41 Family history of malignant neoplasm of ovary; Z80.7 Family history of other malignant neoplasms of lymphoid, hematopoietic and related tissues; Z79.2 Long term (current) use of antibiotics
CPT/HCPCS: 36415; 71045; 74018; 74177; 74240; 74248; 80048; 80053; 80202; 81003; 81015; 82040; 82962; 83036; 83735; 84100; 84478; 85014; 85018; 85025; 85027; 85610; 85730; 86850; 86900; 86901; 86920; 87070; 87086; 87811; 88307; 93005; 94640; 97116; 97163; 97167; 97530; 97535; A4300; J1335; J2997; P9016; P9045; Q9967

== ENCOUNTER → 2025-08-06 13:32 | Outpatient (REF) | payer OTHER, SELFPAY | LOC: RAD 13:32 | PROVIDERS: ATTENDING PHYSICIAN Surgery Vascular Surgery; FAMILY PHYSICIAN Nurse Practitioner Family | DX: I74.10 Embolism and thrombosis of unspecified parts of aorta (principal) | CPT/HCPCS: 71275; 74174; Q9967 ==